=== PATIENT | male | born 1945 | race Caucasian/White ===

== ENCOUNTER 2022-03-02 09:43 | Emergency (ER) | payer MEDICARE, SELFPAY ==
[2022-03-02 10:05] VITALS: BP 157/94; PULSE 62; RESP 16; TEMP 36.2; O2SAT 96
--- NOTE | 2022-03-02 10:36 | ED.GENADULT ---
HPI - General Adult General Chief complaint: Unspecified Stated complaint: High BP 208/110 Time Seen by Provider: 03/02/22 09:58 Source: patient and RN notes reviewed Mode of arrival: ambulatory Limitations: no limitations History of Present Illness Onset (ago): hour(s) Radiation: non-radiation Severity: mild Quality: other (pain-free) Relieving factors: none Exacerbating factors: none Associated symptoms: denies other symptoms Related Data Home Medications Medication Instructions Recorded Confirmed Adults Multivitamin 1 tablet PO DAILY 09/27/19 03/02/22 allopurinol 300 mg PO DAILY 09/27/19 03/02/22 citalopram 40 mg PO DAILY 09/27/19 03/02/22 gabapentin 600 mg PO DAILY 09/27/19 03/02/22 losartan 100 mg PO DAILY 03/02/22 03/02/22 metoprolol tartrate 100 mg PO BID 03/02/22 03/02/22 omeprazole 20 mg PO DAILY 03/02/22 03/02/22 Allergies Allergy/AdvReac Type Severity Reaction Status Date / Time Sulfa (Sulfonamide Allergy Unknown Verified 03/02/22 10:28 Antibiotics) Review of Systems Review of Systems: All systems reviewed & are unremarkable except as noted in HPI and below PMFSH Past Medical History Medical History Depression Hypertension Kidney stone Surgical History Surgical History History of right ankle joint replacement Previous back surgery Family History Family History Mother Acute myocardial infarction Congestive heart failure Hypertension Social History Social History Years smoked: 20 Smoking status: Former smoker Tobacco type: cigarettes Smoking end date: 03/21/02 Alcohol intake: current Drinks per week: 6 Substance use: never Gender identity (if verbalized by the patient): Male Spiritual care concerns: No Agree to blood products: Yes Exam Const: General: cooperative, healthy appearing, comfortable and well groomed Nutritional Appearance: average body habitus Orientation/consciousness: patient oriented x3 Limitations: no limitations HENMT: Head: normal to inspection, normocephalic and atraumatic Ears: hearing grossly normal bilaterally, external ears normal, TM's normal bilaterally and EAC's normal General nose exam: Normal external nose present and Normal nares present Face and sinus: normal facial exam and sinuses nontender Mouth: Yes oropharynx normal and Yes moist mucous membranes Eyes: General: appearance normal, both eyes and all related structures Visual Johns: normal visual johns by confrontation Eyelids: eyelids normal Conjunctivae: conjunctivae normal Sclera: sclerae normal Cornea: corneas normal Pupils: Equal, round and reactive pupils present EOM: EOMs intact bilaterally Neck: Neck: normal visual inspection and full ROM Chest: Chest palpation & inspection: normal inspection of the chest and normal palpation of entire chest wall Resp: Effort & Inspection: normal respiratory effort and able to speak in complete sentences Auscultation: clear to auscultation bilaterally Cardio: Jugular venous distension: no JVD Rate: regular rate Rhythm: regular rhythm Heart sounds: S1 normal heart sound present and S2 normal heart sound present Peripheral pulses: Peripheral pulses 2+ throughout GI: Inspection: normal to inspection GI Palp: No abdominal tenderness Auscultation: normal bowel sounds Back/Spine/Pelvis: Back: no CVA tenderness Cervical Spine: cervical ROM normal Thoracic/Lumbar Spine: thoraco-lumbar ROM normal Skin: General skin exam: normal color and no rashes or lesions noted Wounds: no wounds Neuro: General: patient oriented x3, moves all extremities, no focal motor deficits and CN's II-XI intact bilaterally Cranial nerves: Yes CN's II-XII intact bilaterally, Yes Facial sensation intact/muscles of mastication int
[2022-03-02 10:40] VITALS: BP 158/90; PULSE 60; RESP 16; O2SAT 98
== END 2022-03-02 10:42 | disposition home or self-care (01) ==
PROVIDERS: Emergency Provider Emergency Medicine
DX: I10 Essential (primary) hypertension (principal); Z87.891 Personal history of nicotine dependence
CPT/HCPCS: 99281; 99283

== ENCOUNTER 2022-09-11 08:58 | Outpatient (RCR) | payer MEDICARE, SELFPAY ==
--- NOTE | 2022-09-11 10:06 | PTOPEVAL1 ---
Assessment and note entered by JT File, PT Evaluation Information Assessment Status Evaluation Diagnosis L knee OA Onset 02/28/22 Subjective Information patient reports he has been having increased pain in the L knee for months. he reports he has had xrays of the L knee that show OA. he reports he has been going to [place] for injections to the L knee for 3-4 years. he reports the last injection he also had 64ml of fluid taken off the L knee. he reports he has increased pain with walking up steps, pushing his hips into ER during yoga ( figure 4), bending the knee, and prolonged activities. Reported Pain Level Pain Score 3: Self Report Assessment PT Clinical Summary mr. mancuso presents to skilled PT services for evaluation and treatment of L knee OA. he presents this date with pain in the L knee, weakness in the bilateral hips, decreased L knee rom, crepitus in the L knee, abnormal gait/stair ambulation mechanics, and a moderate fall risk per the tinetti. he would do well to attend and participate in skilled PT services to decrease his pain, improve his balance, strength, gait mechanics, and functional activity performance to improve his quality of life. Plan of Care Interventions Electrical Stimulation,Gait Training,Manual Therapy,Neuro Re-education,Patient/Caregiver Educati,Therapeutic Activities,Therapeutic Exercise PT Services Indicated Yes Treatment Frequency and 2x weekly for 8 visits Duration These treatments will address the objective and functional deficits as defined above. The patient will be advanced safely and appropriately in order for the patient to progress towards his/her prior level of function. Additional exercises will be introduced and as well as a comprehensive home exercise program upon discharge, if needed, ?to ensure carryover of functional gains achieved in the clinic. This treatment plan has been reviewed and agreement upon by the patient.
--- NOTE | 2022-10-26 12:01 | PTOPPROG ---
Assessment and note entered by Karly Ocasio DPT Evaluation Information Assessment Status Progress Diagnosis L knee OA Onset 02/28/22 Subjective Information Pt reports some soreness in his L knee but reports no pain. Pt reports continued difficulty with walking up steps and feels this is due to a combination of his knee, balance, and his ankle. Pt reports he has a follow-up with his MD sometime in November. He has still been doing yoga 3x a week, going to the gym, and walking frequently. Assessment PT Clinical Summary Pt presents to PT with significant improvements in pain, range of motion, and strength since his initial evaluation. He is still limited in flexion ROM in part due to increased joint inflammation and is still limited in knee flexion and hip flexion/abduction strength. He has attended 8 sessions and reports improvements in quality of life since starting PT. He is likely to benefit from additional skilled PT now at 1x week to continue to facilitate symptom relief and further improve the aforementioned impairments. Plan of Care PT Services Indicated Yes Treatment Frequency and 1x week for 4 visits Duration These treatments will address the objective and functional deficits as defined above. The patient will be advanced safely and appropriately in order for the patient to progress towards his/her prior level of function. Additional exercises will be introduced and as well as a comprehensive home exercise program upon discharge, if needed, ?to ensure carryover of functional gains achieved in the clinic. This treatment plan has been reviewed and agreement upon by the patient.
--- NOTE | 2022-12-25 09:07 | PCPTNOTE ---
mr. mancuso has not been to therapy since 11/06/22. per that note, he had no pain, but had been fluctuating in pain in the L knee with increased activity from visits before. he will DC skilled PT services today with all progress towards goals taken from his most recent evaluation/note.
== END 2022-11-06 23:59 | disposition home or self-care (01) ==
LOC: CHSPT 08:58
PROVIDERS: Visit Provider Physical Medicine & Rehabilitation
DX: M17.12 Unilateral primary osteoarthritis, left knee (principal)
CPT/HCPCS: 97110; 97112; 97161; 97530

== ENCOUNTER 2023-01-14 13:39 | Outpatient (RCR) | payer MEDICARE, SELFPAY ==
--- NOTE | 2023-01-14 13:39 | PTOPEVAL1 ---
Assessment and note entered by Edgar Dwod Evaluation Information Assessment Status Evaluation Diagnosis low back pain Onset 10/16/22 Subjective Information Pt. reports that he developed right sided low back pain about 3 months ago. He reports that the pain does shoot down the right leg. He reports that pain is most notable with sitting and driving . He reports that he has no trouble with sleeping . He reports that he underwent a lumbar fusion in 2009 and has had no problems until the recent months. He reports that he underwent recent xrays which didnt reveal many signficant findings. 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 he states that he cannot drive any significant distance or read a book without increasing pain. He reports that his goal is to reduce his low back pain. Reported Pain Level Pain Score 6: Self Report Assessment PT Clinical Summary Pt. is a 77 year old who enters the clinic with low back pain with right l.e. radiculopathy. he presents with impaired flexiblity, impaired trunk mobility, impaired strength, pain and imparied postural awareness. Continued skilled PT is indicated in order to improve these areas to allow for improved comfort with IADL performance. Plan of Care Interventions Electrical Stimulation,Hot Pack/Cold Pack,Manual Therapy,Neuro Re-education,Patient/Caregiver Educati,Therapeutic Activities,Therapeutic Exercise PT Services Indicated Yes Treatment Frequency and 2x/week x 10 visits Duration These treatments will address the objective and functional deficits as defined above. The patient will be advanced safely and appropriately in order for the patient to progress towards his/her prior level of function. Additional exercises will be introduced and as well as a comprehensive home exercise program upon discharge, if needed, ?to ensure carryover of functional gains achieved in the clinic. This treatment plan has been reviewed and agreement upon by the patient.
--- NOTE | 2023-03-07 09:52 | PTOPDC ---
Assessment and note entered by JT File, PT Evaluation Information Assessment Status Re-evaluation Diagnosis low back pain Onset 10/16/22 Subjective Information patient reports he feels pretty good today. he reports he had an injection to the back earlier this week and he has no pain currently. he reports he is anxious about DC'ing prior to knowing how long the injection will last for him. Reported Pain Level Pain Score 0: Self Report Assessment PT Clinical Summary mr. mancuso presents to skilled PT services for his 10th skilled therapy visit. he has recently had an inection to the lower back and is feeling great. as of this date, he has met all goals for skilled PT, except for heel raises on the right. however, he had an ankle replacement of the R ankle and has not been able to perform heel raises since the surgery. despite meeting these goals, and seemign ready for DC, his chart will be on hold for a few weeks to allow for more time to assess for effect and tolerance of the injection. Plan of Care PT Services Indicated Yes
== END 2023-03-07 11:30 | disposition home or self-care (01) ==
LOC: CHSPT 13:39
DX: M48.061 Spinal stenosis, lumbar region without neurogenic claudication (principal)
CPT/HCPCS: 97014; 97110; 97161; 97530; G0283

== ENCOUNTER 2023-05-23 14:17 | Emergency (ER) | payer MEDICARE, SELFPAY ==
--- NOTE | ~2023-05-23 | US_ITS ---
EXAMINATION: US venous doppler [facility] DATE: 05/23/2023 15:20 INDICATION: Right lower limb swelling. TECHNIQUE: Grayscale ultrasound images without and with compression and Doppler ultrasound images of the left lower extremity veins were obtained. COMPARISON: None. FINDINGS: The visualized portions of left common femoral vein, profunda (deep) femoral vein, femoral vein, popl iteal vein, peroneal veins, posterior tibial veins, and greater saphenous vein outflow are patent. IMPRESSION: 1. No deep venous thrombosis. Reviewed, dictated and finalized at location L.
[2023-05-23 14:17] VITALS: BP 153/80; PULSE 66; RESP 18; TEMP 37.7; O2SAT 100
[2023-05-23 14:28] VITALS: TEMP 37.7
--- NOTE | 2023-05-23 14:32 | ED.LOWEXIN ---
HPI - Extremity Injury (Lower) General Chief Complaint: Extremity Injury, Lower Stated Complaint: left leg swelling/bruising Time Seen by Provider: 05/23/23 14:30 Source: patient Mode of arrival: ambulatory Limitations: no limitations History of Present Illness HPI Narrative: patient is a 78-year-old male with left lower extremity swelling and pain and redness since surgery a week ago. Patient had a total knee replacement on the left knee. Patient came to the emergency room with concerns of DVT. Patient already is on is Xarelto for AFib. MD complaint: other ( Total knee replacement on the left) Onset (ago): week(s) (1) Place: home Severity: mild Severity scale (1-10): 3 Relieving factors: nothing Exacerbating factors: nothing Context: other ( surgery to the left knee) Other symptoms: none Related Data Home Medications Medication Instructions Recorded Confirmed Adults Multivitamin 1 tablet PO DAILY 09/27/19 03/02/22 allopurinol 300 mg tablet 300 mg PO DAILY 09/27/19 03/02/22 citalopram 20 mg tablet 40 mg PO DAILY 09/27/19 03/02/22 gabapentin 300 mg capsule 600 mg PO DAILY 09/27/19 03/02/22 losartan 50 mg tablet 100 mg PO DAILY 03/02/22 03/02/22 metoprolol tartrate 25 mg tablet 100 mg PO BID 03/02/22 03/02/22 omeprazole 20 mg capsule,delayed 20 mg PO DAILY 03/02/22 03/02/22 release Allergies Allergy/AdvReac Type Severity Reaction Status Date / Time Sulfa (Sulfonamide Allergy Unknown Verified 05/23/23 14:27 Antibiotics) Review of Systems Review of Systems: All systems reviewed & are unremarkable except as noted in HPI and below Constitutional: Constitutional: Reports no additional constitutional complaints Eyes: Eyes: Reports no additional eye complaints ENT: Reports system reviewed and no additional complaints, except as documented Cardiovascular: Cardiovascular: Reports no additional cardiovascular complaints Respiratory: Respiratory: Reports no additional respiratory complaints Gastrointestinal: Gastrointestinal: Reports no additional gastrointestinal complaints Genitourinary: Genitourinary: Reports no additional male genitourinary complaints Musculoskeletal: Musculoskeletal: Reports no additional musculoskeletal complaints Integumentary/Breasts: Skin/Breast: Reports system reviewed and no additional complaints, except as docu Neurologic: Reports system reviewed and no additional complaints, except as documented Psychiatric: Psychiatric: Reports no additional psychiatric complaints Endocrine: Endocrine: Reports no additional endocrine complaints Hematologic/Lymphatic: Hematologic/Lymphatic: Reports no additional hematologic/lymphatic complaints Allergic/Immunologic: Allergic/Immunologic: Reports no additional allergic/immunologic complaints [facility] Past Medical History Medical History (Updated 05/23/23 @ 15:08 by Abelardo Boyd MD) Depression Hypertension Kidney stone Surgical History Surgical History History of right ankle joint replacement Previous back surgery Family History Family History Mother Acute myocardial infarction Congestive heart failure Hypertension Social History Social History Years smoked: 20 Smoking status: Former smoker Tobacco type: cigarettes Smoking end date: 03/21/02 Alcohol intake: current Drinks per week: 6 Substance use: never Gender identity (if verbalized by the patient): Male Spiritual care concerns: No Agree to blood products: Yes Exam Const: General: healthy appearing and no acute distress HENMT: Head: normal to inspection Eyes: Conjunctivae: conjunctivae normal Neck: Neck: normal visual inspection Chest: Chest palpation & inspection: normal inspection of the chest Resp: Effort & Inspection: normal respiratory effort Auscultation: chidi
[2023-05-23] MEDS: cefTRIAXone 1 GM, LIDOCAINE HCL 1% LOCAL INJ 2.1 ML IM (15:24)
[2023-05-23 15:39] VITALS: BP 136/62; PULSE 80; RESP 16; TEMP 37.2; O2SAT 99
== END 2023-05-23 15:44 | disposition home or self-care (01) ==
PROVIDERS: Emergency Provider Emergency Medicine
DX: L03.116 Cellulitis of left lower limb (principal); I10 Essential (primary) hypertension; Z87.891 Personal history of nicotine dependence; Z96.652 Presence of left artificial knee joint
CPT/HCPCS: 93971; 96372; 99284; J0696

== ENCOUNTER 2024-11-27 09:04 | Outpatient (CLI) | payer MEDICARE, SELFPAY ==
--- NOTE | 2024-11-27 09:19 | ECG_ITS ---
Test Date: 2024-11-27 09:38:02 Measurements Intervals [place] Rate: 64 P: 25 CA: 220 QRS: 13 QRSD: 94 T: 151 QT: 416 QTc: 429 Interpretive Statements SINUS RHYTHM WITH FIRST DEGREE AV BLOCK ST DEVIATION AND MODERATE T-WAVE ABNORMALITY, CONSIDER ANTEROLAT/HIGH LAT ISCHEMIA BASELINE ARTIFACT- I, II, III, AVR, AVL, AVF, V1, V3-V6 ABNORMAL ECG No previous ECG available for comparison Electronically Signed On 11-27-2024 09:43:00 [employer] by Monty Gaston D.O.
--- OUTSIDE RECORDS SUMMARY | 2024-11-27 09:32 | XMS_ITS | CONTINUITY OF CARE DOCUMENT ---
Author Name stone ritter Address Unknown Organization [facility] Address [address] [place] [address] Phone [phone] Care Team Providers Care Feed Inspection Supervisor Name Role Phone Reji RAMIREZ, Josafat Unavailable [phone] Josafat Mendoza MD Unavailable [phone] INSURANCE PROVIDERS Payer name Policy type / Coverage type [employer] [place] Administ[employer] ation plan [id number]
--- OUTSIDE RECORDS SUMMARY | 2024-11-27 09:32 | XMS_ITS | Encounter Summary ---
Author Name [facility] Address [address] [place] [address] Care Team Providers Care Button Buttonhole Marker Name Role Phone RAQUEL TUCKER Primary Care Provider Unavailabl e Insurance Providers: All historical and current Section Date Range: From patient's date of to the date document was created. This section includes the names of all active insurance providers for the patient. Insurance Provider Type of Coverage Plan Name Start of Policy Coverage End of Policy Coverage Group Number Member ID Insurance Provider's Telephone Number Policy Rodriguez's Name Patient's Relationship to Policy Rodriguez [place] SUPPLEMEN BISHOP MEDIC ARE SUPPL EMENT Nov 21, 2010 [id number] [phone] HARVINDER DOUGHERTY PATIENT MEDICARE (WNR) MEDICARE (M) PART A Nov 21, 2010 PART A [id number] Chandu ANGELES PATIENT MEDICARE (WNR) MEDICARE (M) PART B Nov 21, 2010 PART B [id number] Chandu ANGELES LLOYDRAMOS PATIENT MEDICARE (WNR) MEDICARE (M) PART B Nov 21, 2010 PART B [id number] Chandu ANGELES LLOYDRAMOS PATIENT MEDICARE (WNR) MEDICARE (M) PART A Nov 21, 2010 PART A [id number] Chandu ANGELES PATIENT Selected Encounter This section includes the information on record at NH for the Encounter. Date/Time Encounter Type Encounter Description Reason Provider Source Nov 23, 2024 10:00 AM OFFICE O/P EST MOD 30 MIN ONCOLOGY/TUMOR ICD-10-CM E85.89 Other amyloidosis ISAACBRENDAN Kai IHCayla Encounter Template Text not used by NH Assessments - Encounter Diagnoses This section includes the primary and secondary diagnoses documented for the Encounter. Date/Time Primary/Secondary Diagnosis Diagnosis Name Provider Source Nov 23, 2024 08:45 PM PRIMARY Other amyloidosis BRENDAN GRAY [facility] Nov 23, 2024 08:45 PM SECONDARY Monoclonal gammopathy BRENDAN GRAY [facility] Plan of Treatment: Future Appointments (+ 6 months) and Future Tests (+/- 45 days) The Plan of Treatment section includes future care activities for the patient from [facility] This section includes future appointments and future orders which are active, pending or scheduled. Future Appointments This section includes appointments that were scheduled to occur 6 months from the date of the Encounter, up to a maximum of 20 appointments. The data comes from all NH treatment facilities. Appointment Date/Time Appointment Type Appointme nt Facility Name Dec 29, 2024 09:30 AM AMBULATORY - MEDICINE [facility] Apr 22, 2025 03:00 PM AMBULATORY - NEUROLOGY [facility] Active, Pending, and Scheduled Orders This section includes a listing of several types of active, pending, and scheduled orders, including clinic medications orders, diagnostic test orders, procedure orders and consult orders; where the start date of the order is 45 days before the date of the Encounter or 45 days after the date of theEncounter. The data comes from all [facility] treatment [facility]. Test Date/Time Test Type Test Details Facility Name Oct 09, 2024 12:00 AM Laboratory - Chemistry Order FERRITIN GOLD/RED SST [facility] Nov 23, 2024 10:10 AM Laboratory - Chemistry Order PROTEIN ELECTROPHORESIS BLOOD BLOOD [facility] Lab Results: +/- 30 days of the encounter This section includes the Chemistry and Hematology Lab Results on record with NH for the patient. Radiology Reports and Pathology Reports are provided separately, in subsequent sections. Lab Results This section contains the Chemistry/Hematology Results that were resulted 30 days before or 30 daysafter the date of the Encounter. Date/Time Source Result Type Result - Unit Interpretation Reference Range Comment Nov 23, 2024 10:10 AM [facility] KAPPA/LAMBDA FREE LC PANEL (STL-PB) Specimen Type: SERUM No comment entered. Ordering Provider: PREETI GRAY Report Released Date/Time: Nov 26, 2023 09:22 AM Reporting Lab: [address] [address] Performing Lab: [address] [address] KAPPA FREE LC (STL) 26.0 mg/L H 2.4-20.7 LAMBDA FREE LC (STL) 23.3 mg/L 4.2-27.7 KAPPA/LAMBDA RATIO (STL) 1.12 0.22-1.74 Nov 23, 2024 10:10 AM [facility] COMPREHENSIVE METABOLIC PANEL Specimen Type: PLASMA Comment: No hemolysis noted. Ordering Provider: PREETI GRAY Report Released Date/Time: Nov 26, 2023 09:22 AM Reporting Lab: [address] [address] Performing Lab: [address] [address] CREATININE 1.01 mg/dL 0.7-1.3 UREA NITROGEN 18.0 mg/dL 9.0-25.0 GLUCOSE 84 mg/dL 72-99 SODIUM 141 meq/L 136-145 POTASSIUM 4.4 meq/L 3.5-5 CHLORIDE 106 meq/L 98-107 CARBON DIOXIDE 24 meq/L 22-31 CALCIUM 9.4 mg/dL 8.4-10.4 PROTEIN 7.1 g/dL 6-8.6 ALBUMIN 4.0 g/dL 3.4-5 TOTAL BILIRUBIN 0.7 mg/dL 0.2-1.2 ALKALINE PHOSPHATASE 77 U/L 40-150 AST/SGOT 24 U/L 5-34 ALT/SGPT 23 U/L 8-40 EGFR (CKD-EPI 2020) 76.6 >60 Nov 23, 2024 10:10 AM [facility] CBC Specimen Type: BLOOD No comment entered. Ordering Provider: PREETI GRAY Report Released Date/Time: Nov 26, 2023 09:22 AM Reporting Lab: [address] [address] Performing Lab: [place] [id number] [facility] [address] WBC 7.2 10*3/uL 3.6-11.2 RBC 4.16 10*6/uL 4.10-5.70 HGB 13.8 g/dL 13.1-16.8 HCT 40.3 38.2-48.4 MCV 96.9 fL 80.0-100.0 MCH 33.2 pg 27.0-34.0 MCHC 34.2 g/dL 33.0-36.0 PLT 247 10*3/uL 150-400 MPV 9.0 fL 7.5-11.2 RDW 14.2 11.8-15.1 LYMPHOCYTES, AUTO % 25 MONOCYTES, AUTO % 11 NEUTROPHILS, AUTO % 60 EOSINOPHILS, AUTO % 3 BASOPHILS, AUTO % 0 LYMPHOCYTES, ABSOLUTE 1.78 10*3/uL 0.77-4.50 MONOCYTES, ABSOLUTE 0.82 10*3/uL H 0.19-0.80 NEUTROPHILS, ABSOLUTE 4.36 10*3/uL 2.10-8.00 EOSINOPHILS, ABSOLUTE 0.20 10*3/uL 0.00-0.60 BASOPHILS, ABSOLUTE 0.03 10*3/uL 0.00-0.20 Vital Signs: All taken on the encounter date This section contains inpatient and outpatient Vital Signs collected on the date of the Encounter. Date/Time Temperature Pulse Blood Pressure Respiratory Rate SP02 Pain Height Weight Body Mass Index Source Nov 23, 2024 10:16 AM 97.5 69 129/73 18 98 239.8 35 [facility] Encounter Notes: All associated encounter notes This section contains the clinical notes associated to the Encounter. Date/Time Encounter Note(s) Provider Source Nov 23, 2024 11:52 AM HEMATOLOGY AND ONCOLOGY OUTPATIENT NOTE: LOCAL TITLE: HEMATOLOGY ONCOLOGY OUTPATIENT FOLLOW UP [facility] STANDARD TITLE: HEMATOLOGY AND ONCOLOGY OUTPATIENT NOTE DATE OF NOTE: NOV 23, 2024@11:52 ENTRY DATE: NOV 23, 2024@11:52:51 AUTHOR: ALANNA GOLDSMITH COSIGNER: BRENDAN GRAY URGENCY: STATUS: COMPLETED CC: MGUS HPI: Mr. 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 He was established with our service from [id number] for MGUS and neuropathy affecting his upper extremities. After being lost to follow up, his neuropaty symptoms continued to proegress with worsening tingling and numbness in the R foot in 2018 for which he had an ankle replacement in 2019. Since then he developed some gait imbalance, and noticed weakness and atrophy of the right leg/calf over that time period that has been progressing over time. Given progression of his symptoms he established care with neurology on 2022 after having a had a CT myelogram in January 2023 that showed postsurgical change without evidence of hardware failure or loosening, and EMG/NCS showing evidence of a right L5/S1 radiculopathy and sensory motor axonal polyneuropathy. During this time frame, he was undergoing evaluation for bilateral CTS. He underwent right carpal tunnel release, right Guyon's canal release, tenosynovial biopsy for question of amyloidosis with Dr. Austin on 09/04/23. Tenosynovial biopsy showed evidence of TTR amyloidosis. This evaluation was also at [facility]. He was seen on 06/2023 by alessandra at [facility] for MGUS, for IgA kappa monoclonal gammopathy and felt picture was most consistent with MGUS. Skeletal survey negative. His cardiac MRI on 11/2023 at [facility] was not consistent with TTR amyloid diagnosis. He was seen by Alcon and Alessandra at [facility] on Spring 2023, which have low concern for cardiac amyloidosis or progression of his MGUS that would need systemic therapy. He has been following with Neuro and Cards at the [facility], and was was started on vutisiran on Jun 2024. Interim Hx: He reports improvement of his peripheral neuropathy after starting vutisiran. He is following with [facility] [place] [facility], and is pending a cytoscopy in a few weeks to evalaute a bladder lesion seen previously. He is planning to [facility] after this [facility]. He is following with GI at [facility] for IBS and [place]'s Esophagus with repeat EGD on 2025. ROS otherwise negative. Past Medical/Surgical History: 1) Hypertension (SNOMED CT 01728294) 2) Osteoarthritis (SNOMED CT 300074869) 3) Hypercholesterolemia (SNOMED CT 78244260) 4) Liver function tests abnormal 5) Obesity 6) Disturbance in mood 7) Hearing Loss (SCT 58536586) 8) Benign Prostatic Hypertrophy Without Outflow Obstruction (SCT 266742702) 9) Kidney Stone (SCT 00430089) 10) Low Back Pain (SCT 682631214) 11) PTSD - Post-Traumatic Stress Disorder (SCT 45485511) 12) AF - Atrial fibrillation 13) Therapeutic drug effect 14) Anticoagulant effect 15) Mild neurocognitive disorder 16) Exposure to potentially hazardous substance 17) Amyloid polyneuropathy type I Active Outpatient Medications (including Supplies): Active Outpatient Medications Status 1) ALLOPURINOL 300MG TAB TAKE ONE TABLET BY MOUTH ONCE A DAY ACTIVE FOR GOUT. TAKE WITH PLENTY OF WATER. 2) CITALOPRAM HYDROBROMIDE 40MG TAB TAKE ONE TABLET BY MOUTH ACTIVE EVERY MORNING FOR DEPRESSION 3) GABAPENTIN 300MG CAP TAKE ONE CAPSULE BY MOUTH EVERY EVENING ACTIVE Indication: FOR NERVE PAIN 4) GABAPENTIN 600MG TAB TAKE ONE TABLET BY MOUTH AT BEDTIME FOR ACTIVE PAIN 5) LOSARTAN 50MG TAB TAKE ONE TABLET BY MOUTH TWICE A DAY ACTIVE Indication: FOR HIGH BLOOD PRESSURE 6) MULTIVITAMIN CAP/TAB TAKE 1 TABLET BY MOUTH ONCE A DAY ACTIVE Indication: FOR NUTRITION/DIETARY SUPPLEMENTATION 7) OMEPRAZOLE 20MG EC CAP TAKE ONE CAPSULE BY MOUTH AT BEDTIME ACTIVE TO LOWER STOMACH ACID. TAKE 30 MINUTES PRIOR TO FOOD. 8) RIVAROXABAN 20MG TAB TAKE ONE TABLET BY MOUTH ONCE A DAY TO ACTIVE THIN BLOOD. TAKE WITH FOOD. 9) VITAMIN A 37314 UNT CAP TAKE ONE CAPSULE BY MOUTH ONCE A DAY ACTIVE Indication: FOR VITAMIN A SUPPLEMENTATION Active Non-VA Medications Status 1) Non-VA CITALOPRAM HYDROBROMIDE 40MG TAB 20MG BY MOUTH EVERY ACTIVE MORNING 2) Non-VA GABAPENTIN 300MG CAP 600MG BY MOUTH THREE TIMES A DAY ACTIVE 11 Total Medications Allergies: SULFA DRUGS ROS: A complete 10 point ROS was performed as per interval history. All other systems were reviewed and negative other than those as mentioned. Vital Signs: Temperature: 97.5 F [36.4 C] (11/23/2024 10:16) Blood Pressure: 129/73 (11/23/2024 10:16) Pulse: 69 (11/23/2024 10:16) Respirations: 18 (11/23/2024 10:16) Weight: 239.8 lb [108.77 kg] (11/23/2024 10:16) BMI: 35.5 PHYSICAL EXAM: GENERAL APPEARANCE: No apparent distress HEENT: PEERL, EOMI, OP clear NECK: No JVD, no LAD CHEST: Clear to auscultation bilaterally CARDIOVASCULAR: NR/RR, no M/R/G ABDOMEN: Soft, NT, ND, Bowel sounds present EXTREMITIES AND MUSCULOSKELETAL: No edema or cyanosis NEURO: A&Ox3, moving all extremities SKIN/ULCERS: No lesions apparent Recent Labs: SODIUM 141 mEq/L 11/23/2024 10:10 POTASSIUM 4.4 mEq/L 11/23/2024 10:10 CHLORIDE 106 mEq/L 11/23/2024 10:10 UREA NITROGEN 18.0 mg/dL 11/23/2024 10:10 CREATININE 1.01 mg/dL 11/23/2024 10:10 CALCIUM 9.4 mg/dL 11/23/2024 10:10 PROTEIN 7.1 g/dL 11/23/2024 10:10 ALBUMIN 4.0 g/dL 11/23/2024 10:10 ALKALINE PHOSPHATASE 77 U/L 11/23/2024 10:10 ALT/SGPT 23 U/L 11/23/2024 10:10 AST/SGOT 24 U/L 11/23/2024 10:10 TOTAL BILIRUBIN 0.7 mg/dL 11/23/2024 10:10 CARBON DIOXIDE 24 mEq/L 11/23/2024 10:10 GLUCOSE 84 mg/dL 11/23/2024 10:10 EGFR (CKD-EPI 2020) 76.6 11/23/2024 10:10 ____ No PHOSPHOROUS data found WBC: 7.2 10*3/uL (11/23/24 10:10) NEUT#:0 HGB 13.8 g/dL 11/23/2024 10:10 HCT: 40.3 % (11/23/24 10:10) MCV: 96.9 fL (11/23/24 10:10) PLT 247 10*3/uL 11/23/2024 10:10 Assessment/Plan: Mr. Angeles is a 79M PMHx IgA MGUS, HTN, PTSD, MDD, LBP s/p L4 to S1 fusion 2009, BPH, Afib on Xarelto, NICK on CPAP, SCC skin s/p local resections, sensory motol axonal polyneuropathy, and ATTR related neuropathy noted on tensinovial Bx on Aug 2023 presented for MGUS follow up. #IgA MGUS - Initially established with use from 2017-. Lost to follow up, establish care with Heme at [facility] on 06/2023. Low suspicion for progression to MM given his stable laboratory findings, low paraprotein peak, estable counts and electrolytes. Negative skeletal survey. He was on 6 mo surveillance at [facility] and was transitioned to yearly visits after his appointment on 12/2023. - [facility], and will be following with us for MGUS. Plan: - Will follow pending MGUS labs. - ROV in 12 mo, earlier if concerning changes on labs or changes in clincal status. #Bilateral Carpal Tunnel #ATTR amyloidosis #Sensory Motor Axonal Polyneuropathy - Fount to have ATRR amyloidosis from right tenosynovium bx obtained while undergoing surgery for R wrist carpal tunnel on 09/04/23. No abnormal aminoacids detedted on Plow Mechanic. Cardiac MRI on 11/2023 not consistent with ATTR. PYP 05/04/24 equivocal. Started vutisiran on Jun 2024. - [facility] with [facility]. /rashawn/ Nick Goldsmith MD Hematology-Oncology Fellow Signed: 11/23/2024 12:13 /rashawn/ Brendan Gray MD, MPH Hematology/Oncology Cosigned: 11/23/2024 20:45 DOUGLAS GOLDSMITH [facility]
--- OUTSIDE RECORDS SUMMARY | 2024-11-27 09:32 | XMS_ITS | Encounter Summary ---
Author Organization [facility] Address [address] [place] [address] Care Team Providers Care Liquid Compounder Name Role Phone Conor Dodson MD Primary Care Provider [phone] Rodriguez Garcia MD Unavailable Encounter Details Date Type Department Care Team (Late st Contact Info) Description 07/01/2019 Lab Requisition [facility] DermPath Lab [address] [place] [address] Conor Rene MD [address] [place] [address] Social History Tobacco Use Types Packs/Day Years Used Date Smoking Tobacco: Former Cigarettes Alcohol Use Standard Drinks/Week Comments Yes 0.8 (1 standard drink = 0.6 oz p ure alcohol) Sex and Gender Information Value Date Recorded Sex Assigned at Female 01/23/2023 7:50 AM CDT Gender Identity Male 01/23/2023 7:53 AM CDT Sexual Orientation Straight 01/23/2023 7: 50 AM CDT documented as of this encounter Plan of Treatment Not on file documented as of this encounter Procedures Procedure Name Priority Date/Time Associated Diagnosis Comments DERMATOPATHOLOGY Routine 06/30/2019 12:0 0 AM CDT documented in this encounter Results * DERMATOPATHOLOGY (06/30/2019 12:00 AM CDT) Case Report Dermatopathology Report Case: [id number] Authorizing Provider: Conor Rene MD Collected: 06/30/2019 12:00 AM Ordering Location: [facility] Lab Received: 07/01/2019 01:20 PM Pathologist: Soni Jaramillo MD Specimen: Skin, right side flank 12:25 PM CDT DERMATOPATHOLOGY LABORATORY Final Diagnosis Specimen A. SKIN, right side flank: COMPOUND MELANOCYTIC NEVUS, IRRITATED (D22.5) 12:25 PM CDT DERMATOPATHOLOGY LABORATORY Clinical History R/O ISK, nevus. 12:25 PM CDT DERMATOPATHOLOGY LABORATORY Gross Description Specimen A: Received is one formalin filled container labeled with the patient's name and designated right side flank. The specimen consists of a shave biopsy measuring [id number]. Jar 0. 12:25 PM CDT DERMATOPATHOLOGY LABORATORY Microscopic Description Specimen A. SKIN, right side flank: There is melanin pigment in the stratum corneum. There are nests of melanocytes at the dermal-epidermal junction and within the dermis. 12:25 PM CDT DERMATOPATHOLOGY LABORATORY Disclaimer An external and internal positive and negative controls are appropriate for the histochemical, immunohistochemical and immunofluorescence stain(s) in this case (if any), except where stated explicitly. The performance characteristics of the stain(s) cited in this report were developed and its performance characteristic determined by the Dermatopathology Laboratory at [facility], directed by Dr. Jennifer Colunga. These tests need not be, and therefore are not, approved by the [place] Food and Drug Administration. The tests are used for clinical purposes. Billing Codes Specimen Charges Stain Charges 39293 1 12:25 PM CDT DERMATOPATHOLOGY LABORATORY Embedded Images 12:25 PM CDT DERMATOPATHOLOGY LABORATORY Pathology/Cytolog y TISSUE SPECIMEN FROM SKIN / Unknown 06/30/2019 07/01/2019 1:20 PM CDT Conor Rene MD LAB - PATHOLOGY/CYTO LOGY ORDERABLES DERMATOPATHOLOGY LABORATORY [facility] - Department of Dermatology [address] [place], [place] [address] [phone] documented in this encounter Visit Diagnoses Not on filedocumented in this encounter Care Teams Liquid Compounder Relationship Specialty Start Date End Date Conor Dodson MD [facility] [place] [address] PCP - General Internal Medicine 04/16/23 Rodriguez Garcia MD [facility] [facility] [address] [place], [place] [address] Cardiovascular Disease 04/16/23 documented as of this encounter
--- OUTSIDE RECORDS SUMMARY | 2024-11-27 09:32 | XMS_ITS | Encounter Summary ---
Author Organization [facility] Address [address] [place] [address] Care Team Providers Care Career Orientation Teacher Name Role Phone Conor Dodson MD Primary Care Provider [phone] Rodriguez Garcia MD Unavailable [phone] Encounter Details Date Type Department Care Team (Late st Contact Info) Description 09/21/2021 Lab Requisition [facility] DermPath Lab [address] [place] [address] Con[place] [address] Social History Tobacco Use Types Packs/Day Years Used Date Smoking Tobacco: Former Cigarettes Smokeless Tobacco: Never Alcohol Use Standard Drinks/Week Comments Yes 0.8 [...] Priority Date/Time Associated Diagnosis Comments DERMATOPATHOLOGY Routine 09/19/2021 12:0 0 AM DRY HOUSE TENDER documented in this encounter Results * DERMATOPATHOLOGY (09/19/2021 12:00 AM DRY HOUSE TENDER) Case Report Dermatopathology Report Case: [id number] Authorizing Provider: Conor Rene MD Collected: 09/19/2021 12:00 AM Ordering Location: [facility] DermPath Lab Received: 09/21/2021 08:33 AM Pathologist: Iveth Mathews MD Specimen: Skin, right dorsal wrist by styloid 2:08 PM [facility] DERMATOPATHOLOGY LABORATORY Final Diagnosis Specimen A. SKIN, right dorsal wrist by styloid: SQUAMOUS CELL CARCINOMA IN SITU, VERRUCOUS-HYPERTROP HIC TYPE (D04.61) 2:08 PM [facility] DERMATOPATHOLOGY LABORATORY Clinical History R/O SCC. 2:08 PM [facility] DERMATOPATHOLOGY LABORATORY Gross Description Specimen A: Received is one formalin filled container labeled with the patient's name and designated right dorsal wrist by styloid. The specimen consists of a shave biopsy measuring [id number] bisected. Jar 0. 2:08 PM [facility] DERMATOPATHOLOGY LABORATORY Microscopic Description Specimen A. SKIN, right dorsal wrist by styloid: The epidermis is acanthotic and shows full thickness disorderly maturation of keratinocytes, mitoses at different levels, and dyskeratotic cells. There is overlying parakeratosis and hyperkeratosis. 2:08 PM [facility] DERMATOPATHOLOGY LABORATORY Disclaimer An external and internal positive and negative controls are appropriate for the histochemical, immunohistochemical and immunofluorescence stain(s) in this case (if any), except where stated explicitly. The performance characteristics of the stain(s) cited in this report were developed and its performance characteristic determined by the Dermatopathology Laboratory at [facility], directed by Dr. Jennifer Colunga. These tests need not be, and therefore are not, approved by the [place] Food and Drug Administration. The tests are used for clinical purposes. Billing Codes Specimen Charges Stain Charges 36730 1 2:08 PM [facility] DERMATOPATHOLOGY LABORATORY Embedded Images 2:08 PM [facility] DERMATOPATHOLOGY LABORATORY Pathology/Cytolog y TISSUE SPECIMEN FROM SKIN / Unknown 09/19/2021 09/21/2021 8:33 AM DRY HOUSE TENDER Conor Rene MD LAB - PATHOLOGY/CYTO LOGY ORDERABLES DERMATOPATHOLOGY LABORATORY [facility] - Department of Dermatology [facility] Medicine [facility] [facility] 3rd Floor [place], [place] [id number] [place] [address] documented in this encounter Visit Diagnoses Not on filedocumented in this encounter Care Teams Career Orientation Teacher Relationship Specialty Start Date End Date Conor Dodson MD [address] [place] [address] [address] [address] PCP - General Internal Medicine 04/16/23 Rodriguez Garcia MD [facility] [address] Cardiovascular Disease 04/16/23 documented as of this encounter
--- OUTSIDE RECORDS SUMMARY | 2024-11-27 09:33 | XMS_ITS | Continuity of Care Document ---
Author Name [facility] Organization [facility] Care Team Providers Care Census Clerk Name Role Phone [facility] Unavailable Unavailable Problems Combined list of problems from Department of Defense and [facility] Affairs facilities. It does not include entries that were removed or entered in error. Problem Status Onset Date Problem Type Date of Resolution Comments Source AF - Atrial fibrillation Active Condition [facility] Amyloid polyneuropathy type I Active Condition [facility] Anticoagulant effect Active Condition [facility] Benign Prostatic Hypertrophy Without Outflow Obstruction (SCT 510060633) Active Condition [facility] Disturbance in mood Active Condition [facility] Exposure to potentially hazardous substance Active Condition [facility] Hearing Loss (SCT 48011126) Active Condition [facility] Hypercholesterolemia (SNOMED CT 39660759) Active Condition [facility] Hypertension (SNOMED CT 83084513) Active Condition [facility] Kidney Stone (SCT 15375652) Active Condition Mar 24, 2018 Entered By: PRANAY RAMIREZ AM Comment: s/p open nephrolithotomy [facility] Liver function tests abnormal Active Condition [facility] Low Back Pain (SCT 196054525) Active Condition Mar 24, 2018 Entered By: PRANAY RAMIREZ AM Comment: s/p L4-S1 fusion in 2009 [facility] 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 [facility] Mild neurocognitive disorder Active Condition [facility] Obesity Active Condition [facility] Osteoarthritis (SNOMED CT 924077839) Active Condition [facility] PTSD - Post-Traumatic Stress Disorder (SCT 60052152) Active Condition [facility] Therapeutic drug effect Active Condition [facility] Benign Localized Hyperplasia of Prostate without Urinary obstruction (ICD-9-CM 6 Inactive Condition 03/24/2018 [facility] Gout Inactive Condition 03/24/2018 [facility] Hearing Loss, Sensorineural, Unspecified Inactive Condition 03/24/2018 [facility] Nephrolithiasis Inactive Condition 03/24/2018 February 19, 2004 Entered By: KENNEDI VERAS Comment: Recurrent. s/p open nephrolithotomy; nonVA Urol. f/up [facility] Peripheral Nerve Disease (ICD-9-CM 355.9) Inactive Condition 03/24/2018 Dec 04, 2011 Entered By: DAVY IRBY Comment: L4-S1 spinal fusion 11/2009 [facility] PTSD Inactive Condition 03/24/2018 [facility] Sulfonamide Allergy (ICD-9-CM E931.0) Inactive Condition 11/20/2005 [facility] Diagnosis: ICD-10-CM E85.89 Other amyloidosis Active Diagnosis [facility] Diagnosis: ICD-10-CM H90.3 Sensorineural hearing loss, bilateral Active Diagnosis [facility] Diagnosis: ICD-10-CM G47.33 Obstructive sleep apnea (adult) (pediatric) Active Diagnosis [facility] Diagnosis: ICD-10-CM I10 Essential (primary) hypertension Active Diagnosis [facility] Diagnosis: ICD-10-CM J44.89 Other specified chronic obstructive pulmonary disease Active Diagnosis [facility] Diagnosis: ICD-10-CM 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 [facility] Diagnosis: ICD-10-CM I48.91 Unspecified atrial fibrillation Active Diagnosis [facility] Diagnosis: ICD-10-CM Z51.81 Encounter for therapeutic drug level monitoring Active Diagnosis [facility] Diagnosis: ICD-10-CM E85.9 Amyloidosis, unspecified Active Diagnosis [facility] Diagnosis: ICD-10-CM Z71.9 Counseling, unspecified Active Diagnosis [facility] Diagnosis: ICD-10-CM H61.23 Impacted cerumen, bilateral Active Diagnosis [facility] Diagnosis: ICD-10-CM Z77.29 Contact with and exposure to other hazardous substances Active Diagnosis [facility] Diagnosis: ICD-10-CM R41.9 Unsp symptoms and signs w cognitive functions and awareness Active Diagnosis [facility] Diagnosis: ICD-10-CM R41.841 Cognitive communication deficit Active Diagnosis [facility] Diagnosis: ICD-10-CM Z78.9 Other specified health status Active Diagnosis [facility] Diagnosis: ICD-10-CM G31.84 Mild cognitive impairment of uncertain or unknown etiology Active Diagnosis [facility] Medications Combined list of outpatient medications from Department of Defense and [facility] Affairs facilities.Medications provided include 1) outpatient medications from the last 15 months, and 2) patient-reported medications. Medication Details Route Status Patient Instructions Prescription Expires Prescription Number Last Dispense Date Ordering Provider Order Date Order Qty Source ALLOPURINOL 300MG TAB TAKE ONE TABLET BY MOUTH ONCE A DAY FOR GOUT. TAKE WITH PLENTY OF WATER. ORAL ACTIVE 05/21/2025 [id number] 4 JARRETT TUCKER D [address] [place] [address] ALLOPURINOL 300MG TAB TAKE ONE TABLET BY MOUTH ONCE A DAY FOR GOUT. TAKE WITH PLENTY OF WATER. ORAL DISCONT INUED 01/11/2025 [id number] 4 GARRETTIN HUSSEIN D [address] [place] [address] ALLOPURINOL 300MG TAB TAKE ONE TABLET BY MOUTH ONCE A DAY FOR GOUT. TAKE WITH PLENTY OF WATER. ORAL DISCONT INUED 12/21/2023 [id number] 3 GARRETTIN HUSSEIN D [address] [place] [address] CITALOPRAM HYDROBROMID E 40MG TAB TAKE ONE TABLET BY MOUTH EVERY MORNING FOR DEPRESSI ON ORAL ACTIVE 01/11/2025 [id number] 4 GARRETTIN GRID D 2023 90 [facility] CITALOPRAM HYDROBROMID E 40MG TAB TAKE ONE TABLET BY MOUTH EVERY MORNING FOR DEPRESSI ON ORAL DISCONT INUED 12/21/2023 [id number] 3 GARRETTIN GRID D 2022 90 [facility] CITALOPRAM HYDROBROMID E 40MG TAB TAKE ONE-HALF TABLET BY MOUTH EVERY MORNING ORAL ACTIVE MAHAMED DAVY A 2012 [facility] GABAPENTIN 300MG CAP TAKE ONE CAPSULE BY MOUTH EVERY EVENING FOR NERVE PAIN ORAL ACTIVE 10/24/2025 [id number] EMILIE BURNS 2024 90 [facility] N GABAPENTIN 300MG CAP TAKE 2 CAPSULES BY MOUTH THREE TIMES A DAY ORAL ACTIVE DAVY IRBY A 2014 [facility] GABAPENTIN 600MG TAB TAKE ONE TABLET BY MOUTH AT BEDTIME FOR PAIN ORAL ACTIVE 03/03/2025 [id number] 4 GARRTETIN GRID D 2023 90 [facility] GABAPENTIN 600MG TAB TAKE ONE TABLET BY MOUTH AT BEDTIME FOR PAIN ORAL DISCONT INUED 06/06/2024 [id number] 4 GARRETTIN GRID D 2022 90 [facility] LOSARTAN 50MG TAB TAKE ONE TABLET BY MOUTH TWICE A DAY FOR HIGH BLOOD PRESSURE ORAL ACTIVE 04/30/2025 [id number] 4 MARIXA STARK 2023 180 [facility] N [place] POTASSIUM 100MG TAB TAKE ONE TABLET BY MOUTH ONCE A DAY TO LOWER BLOOD PRESSURE ORAL DISCONT INUED (EDIT) 01/11/2025 [id number] 4 GARRETTIN GRID D 2023 90 [facility] [place] POTASSIUM 100MG TAB TAKE ONE TABLET BY MOUTH ONCE A DAY TO LOWER BLOOD PRESSURE ORAL DISCONT INUED 06/20/2024 [id number] 3 GARRETTIN GRID D 2022 90 [facility] METOPROLOL TARTRATE 100MG TAB TAKE ONE TABLET BY MOUTH TWICE A DAY FOR HIGH BLOOD PRESSURE TAKE WITH OR IMMEDIAT YOAV FOLLOWIN G FOOD. ORAL DISCONT INUED BY WILLIAM R 07/21/2024 [id number] 4 GARRETT,IN GRID D 2022 180 [facility] MULTIVITAMI NS CAP/TAB TAKE 1 TABLET BY MOUTH ONCE A DAY FOR NUTRITIO N/DIETAR Y SUPPLEME NTATION ORAL ACTIVE 07/02/2025 [id number] 4 MARIXA STARK 2023 100 [facility] N OMEPRAZOLE 20MG CAP,EC TAKE ONE CAPSULE BY MOUTH AT BEDTIME TO LOWER STOMACH ACID. TAKE 30 MINUTES PRIOR TO FOOD. ORAL ACTIVE 05/21/2025 [id number] 4 GARRETT,IN GRID D 2023 90 [facility] OMEPRAZOLE 20MG CAP,EC TAKE ONE CAPSULE BY MOUTH AT BEDTIME TO LOWER STOMACH ACID. TAKE 30 MINUTES PRIOR TO FOOD. ORAL DISCONT INUED 10/22/2024 [id number] 4 GARRETTIN GRID D 2023 90 [facility] RIVAROXABAN 20MG TAB TAKE ONE TABLET BY MOUTH ONCE A DAY TO THIN BLOOD. TAKE WITH FOOD. ORAL ACTIVE 04/14/2025 [id number] 4 MARIXA MATOS 2023 90 [facility] DIV[facility] N RIVAROXABAN 20MG TAB TAKE ONE TABLET BY MOUTH ONCE A DAY TO THIN BLOOD. TAKE WITH FOOD. ORAL DISCONT INUED 04/04/2024 [id number] 4 MARIXA MATOS 2022 90 [facility] DIV[facility]IO Dean VITAMIN A [id number] CAP TAKE ONE CAPSULE BY MOUTH ONCE A DAY FOR VITAMIN A SUPPLEME NTATION ORAL ACTIVE 10/01/2025 [id number] 4 MARIXA STARK 2023 90 [facility] N Allergies, Adverse Reactions, Alerts Combined list of allergies from Department of Defense and Veterans Affairs facilities. It does not include entries that were removed or entered in error. Substance Category Reaction Severity Reaction type Status Date Reported Comments Source SULFA DRUGS Propensity to adverse reactions to drug (finding) Eruption active 4 [facility] Immunizations Combined list of available immunizations from the Department of Defense and Veterans Affairs facilities. Immunization Series Date Given Administered By Site Reaction Lot Number CVX Code Drug Kier Boiler Status Comments Source INFLUENZA, HIGH-DOSE, TRIVALENT, PF 2023 CAROLYN SHIPLEY S LEFT DELTO ID [id number] A 135 complet ed [facility] INFLUENZA, UNSPECIFIED FORMULATION 2023 88 complet ed [facility] INFLUENZA, UNSPECIFIED FORMULATION 2021 88 complet ed [facility] DIV[facility] N INFLUENZA, HIGH-DOSE, QUADRIVALENT, PF 4 2021 197 complet [facility] DIVISIO N COVID-19 (MODERNA), MRNA, LNP-S, PF, 100 MCG OR 50 MCG DOSE 3 2021 207 complet ed MOD; [id number]; 2 [facility] INFLUENZA, UNSPECIFIED FORMULATION 2020 88 complet [facility] DIVISIO N COVID-19 (MODERNA), MRNA, LNP-S, PF, 100 MCG/0.5 ML DOSE 2 2020 207 complet ed MOD; [id number]; 1 [facility] COVID-19 (MODERNA), MRNA, LNP-S, PF, 100 MCG/0.5 ML DOSE 1 2020 207 complet ed MOD; [id number]; 1 [facility] INFLUENZA, UNSPECIFIED FORMULATION 2018 88 complet ed [facility] N ZOSTER RECOMBINANT 1 2018 187 complet ed [facility] INFLUENZA, UNSPECIFIED FORMULATION 2 2017 88 complet ed [facility] N INFLUENZA, UNSPECIFIED FORMULATION 2017 88 complet ed [facility] DIV[facility] N INFLUENZA, UNSPECIFIED FORMULATION 1 2016 88 complet ed [facility] DIV[facility] N INFLUENZA, INJECTABLE, QUADRIVALENT, PRESERVATIVE FREE 2016 150 complet ed [facility] N PNEUMOCOCCAL CONJUGATE PCV 13 2 2015 133 complet ed [facility] DIV[facility] N INFLUENZA, UNSPECIFIED FORMULATION 2014 88 complet ed DONE AT [facility] PMDs OFFICE [facility] PNEUMOCOCCAL CONJUGATE PCV 13 2014 133 complet ed [facility] TDAP 2014 115 complet ed Left Deltoid [facility] INFLUENZA, UNSPECIFIED FORMULATION 2013 88 complet ed [facility] DIV[facility] N INFLUENZA, UNSPECIFIED FORMULATION 2013 88 complet ed [facility] DIV[facility] N PNEUMOCOCCAL POLYSACCHARID E PPV23 1 2012 33 complet ed [facility] N PNEUMOCOCCAL, UNSPECIFIED FORMULATION 2012 109 complet ed [facility] INFLUENZA, HIGH-DOSE, TRIVALENT, PF 1 2012 135 complet ed [facility] DIV[facility] N INFLUENZA, UNSPECIFIED FORMULATION 2012 88 complet ed [facility] DIV[facility] N INFLUENZA, UNSPECIFIED FORMULATION 2010 88 complet ed [facility] DIV[facility] N INFLUENZA, UNSPECIFIED FORMULATION 2009 88 complet ed [facility] DIV[facility] N INFLUENZA, UNSPECIFIED FORMULATION 2008 88 complet ed [facility] DIV[facility] N INFLUENZA, UNSPECIFIED FORMULATION 2008 88 complet ed [facility] ZOSTER LIVE 2007 121 complet ed [facility] DIV[facility] N INFLUENZA, UNSPECIFIED FORMULATION 2006 88 complet ed [facility] DIV[facility] N INFLUENZA, UNSPECIFIED FORMULATION 2005 88 complet ed Per report from patient [facility] INFLUENZA, UNSPECIFIED FORMULATION 2004 88 complet ed [facility] DIV[facility] N INFLUENZA, UNSPECIFIED FORMULATION 2003 88 complet ed [facility] TD(ADULT) UNSPECIFIED FORMULATION 2003 139 complet ed [facility] Results Combined list of recent chemistry, hematology and other laboratory results from Department of Defense and Veterans Affairs, ranging from 15 months to all on record, depending upon the facility. Order Name Results Value Reference Range Date Interpretation Specimen Comments Source KAPPA/CARRANZA DA FREE LC PANEL (STL-PB) KAPPA LIGHT CHAINS [PRESENCE] IN SERUM BY ELECTROPHOR ESIS 26.0 mg/L 2.4 - 20.7 11/23 H Specimen Type: SERUM No comment entered. Ordering Provider: ELYSIA GRAY Report Released Date/Time: Nov 26, 2023 09:22 AM Reporting Lab: [address] [address] Performing Lab: [address] [phone] KAPPA/CARRANZA DA FREE LC PANEL (STL-PB) LAMBDA LIGHT CHAINS.FREE [MASS/VOLUM E] IN SERUM OR PLASMA 23.3 mg/L 4.2 - 27.7 11/23 Specimen Type: SERUM No comment entered. Ordering Provider: ELYSIA GRAY Report Released Date/Time: Nov 26, 2023 09:22 AM Reporting Lab: [address] [address] Performing Lab: [address] [phone] [place] [address] KAPPA/CARRANZA DA FREE LC PANEL (STL-PB) KAPPA/LAMBD A RATIO (STL) 1.12 0.22 - 1.74 11/23 Specimen Type: SERUM No comment entered. Ordering Provider: ELYSIA GRAY Report Released Date/Time: Nov 26, 2023 09:22 AM Reporting Lab: [address] [address] Performing Lab: [address] [address] [facility] COMPREHENS TIA METABOLIC PANEL CREATININE [MASS/VOLUM E] IN SERUM OR PLASMA 1.01 mg/dL 0.7 - 1.3 11/23 Specimen Type: PLASMA Comment: No hemolysis noted. Ordering Provider: ELYSIA GRAY Report Released Date/Time: Nov 26, 2023 09:22 AM Reporting Lab: [place] [address] [place] [phone] Performing Lab: [place] [address] [place] [phone] COMPREHENS TIA METABOLIC PANEL UREA NITROGEN [MASS/VOLUM E] IN SERUM OR PLASMA 18.0 mg/dL 9.0 - 25.0 11/23 Specimen Type: PLASMA Comment: No hemolysis noted. Ordering Provider: ELYSIA GRAY Report Released Date/Time: Nov 26, 2023 09:22 AM Reporting Lab: [place] [address] [place] [phone] Performing Lab: [place] [address] [facility] [phone] [place] [address] COMPREHENS TIA METABOLIC PANEL GLUCOSE [MASS/VOLUM E] IN SERUM OR PLASMA 84 mg/dL 72 - 99 11/23 Specimen Type: PLASMA Comment: No hemolysis noted. Ordering Provider: ELYSIA GRAY Report Released Date/Time: Nov 26, 2023 09:22 AM Reporting Lab: [place] [address] [facility] [address] Performing Lab: [place] [address] [facility] [phone] [place] [address] COMPREHENS TIA METABOLIC PANEL SODIUM [MOLES/VOLU ME] IN SERUM OR PLASMA 141 meq/L 136 - 145 11/23 Specimen Type: PLASMA Comment: No hemolysis noted. Ordering Provider: ELYSIA GRAY Report Released Date/Time: Nov 26, 2023 09:22 AM Reporting Lab: [place] [address] [facility] [phone] Performing Lab: [address] [place] [address] [facility] COMPREHENS TIA METABOLIC PANEL POTASSIUM [MOLES/VOLU ME] IN SERUM OR PLASMA 4.4 meq/L 3.5 - 5 11/23 Specimen Type: PLASMA Comment: No hemolysis noted. Ordering Provider: ELYSIA GRAY Report Released Date/Time: Nov 26, 2023 09:22 AM Reporting Lab: [place] [address] [address] [facility] [address] Performing Lab: [place] [address] [facility] [phone] [facility] COMPREHENS TIA METABOLIC PANEL CHLORIDE [MOLES/VOLU ME] IN SERUM OR PLASMA 106 meq/L 98 - 107 11/23 Specimen Type: PLASMA Comment: No hemolysis noted. Ordering Provider: ELYSIA GRAY Report Released Date/Time: Nov 26, 2023 09:22 AM Reporting Lab: [place] [address] [facility] [phone] Performing Lab: [place] [address] [address] [facility] [address] [facility] COMPREHENS TIA METABOLIC PANEL CARBON DIOXIDE, TOTAL [MOLES/VOLU ME] IN SERUM OR PLASMA 24 meq/L 22 - 31 11/23 Specimen Type: PLASMA Comment: No hemolysis noted. Ordering Provider: ELYSIA GRAY Report Released Date/Time: Nov 26, 2023 09:22 AM Reporting Lab: [place] [address] [address] [facility] [phone] Performing Lab: [place] [address] [facility] [address] [facility] COMPREHENS TIA METABOLIC PANEL CALCIUM [MASS/VOLUM E] IN SERUM OR PLASMA 9.4 mg/dL 8.4 - 10.4 11/23 Specimen Type: PLASMA Comment: No hemolysis noted. Ordering Provider: ELYSIA GRAY Report Released Date/Time: Nov 26, 2023 09:22 AM Reporting Lab: [place] [address] [address] [facility] [address] Performing Lab: [place] [address] [address] [facility] [address] [facility] COMPREHENS TIA METABOLIC PANEL PROTEIN [MASS/VOLUM E] IN SERUM OR PLASMA 7.1 g/dL 6 - 8.6 11/23 Specimen Type: PLASMA Comment: No hemolysis noted. Ordering Provider: ELYSIA GRAY Report Released Date/Time: Nov 26, 2023 09:22 AM Reporting Lab: [place] [address] [address] [facility] [address] Performing Lab: [place] [address] [facility] [phone] [facility] COMPREHENS TIA METABOLIC PANEL ALBUMIN [MASS/VOLUM E] IN SERUM OR PLASMA 4.0 g/dL 3.4 - 5 11/23 Specimen Type: PLASMA Comment: No hemolysis noted. Ordering Provider: ELYSIA GRAY Report Released Date/Time: Nov 26, 2023 09:22 AM Reporting Lab: [place] [address] [facility] [phone] Performing Lab: [place] [address] [address] [facility] [address] [facility] COMPREHENS TIA METABOLIC PANEL BILIRUBIN.T OTAL [MASS/VOLUM E] IN SERUM OR PLASMA 0.7 mg/dL 0.2 - 1.2 11/23 Specimen Type: PLASMA Comment: No hemolysis noted. Ordering Provider: ELYSIA GRAY Report Released Date/Time: Nov 26, 2023 09:22 AM Reporting Lab: [place] [address] [facility] [phone] Performing Lab: [place] [address] [facility] [address] [facility] COMPREHENS TIA METABOLIC PANEL ALKALINE PHOSPHATASE [ENZYMATIC ACTIVITY/VO LUME] IN SERUM OR PLASMA 77 U/L 40 - 150 11/23 Specimen Type: PLASMA Comment: No hemolysis noted. Ordering Provider: ELYSIA GRAY Report Released Date/Time: Nov 26, 2023 09:22 AM Reporting Lab: [facility] [address] [facility] [phone] Performing Lab: [facility] [address] [facility] [address] [facility] COMPREHENS TIA METABOLIC PANEL ASPARTATE AMINOTRANSF ERASE [ENZYMATIC ACTIVITY/VO LUME] IN SERUM OR PLASMA 24 U/L 5 - 34 11/23 Specimen Type: PLASMA Comment: No hemolysis noted. Ordering Provider: ELYSIA GRAY Report Released Date/Time: Nov 26, 2023 09:22 AM Reporting Lab: [facility] [address] [facility] [address] Performing Lab: [place] [address] [facility] [address] [facility] COMPREHENS TIA METABOLIC PANEL ALANINE AMINOTRANSF ERASE [ENZYMATIC ACTIVITY/VO LUME] IN SERUM OR PLASMA 23 U/L 8 - 40 11/23 Specimen Type: PLASMA Comment: No hemolysis noted. Ordering Provider: ELYSIA GRAY Report Released Date/Time: Nov 26, 2023 09:22 AM Reporting Lab: [facility] [address] [facility] [address] Performing Lab: [facility] [address] [facility] [address] [facility] COMPREHENS TIA METABOLIC PANEL GLOMERULAR FILTRATION RATE/1.73 SQ M.PREDICTED [VOLUME RATE/AREA] IN SERUM, PLASMA OR BLOOD BY CREATININE- BASED FORMULA (CKD-EPI 2020) 76.6 60 11/23 Specimen Type: PLASMA Comment: No hemolysis noted. Ordering Provider: ELYSIA GRAY Report Released Date/Time: Nov 26, 2023 09:22 AM Reporting Lab: [facility] [address] [facility] [address] Performing Lab: [facility] [address] [facility] [address] [facility] CBC LEUKOCYTES [#/VOLUME] IN BLOOD BY AUTOMATED COUNT 7.2 10*3/u L 3.6 - 11.2 11/23 Specimen Type: BLOOD No comment entered. Ordering Provider: ELYSIA GRAY Report Released Date/Time: Nov 26, 2023 09:22 AM Reporting Lab: [facility] [address] [facility] [address] Performing Lab: [facility] [address] [facility] [address] [facility] CBC ERYTHROCYTE S [#/VOLUME] IN BLOOD BY AUTOMATED COUNT 4.16 10*6/u L 4.10 - 5.70 11/23 Specimen Type: BLOOD No comment entered. Ordering Provider: ELYSIA GRAY Report Released Date/Time: Nov 26, 2023 09:22 AM Reporting Lab: [place] [address] [facility] [address] Performing Lab: [place] [address] [facility] [address] [facility] CBC HEMOGLOBIN [MASS/VOLUM E] IN BLOOD 13.8 g/dL 13.1 - 16.8 11/23 Specimen Type: BLOOD No comment entered. Ordering Provider: ELYSIA GRAY Report Released Date/Time: Nov 26, 2023 09:22 AM Reporting Lab: [place] [address] [facility] [address] Performing Lab: [place] [address] [facility] [address] [facility] CBC HEMATOCRIT [VOLUME FRACTION] OF BLOOD 40.3 38.2 - 48.4 11/23 Specimen Type: BLOOD No comment entered. Ordering Provider: ELYSIA GRAY Report Released Date/Time: Nov 26, 2023 09:22 AM Reporting Lab: [place] [address] [facility] [address] Performing Lab: [place] [address] [facility] [address] [facility] CBC MCV [ENTITIC VOLUME] BY AUTOMATED COUNT 96.9 fL 80.0 - 100.0 11/23 Specimen Type: BLOOD No comment entered. Ordering Provider: ELYSIA GRAY Report Released Date/Time: Nov 26, 2023 09:22 AM Reporting Lab: [address] [address] Performing Lab: [address] [address] [facility] CBC MCH [ENTITIC MASS] BY AUTOMATED COUNT 33.2 pg 27.0 - 34.0 11/23 Specimen Type: BLOOD No comment entered. Ordering Provider: ELYSIA GRAY Report Released Date/Time: Nov 26, 2023 09:22 AM Reporting Lab: [address] [address] Performing Lab: [address] [address] [facility] CBC MCHC [MASS/VOLUM E] BY AUTOMATED COUNT 34.2 g/dL 33.0 - 36.0 11/23 Specimen Type: BLOOD No comment entered. Ordering Provider: ELYSIA GRAY Report Released Date/Time: Nov 26, 2023 09:22 AM Reporting Lab: [address] [address] Performing Lab: [address] [address] [facility] CBC PLATELETS [#/VOLUME] IN BLOOD BY AUTOMATED COUNT 247 10*3/u L 150 - 400 11/23 Specimen Type: BLOOD No comment entered. Ordering Provider: ELYSIA GRAY Report Released Date/Time: Nov 26, 2023 09:22 AM Reporting Lab: [address] [id number] [address]forming Lab[address] [facility] [address] [facility] CBC PLATELET MEAN VOLUME [ENTITIC VOLUME] IN BLOOD BY AUTOMATED COUNT 9.0 fL 7.5 - 11.2 11/23 Specimen Type: BLOOD No comment entered. Ordering Provider: ELYSIA GRAY Report Released Date/Time: Nov 26, 2023 09:22 AM Reporting Lab: [facility] [address] [facility] [address] Performing Lab: [facility] [address] [facility] [address] [facility] CBC ERYTHROCYTE DISTRIBUTIO N WIDTH [RATIO] BY AUTOMATED COUNT 14.2 11.8 - 15.1 11/23 Specimen Type: BLOOD No comment entered. Ordering Provider: ELYSIA GRAY Report Released Date/Time: Nov 26, 2023 09:22 AM Reporting Lab: [facility] [address] [facility] [address] Performing Lab: [facility] [address] [facility] [address] [facility] CBC LYMPHOCYTES /100 LEUKOCYTES IN BLOOD BY AUTOMATED COUNT 25 11/23 Specimen Type: BLOOD No comment entered. Ordering Provider: ELYSIA GRAY Report Released Date/Time: Nov 26, 2023 09:22 AM Reporting Lab: [place] [address] [facility] [address] Performing Lab: [facility] [address] [facility] [address] [facility] CBC MONOCYTES/1 00 LEUKOCYTES IN BLOOD BY AUTOMATED COUNT 11 11/23 Specimen Type: BLOOD No comment entered. Ordering Provider: ELYSIA GRAY Report Released Date/Time: Nov 26, 2023 09:22 AM Reporting Lab: [facility] [address] [facility] [address] Performing Lab: [facility] [address] [facility] [address] [facility] CBC NEUTROPHILS /100 LEUKOCYTES IN BLOOD BY AUTOMATED COUNT 60 11/23 Specimen Type: BLOOD No comment entered. Ordering Provider: ELYSIA GRAY Report Released Date/Time: Nov 26, 2023 09:22 AM Reporting Lab: [facility] [address] [facility] [address] Performing Lab: [facility] [address] [place] [address] [facility] CBC EOSINOPHILS /100 LEUKOCYTES IN BLOOD BY AUTOMATED COUNT 3 11/23 Specimen Type: BLOOD No comment entered. Ordering Provider: ELYSIA GRAY Report Released Date/Time: Nov 26, 2023 09:22 AM Reporting Lab: [place] [phone] Performing Lab: [place] [id number] CBC BASOPHILS/1 00 LEUKOCYTES IN BLOOD BY AUTOMATED COUNT 0 11/23 Specimen Type: BLOOD No comment entered. Ordering Provider: ELYSIA GRAY Report Released Date/Time: Nov 26, 2023 09:22 AM Reporting Lab: [place] [phone] Performing Lab: [address] [phone] [place] [address] CBC LYMPHOCYTES [#/VOLUME] IN BLOOD BY AUTOMATED COUNT 1.78 10*3/u L 0.77 - 4.50 11/23 Specimen Type: BLOOD No comment entered. Ordering Provider: ELYSIA GRAY Report Released Date/Time: Nov 26, 2023 09:22 AM Reporting Lab: [address] [address] Performing Lab: [address] [address] [facility] CBC MONOCYTES [#/VOLUME] IN BLOOD BY AUTOMATED COUNT 0.82 10*3/u L 0.19 - 0.80 11/23 H Specimen Type: BLOOD No comment entered. Ordering Provider: ELYSIA GRAY Report Released Date/Time: Nov 26, 2023 09:22 AM Reporting Lab: [address] [address] Performing Lab: [address] [address] [facility] CBC NEUTROPHILS [#/VOLUME] IN BLOOD BY AUTOMATED COUNT 4.36 10*3/u L 2.10 - 8.00 11/23 Specimen Type: BLOOD No comment entered. Ordering Provider: ELYSIA GRAY Report Released Date/Time: Nov 26, 2023 09:22 AM Reporting Lab: [address] [address] Performing Lab: [address] [address] [facility] CBC EOSINOPHILS [#/VOLUME] IN BLOOD BY AUTOMATED COUNT 0.20 10*3/u L 0.00 - 0.60 11/23 Specimen Type: BLOOD No comment entered. Ordering Provider: ELYSIA GRAY Report Released Date/Time: Nov 26, 2023 09:22 AM Reporting Lab: [address] [address] Performing Lab: [address] [address] [facility] CBC BASOPHILS [#/VOLUME] IN BLOOD BY AUTOMATED COUNT 0.03 10*3/u L 0.00 - 0.20 11/23 Specimen Type: BLOOD No comment entered. Ordering Provider: ELYSIA GRAY Report Released Date/Time: Nov 26, 2023 09:22 AM Reporting Lab: [address] [address] Performing Lab: [address] [address] [facility] PROTEIN URINE PROTEIN [MASS/VOLUM E] IN URINE 13.4 mg/dL 05/22 Specimen Type: URINE No comment entered. Ordering Provider: SUSAN STARK Report Released Date/Time: Apr 29, 2024 09:21 AM Reporting Lab: [address] [address] Performing Lab: [address] [phone] B12 COBALAMIN (VITAMIN B12) [MASS/VOLUM E] IN SERUM OR PLASMA 447 pg/mL 213 - 816 05/22 Specimen Type: SERUM No comment entered. Ordering Provider: EMILIE BURNS Report Released Date/Time: May 22, 2024 02:24 PM Reporting Lab: [address] [address] Performing Lab: [address] [phone] [place] [address] BRAIN NATRIURETI C PEPTIDE NATRIURETIC PEPTIDE B [MASS/VOLUM E] IN SERUM OR PLASMA 123.4 pg/mL 0 - 100 05/22 H Specimen Type: PLASMA No comment entered. Ordering Provider: SUSAN STARK Report Released Date/Time: Apr 29, 2024 09:21 AM Reporting Lab: [address] [address] Performing Lab: [address] [phone] TROPONIN I TROPONIN I.CARDIAC [MASS/VOLUM E] IN SERUM OR PLASMA <0.010 ng/mL 0 - 0.033 05/22 Specimen Type: PLASMA Comment: No hemolysis noted. Ordering Provider: SUSAN STARK Report Released Date/Time: Apr 29, 2024 09:21 AM Reporting Lab: [address] [address] Performing Lab: [address] [place] [address] [facility] BASIC METABOLIC PANEL CREATININE [MASS/VOLUM E] IN SERUM OR PLASMA 0.99 mg/dL 0.7 - 1.3 05/22 Specimen Type: PLASMA Comment: No hemolysis noted. Ordering Provider: SUSAN STARK Report Released Date/Time: Apr 29, 2024 09:21 AM Reporting Lab: [address] [address] Performing Lab: [address] [address] [facility] BASIC METABOLIC PANEL UREA NITROGEN [MASS/VOLUM E] IN SERUM OR PLASMA 16.2 mg/dL 9.0 - 25.0 05/22 Specimen Type: PLASMA Comment: No hemolysis noted. Ordering Provider: SUSAN STARK Report Released Date/Time: Apr 29, 2024 09:21 AM Reporting Lab: [place] [address] [facility] [address] Performing Lab: [address] [address] [facility] BASIC METABOLIC PANEL GLUCOSE [MASS/VOLUM E] IN SERUM OR PLASMA 101 mg/dL 72 - 99 05/22 H Specimen Type: PLASMA Comment: No hemolysis noted. Ordering Provider: SUSAN STARK Report Released Date/Time: Apr 29, 2024 09:21 AM Reporting Lab: [address] [address] Performing Lab: [address] [address] [facility] BASIC METABOLIC PANEL SODIUM [MOLES/VOLU ME] IN SERUM OR PLASMA 140 meq/L 136 - 145 05/22 Specimen Type: PLASMA Comment: No hemolysis noted. Ordering Provider: SUSAN STARK Report Released Date/Time: Apr 29, 2024 09:21 AM Reporting Lab: [address] [address] Performing Lab: [facility] [address] [facility] [address] [facility] BASIC METABOLIC PANEL POTASSIUM [MOLES/VOLU ME] IN SERUM OR PLASMA 4.1 meq/L 3.5 - 5 05/22 Specimen Type: PLASMA Comment: No hemolysis noted. Ordering Provider: SUSAN STARK Report Released Date/Time: Apr 29, 2024 09:21 AM Reporting Lab: [facility] [address] [facility] [address] Performing Lab: [facility] [address] [facility] [address] [facility] BASIC METABOLIC PANEL CHLORIDE [MOLES/VOLU ME] IN SERUM OR PLASMA 106 meq/L 98 - 107 05/22 Specimen Type: PLASMA Comment: No hemolysis noted. Ordering Provider: SUSAN STARK Report Released Date/Time: Apr 29, 2024 09:21 AM Reporting Lab: [facility] [address] [facility] [address] Performing Lab: [facility] [address] [facility] [address] [facility] BASIC METABOLIC PANEL CARBON DIOXIDE, TOTAL [MOLES/VOLU ME] IN SERUM OR PLASMA 24 meq/L 22 - 31 05/22 Specimen Type: PLASMA Comment: No hemolysis noted. Ordering Provider: SUSAN STARK Report Released Date/Time: Apr 29, 2024 09:21 AM Reporting Lab: [facility] [address] [facility] [address] Performing Lab: [facility] [address] [facility] [address] [facility] BASIC METABOLIC PANEL CALCIUM [MASS/VOLUM E] IN SERUM OR PLASMA 9.6 mg/dL 8.4 - 10.4 05/22 Specimen Type: PLASMA Comment: No hemolysis noted. Ordering Provider: SUSAN STARK Report Released Date/Time: Apr 29, 2024 09:21 AM Reporting Lab: [address] [address] Performing Lab: [address] [address] [facility] BASIC METABOLIC PANEL GLOMERULAR FILTRATION RATE/1.73 SQ M.PREDICTED [VOLUME RATE/AREA] IN SERUM, PLASMA OR BLOOD BY CREATININE- BASED FORMULA (CKD-EPI 2020) 78.5 60 05/22 Specimen Type: PLASMA Comment: No hemolysis noted. Ordering Provider: SUSAN STARK Report Released Date/Time: Apr 29, 2024 09:21 AM Reporting Lab: [address] [address] Performing Lab: [address] [address] [facility] TROPONIN I TROPONIN I.CARDIAC [MASS/VOLUM E] IN SERUM OR PLASMA <0.010 ng/mL 0 - 0.033 02/04 Specimen Type: PLASMA Comment: No hemolysis noted. Ordering Provider: SUSAN STARK Report Released Date/Time: Feb 05, 2024 10:34 AM Reporting Lab: [address] [address] Performing Lab: [address] [address] [facility] BRAIN NATRIURETI C PEPTIDE NATRIURETIC PEPTIDE B [MASS/VOLUM E] IN SERUM OR PLASMA 537.1 pg/mL 0 - 100 02/04 H Specimen Type: PLASMA No comment entered. Ordering Provider: SUSAN STARK Report Released Date/Time: Feb 05, 2024 10:34 AM Reporting Lab: [address] [address] Performing Lab: [address] [address] [facility] Vital Signs Combined list of inpatient and outpatient Vital Signs from Department of Defense and Veterans Affairs, ranging from 12 months to all on record, depending upon the facility. Vital Sign Value Date Comments Source SYSTOLIC BLOOD PRESSURE 129 11/23/2024 10:16:24 [facility] DIASTOLIC BLOOD PRESSURE 73 11/23/2024 10:16:24 [facility] PULSE OXIMETRY 98 11/23/2024 10:16:24 [facility] WEIGHT 239.8 11/23/2024 10:16:24 [facility] BMI 35 kg/m2 11/23/2024 10:16:24 [facility] TEMPERATURE 97.5 11/23/2024 10:16:24 [facility] PULSE 69 11/23/2024 10:16:24 [facility] RESPIRATION 18 11/23/2024 10:16:24 [facility] SYSTOLIC BLOOD PRESSURE 150 09/30/2024 09:21:05 [facility] DIASTOLIC BLOOD PRESSURE 81 09/30/2024 09:21:05 [facility] PULSE OXIMETRY 98 09/30/2024 09:21:05 [facility] WEIGHT 241.1 09/30/2024 09:21:05 [facility] BMI 36 kg/m2 09/30/2024 09:21:05 [facility] PAIN 0 09/30/2024 09:21:05 [facility] TEMPERATURE 97.9 09/30/2024 09:21:05 [facility] PULSE 66 09/30/2024 09:21:05 [facility] RESPIRATION 18 09/30/2024 09:21:05 [facility] SYSTOLIC BLOOD PRESSURE 145 07/07/2024 14:54:56 [facility] DIASTOLIC BLOOD PRESSURE 74 07/07/2024 14:54:56 [facility] PULSE OXIMETRY 96 07/07/2024 14:54:56 [facility] WEIGHT 244.8 07/07/2024 14:54:56 [facility] BMI 36 kg/m2 07/07/2024 14:54:56 [facility] PAIN 0 07/07/2024 14:54:56 [facility] TEMPERATURE 97.8 07/07/2024 14:54:56 [facility] PULSE 68 07/07/2024 14:54:56 [facility] RESPIRATION 18 07/07/2024 14:54:56 [facility] SYSTOLIC BLOOD PRESSURE 152 07/02/2024 11:02:33 [facility] DIASTOLIC BLOOD PRESSURE 76 07/02/2024 11:02:33 [facility] PULSE OXIMETRY 97 07/02/2024 11:02:33 S Lina [facility] WEIGHT 242.8 07/02/2024 11:02:33 [facility] BMI 36 kg/m2 07/02/2024 11:02:33 [facility] PAIN 0 07/02/2024 11:02:33 [facility] TEMPERATURE 98.8 07/02/2024 11:02:33 [facility] PULSE 61 07/02/2024 11:02:33 [facility] RESPIRATION 18 07/02/2024 11:02:33 [facility] SYSTOLIC BLOOD PRESSURE 149 07/01/2024 09:00:43 [facility] DIASTOLIC BLOOD PRESSURE 78 07/01/2024 09:00:43 [facility] PULSE OXIMETRY 97 07/01/2024 09:00:[address] [facility] WEIGHT 245.2 07/01/2024 09:00:43 [facility] BMI 36 kg/m2 07/01/2024 09:00:43 [facility] PAIN 0 07/01/2024 09:00:43 [facility] TEMPERATURE 97.9 07/01/2024 09:00:43 [facility] PULSE 67 07/01/2024 09:00:43 [facility] RESPIRATION 18 07/01/2024 09:00:43 [facility] Encounters Combined list of: 1) Encounters from Department of [facility] Affairs facilities going backup to the last 18 months, not all VA inpatient encounters are included; 2) Encounters from the Department of [place] facilities going backup to 280 months. Location Location Details Encounter Type Encounter Number Reason For Visit Attending Provider ADM Date DC Date Status Disposition Source [facility] Outpatient Encounter [id number] DARRICK FAULKNER 05/30 [facility] Outpatient Encounter [id number] HODA ROMERO 06/17 [facility] PSYCL/NRPS YC TST PHY/[place] 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 y [facility]ERO [facility] En[facility] [id number] MITRA GARCIA 07/16 [facility] HC PRO PHONE CALL 5-10 MIN [id number] Diagnos is: ICD-10- CM Z78.9 Other specifi ed health status NEELAMHECTORDean Kulkarni 07/22 [facility] SELF-MGMT EDUC/TR[place] 2-4 [place] [id number] Diagnos is: ICD-10- CM R41.841 Cogniti ve communi cation deficit LORENA BAKER Y 08/01 [facility] IVNTJ GRP EA ADDL [id number] Diagnos is: ICD-10- CM R41.9 Unsp symptom s and signs w cogniti ve functio ns and awarene ss HODA ROMERO N 08/08 [facility] IVNTJ GRP EA ADDL [id number] Diagnos is: ICD-10- CM R41.9 Unsp symptom s and signs w cogniti ve functio ns and awarene ss HODA ROMERO N 08/22 [facility] IVNTJ GRP EA ADDL [id number] Diagnos is: ICD-10- CM R41.9 Unsp symptom s and signs w cogniti ve functio ns and awarene ss HODA ROMERO 08/29 [facility] Outpatient Encounter [id number] Pattie MURRAY 09/18 [facility] IVNTJ GRP EA ADDL [id number] Diagnos is: ICD-10- CM R41.9 Unsp symptom s and signs w cogniti ve functio ns and awarene ss HODA ROMERO N 09/19 [facility] IVNTJ GRP EA ADDL [id number] Diagnos is: ICD-10- CM R41.9 Unsp symptom s and signs w cogniti ve functio ns and awarene ss HODA ROMERO SETamera N 09/26 [facility] HEARING AID REPAIR/MOD IFYING [id number] Diagnos is: ICD-10- CM H90.3 Sensori neural hearing loss, bilater HAILEY Kaur 09/30 [facility] Outpatient Encounter [id number] [place] HEMANTH Hennessy 10/03 [facility] IVNT GRP EA ADDL [id number] Diagnos is: ICD-10- CM R41.9 Unsp symptom s and signs w cogniti ve functio ns and awarene ss HODA ROMERO SETamera N 10/03 [facility] Outpatient Encounter [id number] 10/04 [facility] Outpatient Encounter [id number] PRESTON RUCKER 10/08 [facility] Outpatient Encounter [id number] 10/10 [facility] Outpatient Encounter [id number] RENATA HORNE K 10/16 [facility] Outpatient Encounter [id number] 10/16 [facility] Outpatient Encounter [id number] 10/21 [facility] Outpatient Encounter [id number] RENATA HORNE K 10/29 [facility] OFF/OP CONSLTJ NEW/EST HI 55 [id number] Diagnos is: ICD-10- CM 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 ELYSIA GRAY W 11/25 [facility] QNHP OL DIG ASSMT&MGMT 5-10 [id number] Diagnos is: ICD-10- CM Z51.81 Encount er for therape utic drug level monitor TL Faulkner 11/26 [facility] Outpatient Encounter [id number] 12/05 [facility] Outpatient Encounter [id number] 12/10 [facility] Outpatient Encounter [id number] JESSICA MOSS 12/16 [facility] OFFICE O/P NEW MOD 45 MIN [id number] Diagnos is: ICD-10- CM I48.91 Unspeci fied atrial fibrill ation GARRETT,OLGA RID D 12/24 [facility] Outpatient Encounter [id number] 12/25 [facility] Outpatient Encounter [id number] 12/30 [facility] Outpatient Encounter [id number] OFELIA BRAY A 01/01 [facility] OFFICE O/P NEW HI 60 MIN [id number] [id number] Diagnos is: ICD-10- CM Z77.29 Contact with and exposur e to other hazardo us substan nava LEANDRO CRYSTAL 01/07 [facility] OFF/OP CNSLTJ NEW/EST LOW 30 [id number] Diagnos is: ICD-10- CM 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 01/26 [facility] Outpatient Encounter [id number] 01/30 [facility] OFF/OP CONSLTJ NEW/[place] HI 55 [id number] Diagnos is: ICD-10- CM I10 Essenti al (primar y) hyperte SUSAN Sutton D 02/04 [facility] Outpatient Encounter [id number] 02/04 [facility] MYOCRD STRAIN IMG SPCKL TRCK [id number]. [id number] 3 Diagnos is: ICD-10- CM E85.9 Amyloid osis, unspeci fied NAHUM PEREIRA SH 02/16 [facility] Outpatient Encounter [id number] 03/17 [facility] HC PRO PHONE CALL 5-10 MIN [id number]. 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 15 MIN [id number] [id number] Diagnos is: ICD-10- CM Z51.81 Encount er for therape utic drug level monitor TL Faulkner 04/13 [facility] Outpatient Encounter [id number] 04/17 [facility] Outpatient Encounter [id number] KAYLA DELA CRUZ 04/24 [facility] Outpatient Encounter [id number] JAGDEEP ROMANO L 04/27 [facility] OFFICE O/P EST MOD 30 MIN [id number] [id number] Diagnos is: ICD-10- CM I10 Essenti al (primar y) hyperte nsion SUSAN STARK 04/29 [facility] Outpatient Encounter [id number] 04/29 [facility] HC PRO PHONE CALL 5-10 MIN [id number] [id number] Diagnos is: ICD-10- CM I48.91 Unspeci fied atrial fibrill ADONIS Haley 04/30 [facility] PT ED WRITE/ORAL PTS W/ [place] [id number] [id number] 6 Diagnos is: ICD-10- CM I10 Essenti al (primar y) hyperte nsion DELFINO,JA LANI M 05/14 [facility] Outpatient Encounter [id number] GARRETTOLGA KEDAR D 05/20 [facility] OFF/OP CONSLTJ NEW/[place] HI 55 [id number] [id number] Diagnos is: ICD-10- CM E85.89 Other amyloid osis AL-DAHLAURA, EMILIE 05/22 [facility] Outpatient Encounter [id number] 05/25 [facility] HEARING AID CHECK ONE EAR [id number] [id number] Diagnos is: ICD-10- CM H90.3 Sensori neural hearing loss, bilater JAVIER Caldwell 06/04 [facility] Outpatient Encounter [id number] KADY TRINIDAD 06/24 [facility] OFFICE O/P EST HI 40 MIN [id number] [id number] Diagnos is: ICD-10- CM I10 Essenti al (primar y) hyperte brandynlia SUSAN STARK D 06/24 [facility] Outpatient Encounter [id number] 06/24 [facility] MUSCLE TEST NONPARASPI NAL [id number] [id number] 1 Diagnos is: ICD-10- CM E85.89 Other amyloid osis AL-DAHHAK, EMILIE 06/24 [facility] Outpatient Encounter [id number] 06/24 [facility] QNHP OL DIG ASSMT&MGMT 21+ [id number] [id number] 9 Diagnos is: ICD-10- CM 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 DIDI WILKINSON A 06/26 [facility] Outpatient Encounter [id number] [id number] FELIX SHIPLEY 06/29 [facility] OFF/OP EST MAY X REQ PHY/QHP 18446-8.65 [id number] 7 Diagnos is: ICD-10- CM E85.89 Other amyloid osis ADONIS SALEH 07/01 [facility] OFFICE O/P EST MOD 30 MIN 33819-7.65 [id number] 6 Diagnos is: ICD-10- CM E85.89 Other amyloid osis SUSAN STARK D 07/01 [facility] OFFICE O/P EST LOW 20 MIN 26652-0.65 [id number] Diagnos is: ICD-10- CM E85.89 Other amyloid osis OLGA TUCKER RID D 07/02 [facility] PROGRAM INTAKE ASSESSMENT 67450-4.65 [id number] 5 Diagnos is: ICD-10- CM J44.89 Other specifi ed chronic obstruc tive pulmona ry disease ANA EARLY 07/07 [facility] Outpatient Encounter [id number] [id number] 07/27 [facility] HC PRO PHONE CALL 5-10 MIN 85042-6.65 [id number] Diagnos is: ICD-10- CM I10 Essenti al (primar y) hyperte ADONIS Chirinos 08/10 [facility] Outpatient Encounter [id number] [id number] 09/21 [facility] OFFICE O/P EST HI 40 MIN 76875-8.65 [id number] Diagnos is: ICD-10- CM I10 Essenti al (primar y) hyperte SUSAN Sutton D 09/30 [facility] OFF/OP EST MAY X REQ PHY/QHP 25854-3.65 [id number] Diagnos is: ICD-10- CM E85.89 Other amyloid reinais ADONIS SALEH Yolis 09/30 [facility] OFF/OP CONSLTJ NEW/EST HI 55 12861-9.65 [id number] 1 Diagnos is: ICD-10- CM G47.33 Obstruc tive sleep apnea (adult) (pediat melvi) LARRY HURLEY B 10/06 [facility] OFFICE O/P EST HI 40 MIN 77470-3.65 [id number] 1 Diagnos is: ICD-10- CM E85.89 Other amyloid osis EMILIE BURNS 10/23 [facility] HEARING AID CHECK BINAURAL 57670-9.65 [id number] Diagnos is: ICD-10- CM 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 Social History Type Response Date Comment [facility] e Tobacco smoking status NHIS [place] FORMER USER 12/25/2023 [facility] History of tobacco use [place] 1 5 YRS OR MORE 12/25/2023 [facility] History of tobacco use [place] QUIT 5 TO < 15 YRS 10/31/2021 [facility] [facility] History of tobacco use VA-TOBACCO NEVER USED 07/05/2020 [facility] History of tobacco use VA-TOBACCO FORMER USER 01/07/2019 [facility] History of tobacco use QUIT TOBACCO >7 Y EARS AGO 03/13/2017 [facility] History of tobacco use QUIT TOBACCO >7 Y EARS AGO 03/21/2016 [facility] History of tobacco use QUIT TOBACCO >7 Y EARS AGO 03/08/2015 [facility] History of tobacco use QUIT TOBACCO >7 Y EARS AGO 12/25/2013 [facility] History of tobacco use QUIT TOBACCO >7 Y EARS AGO 11/19/2006 [facility] History of tobacco use CURRENT NON-TOBAC CO USER-HX OF USE 05/14/2006 [facility] History of tobacco use CURRENT NON-TOBAC CO USER-HX OF USE 11/20/2005 [facility] History of tobacco use CURRENT NON-TOBAC CO USER-HX OF USE 02/08/2004 [facility] Plan of Care List of future care activities from Department of [facility] facilities. Additional future care activities may be listed in the Assessment and Plan section. Date/Time Care Activity Care Activity Detail Facili ty 12/29/2024 AMBULATORY - MEDICINE AMBULATORY - MEDICI NE [facility] 04/22/2025 AMBULATORY - NEUROLOGY AMBULATORY - NEURO LOGY [facility] 11/23/2024 Laboratory - Furniture Associate ry Order PROTEIN ELECTROPHORESIS BLOOD BLOOD SERUM SP [facility]
--- OUTSIDE RECORDS SUMMARY | 2024-11-27 09:33 | XMS_ITS | Encounter Summary ---
Author Name [facility] [place] [facility] [place] Address [address] [place] [address] Care Team Providers Care Machine Cleaner Name Role Phone RAQUEL TUCKER Primary Care [...] MEDIC ARE SUPPL EMENT Nov 21, 2010 [id number] [phone] SHE EWINGHARVINDER Kulkarni PATIENT MEDICARE (WNR) MEDICARE (M) PART B Nov 21, 2010 PART B [id number] Chandu ANGELES EMILY PATIENT MEDICARE (WNR) MEDICARE (M) PART B Nov 21, 2010 PART B [id number] BRIDGETTEChandu EMILY PATIENT MEDICARE (WNR) MEDICARE (M) PART A Nov 21, 2010 PART A [id number] ANGELESChandu EMILY PATIENT MEDICARE (WNR) MEDICARE (M) PART A Nov 21, 2010 PART A [id number] ANGELES,Chandu DESAIRAMOS PATIENT Selected Encounter This section includes the information on record at [place] for the Encounter. Date/Time Encounter Type Encounter Description Reason Provider Source Feb 17, 2024 10:00 AM MYOCRD STRAIN IMG SPCKL TRCK CARDIAC ECHO ICD-10-CM E85.9 Amyloidosis, unspecified CHLOE PEREIRA KERACayla Encounter Template Text not used by [facility] Assessments - Encounter Diagnoses This section includes the primary and secondary diagnoses documented for the Encounter. Date/Time Primary/Secondary Diagnosis Diagnosis Name Provider Source Feb 17, 2024 11:55 AM PRIMARY Amyloidosis, unspecified ANDRE KERR [facility] Plan of Treatment: Future Appointments (+ 6 months) and Future Tests (+/- 45 days) The Plan of Treatment section includes future care activities for the patient from all [place] treatmentfacilities. This section includes future appointments and future orders which are active, pending or scheduled. Future Appointments This section includes appointments that were scheduled to occur 6 months from the date of the Encounter, up to a maximum of 20 appointments. The data comes from all [place] treatment facilities. Appointment Date/Time Appointment Type Appointme nt Facility Name Apr 02, 2024 08:30 AM AMBULATORY - SURGERY [facility] Apr 29, 2024 08:30 AM AMBULATORY - MEDICINE [facility] May 04, 2024 08:00 AM AMBULATORY - NONE [facility] May 04, 2024 10:30 AM AMBULATORY - NONE [facility] May 22, 2024 02:00 PM AMBULATORY - MEDICINE [facility] Jun 24, 2024 08:30 AM AMBULATORY - MEDICINE [facility] Jun 24, 2024 11:00 AM AMBULATORY - NEUROLOGY [facility] Jul 01, 2024 09:30 AM AMBULATORY - MEDICINE [facility] Jul 02, 2024 11:00 AM AMBULATORY - MEDICINE [facility] Jul 07, 2024 03:00 PM AMBULATORY - MEDICINE [facility] Lab Results: +/- 30 days of the encounter This section includes the Chemistry and Hematology Lab Results on record with [place] for the patient. Radiology Reports and Pathology Reports are provided separately, in subsequent sections. Lab Results This section contains the Chemistry/Hematology Results that were resulted 30 days before or 30 daysafter the date of the Encounter. Date/Time Source Result Type Result - Unit Interpretation Reference Range Comment Feb 05, 2024 11:13 AM [facility] TROPONIN I Specimen Type: PLASMA Comment: No hemolysis noted. Ordering Provider: JOEL STARK Report Released Date/Time: Feb 05, 2024 10:34 AM Reporting Lab: [facility] [address] [facility] [address] Performing Lab: [facility] [address] [facility] [address] TROPONIN I <0.010 ng/mL 0-0.033 Feb 05, 2024 11:13 AM [facility] BRAIN NATRIURETIC PEPTIDE Specimen Type: PLASMA No comment entered. Ordering Provider: JOEL STARK Report Released Date/Time: Feb 05, 2024 10:34 AM Reporting Lab: [facility] [address] [facility] [address] Performing Lab: [facility] [address] [facility] [address] BRAIN NATRIURETIC PEPTIDE 537.1 pg/mL H 0-100 Feb 05, 2024 11:13 AM [facility] COMPREHENSIVE METABOLIC PANEL Specimen Type: PLASMA Comment: No hemolysis noted. Ordering Provider: JOEL STARK Report Released Date/Time: Feb 05, 2024 10:34 AM Reporting Lab: [facility] [address] [facility] [address] Performing Lab: [facility] [address] [facility] [address] CREATININE 1.22 mg/dL 0.7-1.3 UREA NITROGEN 17.4 mg/dL 9.0-25.0 GLUCOSE 107 mg/dL H 72-99 SODIUM 140 meq/L 136-145 POTASSIUM 4.6 meq/L 3.5-5 CHLORIDE 106 meq/L 98-107 CARBON DIOXIDE 26 meq/L 22-31 CALCIUM 9.3 mg/dL 8.4-10.4 PROTEIN 7.2 g/dL 6-8.6 ALBUMIN 4.2 g/dL 3.4-5 TOTAL BILIRUBIN 1.6 mg/dL H 0.2-1.2 ALKALINE PHOSPHATASE 79 U/L 40-150 AST/SGOT 18 U/L 5-34 ALT/SGPT 18 U/L 8-40 EGFR (CKD-EPI 2020) 61.4 >60 Feb 05, 2024 11:13 AM [facility] CBC Specimen Type: BLOOD No comment entered. Ordering Provider: JOEL STARK Report Released Date/Time: Feb 05, 2024 10:34 AM Reporting Lab: [facility] [address] [address] Performing Lab: [facility] [address] [facility] [address] WBC 6.7 10*3/uL 3.6-11.2 RBC 4.60 10*6/uL 4.10-5.70 HGB 15.2 g/dL 13.1-16.8 HCT 45.7 38.2-48.4 MCV 99.3 fL 80.0-100.0 MCH 33.0 pg 27.0-34.0 MCHC 33.3 g/dL 33.0-36.0 PLT 202 10*3/uL 150-400 MPV 10.0 fL 7.5-11.2 RDW 13.7 11.8-15.1 LYMPHOCYTES, AUTO % 31 MONOCYTES, AUTO % 11 NEUTROPHILS, AUTO % 53 EOSINOPHILS, AUTO % 4 BASOPHILS, AUTO % 1 LYMPHOCYTES, ABSOLUTE 2.07 10*3/uL 0.77-4.50 MONOCYTES, ABSOLUTE 0.76 10*3/uL 0.19-0.80 NEUTROPHILS, ABSOLUTE 3.52 10*3/uL 2.10-8.00 EOSINOPHILS, ABSOLUTE 0.27 10*3/uL 0.00-0.60 BASOPHILS, ABSOLUTE 0.05 10*3/uL 0.00-0.20 Encounter Notes: All associated encounter notes This section contains the clinical notes associated to the Encounter. Date/Time Encounter Note(s) Provider Source Feb 17, 2024 03:40 PM CARDIOLOGY DIAGNOS TIC STUDY NOTE: LOCAL TITLE: CP ECHO TTE STL STANDARD TITLE: CARDIOLOGY DIAGNOSTIC STUDY NOTE DATE OF NOTE: FEB 17, 2024@15:40:02 ENTRY DATE: FEB 17, 2024@15:40:02 AUTHOR: CLINICAL,DEVICE PRO EXP COSIGNER: URGENCY: STATUS: COMPLETED DOCUMENT IN [facility]IST[facility] SEE FULL REPORT IN [facility] SIGNATURE NOT REQUIRED SEE SIGNATURE IN [facility]IST[facility]AGING (IMAGEVAULT TTE (P)) AUTO-INSTRUMENT DIAGNOSIS Procedure: TTE CP TTE ECHOCARDIOGRAM [facility] Release Status: Released Off-Line Verified Date Verified: Feb 17, 2024@15:39:12 Administrative Closure: 02/17/2024 by: CLINICAL,DEVICE PROXY SERVICE CLINICAL,DEVICE PROXY SERVICE [facility] Feb 17, 2024 11:01 AM CARDIOLOGY NURSING PREPROCEDURE NOTE: LOCAL TITLE: LICENSED ACUPUNCTURIST PROCEDURE STL STANDARD TITLE: CARDIOLOGY NURSING PREPROCEDURE NOTE DATE OF NOTE: FEB 17, 2024@11:01 ENTRY DATE: FEB 17, 2024@11:01:22 AUTHOR: ILENE SANTOS EXP COSIGNER: URGENCY: STATUS: COMPLETED PAL 22G Right AC inserted, patent, flushed PAL inserted for enhancement administration &/or bubbles. Was Dc'D at completion of echo. Total Attempts: 1 /es/ Ilene Santos,RN,BSN Registered Nurse Signed: 02/17/2024 11:01 ILENE SANTOS [facility]
--- OUTSIDE RECORDS SUMMARY | 2024-11-27 09:33 | XMS_ITS | Encounter Summary ---
Author Name [facility] [place] [facility] [place] Address [address] [place] [address] Care Team Providers Care Farmworkers Name Role Phone RAQUEL TUCKER Primary Care [...] Name Patient's Relationship to Policy Rodriguez BCBS [place] MEDICARE SUPPLEMEN BISHOP MEDIC ARE SUPPL EMENT Nov 21, 2010 [id number] [phone] SHE EWINGCaylaHARVINDER PATIENT MEDICARE (WNR) MEDICARE (M) PART A Nov 21, 2010 PART A [id number] Chandu ANGELES EMILY PATIENT MEDICARE (WNR) MEDICARE (M) PART B Nov 21, 2010 PART B [id number] [phone] Chandu ANGELES EMILY PATIENT MEDICARE (WNR) MEDICARE (M) PART A Nov 21, 2010 PART A [id number] Chandu ANGELES LLOYDRAMOS PATIENT MEDICARE (WNR) MEDICARE (M) PART B Nov 21, 2010 PART B [id number] ANGELESChanduRAMOS PATIENT Selected Encounter This section includes the information on record at [place] for the Encounter. Date/Time Encounter Type Encounter Description Reason Provider Source Jun 04, 2024 02:39 PM HEARING AID CHECK ONE EAR AUDIOLOGY ICD-10-CM H90.3 Sensorineural hearing loss, bilateral JAVIER LYONS IHCayla Encounter Template Text not used by [place] Assessments - Encounter Diagnoses This section includes the primary and secondary diagnoses documented for the Encounter. Date/Time Primary/Secondary Diagnosis Diagnosis Name Provider Source Jun 04, 2024 03:15 PM PRIMARY Sensorineural hearing loss, bilateral [facility] MINAYA [facility] Plan of Treatment: Future Appointments (+ 6 months) and Future Tests (+/- 45 days) The Plan of Treatment section includes future care activities for the patient from all [place] treatmentfacilities. This section includes future appointments and future orders which are active, pending or scheduled. Future Appointments This section includes appointments that were scheduled to occur 6 months from the date of the Encounter, up to a maximum of 20 appointments. The data comes from all [place] treatment facilities. Appointment Date/Time Appointment Type Appointme nt Facility Name Jun 24, 2024 08:30 AM AMBULATORY - MEDICINE [facility] Jun 24, 2024 11:00 AM AMBULATORY - NEUROLOGY [facility] Jul 01, 2024 09:30 AM AMBULATORY - MEDICINE [facility] Jul 02, 2024 11:00 AM AMBULATORY - MEDICINE [facility] Jul 07, 2024 03:00 PM AMBULATORY - MEDICINE [facility] Sep 30, 2024 09:30 AM AMBULATORY - MEDICINE [facility] Oct 06, 2024 12:00 PM AMBULATORY - MEDICINE [facility] Oct 23, 2024 01:00 PM AMBULATORY - MEDICINE [facility] Oct 27, 2024 01:00 PM AMBULATORY - SURGERY [facility] Nov 23, 2024 10:00 AM AMBULATORY - MEDICINE [facility] Lab Results: +/- 30 days of the encounter This section includes the Chemistry and Hematology Lab Results on record with [place] for the patient. Radiology Reports and Pathology Reports are provided separately, in subsequent sections. Lab Results This section contains the Chemistry/Hematology Results that were resulted 30 days before or 30 daysafter the date of the Encounter. Date/Time Source Result Type Result - Unit Interpretation Reference Range Comment May 22, 2024 02:43 PM [facility] PROTEIN URINE Specimen Type: URINE No comment entered. Ordering Provider: JOEL STARK Report Released Date/Time: Apr 29, 2024 09:21 AM Reporting Lab: [facility] [address] [address] Performing Lab: [facility] [address] [facility] [address] PROTEIN URINE 13.4 mg/dL May 22, 2024 02:39 PM [facility] B12 Specimen Type: SERUM No comment entered. Ordering Provider: VICTOR HUGO BURNS Report Released Date/Time: May 22, 2024 02:24 PM Reporting Lab: [facility] [address] [address] Performing Lab: [facility] [address] [address] B12 447 pg/mL 213-816 May 22, 2024 02:39 PM [facility] BRAIN NATRIURETIC PEPTIDE Specimen Type: PLASMA No comment entered. Ordering Provider: JOEL STARK Report Released Date/Time: Apr 29, 2024 09:21 AM Reporting Lab: [facility] [address] [address] Performing Lab: [facility] [address] [facility] [address] BRAIN NATRIURETIC PEPTIDE 123.4 pg/mL H 0-100 May 22, 2024 02:39 PM [facility] TROPONIN I Specimen Type: PLASMA Comment: No hemolysis noted. Ordering Provider: JOEL STARK Report Released Date/Time: Apr 29, 2024 09:21 AM Reporting Lab: [facility] [address] [address] Performing Lab: [facility] [address] [address] TROPONIN I <0.010 ng/mL 0-0.033 May 22, 2024 02:39 PM [facility] BASIC METABOLIC PANEL Specimen Type: PLASMA Comment: No hemolysis noted. Ordering Provider: JOEL STARK Report Released Date/Time: Apr 29, 2024 09:21 AM Reporting Lab: [place] [address] [facility] [address] Performing Lab: [address] [address] CREATININE 0.99 mg/dL 0.7-1.3 UREA NITROGEN 16.2 mg/dL 9.0-25.0 GLUCOSE 101 mg/dL H 72-99 SODIUM 140 meq/L 136-145 POTASSIUM 4.1 meq/L 3.5-5 CHLORIDE 106 meq/L 98-107 CARBON DIOXIDE 24 meq/L 22-31 CALCIUM 9.6 mg/dL 8.4-10.4 EGFR (CKD-EPI 2020) 78.5 >60 Encounter Notes: All associated encounter notes This section contains the clinical notes associated to the Encounter. Date/Time Encounter Note(s) Provider Source Jun 04, 2024 02:39 PM AUDIOLOGY ELECTRODE TURNER AND FINISHER NOTE: LOCAL TITLE: HEARING AIDS STL STANDARD TITLE: AUDIOLOGY ELECTRODE TURNER AND FINISHER NOTE DATE OF NOTE: JUN 04, 2024@14:39 ENTRY DATE: JUN 04, 2024@14:39:31 AUTHOR: JAVIER LYONS EXP COSIGNER: URGENCY: STATUS: COMPLETED SUBJECT: audio HEARING AIDS ST Has ADDENDA HEARING AID DROP OFF dropped off the following [place] issued aid(s): 09/05/20 SONOVA PHONAK AUDEO M90-312 HARSHAD R [id number]* (L&D 09/08/21) 09/05/20 SONOVA PHONAK AUDEO M90-312 HARSHAD L [id number] Also included in drop-off: unattached new right cShell with 3M lump receiver. (See JS addendum from 08/10/2021 for explanation) PHONE: [phone] REPORTED PROBLEM: Right aid's body and cShell crushed. REPAIR ACTIONS: General cleaning of left aid. Listening check of left aid OK. Replaced right cShell with new right cShell included in drop-off per JM. DATALOGGING: Not completed as right aid could not hold battery due to case damage. PLAN: [facility] notified of repair actions: [x] Right device sent in for repair; ETA approximately 2-3 weeks. Right hearing aid will return to clinic to verify settings restored and ensure e2e connectivity; left aid held in HB drawer. Call for p/u. Label made. Completed by Mc Minaya B.A., audiology file conversion operator campus recruiting internship. The information above has been reviewed by this provider. I am in agreement with the treatment plan as outlined. /rashawn/ Hailey Adam, [facility] Staff Medical Transcription Radiology, Surgery Service Signed: 06/05/2024 08:53 06/15/2024 ADDENDUM STATUS: COMPLETED Certified right GASPAR. Settings restored per invoice and listening check is good. Synched with left aid from bin and called pt. He states he will sisal picker the hearing aid tomorrow. Placed in [facility] bin. /rashawn/ Hailey Adam, CCC-A Staff Medical Transcription Radiology, Surgery Service Signed: 06/15/2024 15:11 06/16/2024 ADDENDUM STATUS: COMPLETED Patient came in to sisal picker hearing aids. /rashawn/ MARLEN MADRIGAL Signed: 06/16/2024 14:23 JAVIER LYONS [facility]
--- OUTSIDE RECORDS SUMMARY | 2024-11-27 09:33 | XMS_ITS | Encounter Summary ---
Author Name [facility] [place] Organization [facility] [place] Address [address] [place] [address] Care Team Providers Care School Crossing Guard Supervisor Name Role Phone CONCEPCION TUCKER Primary Care Provider Unavailabl e Insurance [...] MEDIC ARE SUPPL EMENT Nov 21, 2010 [id number] [phone] HARVINDER DOUGHERTY PATIENT MEDICARE (WNR) MEDICARE (M) PART B Nov 21, 2010 PART B [id number] [phone] Chandu ANGELES PATIENT MEDICARE (WNR) MEDICARE (M) PART A Nov 21, 2010 PART A [id number] [phone] Chandu ANGELES LLOYDRAMOS PATIENT MEDICARE (WNR) MEDICARE (M) PART A Nov 21, 2010 PART A [id number] [phone] Chandu ANGELES LLOYDRAMOS PATIENT MEDICARE (WNR) MEDICARE (M) PART B Nov 21, 2010 PART B [id number] ANGELESChandu EMILY PATIENT Selected Encounter This section includes the information on record at [place] for the Encounter. Date/Time Encounter Type Encounter Description Reason Provider Source Apr 29, 2024 08:30 AM OFFICE O/P EST MOD 30 MIN CARDIOLOGY ICD-10-CM I10 Essential (primary) hypertension BRAD STARK [facility] Encounter Template Text not used by DC Assessments - Encounter Diagnoses This section includes the primary and secondary diagnoses documented for the Encounter. Date/Time Primary/Secondary Diagnosis Diagnosis Name Provider Source Jun 16, 2024 01:58 PM PRIMARY Essential (primary) hypertension JOSELITO STARK [facility] Jun 16, 2024 01:58 PM SECONDARY Mild cognitive impairment of uncertain or unknown etiology JOSELITO STARK [facility] Jun 16, 2024 01:58 PM SECONDARY Other amyloidosis JOSELITO STARK [facility] Jun 16, 2024 01:58 PM SECONDARY Pure hypercholesterolem ia, unspecified JOSELITO STARK [facility] Jun 16, 2024 01:58 PM SECONDARY Unspecified atrial fibrillation JOSELITO STARK [facility] Plan of Treatment: Future Appointments (+ 6 months) and Future Tests (+/- 45 days) The Plan of Treatment section includes future care activities for the patient from all [place] treatmentfacilities. This section includes future appointments and future orders which are active, pending or scheduled. Future Appointments This section includes appointments that were scheduled to occur 6 months from the date of the Encounter, up to a maximum of 20 appointments. The data comes from all [place] treatment facilities. Appointment Date/Time Appointment Type Appointme nt Facility Name May 04, 2024 08:00 AM AMBULATORY - NONE [facility] May 04, 2024 10:30 AM AMBULATORY - NONE [facility] May 22, 2024 02:00 PM AMBULATORY - MEDICINE [facility] Jun 24, 2024 08:30 AM AMBULATORY - MEDICINE [facility] Jun 24, 2024 11:00 AM AMBULATORY - NEUROLOGY [facility] Jul 01, 2024 09:30 AM AMBULATORY - MEDICINE [facility] Jul 02, 2024 11:00 AM AMBULATORY - MEDICINE [facility] Jul 07, 2024 03:00 PM AMBULATORY - MEDICINE [facility] Sep 30, 2024 09:30 AM AMBULATORY - MEDICINE [facility] Oct 06, 2024 12:00 PM AMBULATORY - MEDICINE [facility] Oct 23, 2024 01:00 PM AMBULATORY - MEDICINE [facility] Oct 27, 2024 01:00 PM AMBULATORY - SURGERY [facility] Lab Results: +/- 30 days of the encounter This section includes the Chemistry and Hematology Lab Results on record with [facility] for the patient. Radiology Reports and Pathology Reports are provided separately, in subsequent sections. Lab Results This section contains the Chemistry/Hematology Results that were resulted 30 days before or 30 daysafter the date of the Encounter. Date/Time Source Result Type Result - Unit Interpretation Reference Range Comment May 22, 2024 02:43 PM [facility] PROTEIN URINE Specimen Type: URINE No comment entered. Ordering Provider: JOEL STARK Report Released Date/Time: Apr 29, 2024 09:21 AM Reporting Lab: [address] [address] Performing Lab: [address] [address] PROTEIN URINE 13.4 mg/dL May 22, 2024 02:39 PM [facility] B12 Specimen Type: SERUM No comment entered. Ordering Provider: VICTOR HUGO NAPOLES Report Released Date/Time: May 22, 2024 02:24 PM Reporting Lab: [address] [address] Performing Lab: [address] [address] B12 447 pg/mL 213-816 May 22, 2024 02:39 PM [facility] BRAIN NATRIURETIC PEPTIDE Specimen Type: PLASMA No comment entered. Ordering Provider: JOEL STARK Report Released Date/Time: Apr 29, 2024 09:21 AM Reporting Lab: [facility] [address] [facility] [address] Performing Lab: [address] [address] BRAIN NATRIURETIC PEPTIDE 123.4 pg/mL H 0-100 May 22, 2024 02:39 PM [facility] TROPONIN I Specimen Type: PLASMA Comment: No hemolysis noted. Ordering Provider: JOEL STARK Report Released Date/Time: Apr 29, 2024 09:21 AM Reporting Lab: [address] [address] Performing Lab: [address] [address] TROPONIN I <0.010 ng/mL 0-0.033 May 22, 2024 02:39 PM [facility] BASIC METABOLIC PANEL Specimen Type: PLASMA Comment: No hemolysis noted. Ordering Provider: JOEL STARK Report Released Date/Time: Apr 29, 2024 09:21 AM Reporting Lab: [address] [address] Performing Lab: [address] [address] CREATININE 0.99 mg/dL 0.7-1.3 UREA NITROGEN 16.2 mg/dL 9.0-25.0 GLUCOSE 101 mg/dL H 72-99 SODIUM 140 meq/L 136-145 POTASSIUM 4.1 meq/L 3.5-5 CHLORIDE 106 meq/L 98-107 CARBON DIOXIDE 24 meq/L 22-31 CALCIUM 9.6 mg/dL 8.4-10.4 EGFR (CKD-EPI 2020) 78.5 >60 Vital Signs: All taken on the encounter date This section contains inpatient and outpatient Vital Signs collected on the date of the Encounter. Date/Time Temperature Pulse Blood Pressure Respiratory Rate SP02 Pain Height Weight Body Mass Index Source Apr 29, 2024 08:18 AM 154/84 [facility] Apr 29, 2024 08:16 AM 97.9 49 153/87 18 95 0 249.8 37 [facility] Radiology Reports: +/- 30 days of the encounter Radiology Reports For cases when an order for radiology services may have been completed prior to the date of the Encounter, the report list includes the Radiology Reports that were completed up to 30 days before dateof the Encounter. For cases when an order for radiology services may have been completed after the date of the Encounter, the report list also includes the Radiology Reports that were completed up to30 days after date of the Encounter. The data comes from all [place] treatment facilities. 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 Echo suggestive. Want to delineate cardiac involvement vs pure peripheral neuropathic involvement. Report Status: Verified Date Reported: MAY 04, 2024 Date Verified: MAY 04, 2024 Cycle Liaison E-Sig:/ES/Seda Rae MD,PhD Report: PATIENT NAME: CALVIN ANGELES. CASE #: [id number], [id number], [id number]. EXAMINATION: Myocardial Pyrophosphate Scan with SPECT/CT. HISTORY: 79-year-old male patient with hypertension, AF on anticoagulation and positive amyloidosis by biopsy from tenosynovium of wrist joint on August 2023.. Study was ordered for the evaluation of the cardiac transthyretin amyloidosis (ATTR). TECHNIQUE: After IV administration of 21.4 mCi of Tc-99m-PYP, four planar images of the chest (anterior, left anterior oblique, left lateral left posterior oblique) and SPECT/CT of the chest were obtained at 2.5 hours post injection. COMPARISON: No similar prior available patient chart.. FINDINGS: The planar images and SPECT-CT images of the chest showed mild cardiac uptake. The uptake at the cardiac region relative to the contralateral area of the chest (H/CL) ratio 1.3.The planar images images of the chest showed mild cardiac uptake, semiquantitative grade of 1. The uptake at the cardiac region relative to the contralateral area of the chest (H/CL) ratio 1.3, Quantitative score is equivocal for cardiac amyloidosis. SPECT/CT images confirmed that there is uptake in the cardiac myocardium similar to the uptake. CT portion of the study showed unremarkable pulmonary results, with multilevel degenerative changes of the spine. Impression: 1.The current study is equivocal for ATTR amyloidosis, with Grade 1 TTR cardiac amyloidosis. And (H/CL) ratio of 1.3,. 2. According to ASNC guidelines, a negative or mildly positive PYP does not exclude AL amyloid. In addition, equivocal results could represent AL amyloid or early TTR amyloid. Diagnostic code: 1001. Dictated by Tila Miller MD (Nuclear Medicine resident). I, Seda Rae, have reviewed the images and report and concur with these findings. Primary Interpreting Staff: Seda Rae MD,PhD, Nuclear Medicine Physician (Cycle Liaison) Primary Interpreting Resident: TILA MILLER, Resident Physician /SEDA Smith [facility] Encounter Notes: All associated encounter notes This section contains the clinical notes associated to the Encounter. 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 Awaiting L 2. MGUS, IgA 3. HTN 4. MDD, PTSD 5. LBP s/p L4 - S1 fusion 6. Afib, currently on Xarelto 7. NICK on CPAP CARE TEAM: 1. Concepcion Tucker MD 2. = INTERVAL HISTORY: = We had the pleasure of seeing CALVIN ANGELES in the [facility] Advanced Heart Failure Program. 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 He underwent right carpal tunnel release, right Guyon's canal release, tenosynovial biopsy for question of amyloidosis with Dr. Austin on 09/04/23. Tenosynovial biopsy showed evidence of TTR amyloidosis. This evaluation was also at [facility]. 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 The results were not suggestive of cardiac involvement. He followed with [facility], Dr. Starks (last seen 12/02/23). [facility] We last saw him in January, at which point he noted some labile blood pressures, as well as SOB that had been getting progressively worse. He has a history of peripheral neuropathy and bilateral feet numbness / tingling. TODAY The patient is feeling well today. He continues to have labile blood pressures, with lightheadedness, dizziness when his BP is low. He notes a shauna of around 130s. It happens 1 - 2 times per day. Occasionally he has to lay down and rest. He has had no syncope, but has presyncopal episodes. He notes tunnel vision. It is not necesarily associated with medication administration (e.g. 2 hours after meds). Patient also notes he has a low HR. His metoprolol was recently changed from 100BID to 50BID. No chest pain, chest tightness, chest pressure. He notes SOB while ambulating quickly (e.g. running across the street today). He notes he has intermittent and alternating diarrhea constipation. No weight loss. No nausea, some early satiety. He notes continued peripheral neuropathy, which is slowly getting worse in his bilateral lower extremities. Of note, a 12 point REVIEW OF SYSTEMS was performed; all other review of systems negative, except as listed in the interval history. = CURRENT OUTPATIENT MEDICATIONS: = Active Outpatient Medications (including Supplies): Active Outpatient Medications Status 1) ALLOPURINOL 300MG TAB TAKE ONE TABLET BY MOUTH ONCE A ACTIVE DAY FOR GOUT. TAKE WITH PLENTY OF WATER. 2) CITALOPRAM HYDROBROMIDE 40MG TAB TAKE ONE TABLET BY ACTIVE MOUTH EVERY MORNING FOR DEPRESSION 3) GABAPENTIN 600MG TAB TAKE ONE TABLET BY MOUTH AT ACTIVE (S) BEDTIME FOR PAIN 4) LOSARTAN 100MG TAB TAKE ONE TABLET BY MOUTH ONCE A ACTIVE DAY TO LOWER BLOOD PRESSURE 5) METOPROLOL TARTRATE 100MG TAB TAKE ONE TABLET BY ACTIVE MOUTH TWICE A DAY FOR HIGH BLOOD PRESSURE TAKE WITH OR IMMEDIATELY FOLLOWING FOOD. 6) OMEPRAZOLE 20MG EC CAP TAKE ONE CAPSULE BY MOUTH AT ACTIVE BEDTIME TO LOWER STOMACH ACID. TAKE 30 MINUTES PRIOR TO FOOD. 7) RIVAROXABAN 20MG TAB TAKE ONE TABLET BY MOUTH ONCE A ACTIVE DAY TO THIN BLOOD. TAKE WITH FOOD. Active Non-VA Medications Status 1) Non-VA CITALOPRAM HYDROBROMIDE 40MG TAB 20MG BY MOUTH ACTIVE EVERY MORNING 2) Non-VA GABAPENTIN 300MG CAP 600MG BY MOUTH THREE ACTIVE TIMES A DAY 3) Non-VA MULTIVITAMIN CAP/TAB 1 TABLET BY MOUTH ONCE A ACTIVE DAY 10 Total Medications - All cardiac medications were reconciled during the visit. - Losartan 100 qDay - Metop Tartrate 100BID = PHYSICAL EXAM: = Temperature: 97.9 F [36.6 C] (04/29/2024 08:16) BP: 154/84 (04/29/2024 08:18) Pulse: 49 (04/29/2024 08:16) Resp: 18 (04/29/2024 08:16) Weight:249.8 lb [113.31 kg] (04/29/2024 08:16) BMI: 37.0 GENERAL: Older fit WM, Sclera anicteric, PERRLA, MMM NECK: Carotids were brisk without bruits. CHEST/LUNGS: Clear to auscultation bilaterally with no rales or wheezes. Good respiratory effort and excursion. HEART: S1 S2, RRRR, no JVP ABDOMEN: Soft, nontender, BS positive x 4 quadrants EXTREMITIES: No lower extremity edema. Pedal pulses intact bilaterally NEUROLOGICAL: Alert and oriented x 3. Normal motor strength. PSYCHIATRIC: Mood and affect appropriate = DIAGNOSTIC DATA: = ###. ECHOCARDIOGRAM: -The echocardiogram was personally reviewed, with findings of: 1. Normal left ventricular size. Left ventricular wall thickness is normal. 2. Global systolic function: Overall left ventricular systolic function is normal with an estimated ejection fraction of 60%. 3. Diastolic function: Mitral inflow pattern and tissue Doppler is consistent with moderate diastolic dysfunction (grade II) and elevated left atrial filling pressure. 4. Global longitudinal strain is abnormal at -12.4 %. 5. Normal right ventricular size and systolic function. 6. Left atrium is mildly dilated by volume. 7. The right atrium is mildly enlarged. 8. Mild mitral regurgitation. 9. Mild tricuspid regurgitation. 10. The estimated right ventricular/pulmonary artery systolic pressure is 33 mmHg. 11. The inferior vena cava is normal in size with normal inspiratory variation, which is consistent with estimated right atrial pressure of 3 mmHg. 12. Effusion: No pericardial effusion. ###. ECG: -The ECG was personally reviewed, with findings of: -Sinus bradycardia with inferolateral TWI. ### cMRI (12/2023 - [facility]) IMPRESSION: 1. No MR evidence of cardiac amyloid. No delayed gadolinium enhancement suggestive of an infiltrative cardiomyopathy or infarct. 2. Mild mitral regurgitation with preserved bilateral ventricular function. ###. ICD: - N/A ###. Current NYHA Class: II ###. AMYLOID ROS AMYLOID MANIFESTATIONS AND REVIEW OF SYSTEMS: #. CV: Afib, grade II diastolic dysfunction #. MSK: Carpal tunnel s/p release on R. Lumbar spine stenosis. #. Polyneuropathy: preesnt in bilateral lower extremities. #. Autonomic Dysfunction: Labile blood pressures, sensitive to BP meds #. Gastrointestinal: Alternating diarrhea / constipation #. Kidney: CKD AMYLOID IMAGING AND CARDIAC DIAGNOSTICS: #. ECG: Afib. No significant low volts, ALIA #. TTE: Some suggestion of apical sparing. Otherwise fairly unremarkable. #. 99Tc-PYP: Pending #. cMRI: NEG for cardiac involvement (12/2023) #. R wrist synovium biopsy (09/04/23) - WT ATTR based on [place] and Digital Performance Analyst from [facility] AMYLOID LABS: #. BNP: BRAIN NATRIURETIC PEPTIDE 537.1 H pg/mL 02/05/2024 11:13 #. Trop: Pending #. SPEP/UPEP/ FLC: NEG (ratio 1.23 on 12/27/23) Genetic Testing: N/A, Digital Performance Analyst confirms WT ATTR. ###. LABORATORIES: COMPREHENSIVE METABOLIC PANEL SODIUM 140 mEq/L 02/05/2024 11:13 POTASSIUM 4.6 mEq/L 02/05/2024 11:13 CHLORIDE 106 mEq/L 02/05/2024 11:13 UREA NITROGEN 17.4 mg/dL 02/05/2024 11:13 CREATININE 1.22 mg/dL 02/05/2024 11:13 CALCIUM 9.3 mg/dL 02/05/2024 11:13 PROTEIN 7.2 g/dL 02/05/2024 11:13 ALBUMIN 4.2 g/dL 02/05/2024 11:13 ALKALINE PHOSPHATASE 79 U/L 02/05/2024 11:13 ALT/SGPT 18 U/L 02/05/2024 11:13 AST/SGOT 18 U/L 02/05/2024 11:13 TOTAL BILIRUBIN 1.6 H mg/dL 02/05/2024 11:13 CARBON DIOXIDE 26 mEq/L 02/05/2024 11:13 GLUCOSE 107 H mg/dL 02/05/2024 11:13 EGFR (CKD-EPI 2020) 61.4 02/05/2024 11:13 COMPLETE BLOOD COUNT WBC 6.7 10*3/uL 02/05/2024 11:13 RBC 4.60 10*6/uL 02/05/2024 11:13 HGB 15.2 g/dL 02/05/2024 11:13 HCT 45.7 % 02/05/2024 11:13 MCV 99.3 fL 02/05/2024 11:13 MCH 33.0 pg 02/05/2024 11:13 MCHC 33.3 g/dL 02/05/2024 11:13 RDW 13.7 % 02/05/2024 11:13 PLT 202 10*3/uL 02/05/2024 11:13 HGA1C: HGA1C 6.1 H % 12/25/2023 13:57 LIPIDS TRIGLYCERIDE 118 mg/dL 12/25/2023 13:57 CHOLESTEROL 146 mg/dL 12/25/2023 13:57 HDL(New) 38 L mg/dL 12/25/2023 13:57 CALCULATED LDL 84 mg/dL 12/25/2023 13:57 CARDIAC BIOMARKERS BNP: BRAIN NATRIURETIC PEPTIDE 537.1 H pg/mL 02/05/2024 11:13 Trop: The OBJECT TROPONIN I EO was NOT found...Contact IRM. IRON STUDIES FERRITIN: No FERRITIN EO data found TSAT: The OBJECT TRANSFERRIN EO was NOT found...Contact IRM. = ASSESSMENT AND PLAN: = In summary, CALVIN ANGELES is a 78 MALE with a history of biopsy provent TTR amyloid in the tenosynovial space who presents for evaluation. Overall, the patient is endorsing NYHA class II symptoms and appears euvolemic on exam today. BARRIERS TO CARE AND CANDIDACY FOR ADVANCED THERAPIES: - Not currently indicated PLAN: #. TTR Amyloid - No cardiac involvement at present, based on cMRI from December 2023 - Echo with some suggestion of apical sparing, but not definitive. - Will obtain PYP for tertiary completeness (MRI, Echo, PYP) to confirm no cardiac involvement as of yet. - Given that his involvement is primarily autonomic dysfunction, and sensory neuropathy, will send to Dr. Napoles for evaluation and baseline testing. Will discuss with her role of aggie. - In addition, it is possible that his cardiac involvement is as of yet, subclinical, as carpal tunnel can preceed cardiac involvement. - Given the new top line results of the Helios-B trial, aggie would be a good choice. - Will also check repeat BNP, BMP, troponin, and urine protein to assess other multiorgan involvement. - Lastly, complains of mild cognitive impairment, which has been progressive. He is scheduled to see neurology at [facility]. #. Afib - Remains on Xarelto for A/C - Continue rate control #. HTN #. Labile BP / Autonomic dysfunction - DC metoprolol (HR 49 today) - Change to losartan 50 BID; he will obtain BP checks / HR's and I will have Sean call him in 2 weeks. #. Autonomic dysfunction - As above. #. DISPO - RTC in 6 weeks to confirm close follow-up. - Sean, can you call the patient in 2 weeks to assess his BP/ HR checks on new dosing strategy of losartan and DC of metoprolol? Thank you for allowing [facility] to [facility]. Please do not hesitate to call the HF team with any questions or concerns. /rashawn/ FARIDA STARK MD PHD STAFF PHYSICIAN AND CHIEF OF HEART FAILURE Signed: 04/29/2024 09:21 Receipt Acknowledged By: 04/29/2024 09:52 /rashawn/ Mary Napoles M.D Neurology Attending 04/29/2024 10:02 /rashawn/ SEAN SALEH,MSN,RN REGISTERED NURSE FARIDA STARK [facility]
--- OUTSIDE RECORDS SUMMARY | 2024-11-27 09:33 | XMS_ITS | Encounter Summary ---
Author Name [facility] [place] [facility] [place] Address [address] [place] [address] Care Team Providers Care Extractor Puller Name Role Phone RAQUEL TUCKER Primary Care [...] Name Patient's Relationship to Policy [place] MED[place] SUPPLEMEN BISHOP MEDIC ARE SUPPL EMENT Nov 21, 2010 [id number] [phone] HARVINDER DOUGHERTY PATIENT MEDICARE (WNR) MEDICARE (M) PART A Nov 21, 2010 PART A [id number] [phone] Chandu ANGELES PATIENT MEDICARE (WNR) MEDICARE (M) PART B Nov 21, 2010 PART B [id number] Chandu ANGELES EMILY PATIENT MEDICARE (WNR) MEDICARE (M) PART A Nov 21, 2010 PART A [id number] Chandu ANGELES LLOYDRAMOS PATIENT MEDICARE (WNR) MEDICARE (M) PART B Nov 21, 2010 PART B [id number] ANGELES,Chandu EMILY PATIENT Selected Encounter This section includes the information on record at [place] for the Encounter. Date/Time Encounter Type Encounter Description Reason Provider Source Oct 27, 2024 01:00 PM HEARING AID CHECK BINAURAL AUDIOLOGY ICD-10-CM H90.3 Sensorineural hearing loss, bilateral SANDOR LIN Cayla Encounter Template Text not used by [facility] Assessments - Encounter Diagnoses This section includes the primary and secondary diagnoses documented for the Encounter. Date/Time Primary/Secondary Diagnosis Diagnosis Name Provider Source Oct 27, 2024 01:25 PM PRIMARY Sensorineural hearing loss, bilateral [facility] Plan of Treatment: Future Appointments (+ 6 months) and Future Tests (+/- 45 days) The Plan of Treatment section includes future care activities for the patient from all [place] [facility] This section includes future appointments and future orders which are active, pending or scheduled. Future Appointments This section includes appointments that were scheduled to occur 6 months from the date of the Encounter, up to a maximum of 20 appointments. The data comes from all [facility]. Appointment Date/Time Appointment Type Appointme nt Facility Name Nov 23, 2024 10:00 AM AMBULATORY - MEDICINE [facility] Dec 29, 2024 09:30 AM AMBULATORY - MEDICINE [facility] Apr 22, 2025 03:00 PM AMBULATORY - NEUROLOGY [facility] Active, Pending, and Scheduled Orders This section includes a listing of several types of active, pending, and scheduled orders, including clinic medications orders, diagnostic test orders, procedure orders and consult orders; where the start date of the order is 45 days before the date of the Encounter or 45 days after the date of theEncounter. The data comes from all [facility]. Test Date/Time Test Type Test Details Facility Name Oct 07, 2024 12:00 AM Laboratory - Chemistry Order IRON/TIBC PROFILE GOLD/RED [facility] Oct 09, 2024 12:00 AM Laboratory - Chemistry Order FERRITIN GOLD/RED [facility] Nov 23, 2024 10:10 AM Laboratory - Chemistry Order PROTEIN ELECTROPHORESIS BLOOD BLOOD [facility] Lab Results: +/- 30 days of the encounter This section includes the Chemistry and Hematology Lab Results on record with [place] for the patient. Radiology Reports and Pathology Reports are provided separately, in subsequent sections. Lab Results This section contains the Chemistry/Hematology Results that were resulted 30 days before or 30 daysafter the date of the Encounter. Date/Time Source Result Type Result - Unit Interpretation Reference Range Comment Nov 23, 2024 10:10 AM [facility] KAPPA/LAMBDA FREE LC PANEL (STL-PB) Specimen Type: SERUM No comment entered. Ordering Provider: PREETI GRAY Report Released Date/Time: Nov 26, 2023 09:22 AM Reporting Lab: [address] [address] Performing Lab: [address] [address] KAPPA FREE LC (STL) 26.0 mg/L H 2.4-20.7 LAMBDA FREE LC (STL) 23.3 mg/L 4.2-27.7 KAPPA/LAMBDA RATIO (STL) 1.12 0.22-1.74 Nov 23, 2024 10:10 AM [facility] COMPREHENSIVE METABOLIC PANEL Specimen Type: PLASMA Comment: No hemolysis noted. Ordering Provider: PREETI GRAY Report Released Date/Time: Nov 26, 2023 09:22 AM Reporting Lab: [address] [address] Performing Lab: [address] [address] CREATININE 1.01 mg/dL 0.7-1.3 UREA NITROGEN 18.0 [...] 76.6 >60 Nov 23, 2024 10:10 AM [facility] CBC Specimen Type: BLOOD No comment entered. Ordering Provider: PREETI GRAY Report Released Date/Time: Nov 26, 2023 09:22 AM Reporting Lab: [facility] [address] [address] Performing Lab: [facility] [address] [phone] WBC 7.2 10*3/uL 3.6-11.2 RBC 4.16 10*6/uL [...] 10*3/uL 0.00-0.60 BASOPHILS, ABSOLUTE 0.03 10*3/uL 0.00-0.20 Encounter Notes: All associated encounter notes This section contains the clinical notes associated to the Encounter. Date/Time Encounter Note(s) Provider Source Oct 27, 2024 01:12 PM AUDIOLOGY CIRCUS TRAINER NOTE: LOCAL TITLE: HEARING AIDS ST STANDARD TITLE: AUDIOLOGY CIRCUS TRAINER NOTE DATE OF NOTE: OCT 27, 2024@13:12 ENTRY DATE: OCT 27, 2024@13:12:25 AUTHOR: MILES,SANDOR M EXP COSIGNER: URGENCY: STATUS: COMPLETED SUBJECT: audio HEARING AID CHECK: has: 09/05/20 RIVERA PHONCARLOS BOOGIEEO [id number] HARSHAD R [id number]* (L&D 09/08/21) 09/05/20 RIVERA PHONAK AUDEO M90-312 HARSHAD L [id number] Listening check was good. General cleaning performed. admitted they originally scheduled appointment for BT connection assistance, but they were able to figure it out independently. Provided [place] with BT Handout. reported they feel their aids fade in and out on occasion. Denied any exposure to moisture. Cleaned microphones well. Offered to send aids in now for weakness. declined, as they were going on a trip to [place] for a week. Should drop aids off after their trip, they must be sent into form setter for repair. Completed by Lisandra Gonzalez, doctoral audiology resident. The information above has been reviewed by this provider. I am in agreement with the treatment plan as outlined. /rashawn/ Hailey BORDEN Staff Nanoscience Technician, Surgery Service Signed: 10/27/2024 13:36 SANDOR LIN [facility]
--- OUTSIDE RECORDS SUMMARY | 2024-11-27 09:33 | XMS_ITS | Encounter Summary ---
Author Name [facility] [place] [facility] [place] Address [address] [place] [address] Care Team Providers Care Snow Removing Supervisor Name Role Phone RAQUEL TUCKER Primary Care [...] MEDIC ARE SUPPL EMENT Nov 21, 2010 [id number] [phone] HARVINDER DOUGHERTY PATIENT MEDICARE (WNR) MEDICARE (M) PART A Nov 21, 2010 PART A [id number] Chandu ANGELES PATIENT MEDICARE (WNR) MEDICARE (M) PART B Nov 21, 2010 PART B [id number] Chandu ANGELES EMILY PATIENT MEDICARE (WNR) MEDICARE (M) PART A Nov 21, 2010 PART A [id number] Chandu ANGELES LLOYDRAMOS PATIENT MEDICARE (WNR) MEDICARE (M) PART B Nov 21, 2010 PART B [id number] ANGELESChanduRAMOS PATIENT Selected Encounter This section includes the information on record at [place] for the Encounter. Date/Time Encounter Type Encounter Description Reason Provider Source May 22, 2024 02:00 PM OFF/OP CONSLTJ NEW/EST HI 55 NEUROLOGY ICD-10-CM E85.89 Other amyloidosis BETO BURNS IHCayla Encounter Template Text not used by [place] Assessments - Encounter Diagnoses This section includes the primary and secondary diagnoses documented for the Encounter. Date/Time Primary/Secondary Diagnosis Diagnosis Name Provider Source May 22, 2024 02:40 PM PRIMARY Other amyloidosis BETO BURNS [facility] Plan of Treatment: Future Appointments (+ 6 months) and Future Tests (+/- 45 days) The Plan of Treatment section includes future care activities for the patient from all [place] treatmentfacilities. This section includes future appointments and future orders which are active, pending or scheduled. Future Appointments This section includes appointments that were scheduled to occur 6 months from the date of the Encounter, up to a maximum of 20 appointments. The data comes from all [place] treatment facilities. Appointment Date/Time Appointment Type Appointme nt Facility Name Jun 24, 2024 08:30 AM AMBULATORY - MEDICINE [facility] Jun 24, 2024 11:00 AM AMBULATORY - NEUROLOGY [facility] Jul 01, 2024 09:30 AM AMBULATORY - MEDICINE [facility] Jul 02, 2024 11:00 AM AMBULATORY - MEDICINE [facility] Jul 07, 2024 03:00 PM AMBULATORY - MEDICINE [facility] Sep 30, 2024 09:30 AM AMBULATORY - MEDICINE [facility] Oct 06, 2024 12:00 PM AMBULATORY - MEDICINE [facility] Oct 23, 2024 01:00 PM AMBULATORY - MEDICINE [facility] Oct 27, 2024 01:00 PM AMBULATORY - SURGERY [facility] Lab Results: +/- 30 days of the encounter This section includes the Chemistry and Hematology Lab Results on record with [place] for the patient. Radiology Reports and Pathology Reports are provided separately, in subsequent sections. Lab Results This section contains the Chemistry/Hematology Results that were resulted 30 days before or 30 daysafter the date of the Encounter. Date/Time Source Result Type Result - Unit Interpretation Reference Range Comment May 22, 2024 02:[address] [facility] PROTEIN URINE Specimen Type: URINE No comment entered. Ordering Provider: JOEL STARK Report Released Date/Time: Apr 29, 2024 09:21 AM Reporting Lab: [facility] [address] [address] Performing Lab: [facility] [address] [facility] [facility] [address] PROTEIN URINE 13.4 mg/dL May 22, 2024 02:[address] [facility] B12 Specimen Type: SERUM No comment entered. Ordering Provider: VICTOR HUGO BURNS Report Released Date/Time: May 22, 2024 02:24 PM Reporting Lab: [facility] [address] [address] Performing Lab: [facility] [address] [address] B12 447 pg/mL 213-816 May 22, 2024 02:[address] [facility] BRAIN NATRIURETIC PEPTIDE Specimen Type: PLASMA No comment entered. Ordering Provider: JOEL STARK Report Released Date/Time: Apr 29, 2024 09:21 AM Reporting Lab: [facility] [address] [address] Performing Lab: [facility] [address] [facility] [address] BRAIN NATRIURETIC PEPTIDE 123.4 pg/mL H 0-100 May 22, 2024 02:[address] [facility] TROPONIN I Specimen Type: PLASMA Comment: No hemolysis noted. Ordering Provider: JOEL STARK Report Released Date/Time: Apr 29, 2024 09:21 AM Reporting Lab: [facility] [address] [address] Performing Lab: [facility] [address] [address] TROPONIN I <0.010 ng/mL 0-0.033 May 22, 2024 02:[address] [facility] BASIC METABOLIC PANEL Specimen Type: PLASMA Comment: No hemolysis noted. Ordering Provider: JOEL STARK Report Released Date/Time: Apr 29, 2024 09:21 AM Reporting Lab: [address] [address] Performing Lab: [facility] [address] [facility] [address] CREATININE 0.99 mg/dL 0.7-1.3 UREA NITROGEN 16.2 mg/dL 9.0-25.0 GLUCOSE 101 mg/dL H 72-99 SODIUM 140 meq/L 136-145 POTASSIUM 4.1 meq/L 3.5-5 CHLORIDE 106 meq/L 98-107 CARBON DIOXIDE 24 meq/L 22-31 CALCIUM 9.6 mg/dL 8.4-10.4 EGFR (CKD-EPI 2020) 78.5 >60 Radiology Reports: +/- 30 days of the [...] the Encounter. The data comes from all [place] treatment facilities. Date/Time Radiology Report Provider Source May 04, 2024 07:48 AM [place] MYOCARDIAL AMYL OID IMAGING-P: CALVIN ANGELES [id number] M Exm Date: MAY 04, 2024@07:48 Req Phys: FARIDA STARK Pat Loc: [facility] (Req'g Lo Img Loc: [facility] Service: [facility], [facility] [address] [place] [address] (Case 133 COMPLETE) NM SPECT/CT, SINGLE AREA, SINGLE (NM Detailed) CPT:03116 Reason for Study: Rule out cardiac amyloid (Case 134 COMPLETE) TECHNETIUM TC-99M PYROPHOSPHATE (NM Detailed) CPT:A9538 (Case 135 COMPLETE) NON-HEU TC-99M ADD-ON PER STUDY D(NM Detailed) CPT:Q9969 Clinical History: 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 Echo suggestive. Want to delineate cardiac involvement vs pure peripheral neuropathic involvement. Report Status: Verified Date Reported: MAY 04, 2024 Date Verified: MAY 04, 2024 Yoga Instructor E-Sig:/ES/Seda Rae MD,PhD Report: PATIENT NAME: CALVIN ANGELES. CASE #: [id number], [id number], [id number]. EXAMINATION: Myocardial Pyrophosphate Scan with SPECT/CT. HISTORY: [...] Staff: Seda Rae MD,PhD, Nuclear Medicine Physician (Yoga Instructor) Primary Interpreting Resident: TILA MILLER, Resident Physician /SEDA Smith [facility] Encounter Notes: All associated encounter notes This section contains the clinical notes associated to the Encounter. 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 Has significant peripheral neuropathy / autonomic dysfunction symptoms. Onset of symptoms: >10 years Pt reports tinglng and numbness in the feet The symptoms progressed to affect the ankles. Pt reports burning pain, stabbing in the feet. Pt reports cramps as Anthony horses, at night sometimes. Pt reports weakness in the legs. unsteadiness and trouble getting of a seated position. trouble using the stairs. he does not go reciprocally. unsteadiness and stubmling. no tripping and no falls. no walking aid he also reports tingling and numbness in the hands. no weakness. he had right CTS surgery and he is considered to have left CTS surgery. occasional dizziness with position. he does yoga twice a week. bladder changes including trouble emptying. no sweating changes. no dry mouth and no dry eyes: treatment used for this condition: neurontin 600 mg qhs for the past 10 years. side effects to the current treatment: drowsy. PAST MEDICAL HISTORY: 1) Hypertension (SNOMED CT 01017105) 2) Osteoarthritis (SNOMED CT 977280496) 3) Hypercholesterolemia (SNOMED CT 12995650) 4) Liver function tests abnormal 5) Obesity 6) Disturbance in mood 7) Hearing Loss (SCT 70318742) 8) Benign Prostatic Hypertrophy Without Outflow Obstruction (SCT 787825811) 9) Kidney Stone (SCT 60033643) 10) Low Back Pain [facility] 722268764) 11) PTSD - Post-Traumatic Stress Disorder ([facility] 85144984) 12) AF - Atrial fibrillation 13) Therapeutic drug effect 14) Anticoagulant effect 15) Mild neurocognitive disorder 16) Exposure to potentially hazardous substance PAST SURGICAL HISTORY: right ankle replacement, knee replacement, and right CTS , also spinal fusion- lower lumbar.otherwise negative. SOCIAL HISTORY: No tobacco for 20 years. no etoh and no drug use. FAMILY HISTORY: Reviewed and not contributory. ALLERGIES: SULFA DRUGS MEDICATIONS: Active Outpatient Medications (including Supplies): Active Outpatient Medications Status 1) ALLOPURINOL 300MG TAB TAKE ONE TABLET BY MOUTH ONCE A ACTIVE DAY FOR GOUT. TAKE WITH PLENTY OF WATER. 2) CITALOPRAM HYDROBROMIDE 40MG TAB TAKE ONE TABLET BY ACTIVE MOUTH EVERY MORNING FOR DEPRESSION 3) GABAPENTIN 600MG TAB TAKE ONE TABLET BY MOUTH AT ACTIVE BEDTIME FOR PAIN 4) LOSARTAN 50MG TAB TAKE ONE TABLET BY MOUTH TWICE A ACTIVE DAY FOR HIGH BLOOD PRESSURE 5) OMEPRAZOLE 20MG EC CAP TAKE ONE CAPSULE BY MOUTH AT ACTIVE BEDTIME TO LOWER STOMACH ACID. TAKE 30 MINUTES PRIOR TO FOOD. 6) RIVAROXABAN 20MG TAB TAKE ONE TABLET BY MOUTH ONCE A ACTIVE DAY TO THIN BLOOD. TAKE WITH FOOD. Pending Outpatient Medications Status 1) ALLOPURINOL 300MG TAB TAKE ONE TABLET BY MOUTH ONCE A PENDING DAY FOR GOUT. TAKE WITH PLENTY OF WATER. 2) OMEPRAZOLE 20MG EC CAP TAKE ONE CAPSULE BY MOUTH AT PENDING BEDTIME TO LOWER STOMACH ACID. TAKE 30 MINUTES PRIOR TO FOOD. Active Non-VA Medications Status 1) Non-VA CITALOPRAM HYDROBROMIDE 40MG TAB 20MG BY MOUTH ACTIVE EVERY MORNING 2) Non-VA GABAPENTIN 300MG CAP 600MG BY MOUTH THREE ACTIVE TIMES A DAY 3) Non-VA MULTIVITAMIN CAP/TAB 1 TABLET BY MOUTH ONCE A ACTIVE DAY 11 Total Medications REVIEW OF SYSTEMS: CONSTITUTIONAL: No fever. No chills. infrequent dizziness. EYES: No pain, erythema, or discharge. No blurring of vision. ENT: No sore throat, URI symptoms. No epistaxis. No tinnitus. positive for hearing loss CARDIOVASCULAR: No chest pain. No palpitations. No lower extremity edema. RESPIRATORY: No shortness of breath, cough, pain with respiration, pleuritic chest pain. No hemoptysis. No dyspnea. No paroxysmal nocturnal dyspnea. GASTROINTESTINAL: Normal appetite. No nausea, vomiting, diarrhea. No pain. No bloating. No melena. GENITOURINARY: No frequency, urgency, nocturia. No hematuria or dysuria. MUSCULOSKELETAL: No arthralgias or myalgias. INTEGUMENTARY: No swelling. No bruising. No contusions. No abrasions. No lymphangitis. NEUROLOGIC: Per HPI, otherwise unremarkable. PSYCHIATRIC: No confusion. ENDOCRINE: No fatigue. No history of thyroid, diabetes or adrenal problems. HEMATOLOGICAL: No bleeding. No petechiae. No bruising. Exam PHYSICAL EXAM: Temperature: 97.9 F [36.6 C] (04/29/2024 08:16) Blood Pressure: 154/84 (04/29/2024 08:18) Pulse: 49 (04/29/2024 08:16) Respirations: 18 (04/29/2024 08:16) Height: 69 in [175.3 cm] (01/08/2024 12:39) Weight: 249.8 lb [113.31 kg] (04/29/2024 08:16) Physical Exam General - Appears stated age, NAD, afebrile, noncachectic HEENT - NC/AT, PERRL, EOMI, clear conjunctivae, nares patent, throat without erythema or exudate, moist mucous membranes, normal dentition Neck - Supple, Musculoskeletal - Moves all four extremities Ext - No c/c/e Skin - No rashes, lesions, petichiae/ecchymoses, or jaundice Psych - Appropriate mood and affect Neurological exam: Cortical Functions: Mental status: Alert, awake, responsive, oriented to time and place and person, attentive Memory: Normal recent and remote memory Normal attention span and normal concentration Fund of knowledge: Nl overall awareness to current events and past history, vocabulary. Language: Fluent, coherent, good naming and good repetition, No dysarthria and no aphasia. VF: Intact to confrontation test Neglect: No visual neglect,, no tactile neglect. Cranial nerves: CN II: Pupils are normal 3mm BRTL, reactive to light. Normal visual acuity. CN III- through : EOM: full, normal visual johns, no VF cut No ptosis, no nystagmus CN V: Normal facial sensation to the 3 divisions bilaterally, and good masseter bilaterally. CN VII: No facial weakness or asymmetry bilaterally. Normal eyes closure and smile and normal eyebrows elevation bilaterally. CN VIII: Normal hearing voice bilaterally and to the finger rubs bilaterally. CN IX, X: Normal (symmetric) palate elevation and sensation. Normal shoulder shrugging bilaterally and head turning to the sides with resistance. CNXII: Normal tongue protrusion, No tongue weakness or fasciculations or atrophy. Motor: Abnormal movements: None. No Fasciculations, no TD and no tremors. Tone: Normal tone No spasticity or rigidity in the arms No spasticity or rigidity in the legs. Bulk: Normal muscle bulk, no atrophy or hypertrophy. No contractures. Muscle strength Neck Flexors 5 Neck extensors 5 Right Left UE: SA 5 5 EF 5 5 EE 5 5 WE 5 5 WF 5 5 APB 5 5 FDI 5 5 FF` 5 5 LE: HF 3- 3- KE 5 5 KF 5 5 ADF 5 5 AI 5 5 APF 5 5 AE 5 5 DTR or Muscle Stretch Reflexes: Right Left BI 2 2 Tri 2 2 BR 2 2 Hill No Pat 2 2 Ach 0 0 Sensory exam: Uexts: normal position, proprioception, and vibration distally bilaterally. Normal touch bilaterally. LExts: normal position, proprioception, and reduced vibration in the toes bilaterally. abnormal touch and pinprick bilaterally Cerebellar exam: Normal rapid alternative movements in the hands Normal rapid alternative movements in the legs Normal finger nose finger in the hands bilaterally, No tremors noted Gait: Normal stance and gait LAB RESULTS: Complete Blood Count WBC: 6.7 10*3/uL (02/05/24 11:13) RBC: 4.60 10*6/uL (02/05/24 11:13) HGB: HGB 15.2 g/dL 02/05/2024 11:13 HCT: 45.7 % (02/05/24 11:13) PLT: PLT 202 10*3/uL 02/05/2024 11:13 Comprehensive Metabolic Panel The OBJECT COMPREHENSIVE METABOLIC PANEL (STL-MA) is INACTIVE...Contact IRM. Lipid Panel The OBJECT LIPID PANEL (STL) was NOT found...Contact IRM. 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 he meets the criteria for Vutrisiran. His baseline neuropathy disability score is II and his neuropathy impairment score is 20 (weakness of hip flexors, absent anklereflexes ,and reduced vibration in the toes. Plan: obtain EDX as baseline for future monitoring of response. continue neurontin 600 mg qhs vutisiran ordered today to pharmacy consult. RTC in 3-4 months. Time spent with patient/proxy: I personally spent 60 minutes on today's date preparing to see the patient (e.g. reviewing chart, review of tests), obtaining and/or reviewing the separately obtained history, performing a medically necessary and appropriate examination and evaluation, counseling and educating the patient/family/caregiver, ordering medications, tests, or procedures, documenting in the patient record, and communicating results to the patient/family/caregiver. Emilie Burns M.D Neurology /es/ Emilie Burns M.D Neurology Attending Signed: 05/22/2024 14:40 EMILIE BURNS [facility]
--- OUTSIDE RECORDS SUMMARY | 2024-11-27 09:33 | XMS_ITS ---
Author Name [facility] [place] [facility] [place] [facility] [place] Address [address] [place] [address] Care Team Providers Care Adult Educator Name Role Phone RAQUEL TUCKER Primary Care [...] Name Patient's Relationship to Policy Rodriguez [place]BS [place] MEDICARE SUPPLEMEN BISHOP MEDIC ARE SUPPL EMENT Nov 21, 2010 [id number] [phone] SHE EWINGHARVINDER Kulkarni PATIENT MEDICARE (WNR) MEDICARE (M) PART A Nov 21, 2010 PART A [id number] Chandu ANGELES PATIENT MEDICARE (WNR) MEDICARE (M) PART B Nov 21, 2010 PART B [id number] Chandu ANGELES EMILY PATIENT MEDICARE (WNR) MEDICARE (M) PART B Nov 21, 2010 PART B [id number] [phone] Chandu ANGELES EMILY PATIENT MEDICARE (WNR) MEDICARE (M) PART A Nov 21, 2010 PART A [id number] Chandu ANGELES PATIENT Selected Encounter This section includes the information on record at [place] for the Encounter. Date/Time Encounter Type Encounter Description Reason Provider Source Dec 25, 2023 12:30 PM OFFICE O/P NEW MOD 45 MIN PRIMARY CARE/MEDICINE ICD-10-CM I48.91 Unspecified atrial fibrillation RAQUEL TUCKER [place] Encounter Template Text not used by [place] Assessments - Encounter Diagnoses This section includes the primary and secondary diagnoses documented for the Encounter. Date/Time Primary/Secondary Diagnosis Diagnosis Name Provider Source Dec 25, 2023 02:00 PM PRIMARY Unspecified atrial fibrillation RAQUEL TUCKER [facility] Dec 25, 2023 02:00 PM SECONDARY Amyloidosis, unspecified RAQUEL TUCKER [facility] Dec 25, 2023 02:00 PM SECONDARY Contact with and exposure to other hazardous substances JOEL WILLS [facility] Dec 25, 2023 02:00 PM SECONDARY Mild cognitive impairment of uncertain or unknown etiology RAQUEL TUCKER [facility] Dec 25, 2023 02:00 PM SECONDARY Other marginal perforations of tympanic membrane, left ear RAQUEL TUCKER [facility] Plan of Treatment: Future Appointments (+ 6 months) and Future Tests (+/- 45 days) The Plan of Treatment section includes future care activities for the patient from all [place] treatmentfacilities. This section includes future appointments and future orders which are active, pending or scheduled. Future Appointments This section includes appointments that were scheduled to occur 6 months from the date of the Encounter, up to a maximum of 20 appointments. The data comes from all [place] treatment facilities. Appointment Date/Time Appointment Type Appointme nt Facility Name Jan 08, 2024 12:30 PM AMBULATORY - MEDICINE [facility] Jan 13, 2024 10:30 AM AMBULATORY - SURGERY [facility] Feb 05, 2024 10:00 AM AMBULATORY - MEDICINE [facility] Feb 17, 2024 10:00 AM AMBULATORY - MEDICINE [facility] Apr 02, 2024 08:30 AM AMBULATORY - SURGERY [facility] Apr 29, 2024 08:30 AM AMBULATORY - MEDICINE [facility] May 04, 2024 08:00 AM AMBULATORY - NONE [facility] May 04, 2024 10:30 AM AMBULATORY - NONE [facility] May 22, 2024 02:00 PM AMBULATORY - MEDICINE [facility] Jun 24, 2024 08:30 AM AMBULATORY - MEDICINE [facility] Jun 24, 2024 11:00 AM AMBULATORY - NEUROLOGY [facility] Lab Results: +/- 30 days of the encounter This section includes the Chemistry and Hematology Lab Results on record with [place] for the patient. Radiology Reports and Pathology Reports are provided separately, in subsequent sections. Lab Results This section contains the Chemistry/Hematology Results that were resulted 30 days before or 30 daysafter the date of the Encounter. Date/Time Source Result Type Result - Unit Interpretation Reference Range Comment Dec 25, 2023 01:57 PM [facility] TSH (MA-PB-STL) Specimen Type: SERUM No comment entered. Ordering Provider: YEFRI TUCKER Report Released Date/Time: Dec 25, 2023 01:45 PM Reporting Lab: [facility] [address] [facility] [address] Performing Lab: [facility] [address] [facility] [address] TSH 1.640 u[IU]/mL 0.47-5 Dec 25, 2023 01:57 PM [facility] VITAMIN D, 25-HYDROXY Specimen Type: SERUM No comment entered. Ordering Provider: YEFRI TUCKER Report Released Date/Time: Dec 25, 2023 01:45 PM Reporting Lab: [facility] [address] [facility] [address] Performing Lab: [facility] [address] [facility] [address] VITAMIN D, 25-HYDROXY 43.0 ng/mL 30-96 Dec 25, 2023 01:57 PM [facility] FREE T4 Specimen Type: SERUM No comment entered. Ordering Provider: YEFRI TUCKER Report Released Date/Time: Dec 25, 2023 01:45 PM Reporting Lab: [facility] [address] [facility] [address] Performing Lab: [facility] [address] [place] [id number] FREE T4 0.88 ng/mL 0.7-1.48 Dec 25, 2023 01:57 PM [facility] LIPID PANEL (STL) Specimen Type: PLASMA Comment: No hemolysis noted. Ordering Provider: YEFRI TUCKER Report Released Date/Time: Dec 25, 2023 01:45 PM Reporting Lab: [address] [address] Performing Lab: [address] [address] CHOLESTEROL 146 mg/dL 0-200 TRIGLYCERIDE 118 mg/dL 0-150 CALCULATED LDL 84 mg/dL HDL(New) 38 mg/dL L >40 Dec 25, 2023 01:57 PM [facility] HGA1C Specimen Type: BLOOD No comment entered. Ordering Provider: YEFRI TUCKER Report Released Date/Time: Dec 25, 2023 01:45 PM Reporting Lab: [facility] [address] [place] [phone] Performing Lab: [address] [address] HGA1C 6.1 H 4.0-6.0 Dec 25, 2023 01:57 PM [facility] COMPREHENSIVE METABOLIC PANEL Specimen Type: PLASMA Comment: No hemolysis noted. Ordering Provider: YEFRI TUCKER Report Released Date/Time: Dec 25, 2023 01:45 PM Reporting Lab: [facility] [address] [place] [phone] Performing Lab: [address] [address] CREATININE 1.08 mg/dL 0.7-1.3 UREA NITROGEN 14.4 mg/dL 9.0-25.0 GLUCOSE 103 mg/dL H 72-99 SODIUM 138 meq/L 136-145 POTASSIUM 4.2 meq/L 3.5-5 CHLORIDE 104 meq/L 98-107 CARBON DIOXIDE 27 meq/L 22-31 CALCIUM 9.5 mg/dL 8.4-10.4 PROTEIN 7.1 g/dL 6-8.6 ALBUMIN 4.1 g/dL 3.4-5 TOTAL BILIRUBIN 2.0 mg/dL H 0.2-1.2 ALKALINE PHOSPHATASE 79 U/L 40-150 AST/SGOT 21 U/L 5-34 ALT/SGPT 22 U/L 8-40 EGFR (CKD-EPI 2020) 71.1 >60 Dec 25, 2023 01:57 PM [facility] CBC Specimen Type: BLOOD No comment entered. Ordering Provider: YEFRI TUCKER Report Released Date/Time: Dec 25, 2023 01:45 PM Reporting Lab: [facility] [address] [facility] [address] Performing Lab: [facility] [address] [facility] [address] WBC 6.7 10*3/uL 3.6-11.2 RBC 4.29 10*6/uL 4.10-5.70 HGB 13.9 g/dL 13.1-16.8 HCT 42.3 38.2-48.4 MCV 98.6 fL 80.0-100.0 MCH 32.4 pg 27.0-34.0 MCHC 32.9 g/dL L 33.0-36.0 PLT 160 10*3/uL 150-400 MPV 10.3 fL 7.5-11.2 RDW 14.6 11.8-15.1 LYMPHOCYTES, AUTO % 33 MONOCYTES, AUTO % 11 NEUTROPHILS, AUTO % 52 EOSINOPHILS, AUTO % 3 BASOPHILS, AUTO % 1 LYMPHOCYTES, ABSOLUTE 2.24 10*3/uL 0.77-4.50 MONOCYTES, ABSOLUTE 0.71 10*3/uL 0.19-0.80 NEUTROPHILS, ABSOLUTE 3.48 10*3/uL 2.10-8.00 EOSINOPHILS, ABSOLUTE 0.22 10*3/uL 0.00-0.60 BASOPHILS, ABSOLUTE 0.04 10*3/uL 0.00-0.20 Vital Signs: All taken on the encounter date This section contains inpatient and outpatient Vital Signs collected on the date of the Encounter. Date/Time Temperature Pulse Blood Pressure Respiratory Rate SP02 Pain Height Weight Body Mass Index Source Dec 25, 2023 12:32 PM 97.5 48 123/71 20 96 0 246 34 [facility] Social History: Smoking Status (Most current) and Tobacco Use (All prior to encounter date) This section includes the most current, and the historical, smoking and tobacco- related health factors from the [place] facility where the Encounter took place. Current Smoking Status This section includes the most current smoking, or tobacco-related health factor, from the [place] facility where the Encounter took place. Date/Time Current Smoking Status Comment Facil ity Dec 25, 2023 12:30 PM VA-TOBACCO QUIT 15 YRS OR MORE [facility] Tobacco Use History This section includes a history of the smoking, or tobacco-related health factors, that were collected on or before the date of the Encounter. The data comes from the [place] facility where the Encounter took place. Date/Time Smoking Status/Tobacco Use Comment F acility Dec 25, 2023 12:30 PM VA-TOBACCO QUIT 15 YRS OR MORE [facility] Oct 31, 2021 02:00 PM VA-TOBACCO FORMER USER [facility] Oct 31, 2021 02:00 PM VA-TOBACCO QUIT 5 TO < 15 YRS [facility] Radiology Reports: +/- 30 days of the [...] the Encounter. The data comes from all [place] treatment facilities. Date/Time Radiology Report Provider Source Dec 11, 2023 06:00 AM UNLISTED MAGNETIC RESONANCE PROCEDURE: CALVIN ANGELES [facility] [id number] -[id number] M Exm Date: DEC 11, 2023@06:00 Req Phys: FARIDA STARK Loc: [facility] (Req'g Lo Img Loc: OUTSIDE [facility] Service: Unknown (Case [id number] COMPLETE) UNLISTED MAGNETIC RESONANCE PROCE(MRI Detailed) CPT:68592 Reason for Study: OUTSIDE STUDY Clinical History: OUTSIDE STUDY Report Status: Verified Date Reported: JAN 03, 2024 Date Verified: JAN 03, 2024 Ben Day Artist E-Sig:/ES/Floyd IRVIN(R)(CT) Report: This study [facility] performed [facility] the [facility] in another facility and images were uploaded into [facility]. The report is at the outside facility. In order to upload images a case number was needed, therefore this is an administrative report. Impression: This study was performed outside the [facility] in another facility and images were uploaded into [facility]. The report is at the outside facility. In order to upload images a case number was needed, therefore this is an administrative report. Primary Interpreting Staff: ALEXSANDER OSHEA, RADIOLOGIST VERIFIED BY: Floyd MELARAR, PACS HAND ROUNDER /FLOYD MONTEJO [facility] Encounter Notes: All associated encounter notes This section contains the clinical notes associated to the Encounter. 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 Patient recently had an MRI of his heart and was told it did not have amyoloidosis . Patient was evaluatead by [place]c at the [place] and patient will continuity his management for IGA MGUS with [facility] . 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 He stated he had a terrible ear infection last month and it blew out both his eardrums . Noted blood from his left eardrum . Has decrease hearing is both ears but left is worse than right . Voice concern about memory loss . Was reevaluated by Neuropsychologist in May 2023 and was found to have memory loss appropriate with age vs Mild neurocognitive d/o. WHAT IS YOUR GOAL FOR TODAY? Patient states he SOURCE(S) OF HISTORY: Patient PAST MEDICAL HISTORY: 1) Hypertension (SNOMED CT 27625489) 2) Osteoarthritis (SNOMED CT 365760845) 3) Hypercholesterolemia (SNOMED CT 79358506) 4) Liver function tests abnormal 5) Obesity 6) Disturbance in mood 7) Hearing Loss (SCT 82262910) 8) Benign Prostatic Hypertrophy Without Outflow Obstruction (SCT 219539772) 9) Kidney Stone (SCT 44214896) 10) Low Back Pain (SCT 935617570) 11) PTSD - Post-Traumatic Stress Disorder (SCT 90040106) 12) AF - Atrial fibrillation 13) Therapeutic drug effect 14) Anticoagulant effect 15) Mild neurocognitive disorder ALLERGIES: SULFA DRUGS ALLERGY REVIEW: Allergy list reviewed and remains current. MEDICATION RECONCILIATION: I have reviewed the patient's medication list with the patient and/or his/her care-bridge opener. Handwritten corrections, additions and/or deletions were made to the list. Corrected Outpatient Medication List was provided to the patient/caregiver. Active Outpatient Medications (including Supplies): Active Outpatient Medications Status 1) GABAPENTIN 600MG TAB TAKE ONE TABLET BY MOUTH AT ACTIVE BEDTIME FOR PAIN 2) LOSARTAN 100MG TAB TAKE ONE TABLET BY MOUTH ONCE A ACTIVE DAY TO LOWER BLOOD PRESSURE 3) METOPROLOL TARTRATE 100MG TAB TAKE ONE TABLET BY ACTIVE MOUTH TWICE A DAY FOR HIGH BLOOD PRESSURE TAKE WITH OR IMMEDIATELY FOLLOWING FOOD. 4) OMEPRAZOLE 20MG EC CAP TAKE ONE CAPSULE BY MOUTH AT ACTIVE BEDTIME TO LOWER STOMACH ACID. TAKE 30 MINUTES PRIOR TO FOOD. 5) RIVAROXABAN 20MG TAB TAKE ONE TABLET BY MOUTH ONCE A ACTIVE DAY TO THIN BLOOD. TAKE WITH FOOD. Active Non-[facility] Medications Status 1) Non-VA CITALOPRAM HYDROBROMIDE 40MG TAB 20MG BY MOUTH ACTIVE EVERY MORNING 2) Non-VA GABAPENTIN 300MG CAP 600MG BY MOUTH THREE ACTIVE TIMES A DAY 3) Non-VA MULTIVITAMIN CAP/TAB 1 TABLET BY MOUTH ONCE A ACTIVE DAY 8 Total Medications eos- patient has hearing aid PHYSICAL EXAMINATION: Male General appearance: VITALS (most recent, as listed in the electronic record): B/P: 123/71 (12/25/2023 12:32) Pulse: 48 (12/25/2023 12:32) Temperature: 97.5 F [36.4 C] (12/25/2023 12:32) Weight: 246 lb [111.58 kg] (12/25/2023 12:32) Height: 71 in [180.3 cm] (10/31/2021 14:08) BMI: 34.4 Pain: 0 (12/25/2023 12:32) (0-10 scale) Ears, Nose, Mouth, Throat:Left tm perforation 1mm at the 4oclock position , right TM suckne Eye:eomi, perrla Cardiovascular:rrr Respiratory:cta ABD/GI:soft, tn Extremities:ambulate without assisance /MILLER FIRST: Hematology & Lymph: Endocrine: Psych:appropriate affect Neuro:non focal Skin: DATA REVIEW: HbA1C: No HEMOGLOBIN A1C EO data found ========= Lipid Panel: No LIPID PANEL EO data found ========= CMP: SODIUM 139 mEq/L 08/14/2022 17:32 POTASSIUM 5.1 H mEq/L 08/14/2022 17:32 CHLORIDE 105 mEq/L 08/14/2022 17:32 UREA NITROGEN 18 mg/dL 08/14/2022 17:32 CREATININE 1.06 mg/dL 04/02/2023 12:00 CALCIUM 9.5 mg/dL 08/14/2022 17:32 PROTEIN 6.7 g/dL 08/14/2022 17:32 ALBUMIN 3.9 g/dL 08/14/2022 17:32 ALKALINE PHOSPHATASE 79 U/L 08/14/2022 17:32 ALT/SGPT 23 U/L 04/02/2023 12:00 AST/SGOT 19 U/L 04/02/2023 12:00 TOTAL BILIRUBIN 0.8 mg/dL 08/14/2022 17:32 CARBON DIOXIDE 25 mEq/L 08/14/2022 17:32 GLUCOSE 116 H mg/dL 08/14/2022 17:32 EGFR (CKD-EPI 2020) 72.7 04/02/2023 12:00 ========= CBC: WBC 6.7 10*3/uL 08/14/2022 17:32 RBC 4.27 10*6/uL 08/14/2022 17:32 HGB 15.5 g/dL 04/02/2023 12:00 HCT 47.7 % 04/02/2023 12:00 MCV 103.0 H fL 08/14/2022 17:32 MCH 34.2 H pg 08/14/2022 17:32 MCHC 33.2 g/dL 08/14/2022 17:32 RDW 13.8 % 08/14/2022 17:32 PLT 229 10*3/uL 04/02/2023 12:00 MPV 9.9 fL 08/14/2022 17:32 NEUTROPHILS, AUTO % 49 % 08/14/2022 17:32 LYMPHOCYTES, AUTO % 35 % 08/14/2022 17:32 MONOCYTES, AUTO % 11 % 08/14/2022 17:32 EOSINOPHILS, AUTO % 4 % 08/14/2022 17:32 BASOPHILS, AUTO % 1 % 08/14/2022 17:32 NEUTROPHILS, ABSOLUTE 3.25 10*3/uL 08/14/2022 17:32 LYMPHOCYTES, ABSOLUTE 2.35 10*3/uL 08/14/2022 17:32 MONOCYTES, ABSOLUTE 0.71 10*3/uL 08/14/2022 17:32 EOSINOPHILS, ABSOLUTE 0.29 10*3/uL 08/14/2022 17:32 BASOPHILS, ABSOLUTE 0.09 10*3/uL 08/14/2022 17:32 ========= PSA: No PSA EO data found ========= TSH: No TSH (1YR) EO data found ========= INR: No INR EO data found ========= UA: No URINALYSIS EO data found ========= Dilantin: ____ ========= Digoxin: No data available for: DIGOXIN ========= Chest x-ray: No Impressions found ========= EKG: No data available for: EKG CONSULT STL EKG CONSULTS PB EKG RESULTS MA Result: Acceptable Follow-up Action: Data results reviewed with patient and/or caregiver. 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 NO ACUTE INTRACRANIAL HEMORRHAGE OR ACUTE INFARCT. MILD DIFFUSE CORTICAL ATROPHY. ASSESSMENT/PLAN: #IgA MGUS - Initially established with use from 2017-19. Lost to follow up, establish care with Heme at [facility] on 06/2023. Hem/onc has Low suspicion for progression to MM given his stable laboratory findings, low paraprotein peak, estable counts and electrolytes. Negative skeletal survey. He is currently on [address] [facility], with his next appointment on 12/2023. 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 No abnormal aminoacids detedted on Rn Office. - Neurology at [facility] - patient state he was told it was not genetic - Has cardiac MRI - will obtain records - patient states his MRI was negative for amloidosis - once records obtain will refer to cardiology - check cbc, cmp tsh t4 hand hba1c # left ear performation and earing loss - refer to ent # mild neurocognitive d/o - encourage patietn to do brain exercises # afib - on xeralto - stable RTC in Jun 2024 PREVENTION & SCREENING: ALCOHOL: Clinical Reminder not due now or within a month BLOOD PRESSURE: Clinical Reminder not due now or within a month HEMOGLOBIN A1C: Clinical Reminder not due now or within a month Toxic Exposure Screening Follow-Up: Exposure Concern(s): 12/25/2023 Agent [place] - Toxic Exposure Concern Follow-up Question(s): 12/25/2023 No Questions - Toxic Exposure Concern /caregiver has no health or medical concerns related to their concern of environmental exposure. The following connections were provided to the [place]/caregiver: Consult/Referral to Registry Program /rashawn/ RAQUEL TUCKER Signed: 12/25/2023 14:01 RAQUEL TUCKER [facility] Dec 25, 2023 12:40 PM NURSING NOTE: LOCAL TITLE: V15 PACT FACE TO FACE NOTE STL STANDARD TITLE: NURSING NOTE DATE OF NOTE: DEC 25, 2023@12:40 ENTRY DATE: DEC 25, 2023@12:40:20 AUTHOR: VALENTINA SHIPLEY EXP COSIGNER: URGENCY: STATUS: COMPLETED Provider Visit: Patient Identifiers : Full Name Date of Reason for visit: Established Follow-Up Mode of Arrival: Ambulatory Allergy Review: SULFA DRUGS Allergy list reviewed and remains current. Recent Vital Signs: Temperature: 97.5 F [36.4 C] (12/25/2023 12:32) Pulse: 48 (12/25/2023 12:32) Respiration: 20 (12/25/2023 12:32) B/P: 123/71 (12/25/2023 12:32) Pain: 0 (12/25/2023 12:32) Wt: 246 lb [111.58 kg] (12/25/2023 12:32) Ht: 71 in [180.3 cm] (10/31/2021 14:08) BMI: 34.4 POX: 96% (12/25/2023 12:32) Would you like to discuss any personal problem, family problem, alcohol use, drug use, or a mental or emotional illness? No My [facility] ([facility]), please select appointment type: Face to face: Yes-Do you have an upgraded (Premium) account which gives you the added benefit of Secure Messaging with your Primary Care Provider and refilling your prescriptions online? Contact provided Primary Care phone number and encouraged to call if any questions or concerns. Review that after hours nurse line [phone] and emergency room are available 13/05 for patient use. Contact verbalized good understanding. 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 [place]/caregiver believes the was exposed to the following while serving in the Armed Forces: Agent [place]: [place]/caregiver was made aware of educational resources that includes information on the Registry Program, presumptive conditions and how to file a claim. Printed information was offered and provided if desired. No questions at this time /caregiver was informed of local points of contact. Contact information for local resources: [facility] Registry Exam Program: [phone] Eligibility: [phone] [id number] Toxic Exposure Screening Follow-Up reminder is needed. Name of person notified: DR TUCKER COVID-19 Immunization: Refused Moderna Monovalent COVID-19 vaccine Immunization: COVID-19 (MODERNA), MRNA, LNP-S, PF, 50 MCG/0.5 ML (AGES 12+ YEARS) Refusal Reason: PATIENT DECISION Patient refuses all immunization(s) in the COVID-19 group Date Documented: 12/25/23 12:41 Adv Care Plan Nurse STL: Advance Directive being reviewed in the outpatient setting Do you have an existing Advance Directive? YES: Are you satisfied with your existing Advance Directive? Yes Alcohol Use Screen (AUDIT-C): Alcohol Screen: SCREEN FOR ALCOHOL (AUDIT-C) An alcohol screening test (AUDIT-C) was negative (score=3). 1. How often did you have a drink containing alcohol in the past year? Consider a drink to be a 12 ounce can or bottle of regular beer, 8 ounces of malt liquor, a 5 ounce glass of table wine, or a 1.5 ounce shot of liquor (like scotch, gin, or vodka). Two to four times a month 2. How many drinks containing alcohol did you have on a typical day when you were drinking in the past year? Three or four drinks 3. How often did you have six or more drinks on one occasion in the past year? Never Frail/Elderly Screen: ADL Screen - [place] Index of [place] in Activities of Daily Living Bathing: (3 Points) Receives no assistance (gets in and out of tub by self, if tub is usual means of bathing) Dressing: (3 Points) Gets clothes and gets completely dressed without assistance. Toileting: (3 Points) Goes to toilet room , cleans self, and arranges clothes without assistance (may use object for support such as cane, walker, or wheelchair, and may manage own night bedpan or commode, emptying same next morning) Transferring: (3 Points) Moves in and out of bed and in and out of chair without assistance (may be using object for support, such as cane or walker) Continence: (3 Points) Controls urination and bowel movement completely by self Feeding: (3 Points) Feeds self without assistance Total Score: 18 Points 18 = High (patient independent) 6 = Low (patient very dependent) IADL Screen - [place] Instrumental Activities of Daily Living Scale Ability to use telephone: (1 point) Operates Telephone on own initiative; looks up and dials numbers. Shopping: (1 point) Takes care of all shopping needs independently. Food preparation: (1 point) Plans, prepares, and serves adequate meals independently. Housekeeping: (1 point) Maintains house alone with occasional assistance (heavy work). Laundry: (1 point) Does personal laundry completely. Mode of transportation: (1 point) Travels independently on public transportation or drives own car. Responsibility for own medications: (1 point) Is responsible for taking medications in correct dosages at correct times. Ability to handle finances: (1 point) Manages financial matters independently (budgets, writes checks, pays rent and bills, goes to bank); collects and keeps track of income. Total score: 8 points 8 = High function, independent 0 = Low function, dependent Falls Screen: Two or more falls within the last 12 months. Incontinence Screen: No incontinence. Homelessness/Food Insecurity Screen: In the past 2 months, have you been living in stable housing that you own, rent, or stay in as part of a household? Yes - Living in stable housing. Are you worried or concerned that in the next 2 months you may NOT have stable housing that you own, rent, or stay in as part of a household? No - Not worried about housing near future The reports the following: Within the past 12 months, you worried whether your food would run out before you got money to buy more. Never true Within the past 12 months, the food you bought just didn't last and you didn't have money to get more. Never true Influenza Immunization: The patient has received the seasonal influenza vaccine for the current season at another location. Documented: INFLUENZA, UNSPECIFIED FORMULATION Historical Date Administered: Oct 2023 Exact date unknown Outside Location: [facility] Information Source: FROM PATIENT'S RECALL Learning Assessment: - * This patient's learning ABILITIES, BARRIERS to learning, CULTURAL and MOSQUE beliefs, and learning PREFERENCES were assessed. Following are findings of note: Patient reads well. LANGUAGE Patient reports that Irish is preferred language for healthcare. 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 Patient reports learning preference is attending one-to-one or group demonstrations. Patient reports learning preference is looking at pictures or viewing videos. Patient reports learning preference is listening to audiotapes. Pneumococcal PPSV23 (Pneumovax): The patient declines to receive the recommended dose of PPSV23 vaccine. Immunization: PNEUMOCOCCAL POLYSACCHARIDE PPV23 Refusal Reason: PATIENT DECISION Patient refuses all immunization(s) in the PneumoPPV group Date Documented: 12/25/23 12:44 Tobacco Use Screening: The patient is a former tobacco user. The patient quit fifteen or more years ago. /rashawn/ VALENTINA SHIPLEY LICENSED PRACTICAL NURSE Signed: 12/25/2023 12:45 VALENTINA SHIPLEY [facility]
--- OUTSIDE RECORDS SUMMARY | 2024-11-27 09:33 | XMS_ITS | Clinical Summary ---
Author Organization [facility] Address [facility] [place] [address] Care Team Providers Care Electro Mechanical Solar Technician Name Role Phone Conor Dodson MD Primary Care Provider [phone] Allergies Active Allergy Reactions Criticality Noted Date Comments Sulfa Antibiotics Rash Low 09/19/2019 Medications amlodipine 5 MG tablet Take 5 mg by mouth daily. 10/07/2018 Active aspirin 325 MG tablet Take 325 mg by mouth daily. 02/10/2019 Active CANNABIDIOL OR Take 1 Dose by mouth 2 (two) times daily. Active gabapentin 600 MG tablet Take 600 mg by mouth 2 (two) times a day. Active hydrochlorothia zide 25 MG tablet Take 25 mg by mouth daily. 03/20/2019 Active Multiple Vitamin (MULTIVITAMIN) capsule Take 1 capsule by mouth daily. Active naproxen 500 MG tablet Take 500 mg by mouth 2 (two) times a day. 09/14/2019 Active vitamin D3, cholecalciferol , 1000 UNIT Tab tablet Take 2 tablets by mouth daily. Active Family History Medical History Relation Comments Cancer Father Cancer Mother Relation Status Comments Father Mother Social History Tobacco Use Types Packs/Day Years Used Date Smoking Tobacco: Former Cigarettes Q uit: 09/19/1999 Smokeless Tobacco: Never Alcohol Use Standard Drinks/Week Comments Yes 0 (1 standard drink = 0.6 oz pur e alcohol) occasional Sex and Gender Information Value Date Recorded Sex Assigned at Not on file Legal Sex Male 7:19 PM CDT Gender Identity Not on file Sexual Orientation Not on file Last Filed Vital Signs Vital Sign Reading Time Taken Comments Blood Pressure 132/92 09/19/2019 8:45 AM SILVICULTURIST Pulse 84 09/19/2019 8:45 AM SILVICULTURIST Temperature 36.2 C (97.1 F) 09/19/2019 8:45 AM SILVICULTURIST Respiratory Rate 16 09/19/2019 8:45 AM SILVICULTURIST Oxygen Saturation 97% 09/19/2019 8:45 AM SILVICULTURIST Inhaled Oxygen Concentration - - Weight 98.4 kg (217 lb) 09/19/2019 8:45 AM SILVICULTURIST Height 180.3 cm (5' 11 ) 09/19/2019 8:45 AM SILVICULTURIST Body Mass Index 30.27 09/19/2019 8:45 AM SILVICULTURIST Plan of Treatment Health Maintenance Due Date Last Done Comments Hepatitis C 1963 Zoster Vaccines (2 of 3) 07/10/2007 05/15/2007 Annual Medicare Wellness Visit 02/29/2012 DTaP, Tdap and Td Vaccines (1 - Tdap) 07/22/2015 07/21/2015, 06/21/2011, 03/04/1998 RSV Immunization or 60+ Years (1 - 1-dose 75+ series) 2022 COVID-19 Vaccine ( season) 2024 Influenza Adult (#1) 2024 08/21/2017, 07/21/2016, 07/21/2015, Additional history exists Pneumococcal Vaccine: 65+ Years Completed 07/21/2016, 08/17/2013, 05/15/2007 Meningococcal B Vaccine Aged Out No l onger eligible based on patient's age to complete this topic Meningococcal Vaccine Aged Out No marcelo jose eligible based on patient's age to complete this topic RSV Immunizations Under 20 Months Aged Out No longer eligible based on patient's age to complete this topic Insurance MEDICARE [facility] Care Teams Electro Mechanical Solar Technician Relationship Specialty Start Date End Date Conor Dodson MD [address] [place] [address] DR K[address] [address] PCP - General INTERNAL MEDICINE 09/19/19
--- OUTSIDE RECORDS SUMMARY | 2024-11-27 09:34 | XMS_ITS ---
Author Name [facility] Address [address] [place] [address] Care Team Providers Care Coffee Supervisor Name Role Phone RAQUEL TUCKER Primary [...] Name Patient's Relationship to Policy Rodriguez BCBS [place] MED[place]ARE SUPPLEMEN BISHOP MEDIC ARE SUPPL EMENT Nov 21, 2010 [id number] [phone] SHE EWINGHARVINDER Kulkarni PATIENT MEDICARE (WNR) MEDICARE (M) PART A Nov 21, 2010 PART A [id number] Chandu ANGELES PATIENT MEDICARE (WNR) MEDICARE (M) PART B Nov 21, 2010 PART B [id number] Chandu ANGELES EMILY PATIENT MEDICARE (WNR) MEDICARE (M) PART B Nov 21, 2010 PART B [id number] Chandu ANGELES EMILY PATIENT MEDICARE (WNR) MEDICARE (M) PART A Nov 21, 2010 PART A [id number] BRIDGETTEChandu EMILY PATIENT Selected Encounter This section includes the information on record at DC for the Encounter. 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 Date/Time Primary/Secondary Diagnosis Diagnosis Name Provider Source Jul 15, 2024 06:19 AM PRIMARY Other amyloidosis GARRETTRAQUEL [facility] Jul 15, 2024 06:19 AM SECONDARY Encounter for immunization GARRETTRAQUEL Lina [facility] Jul 15, 2024 06:19 AM SECONDARY Essential (primary) hypertension GARRETTRAQUEL [facility] Jul 15, 2024 06:19 AM SECONDARY Unspecified atrial fibrillation GARRETTRAQUEL [facility] Plan of Treatment: Future [...] Date/Time Appointment Type Appointme nt Facility Name Jul 07, 2024 03:00 PM AMBULATORY - MEDICINE [facility] Sep 30, 2024 09:30 AM AMBULATORY - MEDICINE [facility] Oct 06, 2024 12:00 PM AMBULATORY - MEDICINE [facility] Oct 23, 2024 01:00 PM AMBULATORY - MEDICINE [facility] Oct 27, 2024 01:00 PM AMBULATORY - SURGERY [facility] Nov 23, 2024 10:00 AM AMBULATORY - MEDICINE [facility] Dec 29, 2024 09:30 AM AMBULATORY - MEDICINE [facility] Vital Signs: All taken on the encounter date This section contains inpatient and outpatient Vital Signs collected on the date of the Encounter. Date/Time Temperature Pulse Blood Pressure Respiratory Rate SP02 Pain Height Weight Body Mass Index Source Jul 02, 2024 11:12 AM 144/[address] [facility] Jul 02, 2024 11:02 AM 98.8 61 152/76 18 97 [address] [facility] Immunizations: All administered on the encounter date This section contains immunizations associated to the Encounter. Immunization Series Date Issued Reaction Comments INFLUENZA, HIGH-DOSE, TRIVALENT, PF Jul 02 Social History: Smoking Status (Most current) and Tobacco Use (All prior to encounter date) This section includes the most current, and the historical, smoking and tobacco- related health factors from the [place] facility where the Encounter took place. Current Smoking Status This section includes the most current smoking, or tobacco-related health factor, from the [place] facility where the Encounter took place. Date/Time Current Smoking Status Comment Facil ity Dec 25, 2023 12:30 PM VA-TOBACCO QUIT [address] [facility] Tobacco Use History This section includes a history of the smoking, or tobacco-related health factors, that were collected on or before the date of the Encounter. The data comes from the [place] facility where the Encounter took place. Date/Time Smoking Status/Tobacco Use Comment F acility Dec 25, 2023 12:30 PM VA-TOBACCO QUIT [address] [facility] Oct 31, 2021 02:00 PM VA-TOBACCO FORMER USER [facility] Oct 31, 2021 02:00 PM VA-TOBACCO QUIT 5 TO < [address] [facility] Encounter Notes: All associated encounter notes This section contains the clinical notes associated to the Encounter. Date/Time Encounter Note(s) Provider Source Sep 18, 2024 12:59 PM PHYSICIAN LETTERS: LOCAL TITLE: TEST RESULT GENERAL LETTER STL STANDARD TITLE: PHYSICIAN LETTERS DATE OF NOTE: SEP 18, 2024@12:59 ENTRY DATE: SEP 18, 2024@12:59:35 AUTHOR: RAQUEL TUCKER EXP COSIGNER: URGENCY: STATUS: COMPLETED [facility] [address] [place] [address] SEP 18, 2024 MALIK ANGELES [address] [place], [place] [address] Dear Malik Angeles, I would like to update you on your recent test results. OTHER TEST RESULTS\ Your pulmonary function test doen on Jul 07, 2024 were read as normal FUTURE APPOINTMENTS: 09/30/2024 09:30 [facility]-CARDIOLOGY [facility] 10/23/2024 13:00 [facility]-NEUROMUSCULAR 2 10/26/2024 14:15 [facility]-PACT LIBERTY RES 105 11/23/2024 10:00 [facility]-ONCOLOGY ISAAC FELLOW Sincerely, RAQUEL ANGELES,MALIK TUCKER,RAQUEL Horton 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 He would like to be considered for inspira device . . WHAT IS YOUR GOAL FOR TODAY? SOURCE(S) OF HISTORY: Patient PAST MEDICAL HISTORY: 1) Hypertension (SNOMED CT 12691072) 2) Osteoarthritis (SNOMED CT 759736271) 3) Hypercholesterolemia (SNOMED CT 37257007) 4) Liver function tests abnormal 5) Obesity 6) Disturbance in mood 7) Hearing Loss (SCT 22005958) 8) Benign Prostatic Hypertrophy Without Outflow Obstruction (SCT 997159879) 9) Kidney Stone (SCT 82046825) 10) Low Back Pain (SCT 554652327) 11) PTSD - Post-Traumatic Stress Disorder (SCT 45053375) 12) AF - Atrial fibrillation 13) Therapeutic drug effect 14) Anticoagulant effect 15) Mild neurocognitive disorder 16) Exposure to potentially hazardous substance 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 MEDICATION RECONCILIATION: I have reviewed the patient's medication list with the patient and/or his/her care-waiter/waitress cabin class. Handwritten corrections, additions and/or deletions were made [...] WITH FOOD. Pending Outpatient Medications Status 1) MULTIVITAMIN CAP/TAB TAKE 1 TABLET BY MOUTH ONCE A PENDING DAY Active Non-VA Medications Status 1) Non-VA CITALOPRAM HYDROBROMIDE 40MG TAB 20MG BY MOUTH ACTIVE EVERY MORNING 2) Non-VA GABAPENTIN 300MG CAP 600MG BY MOUTH THREE ACTIVE TIMES A DAY 9 Total Medications PHYSICAL EXAMINATION: Male General appearance: VITALS (most recent, as listed in the electronic record): B/P: 144/88 (07/02/2024 11:12) Pulse: 61 (07/02/2024 11:02) Temperature: 98.8 F [37.1 C] (07/02/2024 11:02) Weight: 242.8 lb [110.13 kg] (07/02/2024 11:02) Height: 69 in [175.3 cm] (01/08/2024 12:39) BMI: 35.9 Pain: 0 (07/02/2024 11:02) (0-10 scale) Ears, Nose, Mouth, Throat: Eye:eom, perrla Cardiovascular:rrr Respiratory:cta ABD/GI:soft, nt,nd Extremities:ambulates without assiatnce /[employer] MIN[employer]: Hematology & Lymph: Endocrine: Psych: Neuro: Skin: DATA REVIEW: HbA1C: HGA1C 6.1 H % 12/25/2023 13:57 ========= Lipid Panel: TRIGLYCERIDE 118 mg/dL 12/25/2023 13:57 CHOLESTEROL 146 mg/dL 12/25/2023 13:57 HDL(New) 38 L mg/dL 12/25/2023 13:57 CALCULATED LDL 84 mg/dL 12/25/2023 13:57 ========= CMP: SODIUM 140 mEq/L 05/22/2024 14:39 POTASSIUM 4.1 mEq/L 05/22/2024 14:39 CHLORIDE 106 mEq/L 05/22/2024 14:39 UREA NITROGEN 16.2 mg/dL 05/22/2024 14:39 CREATININE 0.99 mg/dL 05/22/2024 14:39 CALCIUM 9.6 mg/dL 05/22/2024 14:39 PROTEIN 7.2 g/dL 02/05/2024 11:13 ALBUMIN 4.2 g/dL 02/05/2024 11:13 ALKALINE PHOSPHATASE 79 U/L 02/05/2024 11:13 ALT/SGPT 18 U/L 02/05/2024 11:13 AST/SGOT 18 U/L 02/05/2024 11:13 TOTAL BILIRUBIN 1.6 H mg/dL 02/05/2024 11:13 CARBON DIOXIDE 24 mEq/L 05/22/2024 14:39 GLUCOSE 101 H mg/dL 05/22/2024 14:39 EGFR (CKD-EPI 2020) 78.5 05/22/2024 14:39 ========= CBC: WBC 6.7 10*3/uL 02/05/2024 11:13 RBC 4.60 10*6/uL 02/05/2024 11:13 HGB 15.2 g/dL 02/05/2024 11:13 HCT 45.7 % 02/05/2024 11:13 MCV 99.3 fL 02/05/2024 11:13 MCH 33.0 pg 02/05/2024 11:13 MCHC 33.3 g/dL 02/05/2024 11:13 RDW 13.7 % 02/05/2024 11:13 PLT 202 10*3/uL 02/05/2024 11:13 MPV 10.0 fL 02/05/2024 11:13 NEUTROPHILS, AUTO % 53 % 02/05/2024 11:13 LYMPHOCYTES, AUTO % 31 % 02/05/2024 11:13 MONOCYTES, AUTO % 11 % 02/05/2024 11:13 EOSINOPHILS, AUTO % 4 % 02/05/2024 11:13 BASOPHILS, AUTO % 1 % 02/05/2024 11:13 NEUTROPHILS, ABSOLUTE 3.52 10*3/uL 02/05/2024 11:13 LYMPHOCYTES, ABSOLUTE 2.07 10*3/uL 02/05/2024 11:13 MONOCYTES, ABSOLUTE 0.76 10*3/uL 02/05/2024 11:13 EOSINOPHILS, ABSOLUTE 0.27 10*3/uL 02/05/2024 11:13 BASOPHILS, ABSOLUTE 0.05 10*3/uL 02/05/2024 11:13 ========= PSA: No PSA EO data found ========= TSH: TSH 1.640 uIU/mL 12/25/2023 13:57 ========= INR: No INR EO data found ========= UA: No URINALYSIS EO data found ========= Dilantin: ____ ========= Digoxin: No data available for: DIGOXIN ========= Chest x-ray: No Impressions found ========= EK02/06/2024 22:55 Local Title: EKG CONSULT ST Standard Title: CARDIOLOGY DIAGNOSTIC STUDY CONSULT AUTHOR: CLINICAL,DEVICE PROXY SERVICE DOCUMENT IN [facility] SEE FULL REPORT IN [facility] SIGNATURE NOT REQUIRED SEE SIGNATURE IN [facility] ([place] EKG) AUTO-INSTRUMENT DIAGNOSIS Procedure: 85263 12 Lead ECG Release Status: Released Off-Line Verified Date Verified: Feb 06, 2024@22:54:58 87001.2 Ventricular Rate: 48 BPM 00711.3 Atrial Rate: 48 BPM 10010.4 P-R Interval: 190 ms 30027.5 QRS Duration: 92 ms 47005.6 Q-T Interval: 514 ms 42447 QTC Calculation(Bazett)459 ms 32897.12 Calculated P [place]: 46 degrees 03012.13 Calculated R [place]: 47 degrees 53606.14 Calculated T [place]: [address] & T wave abnormality, consider inferior ischemia ST & T wave abnormality, consider anterolateral ischemia Abnormal ECG No previous ECGs available Administrative Closure: 02/06/2024 by: CLINICAL,DEVICE PROXY SERVICE < THE ABOVE NOTE IS UNSIGNED > - DRAFT COPY * DRAFT COPY * DRAFT COPY * DRAFT COPY * DRAFT COPY * DRAFT COPY - Result: Acceptable Follow-up Action: Data results reviewed with patient and/or caregiver. ASSESSMENT/PLAN: 1#. TTR Amyloi- will refer to pulmology for inspire device keep appt with cardiology , nueromuscular 2 Afib - f/u with cardiology - stable 3 htn -stable RTC january 2025 PREVENTION & SCREENING: ALCOHOL: Clinical Reminder not due now or within a month BLOOD PRESSURE: Clinical Reminder not due now or within a month HEMOGLOBIN A1C: Clinical Reminder not due now or within a month /rashawn/ RAQUEL TUCKER Signed: 09/18/2024 12:[address] [facility] Jul 02, 2024 11:04 AM NURSING NOTE: LOCAL TITLE: V15 PACT FACE TO FACE NOTE ST STANDARD TITLE: NURSING NOTE DATE OF NOTE: JUL 02, 2024@11:04 ENTRY DATE: JUL 02, 2024@11:04:25 AUTHOR: VALENTINA SHIPLEY EXP COSIGNER: URGENCY: STATUS: COMPLETED Provider Visit: Patient Identifiers : Full Name Date of Reason for visit: Established Follow-Up Mode of Arrival: Ambulatory Allergy Review: SULFA DRUGS Allergy list reviewed and remains current. Recent Vital Signs: Temperature: 98.8 F [37.1 C] (07/02/2024 11:02) Pulse: 61 (07/02/2024 11:02) Respiration: 18 (07/02/2024 11:02) B/P: 152/76 (07/02/2024 11:02) Pain: 0 (07/02/2024 11:02) Wt: 242.8 lb [110.13 kg] (07/02/2024 11:02) Ht: 69 in [175.3 cm] (01/08/2024 12:39) BMI: 35.9 POX: 97% (07/02/2024 11:02) B/P RECHECK: 144/88 Would you like to discuss any personal problem, family problem, alcohol use, drug use, or a mental or emotional illness? No My [facility] ([facility]), please select appointment type: Face to face: Yes- Done Contact provided Primary Care phone number and encouraged to call if any questions or concerns. Review that after hours nurse line [phone] and emergency room are available 13/05 for patient use. Contact verbalized good understanding. COVID-19 Immunization: Refused Pfizer Monovalent COVID-19 vaccine Immunization: COVID-19 (PFIZER), MRNA, LNP-S, PF, ISIDORO-SUCROSE, 30 MCG/0.3 ML (AGES 12+ YEARS) Refusal Reason: PATIENT DECISION Patient refuses all immunization(s) in the COVID-19 group Date Documented: 07/02/24 11:15 Depression Screening: Perform PHQ-2 A PHQ-2 screen was performed. The score was 0 which is a negative screen for depression. Over the past two weeks, how often have you been bothered by the following problems? 1. Little interest or pleasure in doing things Not at all 2. Feeling down, depressed, or hopeless Not at all Influenza Immunization: Influenza, High-Dose, Trivalent, Preservative Free (Fluzone-Syringe) Administered: INFLUENZA, HIGH-DOSE, TRIVALENT, PF Date Administered: Jul 02, 2024 11:00 Bundle Tier And Labeler: [employer] PASTEUR Lot: [id number] Exp Date: Apr 19, 2025 ND: [id number] Admin Route/Site: INTRAMUSCULAR/LEFT DELTOID Dosage: 0.5mL Vaccine Information Statement(s): INFLUENZA(FLU) VACC(INACTIVATED OR RECOMBINANT)VIS May 26, 2021 ([place]) Order By: Policy Administered By: Valentina Shipley The Influenza Vaccine Information Statement (VIS) was reviewed with the patient/caregiver which lists the benefits and risks of the vaccine and the risks of not receiving the Influenza vaccine. The patient/caregiver denied any prior severe reaction to this vaccine or its components or a severe allergic reaction, such as anaphylaxis, to any vaccine or any injectable therapy. The patient/caregiver gave verbal consent to receive the vaccine. /rashawn/ VALENTINA SHIPLEY LICENSED PRACTICAL NURSE Signed: 07/02/2024 11:[address] [facility]
--- OUTSIDE RECORDS SUMMARY | 2024-11-27 09:34 | XMS_ITS | Clinical Summary ---
Author Organization [facility] Address [address] [place] [address] Care Team Providers Care Film Rental Clerk Name Role Phone Rodriguez Garcia MD Unavailable [phone] Conor Dodson MD Primary Care Provider [phone] Conor Dodson MD Unavailable [phone] Vern Valladares MD PhD Unavailable + Allergies Active Allergy Reactions Criticality Noted Date Comments Sulfa (Sulfonamide Antibiotics) Rash Medium Medications allopurinoL (ZYLOPRIM) 300 mg tablet TAKE 1 TABLET ONCE DAILY 90 tablet 3 05/18/20 20 Active Additional Information Patient taking differently: 300 mg oral Daily (early AM), Indications: Calcium Renal Calculi Prevention, Informant: Self, Reported on 09/15/2024 citalopram (CeleXA) 40 mg tablet Take 1 tablet (40 mg total) by mouth daily 1 tablet 07/18/20 22 Active Additional Information Patient taking differently:40 mg oralDaily before breakfast, Indications: Anxiety with Depression, Informant: Self, Reported on 09/15/2024 losartan (COZAAR) 100 mg tabletIndications: hypertension Take 1 tablet (100 mg total) by mouth director of early childhood before breakfast Active gabapentin (NEURONTIN) 300 mg capsule Take 2 capsules (600 mg total) by mouth daily 180 capsule 04/17/20 24 Active Additional Information Patient taking differently:600 mg oralNightly, Indications: Neuropathic Pain, Informant: Self, Reported on 09/15/2024 multivitamin tabletIndications: Vitamin Deficiency Prevention Take 1 tablet by mouth director of early childhood before breakfast Active vutrisiran (AMVUTTRA) 25 mg/0.5 mL injectionIndicatio ns:Amyloidosis Inject 0.5 mL (25 mg total) under the skin every 3 (three) months Last injection: around early June 2024 Active tamsulosin (FLOMAX) 0.4 mg extended release capsuleIndications :benign prostatic hyperplasia with lower urinary tract sx Take 1 capsule (0.4 mg total) by mouth nightly Active amLODIPine (NORVASC) 2.5 mg tabletIndications: hypertension Take 1 tablet (2.5 mg total) by mouth director of early childhood before breakfast Active finasteride (PROSCAR) 5 mg tabletIndications: benign prostatic hyperplasia with lower urinary tract sx Take 1 tablet (5 mg total) by mouth nightly Active acetaminophen (TYLENOL) 500 mg tablet Take 2 tablets (1,000 mg total) by mouth every 6 (six) hours 60 tablet 09/15/20 24 Active ibuprofen (ADVIL,MOTRIN) 600 mg tablet Take 1 tablet (600 mg total) by mouth every 6 (six) hours as needed for pain 60 tablet 09/15/20 24 Active ondansetron ODT (ZOFRAN-ODT) 4 mg disintegrating tablet Take 1 tablet (4 mg total) by mouth every 8 (eight) hours as needed for nausea or vomiting 20 tablet 09/15/20 24 Active oxyCODONE (ROXICODONE) 5 mg immediate release tabletIndications: Pain Take 1 tablet (5 mg total) by mouth every 4 (four) hours as needed for pain 5 tablet 09/15/20 24 Active Active Problems Problem Noted Date Diagnosed Date Left carpal tunnel syndrome 08/14/2024 Type I familial amyloid polyneuropathy Assessment & Plan (08/05/2024 6:44 PM CDT): Symptomatic carpal tunnel syndrome. Lower abdominal pain 06/18/2024 Assessment & Plan (06/18/2024 10:07 AM CDT): Patient has lower abdominal cramping and pain after bowel movements. This lasts few minutes which is likely muscular type of pain. Patient was reassured and advised about proper emptying techniques. I think fiber supplements will help. To complete evaluation CT abdomen pelvis with no contrast will be requested. Follow up in the office in 6 months. 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 Cardiac evaluation negative. Carpal tunnel syndrome of right wrist 07/22/2023 Irritable bowel syndrome with diarrhea and const ipation 02/18/2023 Assessment & Plan (06/18/2024 10:05 AM CDT): Patient has more often constipation symptoms with straining. He was trying to increase the fiber in his diet. I advised the patient to start taking fiber supplements every day with plenty of fluid intake. I do not think any medication will be a need at this point. Will re-evaluate 6 months. Patient was also advised about techniques of proper bowel movements and emptying with the using a toilet step. Assessment & Plan (01/23/2024 2:55 PM CDT): Symptoms variable between diarrhea but more often seems to be constipation at this time. We discussed the starting fiber supplements of fiber gummies. Avoid fiber powder. We discussed his diet with the plenty of fluid intake. Adding banana or other fruits with fiber is reasonable. I also discussed with the patient to decrease the alcohol intake. Assessment & Plan (02/18/2023 2:10 PM CDT): Hi fiber diet, poop sheet and return 4 weeks Primary osteoarthritis of left knee 01/31/2023 Obstructive sleep apnea (adult) (pediatric) 07/0 05/2022 Overview (12/11/2022): - DME: [facility] Assessment & Plan (08/05/2024 12:47 PM CDT): 1. Chronic, poorly controlled 2. Re compliance and therapy data and residual AHI is 4.3 with mostly central apneas 3. He is having leak most nights although not always significant 4. We will have him follow up with [facility] for mask fitting and or switching to a new mask to assist with comfort 5. Pap supply order placed Assessment & Plan (04/18/2023 8:54 PM CDT): Using CPAP nightly with benefit. Assessment & Plan (12/11/2022 4:31 PM FRIT BURNER): 1. Chronic, poorly controlled 2. Discussed different masks 3. Placed order for the AirFit F30 because the other masks did not fit his face Assessment & Plan (11/15/2022 5:40 PM FRIT BURNER): Using CPAP nightly with benefit. Assessment & Plan (07/31/2022 3:30 PM CDT): 1. Chronic, poorly controlled 2. This is in the setting of significant leak from his mask 3. He will switch to a nasal pillow mask and use duct tape to help prevent mouth breathing Assessment & Plan (04/27/2022 10:26 AM CDT): 1. Chronic, Poorly-controlled 2. Reviewed sleep study results 3. Discussed treatment options 4. Patient decided on CPAP therapy 5. Will place order Change in bowel habits 03/20/2022 Assessment & Plan (04/17/2022 2:18 PM CDT): Continue hi f8iber diet and return prn Assessment & Plan (03/20/2022 2:09 PM CDT): Hi fiber diet and return 4 weeks Medication side effects 07/26/2021 Kidney stone 07/24/2021 Labile hypertension 03/22/2021 Assessment & Plan (12/27/2023 1:29 PM FRIT BURNER): 1. Chronic, well controlled 2. Discussed how continued use of his CPAP can help control his blood pressure 3. He will continue losartan, amlodipine, and metoprolol Assessment & Plan (12/11/2022 4:31 PM FRIT BURNER): 1. Chronic, well controlled 2. Discussed how use of his CPAP machine will help his blood pressure 3. He will continue losartan, amlodipine, and metoprolol Assessment & Plan (11/15/2022 5:40 PM FRIT BURNER): Target BP less than 140/90. Continue current diet, amlodipine, metoprolol and losartan Assessment & Plan (07/31/2022 3:29 PM CDT): - Chronic, Blood pressure is well-controlled - Discussed how routine use of a CPAP machine can help control BP - Continue current medications Assessment & Plan (04/27/2022 10:26 AM CDT): - Chronic, Blood pressure is well-controleld - Discussed how routine use of a CPAP machine can help control BP - Continue current medications Assessment & Plan (01/02/2022 2:32 PM CDT): Target BP less than 130/80. Continue current diet medications. Lightheadedness 03/22/2021 [place]'s esophagus without dysplasia 01/23/2021 Assessment & Plan (06/18/2024 10:05 AM CDT): Last EGD in 2021 and biopsy showed the no intestinal metaplasia. Continue Prilosec daily for acid reflux disease. Will plan an upper endoscopy in 2025. Assessment & Plan (01/02/2022 2:31 PM CDT): Continue current omeprazole. Upcoming EGD planned. OA (osteoarthritis) 04/01/2020 Chronic anticoagulation 11/27/2019 MGUS (monoclonal gammopathy of unknown significa nce) 11/12/2019 Assessment & Plan (07/18/2022 12:19 PM CDT): Check SPEP. Paroxysmal atrial fibrillation (CMS/HCC) 020 Assessment & Plan (02/04/2024 4:48 PM CDT): Continue with metoprolol and anticoagulation with Xarelto. Assessment & Plan (04/18/2023 8:53 PM CDT): Continue chronic anticoagulation with Xarelto and metoprolol. Managed by Cardiology. Assessment & Plan (11/15/2022 5:40 PM FRIT BURNER): Continue current diet and metoprolol. On chronic anticoagulation with Xarelto. Assessment & Plan (07/18/2022 12:19 PM CDT): Continue current diet & medications. On anticoagulation with Xarelto. Managed by Cardiology. Assessment & Plan (01/02/2022 2:31 PM CDT): Continue current diet & medications. Managed by Cardiology. Primary osteoarthritis of right ankle 01/15/2019 Overview (01/15/2019): Added automatically from request for surgery [id number] Retained orthopedic hardware 01/15/2019 Overview (01/15/2019): Added automatically from request for surgery [id number] Arthritis of subtalar joint 09/10/2018 Overview (09/10/2018): Added automatically from request for surgery [id number] Cobalamin deficiency 12/20/2016 Overview (03/15/2017): Vitamin B12 deficiency Gout 12/20/2016 Overview (03/15/2017): Gout, unspecified Moderate episode of recurrent major depressive d isorder 05/28/2016 Overview (01/24/2017): Major depression, recurrent, chronic Assessment & Plan (02/04/2024 4:48 PM CDT): Continue citalopram. Assessment & Plan (04/18/2023 8:53 PM CDT): Mood stable on citalopram. Assessment & Plan (11/15/2022 5:40 PM FRIT BURNER): Continue with citalopram. Assessment & Plan (07/18/2022 12:19 PM CDT): Mood stable on citalopram. Assessment & Plan (01/02/2022 2:33 PM CDT): Mood stable on citalopram. Continue current medications. Asymmetrical sensorineural hearing loss 02/16/20 Presbycusis 02/15/2015 Noise effect on inner ear 02/15/2015 Mixed conductive and sensori neural hearing loss of both ears 01/25/2015 Subjective tinnitus 01/25/2015 Impotence of organic origin 11/08/2014 Overview (01/24/2017): Impotence of organic origin History of colonic polyps 05/04/2014 Overview (01/24/2017): PRSNL HST COLONIC POLYPS Assessment & Plan (11/15/2022 5:40 PM FRIT BURNER): Up-to-date on colonoscopy. Benign prostatic hyperplasia with urinary obstru ction 05/04/2014 Overview (01/24/2017): BPH W URINARY OBSTRUCTN Assessment & Plan (02/04/2024 4:48 PM CDT): Managing without medications. Assessment & Plan (07/18/2022 12:19 PM CDT): Managing without medications. Assessment & Plan (01/02/2022 2:32 PM CDT): Managing without medications. Essential hypertension 03/06/2014 Overview (01/23/2017): BENIGN HYPERTENSION Assessment & Plan (02/04/2024 4:49 PM CDT): Target BP less than 130/80. Continue current diet, losartan and metoprolol. Will stop amlodipine due to symptomatic relative hypotension. Assessment & Plan (04/18/2023 8:54 PM CDT): Target BP less than 130/80. Continue current diet, amlodipine, losartan and metoprolol. Osteoarthritis of ankle or foot 03/06/2014 Overview (01/24/2017): Osteoarthritis of ankle or foot, right History of renal calculi 03/06/2014 Overview (01/24/2017): History of nephrolithiasis Bruxism (teeth grinding) 03/06/2014 Overview (01/24/2017): Bruxism Spinal stenosis of lumbar region 05/19/2009 Assessment & Plan (07/18/2022 12:18 PM CDT): Activity as tolerated. Notalgia 05/19/2009 Degeneration of intervertebral disc of lumbar re gion 05/19/2009 Resolved Problems Problem Noted Date Diagnosed Date Resolved Date Wild-type transthyretin-rela norman (ATTR) amyloidosis ([facility]) 12/02/2023 12/02/2023 Amyloid A nephropathy 07/22/20232023 Acute otitis media 10/26/2019 0 Joint pain, knee 01/20/2018 06/20/2020 Adiposity 05/07/2014 06/26/2017 Overview (01/24/2017): Obesity Abnormal electrocardiography 03/06/2014 06/20/2020 Overview (01/23/2017): Abnormal ECG Depression 03/06/2014 06/26/2017 Overview (01/23/2017): DEPRESSIVE DISORDER NEC Benign neoplasm of brain 11/04/2013 Assessment & Plan (07/18/2022 12:21 PM CDT): CT angio and subsequent cerebral angiogram revealed a venous varix Assessment & Plan (01/02/2022 2:39 PM CDT): Incidental finding noted in 2013 however subsequent cerebral angiogram indicated the a venous varix Abnormal brain scan 09/11/2013 06/20/20 20 Encounters Date Type Department Care Team Description 11/10/2024 Telephone [facility] [address] [facility] [address] [place] [address] Maya Bolden 10/22/2024 10:30 AM FRIT BURNER Office Visit [facility] [address] [facility] [address] [place] [address] Laura Austin MD Bilateral carpal tunnel syndrome (Primary Dx); Guyon syndrome, left 09/21/2024 8:45 AM FRIT BURNER Office Visit [facility] [address] [facility] [address] [place] [address] Karly Ervin NP Bilateral carpal tunnel syndrome (Primary Dx) 09/15/2024 7:34 AM FRIT BURNER Anesthesia Event [facility] [address] [place] [id number] Charles Johnson MD Heuvelman, Katherine Marie, NP 09/15/2024 7:30 AM FRIT BURNER - 09/15/2024 10:10 AM FRIT BURNER Surgery [facility] [address] [place] [id number] Laura Austin MD RELEASE CARPAL TUNNEL 09/15/2024 5:14 AM FRIT BURNER - 09/15/2024 10:51 AM FRIT BURNER Hospital Encounter [facility] [address] [place] [id number] Laura Austin MD Left carpal tunnel syndrome (Primary Dx) Discharge Disposition: Discharge to home or self care 09/15/2024 Telephone [facility] [address] [facility] [address] [place] [address] Maya Bolden 09/14/2024 Telephone [facility] [address] [facility] [address] [place] [address] Teresita Santo CMA Surgery Reminder from Last 3 Months Immunizations Name Administration Dates Next Due Influenza, Quadrivalent, Hig h Dose, Preservative Free, Intrr 07/18/2022,09/10/2021,07/21/2020 Influenza, Quadrivalent, Spl it, Preservative Free, Intramuscular 08/01/2017 Influenza, Split 07/21/2010 Influenza, Trivalent, High D ose, Split, Preservative Free, Intramuscular 07/02/2024,07/21/2016,07/21/2015,10/30 Influenza, Trivalent, IM (MDV) 10/30/2012,2010,08/21/1999 Influenza, Trivalent, Preser vative Free, Intramuscular 08/21/2014,07/21/2013,07/20/2013 Influenza, Unspecified 10/21/2023,2022,07/30/2022,10/10,08/21/2019,08/21/2018,06/21/2018 ,08/21/2017,09/04/2015,08/04/2014,10/2013,10/21/2012,08/01/2011, 0,08/12/2009,11/16/2008,08/21/2007,10/2005,08/14/2005,08/08/2004 Moderna SARS-CoV-2 Monovalen t Vaccination (12+ YRS) 10/31/2021,07/21/2021,02/04/2021,01/16,12/19/2020 Pneumococcal Conjugate PCV 13 07/21/2016, 015 Pneumococcal Conjugate Pcv20 08/04/2024 Pneumococcal Polysaccharide PPV23 08/17/2013, Pneumococcal, Unspecified 01/02/2013 TD Preservative Free 07/21/2015 Td, Unspecified 02/08/2004 Td, adsorbed 06/21/2011,03/04/1998 Tdap 03/08/2015 ZOSTER LIVE 02/19/2008,05/15/2007 ZOSTER Recombinant 02/06/2019 Surgical History Surgery Date Site/Laterality Comments BACK SURGERY 10/21/2009 - 10/20/2010 L1 to S1 Fusion FL UPPER GI AIR CONTRAST W KUB 04/30/2018 Bilateral FLUORO GUIDED ASPIRATION OR INJECTION INTERMEDIATE JOINT RIGHT 05/19/2018 Right FLUORO GUIDED ASPIRATION OR INJECTION INTERMEDIATE JOINT RIGHT 05/19/2018 Right COLONOSCOPY 10/21/2020 - 10/20/2021 FLUORO GUIDED ASPIRATION ANKLE RIGHT 04/25/2020 Right FL FLUORO GUIDED LUMBAR PUNCTURE 03/05/2023 Right REPLACEMENT TOTAL KNEE 10/21/2022 - 10/20/2023 Left TOTAL ANKLE REPLACEMENT 09/24/2018 Right CARPAL TUNNEL RELEASE 09/04/2023 Right with guyons decompression, tenosynovial biopsy Medical History Medical History Date Comments Calculus of kidney 2005 Nephrolithias is Hypertension DDD (degenerative disc disease), lumbar Hypertension Kidney disease Sinus infection Joint pain, knee 01/20/2018 Acute otitis media 10/26/2019 Abnormal brain scan 09/11/2013 Abnormal electrocardiography 03/06/2014 Abn ormal ECG GERD (gastroesophageal reflux disease) Benign neoplasm of brain (HCC) 11/04/2013 Sleep apnea wears cpap Family History Medical History Relation Name Comments Other Brother 2 Alive and well; Heart failure Father Congestive hea rt failure; Cause of : Congestive heart failure Prostate cancer Father Cancer -pros rosa; Heart failure Mother Congestive hea rt failure; Cause of : Congestive heart failure Other Sister 2 Alive and well; Anesthesia problems Neg Hx Relation Name Status Comments Brother 1 Alive Brother 2 Father (Age 73) Mother (Age 72) Sister 1 Alive Sister 2 Social History Tobacco Use Types Packs/Day Years Used Date Smoking Tobacco: Former Cigarettes 0.3 33 1 969 - 2002 Smokeless Tobacco: Never Tobacco Cessation:Counseling Given: Not Answered Alcohol Use Standard Drinks/Week Comments Yes 0 (1 standard drink = 0.6 oz pur e alcohol) occasional AUDIT-C Answer Date Recorded Q1: How often do you have a drink containing alc ohol? 2-4 times a month 09/15/2024 Q2: How many drinks containi ng alcohol do you have on a typical day when you are drinking? 3 or 4 09/15/2024 Q3: How often do you have si x or more drinks on one occasion? Never 09/15/2024 PHQ-2 Answer Date Recorded PHQ-2 Total Score (If total score is 3 or more points, staff should administer the PHQ-9) 0 08/05/2024 Personal Safety Answer Date Recorded Have you ever been in or are you currently in a harmful physical or emotional relationship or is someone making you feel afraid or unsafe? Denies 09/15/2024 Sex and Gender Information Value Date Recorded Sex Assigned at Not on file Legal Sex Male 11:31 PM FRIT BURNER Gender Identity Male 08/09/2024 7:38 PM CDT Sexual Orientation Bisexual 08/09/2024 7: 38 PM CDT Occupation Industry Job Start Date Job End Date Retired Not on file Not on file Not on file Obstetrics History Last Filed Vital Signs Vital Sign Reading Time Taken Comments Blood Pressure 135/82 09/15/2024 10:19 AM FRIT BURNER Pulse 54 09/15/2024 10:20 AM FRIT BURNER Temperature 36 C (96.8 F) 09/15/2024 9:50 AM FRIT BURNER Respiratory Rate 17 09/15/2024 10:20 AM FRIT BURNER Oxygen Saturation 98% 09/15/2024 10:20 AM FRIT BURNER Inhaled Oxygen Concentration - - Weight 108.4 kg (239 lb) 09/15/2024 6:00 AM FRIT BURNER Height 180.3 cm (5' 11 ) 09/15/2024 6:00 AM FRIT BURNER Body Mass Index 33.33 09/15/2024 6:00 AM FRIT BURNER Plan of Treatment Health Maintenance Due Date Last Done Comments Hepatitis C Screening 1945 Hepatitis B Screening 1963 Zoster Vaccine (3 of 3) 04/03/2019 02/07/20, 02/19/2008, 05/15/2007 Covid-19 Vaccine (2023-2 5 season) 2024 10/31/2021, 07/21/2021, 02/04/2021, Additional history exists DTaP/Tdap/Td Vaccine (3 - Td or Tdap) 07/21/2025 07/21/2015, 03/08/2015, 06/21/2011, Additional history exists Well Visit 65+ 08/04/2025 08/04/2024, 07/21, 07/18/2022, Additional history exists Depression Screening 08/05/2025 08/05/2024, 08/04/2024, 08/05/2023, Additional history exists Fall Risk Assessment 09/15/2025 09/15/2024, 08/04/2024, 08/05/2023, Additional history exists Colon Cancer Screening-CT Colonography Discontinued 11/03/2020, 11/09/2015 Colon Cancer Screening-Colonoscopy Discontinued 11/03/2020, 11/09/2015 Colon Cancer Screening-DNA Stool Discontinued 11/03/19, 11/09/2015 Colon Cancer Screening-FIT Discontinued 11/03/2020, Colon Cancer Screening-FOBT Discontinued 11/03/2020, 0 11/09/2015 Colon Cancer Screening-Sigmoidoscopy Discontinued 11/03/2020, 11/09/2015 Colorectal Cancer Screening Discontinued Prostate Cancer Screening-PSA Discontinued , 07/03/2021, 06/20/2020 Abdominal Aortic Aneurysm (A AA) Screen Completed 06/23/2024 Influenza Vaccine Completed 07/02/2024, , 07/15/2023, Additional history exists Pneumococcal vaccine 65+ Completed 024, 07/21/2016, 03/08/2015, Additional history exists Medical Devices Implanted Type Area Cleaner Operator Device Identifier Shelf Expiration Date Model / Serial / Lot Augment Implanted:Qty: 1 on 09/24/2018 by Jorge Luis Santoyo MD at [facility] Right: Ankle [employer] [id number] 06/20/2019 / [id number] / [id number] [employer] [id number] Mini Ignite Power Mix Injectable Graft 4ml Synthetic Tissue - [id number] - [id number] Implanted:Qty: 1 on 09/24/2018 by Jorge Luis Santoyo MD at [facility] Right: Ankle [employer] 04/30/2023 [id number] / [id number] / [id number] Orthohelix [id number] Maxtorque 7mm 80mm Cannulated Blunt Foot Long Thread Screw Bone Latex Free - [id number] Implanted:Qty: 2 on 09/24/2018 at [facility] Orthohelix CSS-[id number] / / [employer] [id number] Infinity 9mm Knee 3+ Insert Tibial Poly - [id number] Implanted:Qty: 1 on 02/10/2019 by Jorge Luis Santoyo MD at [facility] Right: Ankle [employer] [id number] 07/27/2026 [id number] / / [id number] Musculoskeletal Transplant [id number] 4-30mm Allograft Frozen [id number] Wedge Graft Bone - [id number] - [id number] Implanted:Qty: 1 on 02/10/2019 by Jorge Luis Santoyo MD at [facility] Right: Ankle [employer] 04/16/2023 [id number] / [id number] / [employer] [id number] Steinmann 5/64in 9in Trocar Point One End Pin Fixation Stainless - [id number] Implanted:Qty: 1 on 02/10/2019 by Jorge Luis Santoyo MD at [facility] Right: Ankle [employer] [id number] / / [employer] [id number] Ankle 1 Large 10mm Stem Talar - [id number] Implanted:Qty: 1 on 02/10/2019 by Jorge Luis Santoyo MD at [facility] Right: Ankle [employer] [id number] 07/28/2026 [id number] / / [id number] [employer] [id number] Inbone Sulcus Ankle 3 Dome Component Talar - [id number] Implanted:Qty: 1 on 02/10/2019 by Jorge Luis Santoyo MD at [facility] Right: Ankle [employer] [id number] 09/21/2026 [id number] / / [id number] [employer] [id number] Infinity 4 Long Tray Tibial - [id number] Implanted:Qty: 1 on 02/10/2019 by Jorge Luis Santoyo MD at [facility] Right: Ankle [employer] [id number] 08/05/2026 [id number] / / [id number] Explanted Type Area Cleaner Operator Device Identifier Shelf Expiration Date Model / Serial / Lot Orthohelix [id number] Maxtorque 7mm 75mm Cannulated Blunt Foot Long Thread Screw Bone Latex Free - [id number] Explanted:Qty: 1 on 09/24/2018 at [facility] Orthohelix CSS-011-70 -[id number] / / [id number] Wires Explanted:Qty: 3 on 09/24/2018 by Jorge Luis Santoyo MD at [facility] Other [employer] [id number] K-Wire 1.4mm 228mm Wire Fixation - [id number] Explanted:Qty: 2 on 02/10/2019 at [facility] Right: Ankle [employer] [id number] / / Procedures Procedure Name Priority Date/Time Associated Diagnosis Comments IN AN PROCEDURE PLACEHOLDER Routine 09/15/2024 8:09 AM FRIT BURNER RELEASE GUYONS CANAL 09/15/2024 7:35 AM FRIT BURNER Left carpal tunnel syndrome Case Notes 08/17 - Case msg requesting a fellow prior to scheduling. NB Special Needs SCHEDULE A FIRST CASE, MOVE ALREADY SCHEDULE CASES AFTER YOU SCHEDULE THIS ONE RELEASE CARPAL TUNNEL 09/15/2024 7:35 AM FRIT BURNER Left carpal tunnel syndrome Case Notes 08/17 - Case msg requesting a fellow prior to scheduling. NB Special Needs SCHEDULE A FIRST CASE, MOVE ALREADY SCHEDULE CASES AFTER YOU SCHEDULE THIS ONE CT ABDOMEN PELVIS WO CONTRAST Schedule Routine, Read Routine (OP Routine) 06/23/2024 7:46 AM CDT Lower abdominal pain PSA SCREEN Routine 07/18/2022 11:24 AM CDT Screening PSA (prostate specific antigen) COLONOSCOPY Routine 11/03/2020 from Last 3 Months or Most Recently Relevant to Health Maintenance Results * IN AN PROCEDURE PLACEHOLDER (09/15/2024 8:09 AM FRIT BURNER) Narrative Charles Johnson MD - 09/15/2024 8:09 AM FRIT BURNER Charles Johnson MD 09/15/2024 8:11 AM [facility] Block Anesthesia End time: 09/15/2024 7:45 AM Reason for block: primary anesthetic Staff: Supervising provider: Charles Johnson MD Placed by: Resident: Horace Alcala MD Procedure prep: Preprocedure checklist: patient identified, patient appropriate for plan, surgical consent, risks and benefits discussed, monitors and equipment checked and timeout performed Prep solution: alcohol Sarah block: Site: left upper extremity IV gauge: 22g Procedure details: tourniquet - double cuff, esmarch applied to extremity, tourniquet inflation verified, local anesthetic injected, patient tolerated procedure well and injection IV removed Tourniquet inflation pressure: 200 mmHg Assessment: Events: patient tolerated procedure well without complications us Charles Johnson MD ANESTHESIA ORDERABLES Final Resu lt * CT Abd/Pelvis w/o contrast (06/23/2024 7:46 AM CDT) Anatomical Region Laterality Modality Body N/A Computed Tomogra phy 06/24/2024 7:16 AM CDT Narrative 06/24/2024 7:21 AM CDT EXAM DESCRIPTION: CT ABDOMEN PELVIS WO CONTRAST REASON FOR STUDY: LLQ abdominal pain, diverticulitis suspected Lower abdomen pain, worse after eating. Pt reports bowel movements sometimes very loose and sometimes very hard ongoing for the last year. No prior surgeries. TECHNIQUE: CT scan of the abdomen and pelvis performed without intravenous and without oral contrast using helical scanning technique. Reconstructed coronal and sagittal MPR images reviewed. All images stored on PACS. Automated exposure control was used as a dose optimization technique for this examination. COMPARISON: Limited images through the sacroiliac joints 03/05/2023. FINDINGS: The sensitivity for detection of visceral lesions is diminished without the use of intravenous contrast. LOWER CHEST: Lung bases clear. No pleural effusion. Calcified granuloma left lower lobe. Heart size is normal. LIVER: Liver size and contour normal. No focal lesion. GALLBLADDER: No gallstones or overt inflammatory change. BILE DUCTS: No biliary ductal dilation. SPLEEN: Spleen size normal. No focal lesion. PANCREAS: No pancreatic mass or inflammatory change. ADRENALS: Normal KIDNEYS/URINARY TRACT: No right renal calculus. No left renal calculus. No ureteral calculus. No hydronephrosis or hydroureter. GI: No evidence of bowel obstruction. Mild sigmoid colon diverticulosis. The terminal ileum and appendix are normal. The stomach and duodenal normal. No pneumatosis. PERITONEUM: No ascites or free air. No mesenteric mass or lymphadenopathy. RETROPERITONEUM: No retroperitoneal mass or lymphadenopathy. REPRODUCTIVE: Mild enlargement of the prostate. VASCULATURE: Abdominal aorta is nonaneurysmal. MUSCULOSKELETAL: Bone windows demonstrate transpedicular screws and rods L2-S1. There is diminished osseous density. Evidence of fusion. There is a sclerotic lesion in the left iliac bone similar to the prior CT. OTHER: No other abnormality. IMPRESSION: No evidence of an acute abnormality of the abdomen and pelvis. Mild sigmoid colon diverticulosis with no evidence of diverticulitis. Mild enlargement of the prostate. L2-S1 fusion hardware. THIS IS AN ELECTRONICALLY VERIFIED FINAL REPORT 06/24/2024 7:21 AM - Electronically signed by Julio Vigil M.D. CH: SANDHYA Report ID: [id number] Reading Location: [id number] Procedure Note Julio Vigil Jr., MD - 06/24/2024 EXAM DESCRIPTION: CT ABDOMEN PELVIS WO CONTRAST REASON FOR STUDY: LLQ abdominal pain, diverticulitis suspected Lower abdomen pain, worse after eating. Pt reports bowel movementssometimes very loose and sometimes very hard ongoing for the last year. No prior surgeries. TECHNIQUE: CT scan of the abdomen and pelvis performed without intravenousand without oral contrast using helical scanning technique. Reconstructed coronal and sagittal MPR images reviewed. All images stored on PACS.Automated exposure control was used as a dose optimization technique for this examination. COMPARISON: Limited images through the sacroiliac joints 03/05/2023. FINDINGS: The sensitivity for detection of visceral lesions is diminished withoutthe use of intravenous contrast. LOWER CHEST: Lung bases clear. No pleural effusion. Calcifiedgranuloma left lower lobe. Heart size is normal. LIVER: Liver size and contour normal. No focal lesion. GALLBLADDER: No gallstones or overt inflammatory change. BILE DUCTS: No biliary ductal dilation. SPLEEN: Spleen size normal. No focal lesion. PANCREAS: No pancreatic mass or inflammatory change. ADRENALS: Normal KIDNEYS/URINARY TRACT: No right renal calculus. No left renal calculus.No ureteral calculus. No hydronephrosis or hydroureter. GI: No evidence of bowel obstruction. Mild sigmoid colondiverticulosis. The terminal ileum and appendix are normal. The stomach and duodenalnormal. No pneumatosis. PERITONEUM: No ascites or free air. No mesenteric mass orlymphadenopathy. RETROPERITONEUM: No retroperitoneal mass or lymphadenopathy. REPRODUCTIVE: Mild enlargement of the prostate. VASCULATURE: Abdominal aorta is nonaneurysmal. MUSCULOSKELETAL: Bone windows demonstrate transpedicular screws and rods L2-S1. There is diminished osseous density. Evidence of fusion. Thereis a sclerotic lesion in the left iliac bone similar to the prior CT. OTHER: No other abnormality. IMPRESSION: No evidence of an acute abnormality of the abdomen and pelvis. Mild sigmoid colon diverticulosis with no evidence of diverticulitis. Mild enlargement of the prostate. L2-S1 fusion hardware. THIS IS AN ELECTRONICALLY VERIFIED FINAL REPORT 06/24/2024 7:21 AM - Electronically signed by Julio Vigil M.D. CH: Report ID: [id number] Reading Location: [place] [id number] Darshan Alonso MD IMG CT PROCEDURES Final Re sult * PSA screen (07/18/2022 11:24 AM CDT) PSA-Total 1.21 <=6.20 ng/mL [facility] Comment: Interpretive Data AGE SEX REFERENCE INTERVAL 0 minutes-150 years Female None 0 minutes-49 years Male None 50-59 years Male 0-3.90 60-69 years Male 0-5.40 70-79 years Male 0-6.20 80-150 years Male 0-6.20 The Sohail PSA Total assay procedure was used. Results from different manufacturers or methods may not be comparable. Serial testing should be performed using the same method. Current interpretive data last revised 22. Blood 07/18/2022 11:2 4 AM CDT 07/18/2022 1:20 PM CDT us Conor Dodson MD LAB BLOOD ORDERABLES Final Re sult [facility] Department [place] [address] * Colonoscopy (11/03/2020) Anatomical Region Laterality Modality Other us Historical Provider ENDOSCOPY PROCEDURES Amber l Result from Last 3 Months or Most Recently Relevant to Health Maintenance Insurance [facility] MEDICARE SOLUTIONS Member Subscriber Plan / Payer (Ef fective 2023-Present) Name:Malik Street Relation to Subscriber:Self Name:Malik Street Payer ID:[id number] (NAIC) Type:[facility] MEDICARE Address: [place] [id number] [place] [phone] MEDICARE SOLUTIONS [facility] MEDICARE SOLUTIONS Advance Directives For more information, please contact: [phone] * Full Code (Latest Code Status on File) Date Activated Date Inactivated Comments 01/15/2022 7:38 AM 01/15/2022 1:48 PM * Full Code Date Activated Date Inactivated Comments 01/15/2022 7:37 AM 01/15/2022 7:38 AM * Full Code Date Activated Date Inactivated Comments 02/10/2019 1:04 PM 02/11/2019 11:25 PM * Full Code Date Activated Date Inactivated Comments 09/24/2018 8:49 PM 09/25/2018 3:31 PM Care Teams Film Rental Clerk Relationship Specialty Start Date End Date Conor Dodson MD [facility] [address] Kulkarni [address] [address] PCP - General Internal Medicine 12/27/23 Rodriguez Garcia MD Consulting Physician Cardiology 07/18/23 Conor Dodson MD [facility] DR Cayla JOHNSTON [address] [place] [id number] Consulting Physician Internal Medicine 07/13/24 Vern Valladares MD PhD [address] [place] [address] Consulting Physician Cardiology 08/12/24
--- OUTSIDE RECORDS SUMMARY | 2024-11-27 09:34 | XMS_ITS ---
Author Name [facility] [place] [facility] [place] Address [address] [place] [address] Care Team Providers Care Civil Engineer'S Aide Name Role Phone RAQUEL TUCKER Primary Care [...] MEDIC ARE SUPPL EMENT Nov 21, 2010 [id number] [phone] HARVINDER DOUGHERTY PATIENT MEDICARE (WNR) MEDICARE (M) PART A Nov 21, 2010 PART A [id number] Chandu ANGELES PATIENT MEDICARE (WNR) MEDICARE (M) PART B Nov 21, 2010 PART B [id number] Chandu ANGELES EMILY PATIENT MEDICARE (WNR) MEDICARE (M) PART A Nov 21, 2010 PART A [id number] [phone] Chandu ANGELES LLOYDRAMOS PATIENT MEDICARE (WNR) MEDICARE (M) PART B Nov 21, 2010 PART B [id number] Chandu ANGELES PATIENT Selected Encounter This section includes the information on record at [place] for the Encounter. Date/Time Encounter Type Encounter Description Reason Provider Source Feb 05, 2024 10:00 AM OFF/OP CONSLTJ NEW/EST HI 55 CARDIOLOGY ICD-10-CM I10 Essential (primary) hypertension BRAD STARK IHE Encounter Template Text not used by [place] Assessments - Encounter Diagnoses This section includes the primary and secondary diagnoses documented for the Encounter. 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 This section includes future appointments and future orders which are active, pending or scheduled. Future Appointments This section includes appointments that were scheduled to occur 6 months from the date of the Encounter, up to a maximum of 20 appointments. The data comes from all [place] treatment facilities. Appointment Date/Time Appointment Type Appointme nt Facility Name Feb 17, 2024 10:00 AM AMBULATORY - MEDICINE [facility] Apr 02, 2024 08:30 AM AMBULATORY - SURGERY [facility] Apr 29, 2024 08:30 AM AMBULATORY - MEDICINE [facility] May 04, 2024 08:00 AM AMBULATORY - NONE [facility] May 04, 2024 10:30 AM AMBULATORY - NONE [facility] May 22, 2024 02:00 PM AMBULATORY - MEDICINE [facility] Jun 24, 2024 08:30 AM AMBULATORY - MEDICINE [facility] Jun 24, 2024 11:00 AM AMBULATORY - NEUROLOGY [facility] Jul 01, 2024 09:30 AM AMBULATORY - MEDICINE [facility] Jul 02, 2024 11:00 AM AMBULATORY - MEDICINE [facility] Jul 07, 2024 03:00 PM AMBULATORY - MEDICINE [facility] Lab Results: +/- 30 days of the encounter This section includes the Chemistry and Hematology Lab Results on record with [place] for the patient. Radiology Reports and Pathology Reports are provided separately, in subsequent sections. Lab Results This section contains the Chemistry/Hematology Results that were resulted 30 days before or 30 daysafter the date of the Encounter. Date/Time Source Result Type Result - Unit Interpretation Reference Range Comment Feb 05, 2024 11:13 AM [facility] TROPONIN I Specimen Type: PLASMA Comment: No hemolysis noted. Ordering Provider: JOEL STARK Report Released Date/Time: Feb 05, 2024 10:34 AM Reporting Lab: [facility] [address] [facility] [address] Performing Lab: [facility] [address] [place] [id number] TROPONIN I <0.010 ng/mL 0-0.033 Feb 05, 2024 11:13 AM [facility] BRAIN NATRIURETIC PEPTIDE Specimen Type: PLASMA No comment entered. Ordering Provider: JOEL STARK Report Released Date/Time: Feb 05, 2024 10:34 AM Reporting Lab: [facility] [address] [facility] [address] Performing Lab: [facility] [address] [facility] [address] BRAIN NATRIURETIC PEPTIDE 537.1 pg/mL H 0-100 Feb 05, 2024 11:13 AM [facility] COMPREHENSIVE METABOLIC PANEL Specimen Type: PLASMA Comment: No hemolysis noted. Ordering Provider: JOEL STARK Report Released Date/Time: Feb 05, 2024 10:34 AM Reporting Lab: [facility] [address] [facility] [address] Performing Lab: [address] [address] CREATININE 1.22 mg/dL 0.7-1.3 UREA NITROGEN 17.4 [...] 61.4 >60 Feb 05, 2024 11:13 AM [facility] CBC Specimen Type: BLOOD No comment entered. Ordering Provider: JOEL STARK Report Released Date/Time: Feb 05, 2024 10:34 AM Reporting Lab: [address] [address] Performing Lab: [address] [address] WBC 6.7 10*3/uL 3.6-11.2 RBC 4.60 10*6/uL [...] 10*3/uL 0.00-0.60 BASOPHILS, ABSOLUTE 0.05 10*3/uL 0.00-0.20 Vital Signs: All taken on the encounter date This section contains inpatient and outpatient Vital Signs collected on the date of the Encounter. Date/Time Temperature Pulse Blood Pressure Respiratory Rate SP02 Pain Height Weight Body Mass Index Source Feb 05, 2024 09:58 AM 157/82 [facility] Feb 05, 2024 09:54 AM 98 52 150/87 18 95 0 243 36 [facility] N Encounter Notes: All associated encounter notes This section contains the clinical notes associated to the Encounter. 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 MGUS, IgA 3. HTN 4. MDD, PTSD 5. LBP s/p L4 - S1 fusion 6. Afib, currently on Xarelto 7. NICK on CPAP CARE TEAM: 1. 2. HISTORY: We had the pleasure of seeing CALVIN ANGELES in the [facility] Advanced Heart Failure Program. As you know, CALVIN ANGELES is a 78 year old WHITE MALE with PMH notable [...] TTR amyloidosis. This evaluation was also at [facility]. 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 The results were not suggestive of cardiac involvement. He followed with [facility], Dr. Starks (last seen 12/02/23). [facility] TODAY He notes labile blood pressures. He notes when his BP is below 120s systolic, he starts to feel washed out. He notes no chest pain, chest tightness. He notes shortness of breath when he walks about a few hundred feet. This is getting progressively worse for him. No syncope, presyncope. No palpitations. No orthopnea, PND, or LE edema. No hospitalizations for HF. From an autonomic dysfunction standpoint, he still has L peripheral neuropathy, with bilateral feet numbness / tingling and burning. He gets occasional diarrhea, and is following with [facility] for this. No early satiety. He notes a rapid memory loss, short and mcc, but this is being worked up by his primary care doctor. Of note, a 12 point REVIEW OF SYSTEMS was performed; all other review of systems negative, except as listed in the interval history. PAST MEDICAL HISTORY: 1) Hypertension (SNOMED CT 15349310) 2) Osteoarthritis (SNOMED CT 806235038) 3) Hypercholesterolemia (SNOMED CT 48493128) 4) Liver function tests abnormal 5) Obesity 6) Disturbance in mood 7) Hearing Loss (SCT 82446009) 8) Benign Prostatic Hypertrophy Without Outflow Obstruction (SCT 077384183) 9) Kidney Stone (SCT 37470611) 10) Low Back Pain (SCT 530252777) 11) PTSD - Post-Traumatic Stress Disorder (SCT 68345633) 12) AF - Atrial fibrillation 13) Therapeutic drug effect 14) Anticoagulant effect 15) Mild neurocognitive disorder 16) Exposure to potentially hazardous substance SOCIAL HISTORY: - 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 FAMILY HISTORY: - Mother of [place] ALLERGIES: SULFA DRUGS CURRENT MEDICATIONS: Active Outpatient Medications (including Supplies): Active Outpatient Medications Status 1) ALLOPURINOL 300MG TAB TAKE ONE TABLET BY MOUTH ONCE A ACTIVE DAY FOR GOUT. TAKE WITH PLENTY OF WATER. 2) CITALOPRAM HYDROBROMIDE 40MG TAB TAKE ONE TABLET BY ACTIVE MOUTH EVERY MORNING FOR DEPRESSION 3) GABAPENTIN 600MG TAB TAKE ONE TABLET BY MOUTH AT ACTIVE BEDTIME FOR PAIN 4) LOSARTAN 100MG TAB [...] reconciled during the visit. - Losartan 100 * - Metop 100 BID * - Xarelto 20 * No medications found. PHYSICAL EXAM: Temperature: 98 F [36.7 C] (02/05/2024 09:54) BP: 157/82 (02/05/2024 09:58) Pulse: 52 (02/05/2024 09:54) Resp: 18 (02/05/2024 09:54) Weight:243 lb [110.22 kg] (02/05/2024 09:54) BMI: 36.0 GENERAL: Sclera anicteric, PERRLA, MMM NECK: Carotids were brisk without bruits. CHEST/LUNGS: Clear to auscultation bilaterally with no rales or wheezes. Good respiratory effort and excursion. HEART: S1 S2 No pathologic murmur ABDOMEN: Soft, nontender, BS positive x 4 quadrants EXTREMITIES: No lower extremity edema. Pedal pulses intact bilaterally NEUROLOGICAL: Alert and oriented x 3. Normal motor strength. PSYCHIATRIC: Mood and affect appropriate DIAGNOSTIC DATA: ###. ECHOCARDIOGRAM: -The echocardiogram was personally reviewed, with findings of: -Pending ###. ECG: -The ECG was personally reviewed, with findings of: -Pending ### cMRI (12/2023 - [facility]) IMPRESSION: 1. No MR evidence of cardiac amyloid. No delayed gadolinium enhancement suggestive of an infiltrative cardiomyopathy or infarct. 2. Mild mitral regurgitation with preserved bilateral ventricular function. ###. CARDIAC CATH: ###. ICD: - N/A ###. Current NYHA Class: ###. LABORATORIES: COMPREHENSIVE METABOLIC PANEL SODIUM 138 mEq/L 12/25/2023 13:57 POTASSIUM 4.2 mEq/L 12/25/2023 13:57 CHLORIDE 104 mEq/L 12/25/2023 13:57 UREA NITROGEN 14.4 mg/dL 12/25/2023 13:57 CREATININE 1.08 mg/dL 12/25/2023 13:57 CALCIUM 9.5 mg/dL 12/25/2023 13:57 PROTEIN 7.1 g/dL 12/25/2023 13:57 ALBUMIN 4.1 g/dL 12/25/2023 13:57 ALKALINE PHOSPHATASE 79 U/L 12/25/2023 13:57 ALT/SGPT 22 U/L 12/25/2023 13:57 AST/SGOT 21 U/L 12/25/2023 13:57 TOTAL BILIRUBIN 2.0 H mg/dL 12/25/2023 13:57 CARBON DIOXIDE 27 mEq/L 12/25/2023 13:57 GLUCOSE 103 H mg/dL 12/25/2023 13:57 EGFR (CKD-EPI 2020) 71.1 12/25/2023 13:57 COMPLETE BLOOD COUNT WBC 6.7 10*3/uL 12/25/2023 13:57 RBC 4.29 10*6/uL 12/25/2023 13:57 HGB 13.9 g/dL 12/25/2023 13:57 HCT 42.3 % 12/25/2023 13:57 MCV 98.6 fL 12/25/2023 13:57 MCH 32.4 pg 12/25/2023 13:57 MCHC 32.9 L g/dL 12/25/2023 13:57 RDW 14.6 % 12/25/2023 13:57 PLT 160 10*3/uL 12/25/2023 13:57 HGA1C: HGA1C 6.1 H % 12/25/2023 13:57 LIPIDS TRIGLYCERIDE 118 mg/dL 12/25/2023 13:57 CHOLESTEROL 146 mg/dL 12/25/2023 13:57 HDL(New) 38 L mg/dL 12/25/2023 13:57 CALCULATED LDL 84 mg/dL 12/25/2023 13:57 CARDIAC BIOMARKERS BNP: No BRAIN NATRIURETIC PEPTIDE data found ASSESSMENT AND PLAN: In summary, CALVIN ANGELES is a 78 [...] based on cMRI from December 2023 - Follow up [facility] records to assess genetic component (?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 Afib - Remains on Xarelto for A/C - Continue rate control #. Autonomic dysfunction - CTM #. DISPO - RTC in 3 months Thank you for allowing us to participate in this [facility]. Please do not hesitate to call the HF team with any questions or concerns. /es/ FARIDA STARK MD PHD STAFF PHYSICIAN AND CHIEF OF HEART FAILURE Signed: 02/06/2024 14:15 FARIDA STARK [facility]
--- OUTSIDE RECORDS SUMMARY | 2024-11-27 09:34 | XMS_ITS | Encounter Summary ---
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 Cardiology 3 [ ] Dentistry 3 [ ] Dermatology 3 [ ] ENT 3 [ ] Endocrinology 3 [ ] Gastroenterology 3 [ ] Hematology/Oncology 3 [ ] Infectious Disease 1 [ ] Neurology 1 [ ] Nephrology 1 [ ] Occupational medicine 1 [ ] Orthopedic 3 [ ] Pulmonary 1 [ ] Reproductive Health 1 [ ] Rheumatology 1 [ ] Urology 3 [ ] Other 0 [ X ] No consults were ordered as part of today's registry exam [ X ] Hepatitis C negative [ ] Hepatitis C positive [ ] Hepatitis C Not done Biopsy: Yes Type: skin The [place] voiced understanding of instructions and agrees to follow up with his regular medical care provider for routine care and follow up on labs/test results. (An 'X' indicates the presence of the condition, unchecked indicates the absence of the condition.) /rashawn/ KADY CRYSTAL MSN JD EDWARDS ANP-BC Nurse Practitioner Primary Care Signed: 01/08/2024 13:48 Receipt Acknowledged By: 01/09/2024 08:08 /rashawn/ SALLIE GANT ADVANCED MEDICAL SUPPORT ASST 01/13/2024 08:05 /rashawn/ CATHY ROMERO ADVANCED COLLAR TURNER OPERATOR KADY CRYSTAL [facility]
--- OUTSIDE RECORDS SUMMARY | 2024-11-27 09:34 | XMS_ITS | Encounter Summary ---
Author Name [facility] [facility] [place] [facility] [place] Address [address] [place] [address] Care Team Providers Care Mold Bunch Trimmer Name Role Phone RAQUEL TUCKER Primary Care [...] MEDIC ARE SUPPL EMENT Nov 21, 2010 [id number] [phone] HARVINDER DOUGHERTY PATIENT MEDICARE (WNR) MEDICARE (M) PART A Nov 21, 2010 PART A [id number] Chandu ANGELES PATIENT MEDICARE (WNR) MEDICARE (M) PART B Nov 21, 2010 PART B [id number] Chandu ANGELES EMILY PATIENT MEDICARE (WNR) MEDICARE (M) PART A Nov 21, 2010 PART A [id number] [phone] Chandu ANGELES EMILY PATIENT MEDICARE (WNR) MEDICARE (M) PART B Nov 21, 2010 PART B [id number] Chandu ANGELES PATIENT Selected Encounter This section includes the information on record at [place] for the Encounter. 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 Date/Time Primary/Secondary Diagnosis Diagnosis Name Provider Source Jun 26, 2024 12:15 PM PRIMARY Wild-type transthyretin-rel ated (ATTR) amyloidosis JANNET CABRALES [facility] Plan of Treatment: Future Appointments (+ 6 months) and Future Tests (+/- 45 days) The Plan of Treatment section includes future care activities for the patient from all [place] treatmentfacilities. This section includes future appointments and future orders which are active, pending or scheduled. Future Appointments This section includes appointments that were scheduled to occur 6 months from the date of the Encounter, up to a maximum of 20 appointments. The data comes from all [place] treatment facilities. Appointment Date/Time Appointment Type Appointme nt Facility Name Jul 01, 2024 09:30 AM AMBULATORY - MEDICINE [facility] Jul 02, 2024 11:00 AM AMBULATORY - MEDICINE [facility] Jul 07, 2024 03:00 PM AMBULATORY - MEDICINE [facility] Sep 30, 2024 09:30 AM AMBULATORY - MEDICINE [facility] Oct 06, 2024 12:00 PM AMBULATORY - MEDICINE [facility] Oct 23, 2024 01:00 PM AMBULATORY - MEDICINE [facility] Oct 27, 2024 01:00 PM AMBULATORY - SURGERY [facility] Nov 23, 2024 10:00 AM AMBULATORY - MEDICINE [facility] Encounter Notes: All associated encounter notes This section contains the clinical notes associated to the Encounter. Date/Time Encounter Note(s) Provider Source Jun 26, 2024 10:55 AM PHARMACY CONSULT: LOCAL TITLE: PHARMACY PRIOR APPROVAL CONSULT [facility] STANDARD TITLE: PHARMACY CONSULT DATE OF NOTE: JUN 26, 2024@10:55 ENTRY DATE: JUN 26, 2024@10:56:04 AUTHOR: ARNAV CABRALES COSIGNER: URGENCY: STATUS: COMPLETED The medical record has been reviewed with regard to this prior authorization drug request. 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 Overall, symptoms have been ongoing for the past decade. 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 Heme/Onc providers at [facility] have documented in their note dated 01/01/24 that the patient has MGUS with no concern for multiple myeloma or AL amyloidoisis. Unclear if this confusion is a result of improper documentation vs a change in terminology since the time of service connection. Regardless, with a confirmed diagnosis of ATTR amyloidosis, pt would still be thought to benefit. --Pt has managed peripheral neuropathic pain with numerous agents in the past including various NSAIDs and antidepressants with the most recent being gabapentin that the patient states is too difficult to tolerate with associated drowsiness that has forced him to reduce the dose despite worsening symptoms. --Pt evaluated by Neurolgy in May, who notes, His baseline neuropathy disability score is II and his neuropathy impairment score is 20 (weakness of hip flexors, absent ankle reflexes, and reduced vibration in the toes. --Discussed at length with providers. His NIS score suggests a greater impact to his QoL than suggested by his NDS. Providers feel he is not a candidate for tafamadis therapy given a lack of cardiac involvement (the only FDA indication for tafamadis). Additionally, an indirect comparison on the efficacy of vutrisiran and tafamadis for ATTR amyloidosis with polyneuropathy showed vutrisiran has greater efficacy on multiple measures of polyneuropathy and health related QOL compared to tafamadis. https://pubmed.ncbi.nlm.ni h.gov/03783938/ --By this author's best estimation, pt would still meet inclusion criteria based on a polyneuropathy disability score of 1-111b, though this is not documented by Neurology. --His worsening neuropathy puts him at increased risk for falls which only further increases with the drowsiness caused by his current pain regimen. Being on anticoagulation, falls have a greater potential to be a sentinel event. --Pt meets all inclusion criteria, and exceptions to exclusion criteria discussed above, namely his NIS score and lack of tafamadis trial. --Medication is approved. Pt must demonstrate quantifiable improvement/stabilization in either NIS and/or NHS score for continuation at that point. Given this condition is progressive, stabilization or minimal worsening of scores may be reasonable. --As discussed with providers: Supplementation at the recommended daily allowance (PEGA DEVELOPER) of vitamin A is advised for patients taking vutrisiran (typical adult PEGA DEVELOPER 900 mcg). No additional supplementation beyond the PEGA DEVELOPER is recommended. Depending on patients diet, may consider addition of multivitamin. Patients should be referred to eye clinic if they develop ocular symptoms suggestive of vitamin A deficiency (e.g., night blindness). Discussion with patient/caregiver/family member regarding realistic treatment expectations and discontinuation should be documented. A/P: The request is approved - No formulary-preferred alternative TIME REVIEWING CHART:15. (minutes) /rashawn/ Arnav Cabrales, Pharm.D., BCPS Clinical Preflight Mechanic Signed: 06/26/2024 12:16 Receipt Acknowledged By: 06/27/2024 13:31 /rashawn/ FARIDA STARK MD PHD STAFF PHYSICIAN AND CHIEF OF HEART FAILURE ARNAV CABRALES [facility]
--- OUTSIDE RECORDS SUMMARY | 2024-11-27 09:34 | XMS_ITS | Encounter Summary ---
Author Name [facility] [place] [facility] [place] [facility] [place] Address [address] [place] [address] Care Team Providers Care Manufacturing Engineering Manager Name Role Phone RAQUEL TUCKER Primary Care [...] Name Patient's Relationship to Policy [place] SUPPLEMEN BISHOP MEDIC ARE SUPPL EMENT Nov 21, 2010 [id number] [phone] SHE EWINGHARVINDER Kulkarni PATIENT MEDICARE (WNR) MEDICARE (M) PART A Nov 21, 2010 PART A [id number] 60A Chandu ANGELES LLOYDRAMOS PATIENT MEDICARE (WNR) MEDICARE (M) PART B Nov 21, 2010 PART B [id number] 60A Chandu ANGELES EMILY PATIENT MEDICARE (WNR) MEDICARE (M) PART A Nov 21, 2010 PART A [id number] Chandu ANGELES EMILY PATIENT MEDICARE (WNR) MEDICARE (M) PART B Nov 21, 2010 PART B [id number] ANGELES,Chandu DESAIRAMOS PATIENT Selected Encounter This section includes the information on record at [place] for the Encounter. Date/Time Encounter Type Encounter Description Reason Provider Source Apr 02, 2024 08:30 AM HEARING AID SUP/ACCESS/DEV AUDIOLOGY ICD-10-CM H90.3 Sensorineural hearing loss, bilateral SANDOR LIN IHCayla Encounter Template Text not used by [facility] Assessments - Encounter Diagnoses This section includes the primary and secondary diagnoses documented for the Encounter. Date/Time Primary/Secondary Diagnosis Diagnosis Name Provider Source Apr 02, 2024 09:29 AM PRIMARY Sensorineural hearing loss, bilateral SANDOR LIN [facility] Plan of Treatment: Future Appointments (+ 6 months) and Future Tests (+/- 45 days) The Plan of Treatment section includes future care activities for the patient from all [place] treatmentfacilities. This section includes future appointments and future orders which are active, pending or scheduled. Future Appointments This section includes appointments that were scheduled to occur 6 months from the date of the Encounter, up to a maximum of 20 appointments. The data comes from all [place] treatment facilities. Appointment Date/Time Appointment Type Appointme nt Facility Name Apr 29, 2024 08:30 AM AMBULATORY - MEDICINE [facility] May 04, 2024 08:00 AM AMBULATORY - NONE [facility] May 04, 2024 10:30 AM AMBULATORY - NONE [facility] May 22, 2024 02:00 PM AMBULATORY - MEDICINE [facility] Jun 24, 2024 08:30 AM AMBULATORY - MEDICINE [facility] Jun 24, 2024 11:00 AM AMBULATORY - NEUROLOGY [facility] Jul 01, 2024 09:30 AM AMBULATORY - MEDICINE [facility] Jul 02, 2024 11:00 AM AMBULATORY - MEDICINE [facility] Jul 07, 2024 03:00 PM AMBULATORY - MEDICINE [facility] Sep 30, 2024 09:30 AM AMBULATORY - MEDICINE [facility] Encounter Notes: All associated encounter notes This section contains the clinical notes associated to the Encounter. Date/Time Encounter Note(s) Provider Source Apr 02, 2024 07:06 AM AUDIOLOGY E & M NO TE: LOCAL TITLE: AUDIO EVALS [facility] STANDARD TITLE: AUDIOLOGY E & M NOTE DATE OF NOTE: APR 02, 2024@07:06 ENTRY DATE: APR 02, 2024@07:07:02 AUTHOR: SANDOR LIN EXP COSIGNER: URGENCY: STATUS: COMPLETED SUBJECT: audio Purpose of appt: audio [X] patient initiated visit [] provider initiated visit CASE HISTORY: Otoscopic evaluation normal AU. TM's visible AU. Pt's main complaint is bilateral hearing loss. Reported constant, bilateral tinnitus described as ringing with onset in [place] per pt. He has acclimated to the tinnitus and it does not affect his daily activities. Pt denied otalgia, aural fullness, vertigo, otosurgery or recent ear infections. Last eval 07-21-2020. He reported a sinus infection 6 wks ago which affected his hearing. His PCP prescribes medication for resolution. RESULTS: Right Ear- Audiometry (air and/or bone conduction): Normal 250-500 Hz sloping to profound SNHL at 4-8000 Hz. Masking dilemma for bone at 4000 Hz. SRT: 30 dB WRS: 72% (last eval 72%) Tympanogram: type C with signif neg pressure of -144 with reduced mobility (handheld probe) Reflexes: could not seal Left Ear- Audiometry (air and/or bone conduction): Normal/mild 250-1000 Hz sloping to severe/profound SNHL at 1254-0220 Hz. Masking dilemma for bone at 3000 Hz. SRT: 40 dB WRS: 60% (last eval 48%) Tympanogram: type (handheld probe) Reflexes: could not seal Asymm worse to left ear at 500-1500 & 3000 Hz. Does not meet 2 or more criteria for ABR protocol. No signif changes in thresholds or WRS since 2019 audiogram. Pt continues to be a candidate for hearing aids. HAC to follow. HEARING AID CHECK: Pt has right L&D 09/08/21 SONOVA PHONAK AUDEO [id number] HARSHAD* left 09/05/20 09/05/20 SONOVA PHONAK AUDEO [id number] HARSHAD Listening check was good. Wax filters replaced. Isac ports cleaned. Listening check still good. Right c-shell is missing wax retainer. Offered to send for repair, but pt declined. Datalogging indicated that since 04-12-23 , right buk=5759 hrs of use and left wja=4018 hrs of use for daily average of 6-7 hrs. Adjusted aids to today's audiogram. Feedback test completed and no feedback present. Pt confirmed good sound quality and comfort. Placed order for size 312 martínez and cerustop filters to be mailed to pt address. Verified address: [address] [place] [address] RECOMMENDATIONS: 1. Continue with current amplification until Aug 2025 at which time, pt could call to sched audio/possible HAE. 2. If pt desires to send right aid for wax retainer replacement, he will drop off to clinic. /rashawn/ Hailey BORDEN Staff Scrap Dealer, Surgery Service Signed: 04/02/2024 09:30 SANDOR LIN [facility]
--- OUTSIDE RECORDS SUMMARY | 2024-11-27 09:34 | XMS_ITS | Encounter Summary ---
Author Name [facility] [place] [facility] [place] Address [address] [place] [address] Care Team Providers Care Throw Out Clerk Name Role Phone CONCEPCION TUCKER Primary Care [...] MEDIC ARE SUPPL EMENT Nov 21, 2010 [id number] [phone] HARVINDER DOUGHERTY PATIENT MEDICARE (WNR) MEDICARE (M) PART A Nov 21, 2010 PART A [id number] [phone] Chandu ANGELES PATIENT MEDICARE (WNR) MEDICARE (M) PART B Nov 21, 2010 PART B [id number] Chandu ANGELES LLOYDRAMOS PATIENT MEDICARE (WNR) MEDICARE (M) PART A Nov 21, 2010 PART A [id number] Chandu ANGELES LLOYDRAMOS PATIENT MEDICARE (WNR) MEDICARE (M) PART B Nov 21, 2010 PART B [id number] BRIDGETTEChandu EMILY PATIENT Selected Encounter This section includes the information on record at [place] for the Encounter. Date/Time Encounter Type Encounter Description Reason Provider Source Sep 30, 2024 09:30 AM OFFICE O/P EST HI 40 MIN CARDIOLOGY ICD-10-CM I10 Essential (primary) hypertension BRAD STARK IHE Encounter Template Text not used by [place] Assessments - Encounter Diagnoses This section includes the primary and secondary diagnoses documented for the Encounter. Date/Time Primary/Secondary Diagnosis Diagnosis Name Provider Source Sep 30, 2024 08:25 PM PRIMARY Essential (primary) hypertension JOSELITO STARK [facility] Sep 30, 2024 08:25 PM SECONDARY Other amyloidosis JOSELITO STARK [facility] Sep 30, 2024 08:25 PM SECONDARY Unspecified osteoarthritis, unspecified site JOSELITO STARK [facility] Plan of Treatment: Future Appointments (+ 6 months) and Future Tests (+/- 45 days) The Plan of Treatment section includes future care activities for the [facility] [place] [facility] This section includes future appointments and future orders which are active, pending or scheduled. Future Appointments This section includes appointments that were scheduled to occur 6 months from the date of the Encounter, up to a maximum of 20 appointments. The data comes from all [place] treatment facilities. Appointment Date/Time Appointment Type Appointme nt Facility Name Oct 06, 2024 12:00 PM AMBULATORY - MEDICINE [facility] Oct 23, 2024 01:00 PM AMBULATORY - MEDICINE [facility] Oct 27, 2024 01:00 PM AMBULATORY - SURGERY [facility] Nov 23, 2024 10:00 AM AMBULATORY - MEDICINE [facility] Dec 29, 2024 09:30 AM AMBULATORY - MEDICINE [facility] Active, Pending, and Scheduled Orders This section includes a listing of several types of active, pending, and scheduled orders, including clinic medications orders, diagnostic test orders, procedure orders and consult orders; where the start date of the order is 45 days before the date of the Encounter or 45 days after the date of theEncounter. The data comes from all [place] treatment facilities. Test Date/Time Test Type Test Details Facility Name Oct 07, 2024 12:00 AM Laboratory - Chemi stry Order IRON/TIBC PROFILE GOLD/RED SST SERUM SP [facility] Oct 09, 2024 12:00 AM Laboratory - Chemi stry Order FERRITIN GOLD/RED SST SERUM SP [facility] Vital Signs: All taken on the encounter date This section contains inpatient and outpatient Vital Signs collected on the date of the Encounter. Date/Time Temperature Pulse Blood Pressure Respiratory Rate SP02 Pain Height Weight Body Mass Index Source Sep 30, 2024 09:24 AM 134/78 [facility] Sep 30, 2024 09:21 AM 97.9 66 150/81 18 98 0 241.1 36 [facility] Encounter Notes: All associated encounter notes This section contains the clinical notes associated to the Encounter. Date/Time Encounter Note(s) Provider Source Sep 30, 2024 09:22 AM CARDIOLOGY NOTE: LOCAL TITLE: CARDIOLOGY HEART FAILURE NOTE [facility] STANDARD TITLE: CARDIOLOGY NOTE DATE OF NOTE: SEP 30, 2024@09:22 ENTRY DATE: SEP 30, 2024@09:22:37 AUTHOR: FARIDA STARKIGNER: URGENCY: STATUS: COMPLETED [facility] ADVANCED HEART FAILURE SERVICE: FOLLOW-UP VISIT NOTE PRINCIPAL AND SECONDARY DIAGNOSES: 1. ATTR amyloid - Low back pain / spinal stenosis - Bilateral carpal tunnel with tenosynovial bx showing amyloid, Aug 2023 - S/P R tunnel release. L done in September. - Minimal cardiac involvement, although TTE with some apical sparing, as well as PYP with H/CL 1.3 2. MGUS, IgA 3. HTN 4. MDD, PTSD 5. LBP s/p L4 - S1 fusion 6. Afib, currently on Xarelto 7. NICK on CPAP CARE TEAM: 1. Concepcion Tucker MD 2. INTERVAL HISTORY: We had the pleasure of seeing ANGELESCALVIN Kulkarni in the [facility] Advanced Heart Failure Program. As you know, [...] TTR amyloidosis. This evaluation was also at [facility]. 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 The results were not suggestive of cardiac involvement. He followed with [facility], Dr. Starks (last seen 12/02/23). TODAY He returns for a vutisiran injection appointment. No side effects, and tolerating it well. He notes some very minor improvement in his L foot. Staying fairly active, no CP, chest tightness. No palpitations. Doesn't recognize if he's in Afib. Of note, a 12 point REVIEW OF SYSTEMS was performed; all other review of systems negative, except as listed in the interval history. CURRENT OUTPATIENT MEDICATIONS: Active Outpatient Medications (including Supplies): Active [...] ACTIVE DAY FOR HIGH BLOOD PRESSURE 5) MULTIVITAMIN CAP/TAB TAKE 1 TABLET BY MOUTH ONCE A ACTIVE DAY FOR NUTRITION/DIETARY SUPPLEMENTATION 6) OMEPRAZOLE 20MG EC CAP TAKE ONE [...] ACTIVE TIMES A DAY 9 Total Medications - All cardiac medications were reconciled during the visit. - Losartan 50 BID - MVI - Xarelto 20 PHYSICAL EXAM: Temperature: 97.9 F [36.6 C] (09/30/2024 09:21) BP: 134/78 (09/30/2024 09:24) Pulse: 66 (09/30/2024 09:21) Resp: 18 (09/30/2024 09:21) Weight:241.1 lb [109.36 kg] (09/30/2024 09:21) BMI: 35.7 GENERAL: Sclera anicteric, PERRLA, MMM NECK: Carotids [...] with inferolateral TWI. ### cMRI (12/2023 - [facility]) IMPRESSION: 1. No MR evidence of [...] apical sparing. Otherwise fairly unremarkable. #. 99Tc-PYP: (04/29/24) Negative / Grade I / H/CL 1.3 #. cMRI: NEG for cardiac involvement (12/2023) #. R wrist synovium biopsy (09/04/23) - WT ATTR based on [place] Red and Leather Heel Breaster from [facility] AMYLOID LABS: #. BNP: BRAIN NATRIURETIC PEPTIDE 537.1 H pg/mL 02/05/2024 11:13 #. Trop: Pending #. SPEP/UPEP/ FLC: NEG (ratio 1.23 on 12/27/23) Genetic Testing: N/A, Leather Heel Breaster confirms WT ATTR. ###. PYP (04/29/24) Impression: 1.The current study is equivocal for ATTR amyloidosis, with Grade 1 TTR cardiac amyloidosis. And (H/CL) ratio of 1.3,. 2. According to ASNC guidelines, a negative or mildly positive PYP does not exclude AL amyloid. In addition, equivocal results could represent AL amyloid or early TTR amyloid. ###. LABORATORIES: COMPREHENSIVE METABOLIC PANEL SODIUM 140 mEq/L 05/22/2024 14:39 POTASSIUM 4.1 [...] 14:39 EGFR (CKD-EPI 2020) 78.5 05/22/2024 14:39 COMPLETE BLOOD COUNT WBC 6.7 10*3/uL 02/05/2024 [...] 13:57 CARDIAC BIOMARKERS BNP: BRAIN NATRIURETIC PEPTIDE 123.4 H pg/mL 05/22/2024 14:39 Trop: The OBJECT TROPONIN I EO was NOT found...Contact IRM. IRON STUDIES FERRITIN: No FERRITIN EO data found TSAT: The OBJECT TRANSFERRIN EO was NOT found...Contact IRM. ASSESSMENT AND PLAN: In summary, CALVIN ANGELES is a 78 MALE with a history of biopsy provent TTR amyloid in the tenosynovial space who presents for follow-up. Overall, the patient is endorsing NYHA class I symptoms and appears euvolemic on exam today. BARRIERS TO CARE AND CANDIDACY FOR ADVANCED THERAPIES: - Not currently indicated PLAN: #. TTR Amyloid - Mild cardiac involvement at present, based on PYP - cMRI negative - Echo with some suggestion of apical sparing, but not definitive. - PYP equiviocal, BNP, BMP unrevealing. - Referred to neurology for peripheral symptoms and was consulted for vutisiran. - Vutisiran TODAY (treatment June 2024 - present) - Remains on vitamin A supplementation #. Peripheral neuropathy - Remains on vutisiran with vitamin A supplementation - Followed by Dr. Napoles #. Afib - Appears in NSR today. - Remains on Xarelto for A/C - Continue rate control #. HTN #. Labile BP / Autonomic dysfunction - OFF metoprolol, ON losartan 50 BID - Remains normotensive, BP's well controlled #. Autonomic dysfunction - As above. #. DISPO - RTC 3 months with NK. Thank you for allowing us to participate in this [facility]. Please do not hesitate to call the HF team with any questions or concerns. /es/ FARIDA STARK MD PHD STAFF PHYSICIAN AND CHIEF OF HEART FAILURE Signed: 09/30/2024 20:24 FARIDA STARK [facility]
--- OUTSIDE RECORDS SUMMARY | 2024-11-27 09:34 | XMS_ITS | Encounter Summary ---
Author Name [facility] [place] [facility] [place] [facility] [place] Address [address] [place] [address] Care Team Providers Care Jackhammer Splitter Operator Name Role Phone RAQUEL TUCKER Primary Care [...] MEDIC ARE SUPPL EMENT Nov 21, 2010 [id number] [phone] HARVINDER DOUGHERTY PATIENT MEDICARE (WNR) MEDICARE (M) PART A Nov 21, 2010 PART A [id number] Chandu ANGELES PATIENT MEDICARE (WNR) MEDICARE (M) PART B Nov 21, 2010 PART B [id number] 60A Chandu ANGELES LLOYDRAMOS PATIENT MEDICARE (WNR) MEDICARE (M) PART A Nov 21, 2010 PART A [id number] [phone] Chandu ANGELES LLOYDRAMOS PATIENT MEDICARE (WNR) MEDICARE (M) PART B Nov 21, 2010 PART B [id number] ANGELES,Chandu DESAIRAMOS PATIENT Selected Encounter This section includes the information on record at [place] for the Encounter. Date/Time Encounter Type Encounter Description Reason Provider Source Jan 13, 2024 10:30 AM OFF/OP CNSLTJ NEW/EST LOW 30 OTOLARYNGOLOGY/EN T ICD-10-CM H61.23 Impacted cerumen, bilateral DAYANA,PIO Delvalle IHCayla Encounter Template Text not used by [place] Assessments - Encounter Diagnoses This section includes the primary and secondary diagnoses documented for the Encounter. Date/Time Primary/Secondary Diagnosis Diagnosis Name Provider Source Jan 13, 2024 12:43 PM PRIMARY Impacted cerumen, bilateral PIO ANNE [facility] Plan of Treatment: Future Appointments (+ 6 months) and Future Tests (+/- 45 days) The Plan of Treatment section includes future care activities for the patient from all [place] treatmentfacilities. This section includes future appointments and future orders which are active, pending or scheduled. Future Appointments This section includes appointments that were scheduled to occur 6 months from the date of the Encounter, up to a maximum of 20 appointments. The data comes from all [place] treatment facilities. Appointment Date/Time Appointment Type Appointme nt Facility Name Feb 05, 2024 10:00 AM AMBULATORY - MEDICINE [facility] Feb 17, 2024 10:00 AM AMBULATORY - MEDICINE [facility] Apr 02, 2024 08:30 AM AMBULATORY - SURGERY . [facility] Apr 29, 2024 08:30 AM AMBULATORY - MEDICINE [facility] May 04, 2024 08:00 AM AMBULATORY - NONE [facility] May 04, 2024 10:30 AM AMBULATORY - NONE [facility] May 22, 2024 02:00 PM AMBULATORY - MEDICINE [facility] Jun 24, 2024 08:30 AM AMBULATORY - MEDICINE [facility] Jun 24, 2024 11:00 AM AMBULATORY - NEUROLOGY [facility] Jul 01, 2024 09:30 AM AMBULATORY - MEDICINE [facility] Jul 02, 2024 11:00 AM AMBULATORY - MEDICINE [facility] Jul 07, 2024 03:00 PM AMBULATORY - MEDICINE [facility] Lab Results: +/- 30 days of the encounter This section includes the Chemistry and Hematology Lab Results on record with [place] for the patient. Radiology Reports and Pathology [...] Feb 05, 2024 10:34 AM Reporting Lab: [address] [address] Performing Lab: [address] [address] TROPONIN I <0.010 ng/mL 0-0.033 Feb 05, 2024 11:13 AM [facility] BRAIN NATRIURETIC PEPTIDE Specimen Type: PLASMA No comment entered. Ordering Provider: JOEL STARK Report Released Date/Time: Feb 05, 2024 10:34 AM Reporting Lab: [facility] [address] [facility] [address] Performing Lab: [address] [address] BRAIN NATRIURETIC PEPTIDE 537.1 pg/mL H 0-100 Feb 05, 2024 11:13 AM [facility] COMPREHENSIVE METABOLIC PANEL Specimen Type: PLASMA Comment: No hemolysis noted. Ordering Provider: JOEL STARK Report Released Date/Time: Feb 05, 2024 10:34 AM Reporting Lab: [address] [address] Performing Lab: [address] [address] CREATININE 1.22 mg/dL 0.7-1.3 UREA NITROGEN 17.4 [...] Feb 05, 2024 10:34 AM Reporting Lab: [address] [address] Performing Lab: [place] [id number] [facility] [address] WBC 6.7 10*3/uL 3.6-11.2 RBC 4.60 10*6/uL [...] 10*3/uL 0.00-0.20 Dec 25, 2023 01:57 PM [facility] TSH (MA-PB-STL) Specimen Type: SERUM No comment entered. Ordering Provider: YEFRI TUCKER Report Released Date/Time: Dec 25, 2023 01:45 PM Reporting Lab: [facility] [address] [facility] [address] Performing Lab: [facility] [address] [facility] [address] TSH 1.640 u[IU]/mL 0.47-5 Dec 25, 2023 01:57 PM [facility] FREE T4 Specimen Type: SERUM No comment entered. Ordering Provider: YEFRI TUCKER Report Released Date/Time: Dec 25, 2023 01:45 PM Reporting Lab: [facility] [address] [facility] [address] Performing Lab: [facility] [address] [place] [phone] FREE T4 0.88 ng/mL 0.7-1.48 Dec 25, 2023 01:57 PM [facility] VITAMIN D, 25-HYDROXY Specimen Type: SERUM No comment entered. Ordering Provider: YEFRI TUCKER Report Released Date/Time: Dec 25, 2023 01:45 PM Reporting Lab: [facility] [address] [facility] [address] Performing Lab: [facility] [address] [facility] [address] VITAMIN D, 25-HYDROXY 43.0 ng/mL 30-96 Dec 25, 2023 01:57 PM [facility] LIPID PANEL (STL) Specimen Type: PLASMA Comment: No hemolysis noted. Ordering Provider: YEFRI TUCKER Report Released Date/Time: Dec 25, 2023 01:45 PM Reporting Lab: [facility] [address] [facility] [address] Performing Lab: [facility] [address] [facility] [address] CHOLESTEROL 146 mg/dL 0-200 TRIGLYCERIDE 118 mg/dL 0-150 CALCULATED LDL 84 mg/dL HDL(New) 38 mg/dL L >40 Dec 25, 2023 01:57 PM [facility] HGA1C Specimen Type: BLOOD No comment entered. Ordering Provider: YEFRI TUCKER Report Released Date/Time: Dec 25, 2023 01:45 PM Reporting Lab: [facility] [address] [place] [phone] Performing Lab: [facility] [address] [place] [phone] HGA1C 6.1 H 4.0-6.0 Dec 25, 2023 01:57 PM [facility] COMPREHENSIVE METABOLIC PANEL Specimen Type: PLASMA Comment: No hemolysis noted. Ordering Provider: YEFRI TUCKER Report Released Date/Time: Dec 25, 2023 01:45 PM Reporting Lab: [facility] [address] [place] [phone] Performing Lab: [facility] [address] [place] [phone] CREATININE 1.08 mg/dL 0.7-1.3 UREA NITROGEN 14.4 [...] 71.1 >60 Dec 25, 2023 01:57 PM [facility] CBC Specimen Type: BLOOD No comment entered. Ordering Provider: YEFRI TUCKER Report Released Date/Time: Dec 25, 2023 01:45 PM Reporting Lab: [facility] [address] [place] [phone] Performing Lab: [facility] [address] [facility] [address] WBC 6.7 10*3/uL 3.6-11.2 RBC 4.29 10*6/uL [...] 10*3/uL 0.00-0.60 BASOPHILS, ABSOLUTE 0.04 10*3/uL 0.00-0.20 Encounter Notes: All associated encounter notes This section contains the clinical notes associated to the Encounter. Date/Time Encounter Note(s) Provider Source Jan 13, 2024 12:27 PM OTOLARYNGOLOGY CON ELEUTERIOT: LOCAL TITLE: OTOLARYNGOLOGY CONSULT [facility] STANDARD TITLE: OTOLARYNGOLOGY CONSULT DATE OF NOTE: JAN 13, 2024@12:27 ENTRY DATE: JAN 13, 2024@12:27:23 AUTHOR: PIO ANNE COSIGNER: URGENCY: STATUS: COMPLETED EAR consult Pt reports he had a URI/ sinus infection 3 mo ago and during that time his left ear bled for 3 days . no preceding pain or pressure, no pop. Says just blood off an on for a few days then stopped. Now he feels like he has decreased hearing to that ear. Maybe also to right ear as well. No further bleeding, no drainage or pain or fullness. No h/o ear surgery. PAST MEDICAL HISTORY: 1) Hypertension (SNOMED CT 14094927) 2) Osteoarthritis (SNOMED CT 176852811) 3) Hypercholesterolemia (SNOMED CT 06001859) 4) Liver function tests abnormal 5) Obesity 6) Disturbance in mood 7) Hearing Loss ([facility] 14703604) 8) Benign Prostatic Hypertrophy Without Outflow Obstruction (SCT 841484334) 9) Kidney Stone ([facility] 41550227) 10) Low Back Pain ([facility] 282474484) 11) PTSD - Post-Traumatic Stress Disorder ([facility] 15304800) 12) AF - Atrial fibrillation 13) Therapeutic drug effect 14) Anticoagulant effect 15) Mild neurocognitive disorder ALLERGIES: SULFA DRUGS Medications 1) GABAPENTIN 600MG TAB TAKE ONE TABLET [...] DAY TO THIN BLOOD. TAKE WITH FOOD. 1) Non-VA CITALOPRAM HYDROBROMIDE 40MG TAB 20MG BY MOUTH ACTIVE EVERY MORNING 2) Non-VA GABAPENTIN 300MG CAP 600MG BY MOUTH THREE ACTIVE TIMES A DAY 3) Non-VA MULTIVITAMIN CAP/TAB 1 TABLET BY MOUTH ONCE A ACTIVE DAY PE- NAD OTOMIC- LEFT ear deep in EAC and coating TM is a hard packed in layer of cerumen and ?dried blood coating TM, removed with curette and suction. TM intact and ME aerated Right ear scant wax suctioned TM intact A/P left ear bleeding during an URI with self resolution of bleeding but persistent decreased hearing. Had wax and dried blood packed onto and coating TM, removed. Pt thinks hearing improved after removal. no ENT f/u, but do recommend he schedule an updated audiogram given it's been a few years since his last one /rashawn/ PIO ANNE Physician Stock Fitter, ENT Signed: 01/13/2024 12:43 PIO ANNE [facility]
--- OUTSIDE RECORDS SUMMARY | 2024-11-27 09:34 | XMS_ITS | Referral Summary ---
Author Organization [facility] Address [address] [place] [address] Care Team Providers Care Open Hearth Door Liner Name Role Phone Rodriguez Garcia MD Unavailable Conor Dodson MD Primary Care Provider [phone] Conor Dodson MD Unavailable [phone] Vern Valladares MD PhD Unavailable + Encounters Date Type Department Care Team Description 11/10/2024 Telephone [facility] [address] [facility] Medicine 6th [place] [address] Maya Bolden 10/22/2024 10:30 AM RECEPTION CLERK Office Visit [facility] [address] [facility] Advanced Medicine 6th [place] [address] Laura Austin MD Bilateral carpal tunnel syndrome (Primary Dx); Guyon syndrome, left 09/21/2024 8:45 AM RECEPTION CLERK Office Visit [facility] [address] [facility] Advanced Medicine 6th [place] [id number] Karly Ervin NP Bilateral carpal tunnel syndrome (Primary Dx) 09/15/2024 Telephone [facility] [address] [facility] 6th [place] [address] Maya Bolden 09/15/2024 7:30 AM RECEPTION CLERK - 09/15/2024 10:10 AM RECEPTION CLERK Surgery [facility] ([facility]) [address] [place] [address] Laura Austin MD RELEASE CARPAL TUNNEL 09/15/2024 7:34 AM RECEPTION CLERK Anesthesia Event [facility] ([facility]) [address] [place] [address] Charles Johnson MD Heuvelman, Katherine Marie, NP 09/15/2024 5:14 AM RECEPTION CLERK - 09/15/2024 10:51 AM RECEPTION CLERK Hospital Encounter [facility] ([facility]) [address] [place] [address] Laura Austin MD Left carpal tunnel syndrome (Primary Dx) Discharge Disposition: Discharge to home or self care 09/14/2024 Telephone [facility] [address] [place] [address] Advanced Medicine 6th [place] [address] [place] [address] Teresita Santo CMA Surgery Reminder from Last 3 Months Allergies Active Allergy Reactions Criticality Noted Date [...] 1 tablet (100 mg total) by mouth service planner before breakfast Active gabapentin (NEURONTIN) 300 mg capsule Take 2 capsules (600 mg total) by mouth daily 180 capsule 04/17/20 24 Active Additional Information Patient taking differently:600 mg oralNightly, Indications: Neuropathic Pain, Informant: Self, Reported on 09/15/2024 multivitamin tabletIndications: Vitamin Deficiency Prevention Take 1 tablet by mouth service planner before breakfast Active vutrisiran (AMVUTTRA) 25 mg/0.5 [...] 1 tablet (2.5 mg total) by mouth service planner before breakfast Active finasteride (PROSCAR) 5 mg [...] (pediatric) 07/0 05/2022 Overview (12/11/2022): - DME: [facility] Assessment & Plan (08/05/2024 12:47 PM CDT): 1. Chronic, poorly controlled 2. Re compliance and therapy data and residual AHI is 4.3 with mostly central apneas 3. He is having leak most nights although not always significant 4. We will have him follow up with [facility] for mask fitting and or switching to a new mask to assist with comfort 5. Pap supply order placed Assessment & Plan (04/18/2023 8:54 PM CDT): Using CPAP nightly with benefit. Assessment & Plan (12/11/2022 4:31 PM RECEPTION CLERK): 1. Chronic, poorly controlled 2. Discussed different masks 3. Placed order for the AirFit F30 because the other masks did not fit his face Assessment & Plan (11/15/2022 5:40 PM RECEPTION CLERK): Using CPAP nightly with benefit. Assessment & [...] 03/22/2021 Assessment & Plan (12/27/2023 1:29 PM RECEPTION CLERK): 1. Chronic, well controlled 2. Discussed how continued use of his CPAP can help control his blood pressure 3. He will continue losartan, amlodipine, and metoprolol Assessment & Plan (12/11/2022 4:31 PM RECEPTION CLERK): 1. Chronic, well controlled 2. Discussed how use of his CPAP machine will help his blood pressure 3. He will continue losartan, amlodipine, and metoprolol Assessment & Plan (11/15/2022 5:40 PM RECEPTION CLERK): Target BP less than 140/90. Continue current [...] Cardiology. Assessment & Plan (11/15/2022 5:40 PM RECEPTION CLERK): Continue current diet and metoprolol. On chronic anticoagulation with Xarelto. Assessment & Plan (07/18/2022 12:19 PM CDT): Continue current diet & medications. On anticoagulation with Xarelto. Managed by Cardiology. Assessment & Plan (01/02/2022 2:31 PM CDT): Continue current diet & medications. Managed by Cardiology. Primary osteoarthritis of right ankle 01/15/2019 Overview (01/15/2019): Added automatically from request for surgery [id number] Retained orthopedic hardware 01/15/2019 Overview (01/15/2019): Added automatically from request for surgery [id number] Arthritis of subtalar joint 09/10/2018 Overview (09/10/2018): Added automatically from request for surgery [id number] Cobalamin deficiency 12/20/2016 Overview (03/15/2017): Vitamin B12 deficiency Gout 12/20/2016 Overview (03/15/2017): Gout, unspecified Moderate episode of recurrent major depressive d isorder 05/28/2016 Overview (01/24/2017): Major depression, recurrent, chronic Assessment & Plan (02/04/2024 4:48 PM CDT): Continue citalopram. Assessment & Plan (04/18/2023 8:53 PM CDT): Mood stable on citalopram. Assessment & Plan (11/15/2022 5:40 PM RECEPTION CLERK): Continue with citalopram. Assessment & Plan (07/18/2022 [...] POLYPS Assessment & Plan (11/15/2022 5:40 PM RECEPTION CLERK): Up-to-date on colonoscopy. 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 Acute [...] varix Abnormal brain scan 09/11/2013 06/20/20 20 Immunizations Name Administration Dates Next Due Influenza, [...] 03/08/2015 ZOSTER LIVE 02/19/2008,05/15/2007 ZOSTER Recombinant 02/06/2019 Social History Tobacco Use Types Packs/Day Years [...] on file Legal Sex Male 11:31 PM RECEPTION CLERK Gender Identity Male 08/09/2024 7:38 PM CDT Sexual Orientation Bisexual 08/09/2024 7: 38 PM CDT Occupation Industry Job Start Date Job End Date Retired Not on file Not on file Not on file Last Filed Vital Signs Vital Sign Reading Time Taken Comments Blood Pressure 135/82 09/15/2024 10:19 AM RECEPTION CLERK Pulse 54 09/15/2024 10:20 AM RECEPTION CLERK Temperature 36 C (96.8 F) 09/15/2024 9:50 AM RECEPTION CLERK Respiratory Rate 17 09/15/2024 10:20 AM RECEPTION CLERK Oxygen Saturation 98% 09/15/2024 10:20 AM RECEPTION CLERK Inhaled Oxygen Concentration - - Weight 108.4 kg (239 lb) 09/15/2024 6:00 AM RECEPTION CLERK Height 180.3 cm (5' 11 ) 09/15/2024 6:00 AM RECEPTION CLERK Body Mass Index 33.33 09/15/2024 6:00 AM RECEPTION CLERK Plan of Treatment Not on file Medical Devices Implanted Type Area Carbon Brusher Assembler Device Identifier Shelf Expiration Date Model / Serial / Lot Augment Implanted:Qty: 1 on 09/24/2018 by Jorge Luis Santoyo MD at [facility] Right: Ankle Yext [id number] 06/20/2019 / [id number] / [id number] Yext [id number]-0400 Mini Ignite Power Mix Injectable Graft 4ml Synthetic Tissue - [id number] - [id number] Implanted:Qty: 1 on 09/24/2018 by Jorge Luis Santoyo MD at [facility] Right: Ankle Anipipo Inc 04/30/2023 [id number] / [id number] / [id number] Orthohelix [id number] Maxtorque 7mm 80mm Cannulated Blunt Foot Long Thread Screw Bone Latex Free - [id number] Implanted:Qty: 2 on 09/24/2018 at [facility] Orthohelix CSS-011-70- [id number] / / [employer] [id number] Infinity 9mm Knee 3+ Insert Tibial Poly - [id number] Implanted:Qty: 1 on 02/10/2019 by Jorge Luis Santoyo MD at [facility] Right: Ankle An[employer] Inc [id number] 07/27/2026 [id number] / / [id number] Musculoskeletal Transplant [id number] 4-30mm Allograft Frozen Est47-22ar Wedge Graft Bone - [id number] - [id number] Implanted:Qty: 1 on 02/10/2019 by Jorge Luis Santoyo MD at [facility] Advanced [facility] Right: Ankle Musculoskeletal Transplant 04/16/2023 [id number] / [id number] / [employer] [id number] [facility] 5/64in 9in Trocar Point One End Pin Fixation Stainless - [id number] Implanted:Qty: 1 on 02/10/2019 by Jorge Luis Santoyo MD at [facility] Right: Ankle [employer] [id number] / / [employer] [id number] Ankle 1 Large 10mm Stem Talar - [id number] Implanted:Qty: 1 on 02/10/2019 by Jorge Luis Santoyo MD at [facility] Right: Ankle Volusion [employer] Inc [id number] 07/28/[id number] / / [id number] Siddiqi [employer] [id number] Inbone Sulcus Ankle 3 Dome Component Talar - [id number] Implanted:Qty: 1 on 02/10/2019 by Jorge Luis Santoyo MD at [facility] Right: Ankle [employer] [id number] 09/21/2026 [id number] / / [id number] [employer] [id number] Infinity 4 Long Tray Tibial - [id number] Implanted:Qty: 1 on 02/10/2019 by Jorge Luis Santoyo MD at [facility] Right: Ankle [employer] [id number] 08/05/2026 [id number] / / [id number] Explanted Type Area Carbon Brusher Assembler Device Identifier Shelf Expiration Date Model / Serial / Lot Orthohelix [id number] Maxtorque 7mm 75mm Cannulated Blunt Foot Long Thread Screw Bone Latex Free - [id number] Explanted:Qty: 1 on 09/24/2018 at [facility] Orthohelix CSS-011-70 -075L / / [id number] Wires Explanted:Qty: 3 on 09/24/2018 by Jorge Luis Santoyo MD at [facility] Other [employer] Inc [id number] K-Wire 1.4mm 228mm Wire Fixation - [id number] Explanted:Qty: 2 on 02/10/2019 at [facility] Right: Ankle [employer] [id number] / / Procedures Procedure Name Priority Date/Time Associated Diagnosis Comments HI AN PROCEDURE PLACEHOLDER Routine 09/15/2024 8:09 AM RECEPTION CLERK RELEASE GUYONS CANAL 09/15/2024 7:35 AM RECEPTION CLERK Left carpal tunnel syndrome Case Notes 08/17 - Case msg requesting a fellow prior to scheduling. NB Special Needs SCHEDULE A FIRST CASE, MOVE ALREADY SCHEDULE CASES AFTER YOU SCHEDULE THIS ONE RELEASE CARPAL TUNNEL 09/15/2024 7:35 AM RECEPTION CLERK Left carpal tunnel syndrome Case Notes 08/17 [...] Recently Relevant to Health Maintenance Results * HI AN PROCEDURE PLACEHOLDER (09/15/2024 8:09 AM RECEPTION CLERK) Narrative Charles Johnson MD - 09/15/2024 8:09 AM RECEPTION CLERK Charles Johnson MD 09/15/2024 8:11 AM Sarah Block Anesthesia End time: 09/15/2024 7:45 AM Reason for block: primary anesthetic Staff: Supervising provider: Cahrles Johnson MD Placed by: Resident: Horace Alcala MD Procedure prep: Preprocedure checklist: patient identified, patient appropriate for plan, surgical consent, risks and benefits discussed, monitors and equipment checked and timeout performed Prep solution: alcohol Corcoran block: Site: left upper extremity IV gauge: 22g Procedure details: tourniquet - double cuff, esmarch applied to extremity, tourniquet inflation verified, local anesthetic injected, patient tolerated procedure well and injection IV removed Tourniquet inflation pressure: 200 mmHg Assessment: Events: patient tolerated procedure well without complications Charles Johnson MD ANESTHESIA ORDERABLES Final Resu [...] Julio Vigil M.D. CH: SANDHYA Report ID: [id number] Reading Location: [id number] Procedure Note Julio Vigil Jr., MD - [...] Julio Vigil M.D. CH: SANDHYA Report ID: [id number] Reading Location: [place] [address] us Darshan Alonso MD IM CT PROCEDURES Final Re sult * PSA screen (07/18/2022 11:24 AM CDT) PSA-Total 1.21 <=6.20 ng/mL [facility] Comment: Interpretive Data AGE SEX REFERENCE [...] 4 AM CDT 07/18/2022 1:20 PM CDT Conor Dodson MD LAB BLOOD ORDERABLES Final Re sult [facility] Department [place] [address] * Colonoscopy (11/03/2020) Anatomical Region Laterality Modality Other Historical Provider ENDOSCOPY PROCEDURES Amber l Result from Last 3 Months or Most Recently Relevant to Health Maintenance Insurance [facility] MEDICARE SOLUTIONS MEDICARE SOLUTIONS [facility] MEDICARE SOLUTIONS Advance Directives For more information, please contact: [phone] * Full Code (Latest Code Status on File) Date Activated Date Inactivated Comments 01/15/2022 7:38 AM 01/15/2022 1:48 PM * Full Code Date Activated Date Inactivated Comments 01/15/2022 7:37 AM 01/15/2022 7:38 AM * Full Code Date Activated Date Inactivated Comments 02/10/2019 1:04 PM 02/11/2019 11:25 PM * Full Code Date Activated Date Inactivated Comments 09/24/2018 8:49 PM 09/25/2018 3:31 PM Care Teams Open Hearth Door Liner Relationship Specialty Start Date End Date Conor Dodson MD [facility] [address] [place] [address] PCP - General Internal Medicine 12/27/23 Rodriguez Garcia MD Consulting Physician Cardiology 07/18/23 Conor Dodson MD [address] [place], [place] [address]SHEA [address] [place] [address] Consulting Physician Internal Medicine 07/13/24 Vern Valladares MD PhD [address] [facility] [address] [facility] [place] [address] Consulting Physician Cardiology 08/12/24
--- OUTSIDE RECORDS SUMMARY | 2024-11-27 09:34 | XMS_ITS | Encounter Summary ---
Author Name [facility] Organization [facility] Address [address] [place] [address] Care Team Providers Care Mva Operator Name Role Phone RAQUEL TUCKER Primary [...] MEDIC ARE SUPPL EMENT Nov 21, 2010 [id number] [phone] HARVINDER DOUGHERTY PATIENT MEDICARE (WNR) MEDICARE (M) PART B Nov 21, 2010 PART B [id number] [phone] Chandu ANGELES PATIENT MEDICARE (WNR) MEDICARE (M) PART A Nov 21, 2010 PART A [id number] Chandu ANGELES LLOYDRAMOS PATIENT MEDICARE (WNR) MEDICARE (M) PART A Nov 21, 2010 PART A [id number] Chandu ANGELES LLOYDRAMOS PATIENT MEDICARE (WNR) MEDICARE (M) PART B Nov 21, 2010 PART B [id number] Chandu ANGELES PATIENT Selected Encounter This section includes the information on record at DC for the Encounter. Date/Time Encounter Type Encounter Description Reason Provider Source Oct 23, 2024 01:00 PM OFFICE O/P EST HI 40 MIN NEUROLOGY ICD-10-CM E85.89 Other amyloidosis BETO BURNS IHCayla Encounter Template Text not used by DC Assessments - Encounter Diagnoses This section includes the primary and secondary diagnoses documented for the Encounter. Date/Time Primary/Secondary Diagnosis Diagnosis Name Provider Source Oct 23, 2024 01:25 PM PRIMARY Other amyloidosis BETO BURNS [facility] Plan of Treatment: Future Appointments [...] 20 appointments. The data comes from all [facility]. Appointment Date/Time Appointment Type Appointme nt Facility Name Oct 27, 2024 01:00 PM AMBULATORY - SURGERY [facility] Nov 23, 2024 10:00 AM AMBULATORY - MEDICINE [facility] Dec 29, 2024 09:30 AM AMBULATORY - MEDICINE [facility] Apr 22, 2025 03:00 PM AMBULATORY - NEUROLOGY [facility] Active, Pending, and Scheduled Orders This section includes a listing of several types of active, pending, and scheduled orders, including clinic medications orders, diagnostic test orders, procedure orders and consult orders; where the start date of the order is 45 days before the date of the Encounter or 45 days after the date of theEncounter. The data comes from all [facility]. Test Date/Time Test Type Test Details Facility Name Oct 07, 2024 12:00 AM Laboratory - Chemistry Order IRON/TIBC PROFILE GOLD/RED SST SERUM SP [facility] Oct 09, 2024 12:00 AM Laboratory - Chemistry Order FERRITIN GOLD/RED SST SERUM [facility] Nov 23, 2024 10:10 AM Laboratory - Chemistry Order PROTEIN ELECTROPHORESIS BLOOD BLOOD SERUM SP [facility] Encounter Notes: All associated encounter notes This section contains the clinical notes associated to the Encounter. 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 Onset of symptoms: >10 years Since last visit, patient had EDX showed absent sensory responses in the legs and severely decreased motor amplitudes with chornic reinnervation on the NEE. he was started on vutisiran and he got 2 shots and he reports his left foot is less tingly and his right foot is still getting the electric shocks there. Pt reports no change to the burning pain, stabbing in the feet. Pt reports no changes to the cramps as Anthony horses, at night sometimes. he is on neurontin 600 mg qhs and he reports no side effects and he is asking to increase the dose. he was previously on higher dose over the years and he does not recall why the dose was reduced. Pt reports no change to the weakness in the legs. unsteadiness and trouble getting of a seated position. trouble using the stairs. he does not go reciprocally. unsteadiness and stubmling is unchanged. no tripping and no falls. no walking aid he reports less tingling and numbness in the hands sincelast visit. he had CTS surgery on the left hand 2 days before . he reports tingling is less in both hands. no weakness. he had right CTS surgery a year ago. occasional dizziness with position. he does yoga twice a week. bladder changes including trouble emptying. no sweating changes. no dry mouth and no dry eyes: PAST MEDICAL HISTORY: 1) Hypertension (SNOMED CT 38858445) 2) Osteoarthritis (SNOMED CT 540416156) 3) Hypercholesterolemia (SNOMED CT 21916903) 4) Liver function tests abnormal 5) Obesity 6) Disturbance in mood 7) Hearing Loss (SCT 43823137) 8) Benign Prostatic Hypertrophy Without Outflow Obstruction (SCT 455865636) 9) Kidney Stone (SCT 37240714) 10) Low Back Pain (SCT 186521155) 11) PTSD - Post-Traumatic Stress Disorder (SCT 39419444) 12) AF - Atrial fibrillation 13) Therapeutic drug effect 14) Anticoagulant effect 15) Mild neurocognitive disorder 16) Exposure to potentially hazardous substance PAST SURGICAL HISTORY: right ankle replacement, knee replacement, and right CTS , also spinal fusion- lower lumbar. recent left CTS surgery as above, otherwise negative. SOCIAL HISTORY: No tobacco for 20 [...] Weight: 249.8 lb [113.31 kg] (04/29/2024 08:16) Neurological exam: last visit, deferred this visit as it is too soon to see changes. Cortical Functions: Mental status: Alert, awake, responsive, [...] related neuropathy, sensory affecting large and small fibers, severe per recent EDX as above. His baseline neuropathy disability score is II and his neuropathy impairment score is 20 (weakness of hip flexors, absent anklereflexes ,and reduced vibration in the toes. he started vutisiran recently and he got 2 injections so far. reports of improved paresthesia in rivas left foot and both hands. Plan: continue vutisiran continue neurontin 600 mg qhs. add extra 300 mg in the evening for optimal control of pain and cramps. RTC in 6 months. Time spent with patient/proxy: I personally spent 40 minutes on today's date preparing to see the patient (e.g. reviewing chart, review of tests), obtaining and/or reviewing the separately obtained history, performing a medically necessary and appropriate evaluation, counseling and educating the patient/family/caregiver, ordering medications, tests, or procedures, documenting in the patient record, and communicating results to the patient/family/caregiver. Emilie Burns M.D Neurology /es/ Emilie Burns M.D Neurology Attending Signed: 10/23/2024 13:25 EMILIE BURNS [facility]
--- OUTSIDE RECORDS SUMMARY | 2024-11-27 09:34 | XMS_ITS | Encounter Summary ---
Author Organization [facility] Address [address] [facility] [address] [place] [address] Care Team Providers Care Supervisor Brine Name Role Phone Conor Dodson MD Primary Care Provider [phone] Conor Dodson MD Primary Care Provider [phone] Conor Dodson MD Primary Care Provider [phone] Rodriguez Garcia MD Unavailable [phone] Concepcion Michaud MD Primary Care Provider [phone] Conor Dodson MD Primary Care Provider [phone] Conor Dodson MD Unavailable [phone] Vern Valladares MD PhD Unavailable + Encounter Details Date Type Department Care Team (Late st Contact Info) Description 11/09/2015 Orders Only [facility] Health Information Management [address] [place] [address] Scanning, Provider Social History Tobacco Use Types Packs/Day Years Used Date Smoking Tobacco: Never Assessed Sex and Gender Information Value Date Recorded Sex Assigned at Not on file Legal Sex Male 11:31 PM UTILIZATION REVIEW RN Gender Identity Male 08/09/2024 7:38 PM CDT Sexual Orientation Bisexual 08/09/2024 7: 38 PM CDT documented as of this encounter Plan of Treatment Not on file documented as of this encounter Procedures Procedure Name Priority Date/Time Associated Diagnosis Comments GI - RESULT 11/09/2015 documented in this encounter Results * GI - RESULT (11/09/2015) Anatomical Region Laterality Modality Other us Provider Scanning Final Result documented in this encounter Visit Diagnoses Not on filedocumented in this encounter Additional Health Concerns Infection Onset Date Last Indicated Resolved Time COVID: Suspected 08/04/2024 08/04/2024 08/04/2024 2:33 PM CDT documented as of this encounter Care Teams Supervisor Brine Relationship Specialty Start Date End Date Conor Dodson MD [facility] [address] [place] [address] PCP - General 01/18/17 12/25/23 Conor Dodson MD [address] [place], [place] [address]JOE [address] [place] [address] PCP - General 05/28/16 01/17/17 Conor Dodson MD [address] [place], [place] [address]E [address] [place] [address] PCP - General 06/12/10 05/27/16 Concepcion Michaud MD [address] [place] [address] PCP - General Family Medicine 12/26/23 12/26/23 Conor Dodson MD [facility] [address] [place] [address] PCP - General Internal Medicine 12/27/23 [facility] [address] [place] [address] Consulting Physician Cardiology 07/18/23 Conor Dodson MD [facility] [address] [place] [address] Consulting Physician Internal Medicine 07/13/24 Vern Valladares MD PhD [address] [facility] [address] [place] [address] Consulting Physician Cardiology 08/12/24 documented as of this encounter
--- OUTSIDE RECORDS SUMMARY | 2024-11-27 09:35 | XMS_ITS | Referral Summary ---
Author Organization [facility] Address [address] [place] [address] Care Team Providers Care Hydro Plant Technician Name Role Phone Conor Dodson MD Primary Care Provider [phone] Rodriguez Garcia MD Unavailable [phone] Source Comments [facility],non-owned Affiliates and Associated Physician Practices is amultiple site organization consisting of ambulatory clinics and hospital sitesin [place], [place], [place] and [place]. This disclosure is being madepursuant to the Care Everywhere program and may not contain all information available regarding this patient. Last updated 18.[facility] Allergies Active Allergy Reactions Criticality Noted Date Comments Sulfa Drugs Rash,Itching Medium 07/28/2010 Medications * Be aware that medications may not be up to date on this document. Alwaysverify current medications with the patient. Medication Sig Dispensed Refills Start Date End Date Status allopurinol (ZYLOPRIM) 300 MG tablet Take 1 (one) tablet by mouth once daily Active gabapentin (NEURONTIN) 600 MG tablet Take 1 (one) tablet by mouth at bedtime Active amLODIPine (NORVASC) 5 MG tablet Take 0.5 (one-half) tablet by mouth once daily Active citalopram (CELEXA) 20 MG tablet Take 2 (two) tablets by mouth once daily Active metoprolol tartrate (LOPRESSOR) 25 MG tablet Take 1 (one) tablet by mouth 2 times daily Active multivitamins (One A Day) capsule Take 1 (one) capsule by mouth once daily Active omeprazole (PriLOSEC) 40 MG capsule Take 1 (one) capsule by mouth once daily Active losartan (Cozaar) 100 MG tablet Take 1 (one) tablet by mouth once daily Active Nutritional Supplements (LIPOTROPIC COMPLEX PO) Take 1 drop by mouth once daily Active oxyCODONE, immediate release, (Roxicodone) 5 MG tabletIndications:Pos toperative pain Take 1 (one) tablet to 2 (two) tablets by mouth every 6 hours as needed for Pain 56 tablet 05/17/2023 Active Active Problems Problem Noted Date Diagnosed Date Irritable bowel syndrome with diarrhea 3 06/06/2023 Overview (06/06/2023): Last Assessment & Plan: Hi fiber diet, poop sheet and return 4 weeks Primary osteoarthritis of left knee 01/31/2023 Obstructive sleep apnea (adult) (pediatric) 05/202206/06/2023 Overview (06/06/2023): - DME: [facility] Last Assessment & Plan: Using CPAP nightly with benefit. Paroxysmal atrial fibrillation 11/12/2019 0 06/06/2023 Overview (06/06/2023): Last Assessment & Plan: Continue chronic anticoagulation with Xarelto and metoprolol. Managed by Cardiology. Social History Tobacco Use Types Packs/Day Years Used Date Smoking Tobacco: Former Cigarettes Smokeless Tobacco: Never Alcohol Use Standard Drinks/Week Comments Not Currently 0 (1 standard drink = 0.6 oz pure alcohol) ON WEEKENDS 3-4 DRINKS BEER OR BOURBON AUDIT-C Answer Date Recorded Q1: How often do you have a drink containing alc ohol? Monthly or less 05/16/2023 Q2: How many drinks containi ng alcohol do you have on a typical day when you are drinking? 1 or 2 05/16/2023 Q3: How often do you have si x or more drinks on one occasion? Never 05/16/2023 Overall Financial Resource Strain (CARDIA) Answe r Date Recorded How hard is it for you to pa y for the very basics like food, housing, medical care, and heating? Not hard at all 05/17/2023 [facility] [place] of Occupat ional Health - Occupational Stress Questionnaire Answer Date Recorded Do you feel stress - tense, restless, nervous, or anxious, or unable to sleep at night because your mind is troubled all the time - these days? Not at all 05/17/2023 Hunger Vital Sign Answer Date Recorded Within the past 12 months, y ou worried that your food would run out before you got the money to buy more. Never true 05/17/20 23 Within the past 12 months, t he food you bought just didn't last and you didn't have money to get more. Never true 05/17/2023 PRAPARE - Transportation Answer Date Re corded In the past 12 months, has l ack of transportation kept you from medical appointments or from getting medications? No 04/21 In the past 12 months, has l ack of transportation kept you from meetings, work, or from getting things needed for daily living? No 05/17/2023 Housing Stability Vital Sign Answer Cheko e Recorded In the last 12 months, was t here a time when you were not able to pay the mortgage or rent on time? No 05/17/2023 In the last 12 months, how many places have you lived? 1 05/17/2023 In the last 12 months, was t here a time when you did not have a steady place to sleep or slept in a chcf (including now)? No 05/17/2023 Sex and Gender Information Value Date Recorded Sex Assigned at Female 01/23/2023 7:50 AM CDT Gender Identity Male 01/23/2023 7:53 AM CDT Sexual Orientation Straight 01/23/2023 7: 50 AM CDT Last Filed Vital Signs Vital Sign Reading Time Taken Comments Blood Pressure 110/74 05/17/2023 7:58 AM CDT Pulse 57 05/17/2023 7:58 AM CDT Temperature 36.4 C (97.5 F) 05/17/2023 7:58 AM CDT Respiratory Rate 16 05/16/2023 4:00 PM CDT Oxygen Saturation 95% 05/17/2023 7:58 AM CDT Inhaled Oxygen Concentration - - Weight 107.4 kg (236 lb 12.8 oz) 05/16/2023 8:18 AM CDT Height 180.3 cm (5' 11 ) 05/16/2023 8:18 AM CDT Body Mass Index 33.03 05/16/2023 8:18 AM CDT Functional Status Functional Status Response Date of Assess ment Is person deaf or have serious hearing difficult y? No 05/17/2023 Is person blind or have serious difficulty seein g? No 05/17/2023 Does person have serious dif ficulty walking/climbing stairs? Yes 05/17/2023 Does person have difficulty dressing/bathing? Ye s 05/17/2023 Does person have difficulty doing errands alone? Yes 05/17/2023 Cognitive Status Response Date of Assessm ent Does person have difficulty concentrating/remembering/making decisions? No 05/17/2023 Plan of Treatment Not on file Medical Devices Implanted Type Area Equal Opportunity Specialist Device Identifier Shelf Expiration Date Model / Serial / Lot Cmnt Bone Refobacin Strl Lf Disp Implanted:Qty: 1 on 05/16/2023 by Derick Elaine MD at [facility] Left: Knee [employer] 06/20/2025 [id number] / / [id number] Cmnt Bone Plc R 40gm Grn Implanted:Qty: 1 on 05/16/2023 by Derick Elaine MD at [facility] Left: Knee [employer] 09/19/2025 [id number] / / [id number] Cmpnt Ptlr Std 31mm 3 Pg Kn Ser A Implanted:Qty: 1 on 05/16/2023 by Derick Elaine MD at [facility] Left: Knee [employer] 10/24/2027 [id number] / / [id number] Tray Tib 79mm Kn Cocr I Beam Implanted:Qty: 1 on 05/16/2023 by Derick Elaine MD at [facility] Left: Knee [employer] 2033 [id number] / / [id number] Cmpnt Fem Kn Lt Cr Cmnt Prm Vngrd Intlk Implanted:Qty: 1 on 05/16/2023 by Derick Elaine MD at [facility] Left: Knee [employer] 06/08/2029 [id number] / / [id number] Brng 76nii74yv Vngrd Arcm Kn Ant Stab Implanted:Qty: 1 on 05/16/2023 by Derick Elaine MD at [facility] Left: Knee [employer] 04/04/2028 [id number] / / [id number] [place] Sut Cscr2 Fwr 5.5mm Ti 3 16.3mm 2 Implanted:Qty: 1 on 05/16/2023 by Derick Elaine MD at [facility] Left: Knee [employer] 09/19/2025 [id number] / / [id number] Advance Directives * Full Code (Latest Code Status on File) Date Activated Date Inactivated Comments 05/16/2023 1:05 PM 05/17/2023 3:00 PM Care Teams Hydro Plant Technician Relationship Specialty Start Date End Date Conor Dodson MD [facility] [facility] [address] Cayla JOHNSTON [address] [place] [address] PCP - General Internal Medicine 04/16/23 Rodriguez Garcia MD [address] [place] [address] Cardiovascular Disease 04/16/23
--- OUTSIDE RECORDS SUMMARY | 2024-11-27 09:35 | XMS_ITS | Encounter Summary ---
Author Name [facility] [facility] [place] [facility] [place] Address [address] [place] [address] Care Team Providers Care Apparel Pattern Maker Name Role Phone CONCEPCION TUCKER Primary Care [...] MEDIC ARE SUPPL EMENT Nov 21, 2010 [id number] [phone] HARVINDER DOUGHERTY PATIENT MEDICARE (WNR) MEDICARE (M) PART A Nov 21, 2010 PART A [id number] Chandu ANGELES PATIENT MEDICARE (WNR) MEDICARE (M) PART B Nov 21, 2010 PART B [id number] Chandu ANGELES LLOYDRAMOS PATIENT MEDICARE (WNR) MEDICARE (M) PART B Nov 21, 2010 PART B [id number] Chandu ANGELES LLOYDRAMOS PATIENT MEDICARE (WNR) MEDICARE (M) PART A Nov 21, 2010 PART A [id number] ANGELES,Chandu DESAIRAMOS PATIENT Selected Encounter This section includes the information on record at [place] for the Encounter. Date/Time Encounter Type Encounter Description Reason Provider Source Jul 01, 2024 09:30 AM OFFICE O/P EST MOD 30 MIN CARDIOLOGY ICD-10-CM E85.89 Other amyloidosis JOSELITO STARK IHE Encounter Template Text not used by [place] Assessments - Encounter Diagnoses This section includes the primary and secondary diagnoses documented for the Encounter. Date/Time Primary/Secondary Diagnosis Diagnosis Name Provider Source Jul 01, 2024 09:29 AM PRIMARY Other amyloidosis JOSELITO STARK [facility] Plan of Treatment: Future Appointments (+ 6 months) and Future Tests (+/- 45 days) The Plan of Treatment section includes future care activities for the patient from all [place] treatmentfacilities. This section includes future appointments and future orders which are active, pending or scheduled. Future Appointments This section includes appointments that were scheduled to occur 6 months from the date of the Encounter, up to a maximum of 20 appointments. The data comes from all [place] treatment facilities. Appointment Date/Time Appointment Type Appointme nt Facility Name Jul 02, 2024 11:00 AM AMBULATORY - MEDICINE [facility] Jul 07, 2024 03:00 PM AMBULATORY - MEDICINE [facility] Sep 30, 2024 09:30 AM AMBULATORY - MEDICINE [facility] Oct 06, 2024 12:00 PM AMBULATORY - MEDICINE [facility] Oct 23, 2024 01:00 PM AMBULATORY - MEDICINE [facility] Oct 27, 2024 01:00 PM AMBULATORY - SURGERY [facility] Nov 23, 2024 10:00 AM AMBULATORY - MEDICINE [facility] Dec 29, 2024 09:30 AM AMBULATORY - MEDICINE [facility] Vital Signs: All taken on the encounter date This section contains inpatient and outpatient Vital Signs collected on the date of the Encounter. Date/Time Temperature Pulse Blood Pressure Respiratory Rate SP02 Pain Height Weight Body Mass Index Source Jul 01, 2024 09:00 AM 129/84 [facility] Jul 01, 2024 09:00 AM 97.9 67 149/78 18 97 0 245.2 36 [facility] Encounter Notes: All associated encounter notes This section contains the clinical notes associated to the Encounter. Date/Time Encounter Note(s) Provider Source Jul 01, 2024 06:36 AM CARDIOLOGY NOTE: LOCAL TITLE: CARDIOLOGY HEART FAILURE NOTE [facility] STANDARD TITLE: CARDIOLOGY NOTE DATE OF NOTE: JUL 01, 2024@06:36 ENTRY DATE: JUL 01, 2024@06:36:20 AUTHOR: FARIDA STARK COSIGNER: URGENCY: STATUS: COMPLETED [facility] ADVANCED HEART FAILURE SERVICE: FOLLOW-UP VISIT NOTE [...] pleasure of seeing CALVIN ANGELES in the [facility] Advanced Heart Failure Program. As you [...] TTR amyloidosis. This evaluation was also at [facility]. 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 The results were not suggestive of cardiac involvement. He followed with [facility], Dr. Starks (last seen 12/02/23). He was seen last week, at which point he was feeling fairly well. He returns today for initiation of Vutisiran. TODAY He is s/p vutisiran injection and tolerated it well. No significant complains. Full note from last week. Of note, a 12 point REVIEW OF [...] TABLET BY MOUTH ONCE A ACTIVE DAY 9 Total Medications - All cardiac medications were reconciled during the visit. PHYSICAL EXAM: Temperature: 97.9 F [36.6 C] (07/01/2024 09:00) BP: 129/84 (07/01/2024 09:00) Pulse: 67 (07/01/2024 09:00) Resp: 18 (07/01/2024 09:00) Weight:245.2 lb [111.22 kg] (07/01/2024 09:00) BMI: 36.3 GENERAL: Sclera anicteric, PERRLA, MMM NECK: Carotids [...] PSYCHIATRIC: Mood and affect appropriate DIAGNOSTIC DATA: - Reviewed in note from last week. ###. LABORATORIES: COMPREHENSIVE METABOLIC PANEL SODIUM 140 [...] 02/05/2024 11:13 PLT 202 10*3/uL 02/05/2024 11:13 COAGULATION STUDIES No INR EO data found No PTT EO data found HGA1C: HGA1C 6.1 H % 12/25/2023 13:57 [...] apical sparing, but not definitive. - PYP negative, BNP, BMP unrevealing. - Referred to neurology for peripheral symptoms and was consulted for vutisiran. - VUTISIRAN injection TODAY in clinic. - Start multivitamin for vitamin A supplementation at [facility] #. Rest of problems noted and reviewed from last week. #. DISPO - RTC 3 months with LAWN SERVICE SUPERVISOR visit, and VUTISIRAN injection. - Next appointment 09/30/24 Thank you for allowing us to participate in this [facility]. Please do not hesitate to call the HF team with any questions or concerns. /rashawn/ FARIDA STARK MD PHD STAFF PHYSICIAN AND CHIEF OF HEART FAILURE Signed: 07/01/2024 09:29 Receipt Acknowledged By: 07/01/2024 12:47 /rashawn/ Mary Menchaca M.D Neurology Attending 07/01/2024 10:17 /rashawn/ ARMIDA SALEH,MSN,RN REGISTERED NURSE 07/01/2024 14:22 /rashawn/ Arnav Cabrales, Pharm.D., BCPS Clinical Supervisor [employer] FARIDA STARK [facility]
--- OUTSIDE RECORDS SUMMARY | 2024-11-27 09:35 | XMS_ITS | Encounter Summary ---
Author Organization [facility] Healthcare Address [address] [place] [address] Care Team Providers Care Inside Sales Consultant Name Role Phone Conor Dodson MD Primary Care Provider [phone] Rodriguez Garcia MD Unavailable [phone] Concepcion Michaud MD Primary Care Provider [phone] Conor Dodson MD Primary Care Provider [phone] Conor Dodson MD Unavailable [phone] Vern Valladares MD PhD Unavailable + Encounter Details Date Type Department Care Team (Late st Contact Info) Description 04/21/2020 Telephone [facility] [address] [place] [address] Shannan Dos Santos, RT Social History Tobacco Use Types Packs/Day Years Used Date Smoking Tobacco: Former Cigarettes 0.3 33 1 969 - 2002 Smokeless Tobacco: Never Comments:Smoking History Pac ks/day: 0.5 Packs Alcohol Use Standard Drinks/Week Comments Yes 0 (1 standard drink = 0.6 oz pur e alcohol) occasional PHQ-2 Answer Date Recorded PHQ-2 Score 0 06/15/2019 Sex and Gender Information Value Date Recorded Sex Assigned at Not on file Legal Sex 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 Gender Identity Male 08/09/2024 7:38 PM CDT Sexual Orientation Bisexual 08/09/2024 7: 38 PM CDT documented as of this encounter Plan of Treatment Not on file documented as of this encounter Visit Diagnoses Not on filedocumented in this encounter Additional Health Concerns Infection Onset Date Last Indicated Resolved Time COVID: Suspected 08/04/2024 08/04/2024 08/04/2024 2:33 PM CDT documented as of this encounter Care Teams Inside Sales Consultant Relationship Specialty Start Date End Date Conor Dodson MD [address] [place], [place] [address]SHEA JOHNSTON [address] [place] [address] PCP - General 01/18/17 12/25/23 Concepcion Michaud MD [address] [place] [address] PCP - General Family Medicine 12/26/23 12/26/23 Conor Dodson MD [address] [place], [place] [address]SHEA JOHNSTON [address] [place] [address] PCP - General Internal Medicine 12/27/23 Rodriguez Garcia MD [address] [place] [address] NIKKI JOHNSTON [address] [place] [address] Consulting Physician Cardiology 07/18/23 Conor Dodson MD [address] [place], [place] [address]SHEA JOHNSTON [address] [place] [address] Consulting Physician Internal Medicine 07/13/24 Vern Valladares MD PhD [address] [place] [address] Consulting Physician Cardiology 08/12/24 documented as of this encounter
--- OUTSIDE RECORDS SUMMARY | 2024-11-27 09:35 | XMS_ITS | Encounter Summary ---
Author Organization [facility] Address [address] [place] [address] Care Team Providers Care Risk Consulting Treasury Director Name Role Phone Conor Dodson MD Primary Care Provider [phone] Rodriguez Garcia MD Unavailable [phone] Encounter Details Date Type Department Care Team (Late st Contact Info) Description 09/17/[address] [facility] - DermPath Lab [address] [place] [id number] Mari Brambila, PA [address] [place] [address] Neoplasm of uncertain behavior of skin Social History Tobacco Use Types Packs/Day Years [...] and heating? Not hard at all 05/17/2023 [facility] [place] of Occupat ional Health - Occupational Stress [...] place to sleep or slept in a fpc (including now)? No 05/17/2023 Sex and Gender Information Value Date Recorded Sex Assigned at Female 01/23/2023 7:50 AM CDT Gender Identity Male 01/23/2023 7:53 AM CDT Sexual Orientation Straight 01/23/2023 7: 50 AM CDT documented as of this encounter Functional Status Functional Status Response Date of [...] person have difficulty concentrating/remembering/making decisions? No 05/17/2023 documented as of this encounter Plan of Treatment Not on file documented as of this encounter Procedures Procedure Name Priority Date/Time Associated Diagnosis Comments DERMATOPATHOLOGY Routine 09/17/2023 12:0 0 AM MONITORING MANAGER Neoplasm of uncertain behavior of skin documented in this encounter Results * DERMATOPATHOLOGY (09/17/2023 12:00 AM MONITORING MANAGER) Case Report Dermatopathology Report Case: [id number] Authorizing Provider: Mari Brambila PA Collected: 09/17/2023 12:00 AM Ordering Location: [facility] DermPath Lab Received: 09/18/2023 01:53 PM Pathologist: Alexandra Mathews MD Specimen: Skin, left dorsal wrist 1:16 PM [facility] DERMAT[facility]ATHOLOGY [facility]ORATORY Final Diagnosis Specimen A. 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 The specimen consists of a shave biopsy measuring 9x7x2 mm. Jar 0. 1:16 PM [facility] DERMATOPATHOLOGY [facility]ORATORY Microscopic Description Specimen A. SKIN, left dorsal wrist: Arising in the epidermis and extending into the dermis there are irregularly and angulated shaped aggregates of keratinocytes showing evidence of premature cornification. An infiltrative growth pattern is observed. 1:16 PM [facility] DERMATOPATHOLOGY [facility]ORATORY Disclaimer An external and internal [...] purposes. Billing Codes Specimen Charges Stain Charges [id number] 1 3 1:16 PM MONITORING MANAGER DERMATOPATHOLOGY LABORATORY Embedded Images 3 1:16 PM MONITORING MANAGER DERMATOPATHOLOGY LABORATORY Pathology/Cytolog y TISSUE SPECIMEN FROM SKIN / Unknown 09/17/2023 09/18/2023 1:53 PM MONITORING MANAGER Mari CRU[facility] LAB - PATHOLOGY/CYT OLOGY ORDERABLES DERMATOPATHOLOGY LABORATORY [facility] - Department of Dermatology [address] [phone] documented in this encounter Visit Diagnoses Diagnosis Neoplasm of uncertain behavior of skin documented in this encounter Care Teams Risk Consulting Treasury Director Relationship Specialty Start Date End Date Conor Dodson MD [address] [place] [address] DR [address] [address] PCP - General Internal Medicine 04/16/23 Rodriguez Garcia MD [facility] [facility] [address] [place] [address] Cardiovascular Disease 04/16/23 documented as of this encounter
--- OUTSIDE RECORDS SUMMARY | 2024-11-27 09:35 | XMS_ITS ---
Author Name [facility] [place] [facility] [place] [facility] [place] [facility] [place] Address [address] [place] [address] Care Team Providers Care Media Coordinator Name Role Phone CONCEPCION TUCKER Primary Care [...] MEDIC ARE SUPPL EMENT Nov 21, 2010 [id number] [phone] HARVINDER DOUGHERTY PATIENT MEDICARE (WNR) MEDICARE (M) PART A Nov 21, 2010 PART A [id number] Chandu ANGELES PATIENT MEDICARE (WNR) MEDICARE (M) PART B Nov 21, 2010 PART B [id number] Chandu ANGELES LLOYDRAMOS PATIENT MEDICARE (WNR) MEDICARE (M) PART B Nov 21, 2010 PART B [id number] [phone] Chandu ANGELES LLOYDRAMOS PATIENT MEDICARE (WNR) MEDICARE (M) PART A Nov 21, 2010 PART A [id number] ANGELESChanduRAMOS PATIENT Selected Encounter This section includes the information on record at [place] for the Encounter. Date/Time Encounter Type Encounter Description Reason Provider Source Jun 24, 2024 08:30 AM OFFICE O/P EST HI 40 MIN CARDIOLOGY ICD-10-CM I10 Essential (primary) hypertension BRAD STARK [facility] Encounter Template Text not used by [place] Assessments - Encounter Diagnoses This section includes the primary and secondary diagnoses documented for the Encounter. 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 This section includes future appointments and future orders which are active, pending or scheduled. Future Appointments This section includes appointments that were scheduled to occur 6 months from the date of the Encounter, up to a maximum of 20 appointments. The data comes from all [place] treatment facilities. Appointment Date/Time Appointment Type Appointme nt Facility Name Jul 01, 2024 09:30 AM AMBULATORY - MEDICINE [facility] Jul 02, 2024 11:00 AM AMBULATORY - MEDICINE [facility] Jul 07, 2024 03:00 PM AMBULATORY - MEDICINE [facility] Sep 30, 2024 09:30 AM AMBULATORY - MEDICINE [facility] Oct 06, 2024 12:00 PM AMBULATORY - MEDICINE [facility] Oct 23, 2024 01:00 PM AMBULATORY - MEDICINE [facility] Oct 27, 2024 01:00 PM AMBULATORY - SURGERY [facility] Nov 23, 2024 10:00 AM AMBULATORY - MEDICINE [facility] Vital Signs: All taken on the encounter date This section contains inpatient and outpatient Vital Signs collected on the date of the Encounter. Date/Time Temperature Pulse Blood Pressure Respiratory Rate SP02 Pain Height Weight Body Mass Index Source Jun 24, 2024 08:24 AM 152/92 [facility] Jun 24, 2024 08:23 AM 97.5 60 155/80 16 95 0 245.7 36 [facility] N Encounter Notes: All associated encounter notes This section contains the clinical notes associated to the Encounter. Date/Time Encounter Note(s) Provider Source Jun 24, 2024 08:50 AM CARDIOLOGY NOTE: LOCAL TITLE: CARDIOLOGY HEART FAILURE NOTE [facility] STANDARD TITLE: CARDIOLOGY NOTE DATE OF NOTE: JUN 24, 2024@08:50 ENTRY DATE: JUN 24, 2024@08:50:33 AUTHOR: FARIDA STARK COSIGNER: URGENCY: STATUS: COMPLETED [facility] ADVANCED HEART FAILURE SERVICE: FOLLOW-UP VISIT [...] pleasure of seeing CALVIN ANGELES in the [facility] Advanced Heart Failure Program. As you [...] TTR amyloidosis. This evaluation was also at [facility]. 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 The results were not suggestive of cardiac involvement. He followed with [facility], Dr. Starks (last seen 12/02/23). We last saw him in April, at which point he was having labile BP's with dizziness, and some episodes of presyncope. At that visit, we DC'ed his metoprolol, and increased his losartan to 50BID. His BP's have been better controlled, and his HR's have improved somewhat. TODAY. He feels well today. He does a fair amount of yoga, as well as some walking (~1 mile 3 days per week). No chest pain, chest tightnes, SOB, orthopnea, PND, or LE edema. BP logs reveal BP's in the 120s - 140s systolic over 60 - 70's. HR's in the 60s. No dizziness, LH, presyncope, syncope. Weight has decreased about 10 lbs. In the interm he saw Dr. Avila and was approved for cashcloud. He has EMG studies today. He also recently saw a urologist, who started him on tamulson, finasteride for LUTS. He has had no hospitalizations or ER visits since the last office visit. Of note, a 12 point REVIEW OF [...] during the visit. - Losartan 50 BID * - Xarelto 20 qHS * PHYSICAL EXAM: Temperature: 97.5 F [36.4 C] (06/24/2024 08:23) BP: 152/92 (06/24/2024 08:24) Pulse: 60 (06/24/2024 08:23) Resp: 16 (06/24/2024 08:23) Weight:245.7 lb [111.45 kg] (06/24/2024 08:23) BMI: 36.4 GENERAL: Mildly overweight, WM, well developed. Sclera anicteric, PERRLA, MMM NECK: Carotids were [...] with inferolateral TWI. ### cMRI (12/2023 - [facility]) IMPRESSION: 1. No MR evidence of [...] WT ATTR based on [place] and Atm Manager from [facility] AMYLOID LABS: #. BNP: BRAIN NATRIURETIC PEPTIDE 537.1 H pg/mL 02/05/2024 11:13 #. Trop: Pending #. 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 ###. PYP (04/29/24) Impression: [...] for peripheral symptoms and was consulted for aggie. - Plan on starting July 01. #. Afib - Appears in NSR today. - Remains on Xarelto for A/C - Continue rate control #. HTN #. Labile BP / Autonomic dysfunction - OFF metoprolol, ON losartan 50 BID - Remains normotensive, BP's well controlled #. Autonomic dysfunction - As above. #. DISPO - RTC 3 months. - Plan on injection on July 01. Thank you for allowing us to participate in this [facility] por[facility]. Please do not hesitate to call the HF team with any questions or concerns. /es/ FARIDA STARK MD PHD STAFF PHYSICIAN AND CHIEF OF HEART FAILURE Signed: 06/24/2024 09:10 FARIDA STARK [facility]
--- OUTSIDE RECORDS SUMMARY | 2024-11-27 09:35 | XMS_ITS | Clinical Summary ---
Author Organization [facility] Address [address] [place] [address] Care Team Providers Care Flower Planter Name Role Phone Conor Dodson MD Primary Care Provider [phone] Rodriguez Garcia MD Unavailable [phone] Source Comments [facility],non-owned Affiliates and Associated Physician Practices is amultiple site organization consisting of ambulatory clinics and hospital sitesin [place], [place], [place] and [place]. This disclosure is being madepursuant to the Care Everywhere program and may not contain all information available regarding this patient. Last updated 18.[facility] [employer] Allergies Active Allergy Reactions Criticality Noted Date [...] with Xarelto and metoprolol. Managed by Cardiology. Family History Medical History Relation Name Comments Cancer Father CAD (Coronary Artery Disease) Mother Relation Name Status Comments Father Mother Social History Tobacco [...] and heating? Not hard at all 05/17/2023 [facility] [place] of Occupat ional Health - Occupational Stress [...] place to sleep or slept in a long term (including now)? No 05/17/2023 Sex and Gender [...] Mass Index 33.03 05/16/2023 8:18 AM CDT Plan of Treatment Health Maintenance Due Date Last Done Comments BONE DENSITY TESTING 1945 HEPATITIS C SCREENING 02/23/1965 DTAP/TDAP/TD VACCINES (1 - Tdap) 1966 PNEUMOCOCCAL VACCINE 50+ (1 of 1 - PCV) 1997 ZOSTER VACCINE (1 of 2) 1997 Respiratory Syncytial Virus (RSV) Vaccine Pt: or over 60 yrs (1 - 1-dose 75+ series) 2022 COVID-19 VACCINE ( - season) 2024 10/31/2021, 07/21/2021, 02/04/2021, Additional history exists INFLUENZA VACCINE (#1) 2024 , 10/10/2021, 08/21/2019, Additional history exists DEPRESSION SCREENING 10/21/2024 MEDICARE AWV CALENDAR YEAR 2024 HEPATITIS B VACCINE Aged Out No longe r eligible based on patient's age to complete this topic HIB VACCINE Aged Out No longer eligi ble based on patient's age to complete this topic HPV VACCINE Aged Out No longer eligi ble based on patient's age to complete this topic MENINGOCOCCAL (Group B) VACCINE Aged Out No longer eligible based on patient's age to complete this topic MENINGOCOCCAL VACCINE Aged Out No marcelo jose eligible based on patient's age to complete this topic Medical Devices Implanted Type Area Inorganic Chemist Device Identifier Shelf Expiration Date Model / Serial / Lot Cmnt Bone Refobacin Strl Lf Disp Implanted:Qty: 1 on 05/16/2023 by Derick Elaine MD at [facility] Left: Knee [employer] 06/20/2025 [id number] / / [id number] Cmnt Bone Plc R 40gm Grn Implanted:Qty: 1 on 05/16/2023 by Derick Elaine MD at [facility] Left: Knee [employer] 09/19/2025 [id number] / / [id number] Cmpnt Ptlr Std 31mm 3 Pg Kn Ser A Implanted:Qty: 1 on 05/16/2023 by Derick Elaine MD at [facility] Left: Knee [employer] 10/24/2027 [id number] / / [id number] Tray Tib 79mm Kn Cocr I Beam Implanted:Qty: 1 on 05/16/2023 by Derick Elaine MD at [facility] Left: Knee [employer] 2033 [id number] / / [id number] Cmpnt Fem Kn Lt Cr Cmnt Prm Vngrd Intlk Implanted:Qty: 1 on 05/16/2023 by Derick Elaine MD at [facility] Left: Knee [employer] 06/08/2029 [id number] / / [id number] Brng [id number] Vngrd Arcm Kn Ant Stab Implanted:Qty: 1 on 05/16/2023 by Derick Elaine MD at [facility] Left: Knee [employer] 04/04/2028 [id number] / / [id number] Weaver Sut Cscr2 Fwr 5.5mm Ti 3 16.3mm 2 Implanted:Qty: 1 on 05/16/2023 by Derick Elaine MD at [facility] Left: Knee [employer] 09/19/2025 [id number] / / [id number] Advance Directives * Full Code (Latest Code Status on File) Date Activated Date Inactivated Comments 05/16/2023 1:05 PM 05/17/2023 3:00 PM Care Teams Flower Planter Relationship Specialty Start Date End Date Conor Dodson MD [address] [place] [address] DR Cayla JOHNSTON [address] [place] [address] PCP - General Internal Medicine 04/16/23 Rodriguez Garcia MD [address] [place] [address] [place] [address] Cardiovascular Disease 04/16/23
--- OUTSIDE RECORDS SUMMARY | 2024-11-27 09:35 | XMS_ITS | Encounter Summary ---
Author Organization [facility] Address [address] [place] [address] Care Team Providers Care Charter Bus Driver Name Role Phone Conor Dodson MD Primary Care Provider [phone] Rodriguez Garcia MD Unavailable [phone] Concepcion Michaud MD Primary Care Provider [phone] Conor Dodson MD Primary Care Provider [phone] Conor Dodson MD Unavailable [phone] Vern Valladares MD PhD Unavailable + Encounter Details Date Type Department Care Team (Late st Contact Info) Description 04/06/2020 Telephone [facility] [address] [place] [address] Cassidy De Souza RT Social History Tobacco Use Types Packs/Day [...] on file 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 [address] [place] [address] PCP - General 01/18/17 12/25/23 Concepcion Michaud MD [address] [place] [address] PCP - General Family Medicine 12/26/23 12/26/23 Conor Dodson MD [address] [place] [address] NIKKI JOHNSTON [address] [place] [address] PCP - General Internal Medicine 12/27/23 Rodriguez Garcia MD [address] [place] [address] [address]I [address] [place] [address] Consulting Physician Cardiology 07/18/23 Conor Dodson MD [address] [place], [place] [address]SHEA JOHNSTON [address] [place] [address] Consulting Physician Internal Medicine 07/13/24 Vern Valladares MD PhD [address] [facility] [address] [place] [address] Consulting Physician Cardiology 08/12/24 documented as of this encounter
--- OUTSIDE RECORDS SUMMARY | 2024-11-27 09:35 | XMS_ITS | Encounter Summary ---
Author Organization [facility] Address [address] [facility] [place] [address] Care Team Providers Care Hardness Inspector Name Role Phone Conor Dodson MD Primary Care Provider [phone] Rodriguez Garcia MD Unavailable [phone] Encounter Details Date Type Department Care Team (Late st Contact Info) Description 07/02/2024 Lab Requisition [facility] - DermPath Lab [address] [facility] [place] [id number] Kelly Franco MD [address] [place] [address] [place] [address] Neoplasm of uncertain behavior of [...] and heating? Not hard at all 05/17/2023 [facility] [place] of Occupat ional Health - Occupational Stress [...] place to sleep or slept in a longterm (including now)? No 05/17/2023 Sex and Gender [...] Priority Date/Time Associated Diagnosis Comments DERMATOPATHOLOGY Routine 07/02/2024 12:0 0 AM CDT Neoplasm of uncertain behavior of skin documented in this encounter Results * DERMATOPATHOLOGY (07/02/2024 12:00 AM CDT) Case Report Dermatopathology Report Case: [id number] Authorizing Provider: Kelly Franco MD Collected: 07/02/2024 12:00 AM Ordering Location: [facility] - Received: 07/03/2024 04:51 PM DermPath Lab Pathologist: Iveth Mathews MD Specimen: Skin, right distal forearm 11:56 AM CDT DERMATOPATHOLOGY LABORATORY Final Diagnosis Specimen A. 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 The specimen consists of a shave biopsy measuring 6x6x2 mm. Jar 0. 11:56 AM CDT DERMATOPATHOLOGY LABORATORY Microscopic Description Specimen A. SKIN, right distal forearm: The epidermis shows parakeratosis, full thickness disorderly maturation of keratinocytes, mitoses at different levels, and dyskeratotic cells. 11:56 AM CDT DERMATOPATHOLOGY LABORATORY Disclaimer An external and internal positive and negative controls are appropriate for the histochemical, immunohistochemical and immunofluorescence stain(s) in this case (if any), except where stated explicitly. The performance characteristics of the stain(s) cited in this report were developed and its performance characteristic determined by the Dermatopathology Laboratory at [facility], directed by Dr. Jennifer Colunga. These tests need not be, and therefore are not, approved by the [place] Food and Drug Administration. The tests are used for clinical purposes. Billing Codes Specimen Charges Stain Charges 03331 1 4 11:56 AM CDT DERMATOPATHOLOGY LABORATORY Embedded Images 4 11:56 AM CDT DERMATOPATHOLOGY LABORATORY Pathology/Cytolog y TISSUE SPECIMEN FROM SKIN / Unknown 07/02/2024 07/03/2024 4:51 PM CDT Kelly Franco MD LAB - PATHOLOGY/CYTO LOGY ORDERABLES DERMATOPATHOLOGY LABORATORY [facility] - Department of Dermatology [facility] [address] [place] [address], [address] [phone] documented in this encounter Visit Diagnoses Diagnosis Neoplasm of uncertain behavior of skin documented in this encounter Care Teams Hardness Inspector Relationship Specialty Start Date End Date Conor Dodson MD [address] [place] [address] DR Cayla JOHNSTON [address] [place] [address] PCP - General Internal Medicine 04/16/23 Rordiguez Garcia MD [facility] [address] [place] [address] Cardiovascular Disease 04/16/23 documented as of this encounter
--- OUTSIDE RECORDS SUMMARY | 2024-11-27 09:35 | XMS_ITS | Patient Health Summary ---
Author Organization [facility] Address [address] [place] [address] Care Team Providers Care Manager Oncology Name Role Phone Conor Wilson MD Primary Care Provider [phone] Rodriguez Garcia MD Unavailable Note from [facility],non-owned Affiliates and Associated Physician Practices is amultiple site organization consisting of ambulatory clinics and hospital sitesin [place], [place], [place] and [place]. This disclosure is being madepursuant to the Care Everywhere program and may not contain all information available regarding this patient. Last updated 18.[facility] Allergies * Sulfa Drugs(Rash,Itching) -Medium Criticality Medications * Be aware that medications may not be up to date on this document. Alwaysverify current medications with the patient. * allopurinol (ZYLOPRIM) 300 MG tablet Take 1 (one) tablet by mouth once daily * gabapentin (NEURONTIN) 600 MG tablet Take 1 (one) tablet by mouth at bedtime * amLODIPine (NORVASC) 5 MG tablet Take 0.5 (one-half) tablet by mouth once daily * citalopram (CELEXA) 20 MG tablet Take 2 (two) tablets by mouth once daily * metoprolol tartrate (LOPRESSOR) 25 MG tablet Take 1 (one) tablet by mouth 2 times daily * multivitamins (One A Day) capsule Take 1 (one) capsule by mouth once daily * omeprazole (PriLOSEC) 40 MG capsule Take 1 (one) capsule by mouth once daily * losartan (Cozaar) 100 MG tablet Take 1 (one) tablet by mouth once daily * Nutritional Supplements (LIPOTROPIC COMPLEX PO) Take 1 drop by mouth once daily * oxyCODONE, immediate release, (Roxicodone) 5 MG tablet(Started 05/17/2023) Take 1 (one) tablet to 2 (two) tablets by mouth every 6 hours as needed for Pain Active Problems Problem Noted Date Diagnosed Date Irritable bowel syndrome with diarrhea 3 06/06/2023 Primary osteoarthritis of left knee 01/31/2023 Obstructive sleep apnea (adult) (pediatric) 05/202206/06/2023 Paroxysmal atrial fibrillation 11/12/2019 0 06/06/2023 Social History Tobacco Use Types Packs/Day Years [...] and heating? Not hard at all 05/17/2023 [facility] [place] [facility] - Occupational Stress [...] place to sleep or slept in a group home (including now)? No 05/17/2023 Sex and Gender [...] Mass Index 33.03 05/16/2023 8:18 AM CDT Medical Devices Implanted Type Area Financial Accountant Device Identifier Shelf Expiration Date Model / Serial / Lot Cmnt Bone Refobacin Strl Lf Disp Implanted:Qty: 1 on 05/16/2023 by Derick Elaine MD at [facility] Left: Knee [employer] 06/20/2025 [id number] / / [id number] Cmnt Bone Plc R 40gm Grn Implanted:Qty: 1 on 05/16/2023 by Derick Elaine MD at [facility] Left: Knee [employer] 09/19/2025 [id number] / / [id number] Cmpnt Ptlr Std 31mm 3 Pg Kn Ser A Implanted:Qty: 1 on 05/16/2023 by Derick Elaine MD at [facility] Left: Knee [employer] 10/24/2027 [id number] / / [id number] Tray Tib 79mm Kn Cocr I Beam Implanted:Qty: 1 on 05/16/2023 by Derick Elaine MD at [facility] Left: Knee [employer] 2033 [id number] / / [id number] Cmpnt Fem Kn Lt Cr Cmnt Prm Vngrd Intlk Implanted:Qty: 1 on 05/16/2023 by Derick Elaine MD at [facility] Left: Knee [employer] 06/08/2029 [id number] / / [id number] Brng [id number] Vngrd Arcm Kn Ant Stab Implanted:Qty: 1 on 05/16/2023 by Derick Elaine MD at [facility] Left: Knee [employer] 04/04/2028 [id number] / / [id number] [place] Sut Cscr2 Fwr 5.5mm Ti 3 16.3mm 2 Implanted:Qty: 1 on 05/16/2023 by Derick Elaine MD at [facility] Left: Knee [employer] 09/19/2025 [id number] / / [id number] Procedures * DERMATOPATHOLOGY(Performed 07/02/2024) Performed for Neoplasm of uncertain behavior of skin * DERMATOPATHOLOGY(Performed 02/14/2024) Performed for Squamous cell carcinoma of skin of left upper limb, including shoulder * DERMATOPATHOLOGY(Performed 12/03/2023) Performed for Neoplasm of uncertain behavior of skin * DERMATOPATHOLOGY(Performed 09/17/2023) Performed for Neoplasm of uncertain behavior of skin * XR KNEE LEFT 3VW(Performed 06/27/2023) Performed for Aftercare following left knee joint replacement surgery * NEURAXIAL BLOCK(Performed 05/16/2023) * NC TOTAL KNEE REPLACEMENT(Performed 05/16/2023) * EKG 12-LEAD(Performed 04/16/2023) Performed for Preoperative examination * CBC W AUTO DIFFERENTIAL(Performed 04/16/2023) Performed for Preoperative examination * COMPREHENSIVE METABOLIC PANEL(Performed 04/16/2023) Performed for Preoperative examination * XR KNEE LEFT 3VW(Performed 01/29/2023) Performed for Left knee pain, unspecified chronicity * DERMATOPATHOLOGY(Performed 09/19/2021) * ENDOSCOPY, COLON, SCREENING(Performed 11/03/2020) * HELICOBACTER PYLORI UREASE (STL)(Performed 11/03/2020) Performed for Diagnosis unknown * PATHOLOGY TISSUE EXAM (STL)(Performed 11/03/2020) Performed for Diagnosis unknown * COLONOSCOPY SCREEN(Performed 11/03/2020) * NC ED EGD FLEX TRANSORAL DX(Performed 11/03/2020) * EGD(Performed 11/03/2020) * DERMATOPATHOLOGY(Performed 06/30/2019) * PET BRAIN METABOLIC EVAL(Performed 10/10/2017) Performed for Research study patient * DERMATOPATHOLOGY(Performed 05/30/2017) * DERMATOPATHOLOGY(Performed 03/05/2017) * DERMATOPATHOLOGY(Performed 05/17/2016) * DERMATOPATHOLOGY(Performed 03/04/2015) * PATHOLOGY/CYTOLOGY REPORT ORDER(Performed 07/31/2010) Results * DERMATOPATHOLOGY (07/02/2024 12:00 AM CDT) Only the most recent of10 resultswithin the time period is included. Case Report Dermatopathology Report Case: [id number] Authorizing Provider: Kelly Franco MD Collected: 07/02/2024 12:00 AM Ordering Location: [facility] - Received: 07/03/2024 04:51 PM DermPath Lab Pathologist: Iveth Mathews MD Specimen: Skin, right distal forearm 4 11:56 AM CDT DERMATOPATHOLOGY LABORATORY Final Diagnosis Specimen A. 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 The specimen consists of a shave biopsy measuring 6x6x2 mm. Jar 0. 11:56 [facility] LABORATORY Microscopic Description Specimen A. SKIN, right distal forearm: The epidermis shows parakeratosis, full thickness disorderly maturation of keratinocytes, mitoses at different levels, and dyskeratotic cells. 11:56 AM [facility] DERMATOPATHOLOGY LABORATORY Disclaimer An external and internal positive and negative controls are appropriate for the histochemical, immunohistochemical and immunofluorescence stain(s) in this case (if any), except where stated explicitly. The performance characteristics of the stain(s) cited in this report were developed and its performance characteristic determined by the Dermatopathology Laboratory at [facility], directed by Dr. Jennifer Colunga. These tests need not be, and therefore are not, approved by the [place] Food and Drug Administration. The tests are used for clinical purposes. Billing Codes Specimen Charges Stain Charges 65639 1 11:56 AM T DERMATOPATHOLOGY LABORATORY Embedded Images 11:56 AM T DERMATOPATHOLOGY LABORATORY Pathology/Cytolog y TISSUE SPECIMEN FROM SKIN / Unknown 07/02/2024 07/03/2024 4:51 PM CDT Kelly Franco MD LAB - PATHOLOGY/CYTO LOGY ORDERABLES DERMATOPATHOLOGY LABORATORY [facility] Department of Dermatology [address], [address] [phone] * XR KNEE LEFT 3VW (06/27/2023 4:08 PM CDT) Only the most recent of2 resultswithin the time period is included. Anatomical Region Laterality Modality Lower Extremity Computed Radiogr aphy Narrative 06/27/2023 4:08 PM CDT Nely Swenson, RT(R) 07/04/2023 5:36 PM See progress notes for results Derick Elaine MD DIAGNOSTIC IMAGING O RDERABLES * Neuraxial Block (05/16/2023 10:48 AM CDT) Narrative Benja Sutton APRN-CRNA - 05/16/2023 10:48 AM CDT Benja Sutton APRN-CRNA 05/16/2023 10:50 AM Neuraxial Block Note Pre-Procedure: Procedure Name: Neuraxial Block Patient Location: OR Indications: surgical anesthesia Pre-Anesthetic Checklist: Patient identified, IV Checked, Risks and benefits discussed, Surgical consent verified, Monitors and equipment, Site examined, Pre-op evaluation done, Time-out performed, Informed consent obtained, Questions answered/anesthesia questions answered and Allergies reviewed Anticoagulation/ Anti-thrombosis status confirmed? Yes Supplemental O2: face mask Monitors: continuous pluse ox and End tidal CO2 Patient Condition: sedated, meaningful contact maintained throughout procedure Patient Sedated? Yes Sedation Type: moderate Procedure: Block Type: Spinal Prep: Betadine Sterile Field: mask, cap/hat, sterile established and sterile gloves Approach: left paramedian Skin was localized? Yes Spinal Block: Needle Type: spinal needle Needle Gauge: 22 Needle Length: 127 mm Placement Site: L3-4 Number of Attempts: Other - please comment (6) CSF: free flow, aspiration before injection, aspiration during injection, aspiration after injection Local anesthetics used? Yes Degree of difficulty: marked Procedure Tolerance: tolerated well performed while the patient was sedated no immediate complications Sensory Level: lower level Motor Blockade: Yes Position post procedure: supine Vital Signs: Vital signs monitored and stable throughout. See anesthesia record for details. Start Time: 05/16/2023 10:19 AM End Time: 05/16/2023 10:34 AM Total Time: 15 Staff: Anesthesia Provider: Tyrell Mcnamara MD - performed the procedure Provider #1: Benja Sutton APRN-CRNA - performed the procedure Tyrell Mcnamara MD GENERAL ANESTHESIA O RDERABLES * EKG 12-LEAD (04/16/2023 8:56 AM CDT) Ventricular Rate 49 BPM [facility] Atrial Rate 49 BPM [facility] P-R Interval 178 ms [facility] QRS Duration ms 86 ms [facility] Q-T Interval ms 504 ms [facility] QTC Calculation (Bezet) 455 ms [facility] Calculated P Wiley -3 degrees [facility] Calculated R Wiley 7 degrees [facility] Calculated T Wiley -155 degrees [facility] Interpretation EKG Sinus bradycardia ST & T wave abnormality, consider inferior ischemia ST & T wave abnormality, consider anterolateral ischemia Abnormal ECG No previous ECGs available Confirmed by GENA COLEMAN MD ([id number]) on 04/16/2023 11:00:45 AM [facility] 04/16/2023 8:56 AM CDT 04/16/2023 11:00 AM CDT Laura Henry DO ECG ORDERABLES [facility] * (ABNORMAL) CBC W AUTO DIFFERENTIAL (04/16/2023 8:33 AM CDT) WBC 6.2 4.4 - 10.7 x10E9/L 04/16/2023 8:54 AM CDT [facility] WBC Corrected 04/16/2023 8:54 AM CDT [facility] RBC 4.31 3.80 - 5.40 x10E12/L 04/16/2023 8:54 AM CDT [facility] Hemoglobin 14.4 12.0 - 17.6 gm/dL 04/16/2023 8:54 AM CDT [facility] Hematocrit 42.6 35.2 - 51.7 % 04/16/2023 8:54 AM CDT [facility] MCV 98.8(H) 80.7 - 98.3 fl 04/16/2023 8:54 AM CDT [facility] MCH 33.4 26.7 - 34.0 pg 04/16/2023 8:54 AM CDT [facility] MCHC 33.8 30.8 - 35.9 gm/dL 04/16/2023 8:54 AM CDT [facility] Platelet Count 202 153 - 416 x10E9/L 04/16/2023 8:54 AM CDT [facility] RDW-CV 13.8 12.1 - 14.9 % 04/16/2023 8:54 AM CDT [facility] MPV 9.3(L) 9.4 - 12.9 fl 04/16/2023 8:54 AM CDT [facility] Neutrophils % 53.5 44.0 - 73.0 % 04/16/2023 8:54 AM CDT [facility] Lymphocytes % 32.0 20.0 - 43.0 % 04/16/2023 8:54 AM CDT [facility] Monocytes % 10.6 5.0 - 13.0 % 04/16/2023 8:54 AM CDT [facility] Eosinophils % 3.1 0.0 - 6.0 % 04/16/2023 8:54 AM CDT [facility] Basophils % 0.6 0.0 - 2.0 % 04/16/2023 8:54 AM CDT [facility] Immature Granulocytes 0.2 0 - 1 % 04/16/2023 8:54 AM CDT [facility] Neutrophil Absolute 3.30 2.01 - 7.14 x10E9/L 04/16/2023 8:54 AM CDT [facility] Lymphocytes Absolute 1.97 1.07 - 3.94 x10E9/L 04/16/2023 8:54 AM CDT [facility] Monocytes Absolute 0.65 0.26 - 1.07 x10E9/L 04/16/2023 8:54 AM CDT [facility] Eosinophils Absolute 0.19 0 - 0.47 x10E9/L 04/16/2023 8:54 AM CDT [facility] Basophils Absolute 0.04 0 - 0.08 x10E9/L 04/16/2023 8:54 AM CDT [facility] Immature Granulocytes Absolute 0.01 0.00 - 0.06 x10E9/L 04/16/2023 8:54 AM CDT [facility] nRBC Auto 0 /100 WBC 04/16/2023 8:54 AM CDT [facility] Blood BLOOD SPECIMEN / Unknown Venipuncture / Unknown 04/16/2023 8:33 AM CDT 04/16/2023 8:43 AM CDT Jess Haynes MECHANIC'S ASSISTANT-I&C TECH LAB - HEMATO LOGY ORDERABLES [facility] [address] [place] [address] * (ABNORMAL) COMPREHENSIVE METABOLIC PANEL (04/16/2023 8:33 AM CDT) [facility] Glucose 125(H) 70 - 105 mg/dL 04/16/2023 9:04 AM T [facility] Sodium 140 136 - 145 mmol/L 04/16/2023 9:04 AM [facility] Potassium 3.9 3.5 - 5.1 mmol/L 04/16/2023 9:04 AM [facility] Chloride 108(H) 98 - 107 mmol/L 04/16/2023 9:04 AM [facility] CO2 24 23 - 31 mmol/L 04/16/2023 9:04 AM [facility] Calcium 8.9 8.4 - 10.4 mg/dL 04/16/2023 9:04 AM [facility] Anion Gap 8 8 - 18 mmol/L 04/16/2023 9:04 AM T [facility] BUN 12 8.4 - 25.7 mg/dL 04/16/2023 9:04 AM [facility] Creatinine 0.94 0.72 - 1.25 mg/dL 04/16/2023 9:04 AM [facility] Alkaline Phosphatase 67 40 - 150 U/L 04/16/2023 9:04 AM T [facility] ALT 21 0 - 61 U/L 04/16/2023 9:04 AM [facility] AST 22 5 - 34 U/L 04/16/2023 9:04 AM [facility] Protein Total 6.7 6.4 - 8.3 gm/dL 04/16/2023 9:04 AM [facility] Albumin 4.1 3.2 - 4.6 gm/dL 04/16/2023 9:04 AM [facility] Bilirubin Total 1.4(H) 0.2 - 1.2 mg/dL 04/16/2023 9:04 AM [facility] eGFR by CKD-EPI 84(L) >=90 mL/min/1.7 3 m2 04/16/2023 9:04 AM [facility] Blood BLOOD SPECIMEN / Unknown Venipuncture / Unknown 04/16/2023 8:33 AM CDT 04/16/2023 8:43 AM T Jess Haynes MECHANIC'S ASSISTANT-I&C TECH LAB - CHEMIS TRY ORDERABLES [facility] [address] [facility] [place] [address] * ENDOSCOPY, COLON, SCREENING (11/03/2020 9:37 AM LOCK PLATER) Report Endoscopy POC _ Patient Name: Malik Street Procedure Date: 11/03/2020 9:37 AM Date of : 1945 Admit Type: Outpatient Age: 75 Gender: Male Attending MD: Ray Brooks DO _ Procedure: Colonoscopy Indications: High risk colon cancer surveillance: Personal history of non-advanced adenoma, Last colonoscopy: 2015, Incidental diarrhea noted Providers: Ray Brooks DO (Doctor) Referring MD: CONOR WILSON MD (Referring MD) Medicines: See the Anesthesia note for documentation of the administered medications Complications: No immediate complications. _ Procedure: Pre-Anesthesia Assessment: - Prior to the procedure, a History and Physical was performed, and patient medications and allergies were reviewed. The patient's tolerance of previous anesthesia was also reviewed. The risks and benefits of the procedure and the sedation options and risks were discussed with the patient. All questions were answered, and informed consent was obtained. Prior Anticoagulants: The patient last took Xarelto (rivaroxaban) 1 day prior to the procedure. ASA Grade Assessment: III - A patient with severe systemic disease. After reviewing the risks and benefits, the patient was deemed in satisfactory condition to undergo the procedure. After I obtained informed consent, the scope was passed under direct vision. Throughout the procedure, the patient's blood pressure, pulse, and oxygen saturations were monitored continuously. The Colonoscope was introduced through the anus and advanced to the cecum, identified by appendiceal orifice and ileocecal valve. The colonoscopy was performed without difficulty. The patient tolerated the procedure well. The quality of the bowel preparation was good. The ileocecal valve and the rectum were photographed. Findings: The perianal and digital rectal examinations were normal. Multiple small-mouthed diverticula were found in the sigmoid colon and descending colon. A patchy area of mildly erythematous mucosa was found in the descending colon and in the ascending colon. Biopsies for histology were taken with a cold forceps from the ascending colon and descending colon for evaluation of microscopic colitis. Non-bleeding internal hemorrhoids were found during retroflexion. The hemorrhoids were small. _ Impression: - Diverticulosis in the sigmoid colon and in the descending colon. - Erythematous mucosa in the descending colon and in the ascending colon. Biopsied. - Non-bleeding internal hemorrhoids. Recommendation: - Patient has a contact number available for emergencies. The signs and symptoms of potential delayed complications were discussed with the patient. Return to normal activities tomorrow. Written discharge instructions were provided to the patient. - Resume previous diet. - Continue present medications. - Resume Xarelto (rivaroxaban) at prior dose in 5 days. - Await pathology results. - Telephone my office for pathology results in 1 week. - Return to primary care physician as previously scheduled. - The findings and recommendations were discussed with the patient. - Repeat colonoscopy is not recommended for surveillance. Procedure Code(s): --- Professional --- 11015, Colonoscopy, flexible; with biopsy, single or multiple --- Technical --- 33072, Colonoscopy, flexible; with biopsy, single or multiple Diagnosis Code(s): --- Professional --- Z86.010, Personal history of colonic polyps K64.8, Other hemorrhoids K63.89, Other specified diseases of intestine K57.30, Diverticulosis of large intestine without perforation or abscess without bleeding --- Technical --- Z86.010, Personal history of colonic polyps K64.8, Other hemorrhoids K63.89, Other specified diseases of intestine K57.30, Diverticulosis of large intestine without perforation or abscess without bleeding CPT copyright 2017 [employer]. All rights reserved. The codes documented in this report are preliminary and upon cyanide pot tender review may be revised to meet current compliance requirements. ___ Ray Brooks DO 11/03/2020 10:19:23 AM This report has been signed electronically. Number of Addenda: 0 Note Initiated On: 11/03/2020 9:37 AM [facility] 11/03/2020 9:37 AM LOCK PLATER Ray Brooks DO GI PROCEDURE ORDER [facility] [place] [place] [address] * HELICOBACTER PYLORI UREASE (STL) (11/03/2020 9:23 AM LOCK PLATER) Helicobacter pylori Urease Initial Negative Negative 11/04/2020 5:30 PM LOCK PLATER [facility] Helicobacter pylori Urease Final Negative Negative 11/04/2020 5:30 PM LOCK PLATER [facility] Comment:This is an appended report. These results have been appended to a previously preliminary verified report. Microbiology GASTRIC ANTRAL BIOPSY SPECIMEN / Unknown 11/03/2020 9:23 AM LOCK PLATER 11/03/2020 11:46 AM LOCK PLATER Ray Brooks DO LAB - MICROBIOLOGY ORDERABLES [facility] [address] [place] [address] * PATHOLOGY TISSUE EXAM (STL) (11/03/2020 9:23 AM LOCK PLATER) Case Report Surgical Pathology Report Case: [id number] Authorizing Provider: Ray Brooks DO Collected: 11/03/2020 09:23 AM Ordering Location: [facility] Received: 11/03/2020 10:44 AM Pathologist: Medardo Lu MD Specimens: A) - Gastric Biopsy B) - Duodenal Biopsy C) - Esophageal Biopsy, lower esophageal biopsies D) - Colon Ascending Biopsy E) - Colon Descending Biopsy 11/07/2020 8:38 AM LOCK PLATER [facility] Final Diagnosis A. Stomach, endoscopic biopsies; -- Slight chronic gastritis, nonspecific -- No intestinal metaplasia or dysplasia seen -- No Helicobacter pylori organisms detected by IHC B. Duodenum, endoscopic biopsy: -- No pathologic diagnosis C. Esophagus, endoscopic biopsies: -- Specialized and inflamed squamocolumnar mucosa consistent with [place]'s -- Negative for dysplasia D. Ascending colon biopsies: -- No pathologic diagnosis E. Descending colon biopsies: -- No pathologic diagnosis AB/ns 11/07/2020 8:38 AM LOCK PLATER [facility] Gross Description The specimens are received in five formalin-filled containers labeled with the patient s name, Malik Street Part A is additionally labeled, gastric biopsy, and consists of three green tissue fragments (0.2 cm to 0.6 cm in greatest dimension). Entirely submitted in cassette A1. Part B is additionally labeled, duodenal biopsy, and consists of five green tissue fragments (0.1 cm to 0.7 cm in greatest dimension). Entirely submitted in cassette B1. Part C is additionally labeled, lower esophageal biopsy, and consists of three green tissue fragments (0.3 cm to 0.6 cm in greatest dimension). Entirely submitted in cassette C1. Part D is additionally labeled, ascending colon, and consists of four green tissue fragments (0.2 cm to 0.6 cm in greatest dimension). Entirely submitted in cassette D1. Part E is additionally labeled, descending colon, and consists of five green tissue fragments (0.1 cm to 0.7 cm in greatest dimension). Entirely submitted in cassette E1. AMA/na 11/07/2020 8:38 AM [facility] Microscopic Description The gastric biopsy shows strips of gastric body and antral mucosa. There is slight chronic, nonspecific inflammation. There is no intestinal metaplasia or dysplasia. An H pylori immunostain is negative for microorganisms. The duodenal biopsy consists of fragments of small bowel mucosa with normal-appearing tall villi. No significant inflammation is seen. The esophageal biopsy consists of fragments of squamous mucosa which appear unremarkable, but then there is also a fragment of moderately inflamed and extensively intestinalized squamocolumnar mucosa. Intraepithelial eosinophils are not seen. There are some eosinophils in the lamina propria, however. There is no dysplasia. The ascending colon biopsies show fairly normal-appearing mucosa. The subepithelial collagen is not thickened. The descending colon biopsies likewise appear normal. AB/ns 11/07/2020 8:38 AM [facility] Disclaimer All histochemical and/or immunohistochemical results are interpreted with controls that demonstrate appropriate staining reactions before reporting results. Note on use of immunocytochemistry reagents: This test was developed and its performance characteristic determined by [facility], Department of Laboratory Medicine. It has not been cleared or approved by the U.S. Food and Drug Administration (FDA). The FDA has determined that such clearance or approval is not necessary. The test is used for clinical purpose. It should not be regarded as investigational or for research. This laboratory is certified to perform high complexity testing. The performance characteristics of the IHC/DERIC assays have been validated on formalin-fixed paraffin embedded tissues only. The assays have not been validated on decalcified tissues. Results should be interpreted with caution. 11/07/2020 8:38 AM [facility] Embedded Images 11/07/2020 8:38 AM [facility]OCK [facility]ATER [facility] Pathology/Cytology GASTRIC BIOPSY SPECIMEN / Unknown 11/03/2020 9:23 AM LOCK PLATER 11/03/2020 10:44 AM LOCK PLATER Miscellaneous samples (specimen) DUODENAL BIOPSY SPECIMEN / Unknown 11/03/2020 9:25 AM LOCK PLATER 11/03/2020 10:44 AM LOCK PLATER Miscellaneous samples (specimen) ESOPHAGEAL BIOPSY SPECIMEN / Unknown 11/03/2020 9:31 AM LOCK PLATER 11/03/2020 10:44 AM LOCK PLATER Miscellaneous samples (specimen) COLONIC BIOPSY SPECIMEN / Unknown 11/03/2020 9:53 AM LOCK PLATER 11/03/2020 10:44 AM LOCK PLATER Miscellaneous samples (specimen) COLONIC BIOPSY SPECIMEN / Unknown 11/03/2020 9:53 AM LOCK PLATER 11/03/2020 10:44 AM LOCK PLATER Ray Brooks DO LAB - PATHOLOGY/CY TOLOGY ORDERABLES [facility] [address] [place] [address] * EGD (11/03/2020 8:11 AM LOCK PLATER) Report Endoscopy POC __ _ Patient Name: Malik Street Procedure Date: 11/03/2020 8:11 AM Date of : 1945 Admit Type: Outpatient Age: 75 Gender: Male Attending MD: Ray Brooks DO __ _ Procedure: Upper GI endoscopy Indications: Epigastric abdominal pain, Dyspepsia Providers: Ray Brooks DO (Doctor) Referring MD: Conor Wilson MD (Referring MD) Medicines: See the Anesthesia note for documentation of the administered medications Complications: No immediate complications. __ _ Procedure: Pre-Anesthesia Assessment: - Prior to the procedure, a History and Physical was performed, and patient medications and allergies were reviewed. The patient's tolerance of previous anesthesia was also reviewed. The risks and benefits of the procedure and the sedation options and risks were discussed with the patient. All questions were answered, and informed consent was obtained. Prior Anticoagulants: The patient last took Xarelto (rivaroxaban) 1 day prior to the procedure. ASA Grade Assessment: III - A patient with severe systemic disease. After reviewing the risks and benefits, the patient was deemed in satisfactory condition to undergo the procedure. After obtaining informed consent, the endoscope was passed under direct vision. Throughout the procedure, the patient's blood pressure, pulse, and oxygen saturations were monitored continuously. The Endoscope was introduced through the mouth, and advanced to the second part of duodenum. The upper GI endoscopy was accomplished without difficulty. The patient tolerated the procedure well. Findings: The larynx was normal. The Z-line was found 43 cm from the incisors. Biopsies were taken with a cold forceps for histology. LA Grade B (one or more mucosal breaks greater than 5 mm, not extending between the tops of two mucosal folds) esophagitis with no bleeding was found at the gastroesophageal junction. Diffuse mildly erythematous mucosa without bleeding was found in the gastric body and in the gastric antrum. Biopsies were taken with a cold forceps for Helicobacter pylori testing. Biopsies were taken with a cold forceps for histology. No gross lesions were noted in the entire examined duodenum. Biopsies for histology were taken with a cold forceps for evaluation of celiac disease. Biopsies were taken with a cold forceps for histology. __ _ Impression: - Normal larynx. - Z-line, 43 cm from the incisors. Biopsied. - LA Grade B reflux and erosive esophagitis. - Erythematous mucosa in the gastric body and antrum. Biopsied. - No gross lesions in the entire examined duodenum. Biopsied. Recommendation: - Patient has a contact number available for emergencies. The signs and symptoms of potential delayed complications were discussed with the patient. Return to normal activities tomorrow. Written discharge instructions were provided to the patient. - Resume previous diet. - Continue present medications. - Resume Xarelto (rivaroxaban) at prior dose in 5 days. - Await pathology results. - No repeat upper endoscopy. - Return to primary care physician as previously scheduled. - Recommend acid suppression medication. - The findings and recommendations were discussed with the patient. Procedure Code(s): --- Professional --- 42942, Esophagogastroduode noscopy, flexible, transoral; with biopsy, single or multiple --- Technical --- 07577, Esophagogastroduode noscopy, flexible, transoral; with biopsy, single or multiple Diagnosis Code(s): --- Professional --- K21.0, Gastro-esophageal reflux disease with esophagitis K20.8, Other esophagitis K31.89, Other diseases of stomach and duodenum R10.13, Epigastric pain --- Technical --- K21.0, Gastro-esophageal reflux disease with esophagitis K20.8, Other esophagitis K31.89, Other diseases of stomach and duodenum R10.13, Epigastric pain CPT copyright 2017 [employer]. All rights reserved. The codes documented in this report are preliminary and upon cyanide pot tender review may be revised to meet current compliance requirements. __ Ray Brooks DO 11/03/2020 10:06:52 AM This report has been signed electronically. Number of Addenda: 0 Note Initiated On: 11/03/2020 8:11 AM [facility] ENDOSCOPY 11/03/2020 8:11 AM LOCK PLATER Ray Brooks DO GI PROCEDURE ORDER [facility] [place] [address] * NM PET BRAIN METABOLIC EVAL IMAGING (10/10/2017 3:25 PM LOCK PLATER) Narrative [facility] RADIOLOG[facility] - 10/23/2017 8:57 AM LOCK PLATER No Dictation. Malik Jones DO CALL ORDERABLES [facility] * PATHOLOGY/CYTOLOGY REPORT ORDER (07/31/2010 1:58 PM CDT) Narrative Procedure Note Document, Scanned - 07/31/2010 12:34 PM CDT Scanned Document LAB - PATHOLOGY/CYTO LOGY ORDERABLES Care Teams Manager Oncology Relationship Specialty Start Date End Date Conor Wilson MD [facility] [address] Kulkarni [address] [address] PCP - General Internal Medicine 04/16/23 Rodriguez Garcia MD [address] [facility] [address] [place] [place] [address] Cardiovascular Disease 04/16/23
--- OUTSIDE RECORDS SUMMARY | 2024-11-27 09:35 | XMS_ITS | Encounter Summary ---
Author Organization [facility] Address [address] [place] [address] Care Team Providers Care Division Operations Manager Name Role Phone Conor Dodson MD Primary Care Provider [phone] Rodriguez Garcia MD Unavailable [phone] Encounter Details Date Type Department Care Team (Late st Contact Info) Description 12/03/2023 Lab Requisition [facility] - DermPath Lab [address] [facility], [place] [id number] Sean Beltran MD [facility] DERMATOLOGY [address] [place] [phone] Neoplasm of uncertain behavior of skin [...] and heating? Not hard at all 05/17/2023 [facility] [place] of Occupat ional Health - Occupational Stress [...] Priority Date/Time Associated Diagnosis Comments DERMATOPATHOLOGY Routine 12/03/2023 12:0 0 AM PYROTECHNIC MIXER Neoplasm of uncertain behavior of skin documented in this encounter Results * DERMATOPATHOLOGY (12/03/2023 12:00 AM PYROTECHNIC MIXER) Case Report Dermatopathology Report Case: [id number] Authorizing Provider: Sean Beltran MD Collected: 12/03/2023 12:00 AM Ordering Location: [facility] DermPath Lab Received: 12/05/2023 06:51 AM Pathologist: Alexandra Mathews MD Specimen: Skin, left dorsal forearm 3:13 PM [facility] Final Diagnosis Specimen A. SKIN, left dorsal forearm: SQUAMOUS CELL CARCINOMA, WELL DIFFERENTIATED (C44.629) 3:13 PM [facility] D[facility]ORY Clinical History Neoplasm of Uncertain Behavior vs. Squamous Cell Carcinoma 4 3:13 PM [facility] Gross Description Specimen A: Received is one formalin filled container labeled with the patient's name and designated left dorsal forearm. The specimen consists of a shave biopsy measuring 9x8x3 mm. Jar 0. 3:13 PM [facility] D[facility]ORY Microscopic Description Specimen A. SKIN, left dorsal forearm: Arising in the epidermis and extending into the dermis there are irregularly shaped aggregates of keratinocytes showing evidence of premature cornification. 3:13 PM [facility] DER[facility] LABORATORY Disclaimer An external and internal positive and negative controls are appropriate for the histochemical, immunohistochemical and immunofluorescence stain(s) in this case (if any), except where stated explicitly. The performance characteristics of the stain(s) cited in this report were developed and its performance characteristic determined by the Dermatopathology Laboratory at [facility], directed by Dr. Jennifer Colunga. These tests need not be, and therefore are not, approved by the [place] Food and Drug Administration. The tests are used for clinical purposes. Billing Codes Specimen Charges Stain Charges 43769 1 4 3:13 PM PYROTECHNIC MIXER DERMATOPATHOLOGY LABORATORY Embedded Images 4 3:13 PM PYROTECHNIC MIXER DERMATOPATHOLOGY LABORATORY Pathology/Cytolog y TISSUE SPECIMEN FROM SKIN / Unknown 12/03/2023 12/05/2023 6:51 AM PYROTECHNIC MIXER Sean Beltran MD LAB - PATHOLOGY/CYTO LOGY ORDERABLES DERMATOPATHOLOGY LABORATORY [facility] - Department of Dermatology [facility] [address] [place] [address], [address] [phone] documented in this encounter Visit Diagnoses Diagnosis Neoplasm of uncertain behavior of skin documented in this encounter Care Teams Division Operations Manager Relationship Specialty Start Date End Date Conor Dodson MD [address] [place] [address] DR Cayla JOHNSTON [address] [place] [address] PCP - General Internal Medicine 04/16/23 Rodriguez Garcia MD [address] [place] [address] [place] [address] Cardiovascular Disease 04/16/23 documented as of this encounter
--- OUTSIDE RECORDS SUMMARY | 2024-11-27 09:35 | XMS_ITS | Encounter Summary ---
Author Organization [facility] Address [address] [place] [address] Care Team Providers Care Hvac Operations Technician Name Role Phone Conor Dodson MD Primary Care Provider [phone] Rodriguez Garcia MD Unavailable Encounter Details Date Type Department Care Team (Late st Contact Info) Description 02/14/2024 Lab Requisition [facility] - DermPath Lab [address] [facility] [place] [phone] Kelly Franco MD [address] [place] [address] [place] [address] Squamous cell carcinoma of skin of left upper limb, including shoulder Social History Tobacco Use Types Packs/Day Years [...] and heating? Not hard at all 05/17/2023 [facility] [place] of Occupat ional Health - Occupational Stress [...] place to sleep or slept in a residential (including now)? No 05/17/2023 Sex and Gender [...] Priority Date/Time Associated Diagnosis Comments DERMATOPATHOLOGY Routine 02/14/2024 3:33 AM CDT Squamous cell carcinoma of skin of left upper limb, including shoulder documented in this encounter Results * DERMATOPATHOLOGY (02/14/2024 3:33 AM CDT) Case Report Dermatopathology Report Case: [id number] Authorizing Provider: Kelly Franco MD Collected: 02/14/2024 03:33 AM Ordering Location: [facility] - Received: 02/18/2024 06:14 AM DermPath Lab Pathologist: Michelle Robison MD Specimen: Skin, left distal dorsal forearm 2:44 PM CDT DERMATOPATHOLOGY LABORATORY Final Diagnosis Specimen A. SKIN, left distal dorsal forearm: DERMAL SCAR RESIDUAL SQUAMOUS CELL CARCINOMA NOT IDENTIFIED (L90.5) INCIDENTAL SEBORRHEIC KERATOSIS (L82.1) PRESENT AT MARGIN 2:44 PM CDT DERMATOPATHOLOGY LABORATORY Clinical History Squamous Cell Carcinoma. Check margins, prior biopsy. 2:44 PM CDT DERMATOPATHOLOGY LABORATORY Gross Description Specimen A: Received is one formalin filled container labeled with the patient's name and designated left distal dorsal forearm. The specimen consists of a non-oriented ellipse of skin measuring 73i05d1 mm. The epidermal surface is unremarkable. The margin is inked green. The 12 o'clock and 6 o'clock tips are submitted in cassette 1. The remainder of the ellipse is serially sectioned and submitted in cassette 2-3. Jar 0. 2:44 PM CDT DERMATOPATHOLOGY LABORATORY Microscopic Description Specimen A. SKIN, left distal dorsal forearm: There are fibroblasts and collagen bundles oriented parallel to the skin surface. There are elongated blood vessels, some of which are oriented perpendicular to the skin surface. No residual squamous cell carcinoma is identified. There is an incidental acanthotic lesion composed of relatively uniform keratinocytes. There is hyperkeratosis and pseudo horn cysts formation. The seborrheic keratosis is present at the margin of the specimen. 4 2:44 PM CDT DERMATOPATHOLOGY LABORATORY Disclaimer An external and internal positive and negative controls are appropriate for the histochemical, immunohistochemical and immunofluorescence stain(s) in this case (if any), except where stated explicitly. The performance characteristics of the stain(s) cited in this report were developed and its performance characteristic determined by the Dermatopathology Laboratory at [facility], directed by Dr. Jennifer Colunga. These tests need not be, and therefore are not, approved by the [place] Food and Drug Administration. The tests are used for clinical purposes. Billing Codes Specimen Charges Stain Charges 55677 1 4 2:44 PM CDT DERMATOPATHOLOGY LABORATORY Embedded Images 4 2:44 PM CDT DERMATOPATHOLOGY LABORATORY Pathology/Cytolo gy TISSUE SPECIMEN FROM SKIN / Unknown 02/14/2024 3:33 AM CDT 02/18/2024 6:14 AM CDT Kelly Franco MD LAB - PATHOLOGY/CYTO LOGY ORDERABLES DERMATOPATHOLOGY LABORATORY [facility] - Department of Dermatology [address], [address] [phone] documented in this encounter Visit Diagnoses Diagnosis Squamous cell carcinoma of skin of left upper limb, including shoulder Squamous cell carcinoma of skin of upper limb, including shoulder documented in this encounter Care Teams Hvac Operations Technician Relationship Specialty Start Date End Date Conor Dodson MD [address] [place] [address] DR [address] [address] PCP - General Internal Medicine 04/16/23 Rodriguez Garcia MD [address] [place] [address] Cardiovascular Disease 04/16/23 documented as of this encounter
[2024-11-27 10:44] LABS: Hematocrit 41.5 % (42.0-52.0); Hemoglobin 13.8 g/dL (14.0-18.0); Mean Corpuscular HGB Conc 33.3 g/dl (32-36); Mean Corpuscular Hemoglobin 33.2 pg (26-34); Mean Corpuscular Volume 99.8 fl (80-100); Mean Platelet Volume 9.5 fl (7.4-10.4); Platelet Count Result 237 k/mm3 (150-375); Red Blood Count 4.16 M/mm3 (4.6-6.20); Red Cell Distribution Width 13.9 % (11.5-14.5); White Blood Count 5.9 K/mm3 (4.5-10.0)
[2024-11-27 10:50] LABS: Anion Gap 12 mmol/L (4-12); Blood Urea Nitrogen 13 mg/dL (9-20); Calcium 9.6 mg/dL (8.4-10.2); Carbon Dioxide 26 mmol/L (22-30); Chloride 101 mmol/L (98-107); Estimated Glomerular Filt Rate > 60; Glucose 90 mg/dL (65-110); Potassium 4.4 mmol/L (3.4-5.0); Sodium 139 mmol/L (137-145)
[2024-11-27 11:04] LABS: INR 1.4; Prothrombin Time 17.5 Seconds (11.1-14.7)
[2024-11-27 11:05] LABS: Partial Thromboplastin Time 34.4 Seconds (22.3-36.8)
[2024-11-27 11:54] LABS: Platelet Estimate Adequate (Adequate)
[2024-11-27 11:55] LABS: Schistocytes None Seen
== END 2024-11-27 09:05 | disposition home or self-care (01) ==
LOC: ANHSURGERY 09:09
PROVIDERS: Visit Provider Urology
DX: Z01.818 Encounter for other preprocedural examination (principal); R94.31 Abnormal electrocardiogram [ECG] [EKG]; I44.0 Atrioventricular block, first degree; I10 Essential (primary) hypertension; N40.0 Benign prostatic hyperplasia without lower urinary tract symptoms; N32.9 Bladder disorder, unspecified
CPT/HCPCS: 36415; 80048; 85025; 85610; 85730; 87086; 93005

== ENCOUNTER 2024-12-01 00:54 | Day surgery (SDC) | payer MEDICARE, SELFPAY ==
[2024-11-18 12:36] VITALS: BMI 31.9
--- NOTE | 2024-11-18 12:53 | PC.NURSE ---
Report to the Outpatient Waiting Room, entrance under the green pavilion located off [facility], at time ___0600am____ on date _12/01/24 . Planned Procedure Time: _0730am .? Time changes happen often and if your time is changed the preop area will call you the afternoon before. - You and your visitor will be asked to self-screen and do not enter if you have any COVID symptoms. Please call surgeon if you need to reschedule. - A mask is optional within the hospital at this time. Patients may have clear liquids (water, carbonated beverages, clear teas, apple juice) until 3 hours prior to surgery with a maximum of 20 ounces. - No food from midnight until time of surgery and no smoking. This includes no chewing gum, candy or mints.(0430am) Take only the following medications with a SIP of water on the morning of surgery: __Citalopram DO NOT STOP ANY OF YOUR OTHER PRESCRIPTION MEDICATIONS PRIOR TO SURGERY EXCEPT THE FOLLOWING Medications to discontinue per physician ____HOLD Xarelto per Dr Mcdaniels office, pt to call today to get information on this. Hold all vitamins and supplements for 3 days per anesthesiologist. Date to take last dose___11/27/24 Please no make-up, nail telugu, hairspray, perfume, deodorant, or body powder the day of surgery.? No jewelry (including any body piercings) or valuables the day of surgery, leave them at home.? Please take a shower or bath the night before, or the morning of, surgery with an antibacterial soap.? Wear comfortable, loose fitting clothing.? Children are encouraged to wear pajamas. - Jewelry must be removed prior to entering the operating room.? Rings and piercings that are not removed may be cut off. - The hospital will not accept responsibility for valuables.? - Please leave all valuables, including medications, at home the day of surgery. If you are going home after surgery, a licensed taxi driver supervisor must drive you home.? - NO public transportation without another adult if you receive anesthesia. - We recommend that an adult stay with you for 24 hours following discharge. - We also recommend that you do not drive, make important decision, drink alcoholic beverages, or take any drugs that were not prescribed by your health care provider for at least 24 hours after your discharge time. Follow any additional instructions given to you from your surgeon. Telephone instructions given to ___patient and asked if any additional questions and then verbalized understanding. Patient advised to call surgeon office or pre surgery nurse liaison [phone] if any additional questions.
[2024-12-01] VITALS (15 sets, daily range): BP systolic 116–166; BP diastolic 62–98; PULSE 61–68; RESP 11–20; TEMP 35.6–36.7; O2SAT 93–100
--- OUTSIDE RECORDS SUMMARY | 2024-12-01 00:56 | XMS_ITS | Encounter Summary ---
Author Organization [facility] Address [address] [place] [place] [address] Care Team Providers Care Shuttle Spotter Name Role Phone Conor Dodson MD Primary Care Provider Rodriguez Garcia MD Unavailable [phone] Encounter Details Date Type Department Care Team (Late st Contact Info) Description 07/01/2019 Lab Requisition [facility] DermPath Lab [address] [facility], [place] [address] Conor Rene MD [address] [place] [address] Social History Tobacco Use Types [...] AM CDT) Case Report Dermatopathology Report Case: [id number] Authorizing Provider: Conor Rene MD Collected: 06/30/2019 12:00 AM Ordering Location: [facility] DermPath Lab Received: 07/01/2019 01:20 PM Pathologist: [...] specimen consists of a shave biopsy measuring 51f6f8xf. Jar 0. 12:25 PM CDT DERMATOPATHOLOGY LABORATORY [...] characteristic determined by the Dermatopathology Laboratory at [facility], directed by Dr. Jennifer Colunga. These tests need not be, and therefore are not, approved by the [place] Food and Drug Administration. The tests are used for clinical purposes. Billing Codes Specimen Charges Stain Charges 05008 1 12:25 PM CDT DERMATOPATHOLOGY LABORATORY Embedded Images 12:25 PM CDT DERMATOPATHOLOGY LABORATORY Pathology/Cytolog y TISSUE SPECIMEN FROM SKIN / Unknown 06/30/2019 07/01/2019 1:20 PM CDT Conor Rene MD LAB - PATHOLOGY/CYTO LOGY ORDERABLES DERMATOPATHOLOGY LABORATORY [facility] - Department of Dermatology [address] [facility], 5th Floor Lab [address] [place], [place] [address] [phone] documented in this encounter Visit Diagnoses Not on filedocumented in this encounter Care Teams Shuttle Spotter Relationship Specialty Start Date End Date Conor Dodson MD [facility]0 [facility] [address] Cayla JOHNSTON [address] [place] [address] PCP - General Internal Medicine 04/16/23 Rodriguez Garcia MD [facility] [address] [place], [place] [id number] Cardiovascular Disease 04/16/23 documented as of this encounter
--- OUTSIDE RECORDS SUMMARY | 2024-12-01 00:56 | XMS_ITS | CONTINUITY OF CARE DOCUMENT ---
Author Name stone ritter Address Unknown Organization [facility] Address [address] [facility] [address] [place] [address] [place] [address] Phone [phone] Care Team Providers Care Clarifier Operator Name Role Phone Reji RAMIREZ, Josafat Unavailable [phone] Josafat Mendoza MD Unavailable [phone] INSURANCE PROVIDERS Payer name Policy type / Coverage type [place] red green party ID [employer] P[employer]'s Administr ation plan [id number]
--- OUTSIDE RECORDS SUMMARY | 2024-12-01 00:56 | XMS_ITS | Encounter Summary ---
Author Organization [facility] Address [address] [facility] [place] [address] Care Team Providers Care Paraprofessional Aide Teacher Name Role Phone Conor Dodson MD Primary Care Provider [phone] Rodriguez Garcia MD Unavailable [phone] Encounter Details Date Type Department Care Team (Late st Contact Info) Description 09/21/2021 Lab Requisition [facility] DermPath Lab [address] [facility] [place] [address] Con[place] [address] Social History Tobacco Use Types [...] Comments DERMATOPATHOLOGY Routine 09/19/2021 12:0 0 AM SUPERVISOR GRINDING documented in this encounter Results * DERMATOPATHOLOGY (09/19/2021 12:00 AM SUPERVISOR GRINDING) Case Report Dermatopathology Report Case: [id number] Authorizing Provider: Conor Rene MD Collected: 09/19/2021 12:00 AM Ordering Location: [facility] DermPath Lab Received: 09/21/2021 08:33 AM Pathologist: Iveth Mathews MD Specimen: Skin, right dorsal wrist by styloid 2:08 PM [facility] DERMATOPATHOLOGY LABORATORY Final Diagnosis Specimen A. SKIN, right dorsal wrist by styloid: SQUAMOUS CELL CARCINOMA IN SITU, VERRUCOUS-HYPERTROP HIC TYPE (D04.61) 2:08 PM [facility] DERMATOPATHOLOGY LABORATORY Clinical History R/O SCC. 2:08 PM [facility] DERMATOPATHOLOGY LABORATORY Gross Description Specimen A: Received is one formalin filled container labeled with the patient's name and designated right dorsal wrist by styloid. The specimen consists of a shave biopsy measuring 28u90i0jn bisected. Jar 0. 2:08 PM [facility] DERMATOPATHOLOGY LABORATORY Microscopic Description Specimen A. SKIN, right dorsal wrist by styloid: The epidermis is acanthotic and shows full thickness disorderly maturation of keratinocytes, mitoses at different levels, and dyskeratotic cells. There is overlying parakeratosis and hyperkeratosis. 2:08 PM [facility] DERMATOPATHOLOGY LABORATORY Disclaimer An external and internal positive and negative controls are appropriate for the histochemical, immunohistochemical and immunofluorescence stain(s) in this case (if any), except where stated explicitly. The performance characteristics of the stain(s) cited in this report were developed and its performance characteristic determined by the Dermatopathology Laboratory at [facility], directed by Dr. Jennifer Colunga. These tests need not be, and therefore are not, approved by the [place] Food and Drug Administration. The tests are used for clinical purposes. Billing Codes Specimen Charges Stain Charges 76059 1 2:08 PM [facility] DERMATOPATHOLOGY LABORATORY Embedded Images 2:08 PM [facility] DERMATOPATHOLOGY LABORATORY Pathology/Cytolog y TISSUE SPECIMEN FROM SKIN / Unknown 09/19/2021 09/21/2021 8:33 AM SUPERVISOR GRINDING Conor Rene MD LAB - PATHOLOGY/CYTO LOGY ORDERABLES DERMATOPATHOLOGY LABORATORY [facility] - Department of Dermatology [facility] Medicine [facility]5 [facility], 3rd Floor [place], [place] [address] [place] [address] documented in this encounter Visit Diagnoses Not on filedocumented in this encounter Care Teams Paraprofessional Aide Teacher Relationship Specialty Start Date End Date Conor Dodson MD [address] [place] [address] [address] [address] PCP - General Internal Medicine 04/16/23 Rodriguez Garcia MD [facility] [address] Cardiovascular Disease 04/16/23 documented as of this encounter
--- OUTSIDE RECORDS SUMMARY | 2024-12-01 00:56 | XMS_ITS | Clinical Summary ---
Author Organization [facility] Address [facility] [place] [address] Care Team Providers Care Firestopper Installer Name Role Phone Conor Dodson MD Primary Care Provider [phone] Allergies Active Allergy Reactions Criticality Noted Date [...] Comments Blood Pressure 132/92 09/19/2019 8:45 AM ELECTRONICS DETAIL DRAFTSPERSON Pulse 84 09/19/2019 8:45 AM ELECTRONICS DETAIL DRAFTSPERSON Temperature 36.2 C (97.1 F) 09/19/2019 8:45 AM ELECTRONICS DETAIL DRAFTSPERSON Respiratory Rate 16 09/19/2019 8:45 AM ELECTRONICS DETAIL DRAFTSPERSON Oxygen Saturation 97% 09/19/2019 8:45 AM ELECTRONICS DETAIL DRAFTSPERSON Inhaled Oxygen Concentration - - Weight 98.4 kg (217 lb) 09/19/2019 8:45 AM ELECTRONICS DETAIL DRAFTSPERSON Height 180.3 cm (5' 11 ) 09/19/2019 8:45 AM ELECTRONICS DETAIL DRAFTSPERSON Body Mass Index 30.27 09/19/2019 8:45 AM ELECTRONICS DETAIL DRAFTSPERSON Plan of Treatment Health Maintenance Due Date [...] age to complete this topic Insurance MEDICARE [facility] Care Teams Firestopper Installer Relationship Specialty Start Date End Date Conor Dodson MD [address] [place] [address] DR [address] [address] PCP - General INTERNAL MEDICINE 09/19/19
--- OUTSIDE RECORDS SUMMARY | 2024-12-01 00:57 | XMS_ITS | Clinical Summary ---
Author Organization [facility] Address [address] [place] [address] Care Team Providers Care Cosmetic Chemist Name Role Phone Rodriguez Garcia MD Unavailable [phone] Conor Dodson MD Primary Care Provider [phone] Conor Dodson MD Unavailable [phone] Vern Valladares MD PhD Unavailable + [...] 1 tablet (100 mg total) by mouth documentation manager before breakfast Active gabapentin (NEURONTIN) 300 mg capsule Take 2 capsules (600 mg total) by mouth daily 180 capsule 04/17/20 24 Active Additional Information Patient taking differently:600 mg oralNightly, Indications: Neuropathic Pain, Informant: Self, Reported on 09/15/2024 multivitamin tabletIndications: Vitamin Deficiency Prevention Take 1 tablet by mouth documentation manager before breakfast Active vutrisiran (AMVUTTRA) 25 mg/0.5 [...] 1 tablet (2.5 mg total) by mouth documentation manager before breakfast Active finasteride (PROSCAR) 5 mg [...] (pediatric) 07/0 05/2022 Overview (12/11/2022): - DME: [facility] Assessment & Plan (08/05/2024 12:47 PM CDT): 1. Chronic, poorly controlled 2. Re compliance and therapy data and residual AHI is 4.3 with mostly central apneas 3. He is having leak most nights although not always significant 4. We will have him follow up with [facility] for mask fitting and or switching to a new mask to assist with comfort 5. Pap supply order placed Assessment & Plan (04/18/2023 8:54 PM CDT): Using CPAP nightly with benefit. Assessment & Plan (12/11/2022 4:31 PM GAS BRAZER): 1. Chronic, poorly controlled 2. Discussed different masks 3. Placed order for the AirFit F30 because the other masks did not fit his face Assessment & Plan (11/15/2022 5:40 PM GAS BRAZER): Using CPAP nightly with benefit. Assessment & [...] 03/22/2021 Assessment & Plan (12/27/2023 1:29 PM GAS BRAZER): 1. Chronic, well controlled 2. Discussed how continued use of his CPAP can help control his blood pressure 3. He will continue losartan, amlodipine, and metoprolol Assessment & Plan (12/11/2022 4:31 PM GAS BRAZER): 1. Chronic, well controlled 2. Discussed how use of his CPAP machine will help his blood pressure 3. He will continue losartan, amlodipine, and metoprolol Assessment & Plan (11/15/2022 5:40 PM GAS BRAZER): Target BP less than 140/90. Continue current [...] Cardiology. Assessment & Plan (11/15/2022 5:40 PM GAS BRAZER): Continue current diet and metoprolol. On chronic anticoagulation with Xarelto. Assessment & Plan (07/18/2022 12:19 PM CDT): Continue current diet & medications. On anticoagulation with Xarelto. Managed by Cardiology. Assessment & Plan (01/02/2022 2:31 PM CDT): Continue current diet & medications. Managed by Cardiology. Primary osteoarthritis of right ankle 01/15/2019 Overview (01/15/2019): Added automatically from request for surgery [id number] Retained orthopedic hardware 01/15/2019 Overview (01/15/2019): Added automatically from request for surgery [id number] Arthritis of subtalar joint 09/10/2018 Overview (09/10/2018): Added automatically from request for surgery [id number] Cobalamin deficiency 12/20/2016 Overview (03/15/2017): Vitamin B12 deficiency Gout 12/20/2016 Overview (03/15/2017): Gout, unspecified Moderate episode of recurrent major depressive d isorder 05/28/2016 Overview (01/24/2017): Major depression, recurrent, chronic Assessment & Plan (02/04/2024 4:48 PM CDT): Continue citalopram. Assessment & Plan (04/18/2023 8:53 PM CDT): Mood stable on citalopram. Assessment & Plan (11/15/2022 5:40 PM GAS BRAZER): Continue with citalopram. Assessment & Plan (07/18/2022 [...] POLYPS Assessment & Plan (11/15/2022 5:40 PM GAS BRAZER): Up-to-date on colonoscopy. 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 ([place], [place] Advanced Medicine 6th [place] [address] Maya Bolden 10/22/2024 10:30 AM GAS BRAZER Office Visit [facility] [address] [facility] [place] Advanced Medicine 6th [place] [address] Laura Austin MD Bilateral carpal tunnel syndrome (Primary Dx); Guyon syndrome, left 09/21/2024 8:45 AM GAS BRAZER Office Visit [facility] [address] [facility] ([place] [place] Advanced Medicine 6th [place] [address] Karly Ervin NP Bilateral carpal tunnel syndrome (Primary Dx) 09/15/2024 7:34 AM GAS BRAZER Anesthesia Event [facility] Operating [facility] [address] [place] [address] Charles Johnson MD Heuvelman, Katherine Marie, NP 09/15/2024 7:30 AM GAS BRAZER - 09/15/2024 10:10 AM GAS BRAZER Surgery [facility] Operating [facility] [address] [place] [address] Laura Austin MD RELEASE CARPAL TUNNEL 09/15/2024 5:14 AM GAS BRAZER - 09/15/2024 10:51 AM GAS BRAZER Hospital Encounter [facility] Operating [facility] [address] [place] [address] Laura Austin MD Left carpal tunnel syndrome (Primary Dx) Discharge Disposition: Discharge to home or self care 09/15/2024 Telephone [facility] [address] [facility] [place] Advanced Medicine 6th [place] [address] Maya Bolden 09/14/2024 Telephone [facility] [address] [facility] [place] Advanced Medicine 6th [place] [address] Teresita Santo CMA Surgery Reminder from Last [...] on file Legal Sex Male 11:31 PM GAS BRAZER Gender Identity Male 08/09/2024 7:38 PM CDT Sexual Orientation Bisexual 08/09/2024 7: 38 PM CDT Occupation Industry Job Start Date Job End Date Retired Not on file Not on file Not on file Obstetrics History Last Filed Vital Signs Vital Sign Reading Time Taken Comments Blood Pressure 135/82 09/15/2024 10:19 AM GAS BRAZER Pulse 54 09/15/2024 10:20 AM GAS BRAZER Temperature 36 C (96.8 F) 09/15/2024 9:50 AM GAS BRAZER Respiratory Rate 17 09/15/2024 10:20 AM GAS BRAZER Oxygen Saturation 98% 09/15/2024 10:20 AM GAS BRAZER Inhaled Oxygen Concentration - - Weight 108.4 kg (239 lb) 09/15/2024 6:00 AM GAS BRAZER Height 180.3 cm (5' 11 ) 09/15/2024 6:00 AM GAS BRAZER Body Mass Index 33.33 09/15/2024 6:00 AM GAS BRAZER Plan of Treatment Health Maintenance Due Date [...] history exists Medical Devices Implanted Type Area Fountain Operator Device Identifier Shelf Expiration Date Model / Serial / Lot Augment Implanted:Qty: 1 on 09/24/2018 by Jorge Luis Santoyo MD at [facility] Right: Ankle Dental Fix [employer] Inc [id number] 06/20/2019 / [id number] / [id number] Dental Fix [employer] Inc [id number] Mini Ignite Power Mix Injectable Graft 4ml Synthetic Tissue - [id number] - [id number] Implanted:Qty: 1 on 09/24/2018 by Jorge Luis Santoyo MD at [facility] Right: Ankle Dental Fix [employer] Inc 04/30/2023 [id number] / [id number] / [id number] Orthohelix [id number] Maxtorque 7mm 80mm Cannulated Blunt Foot Long Thread Screw Bone Latex Free - [id number] Implanted:Qty: 2 on 09/24/2018 at [facility] Orthohelix CSS-011-70- 080L / / Siddiqi [employer] Inc [id number] Infinity 9mm Knee 3+ Insert Tibial Poly - [id number] Implanted:Qty: 1 on 02/10/2019 by Jorge Luis Santoyo MD at [facility] Right: Ankle S[employer] [id number] 07/27/2026 [id number] / / [id number] Musculoskeletal Transplant [id number] [id number] 4-30mm Allograft Frozen Lwp99-19ln Wedge Graft Bone - [id number] - [id number] Implanted:Qty: 1 on 02/10/2019 by Jorge Luis Santoyo MD at [facility] Right: Ankle Musculoskeletal Transplant 04/16/2023 [id number] / [id number] / [employer] [id number] Steinmann 5/64in 9in Trocar Point One End Pin Fixation Stainless - [id number] Implanted:Qty: 1 on 02/10/2019 by Jorge Luis Santoyo MD at [facility] Right: Ankle [employer] [id number] / / Siddiqi [employer] Inc [id number] Ankle 1 Large 10mm Stem Talar - [id number] Implanted:Qty: 1 on 02/10/2019 by Jorge Luis Santoyo MD at [facility] Right: Ankle S[employer] Inc [id number] 07/28/2026 [id number] / / [id number] Siddiq[employer] Inc [id number] Inbone Sulcus Ankle 3 Dome Component Talar - [id number] Implanted:Qty: 1 on 02/10/2019 by Jorge Luis Santoyo MD at [facility] Right: Ankle S[employer] Inc [id number] 09/21/2026 [id number] / / [id number] Sidd[employer] Inc [id number] Infinity 4 Long Tray Tibial - [id number] Implanted:Qty: 1 on 02/10/2019 by Jorge Luis Santoyo MD at [facility] Right: Ankle [employer] [id number] 08/05/2026 [id number] / / [id number] Explanted Type Area Fountain Operator Device Identifier Shelf Expiration Date Model / Serial / Lot Orthohelix [id number] Maxtorque 7mm 75mm Cannulated Blunt Foot Long Thread Screw Bone Latex Free - [id number] Explanted:Qty: 1 on 09/24/2018 at [facility] Orthohelix CSS-011-70 -075L / / [id number] Wires Explanted:Qty: 3 on 09/24/2018 by Jorge Luis Santoyo MD at [facility] Other [employer] Bi[employer]ologies [id number] K-Wire 1.4mm 228mm Wire Fixation - [id number] Explanted:Qty: 2 on 02/10/2019 at [facility] Right: Ankle [employer] [id number] / / Procedures Procedure Name Priority Date/Time Associated Diagnosis Comments NM AN PROCEDURE PLACEHOLDER Routine 09/15/2024 8:09 AM GAS BRAZER RELEASE GUYONS CANAL 09/15/2024 7:35 AM GAS BRAZER Left carpal tunnel syndrome Case Notes 08/17 - Case msg requesting a fellow prior to scheduling. NB Special Needs SCHEDULE A FIRST CASE, MOVE ALREADY SCHEDULE CASES AFTER YOU SCHEDULE THIS ONE RELEASE CARPAL TUNNEL 09/15/2024 7:35 AM GAS BRAZER Left carpal tunnel syndrome Case Notes 08/17 [...] Recently Relevant to Health Maintenance Results * NM AN PROCEDURE PLACEHOLDER (09/15/2024 8:09 AM GAS BRAZER) Narrative Charles Johnson MD - 09/15/2024 8:09 AM GAS BRAZER Charles Johnson MD 09/15/2024 8:11 AM Norphlet Block Anesthesia End time: 09/15/2024 7:45 AM [...] Julio Vigil M.D. CH: SANDHYA Report ID: [id number] Reading Location: [id number] Procedure Note Julio Vigil Jr., MD - [...] by Julio Vigil M.D. CH: Report ID: [id number] Reading Location: [place] [address] Darshan Alonso MD IMG CT PROCEDURES Final Re sult * PSA screen (07/18/2022 11:24 AM CDT) PSA-Total 1.21 <=6.20 ng/mL [facility] Comment: Interpretive Data AGE SEX REFERENCE INTERVAL [...] MD LAB BLOOD ORDERABLES Final Re sult [facility] Department [place] [address] * Colonoscopy (11/03/2020) Anatomical Region Laterality Modality Other us Historical Provider ENDOSCOPY PROCEDURES Amber l Result from Last 3 Months or Most Recently Relevant to Health Maintenance Insurance [facility] Address: [place] [address] MEDICARE SOLUTIONS Member Subscriber Plan / Payer (Ef fective 2023-Present) Name:Malik Street Relation to Subscriber:Self Name:Malik Street Payer ID:[id number] (NAIC) Type:[facility] MEDIC[facility] Address: [place] [id number] [place] [id number] MEDICARE SOLUTIONS [facility] MEDICARE SOLUTIONS Advance Directives For more information, please contact: [phone] * Full Code (Latest Code Status on File) Date Activated Date Inactivated Comments 01/15/2022 7:38 AM 01/15/2022 1:48 PM * Full Code Date Activated Date Inactivated Comments 01/15/2022 7:37 AM 01/15/2022 7:38 AM * Full Code Date Activated Date Inactivated Comments 02/10/2019 1:04 PM 02/11/2019 11:25 PM * Full Code Date Activated Date Inactivated Comments 09/24/2018 8:49 PM 09/25/2018 3:31 PM Care Teams Cosmetic Chemist Relationship Specialty Start Date End Date Conor Dodson MD [facility] [address] Kulk[place]i [address] [address] PCP - General Internal Medicine 12/27/23 Rodriguez Garcia MD Consulting Physician Cardiology 07/18/23 Conor Dodson MD [facility] [address] Cayla JOHNSTON [address] [place] [address] Consulting Physician Internal Medicine 07/13/24 Vern Valladares MD PhD [address] [place] [place] [address] Consulting Physician Cardiology 08/12/24
--- OUTSIDE RECORDS SUMMARY | 2024-12-01 00:57 | XMS_ITS | Referral Summary ---
Author Organization [facility] Address [address] [place] [address] Care Team Providers Care Oil Field Laborer Name Role Phone Conor Dodson MD Primary Care Provider [phone] Rodriguez Garcia MD Unavailable [phone] Source Comments [facility],non-owned Affiliates and Associated Physician Practices is amultiple site organization consisting of ambulatory clinics and hospital sitesin [place], [place], [place]. This disclosure is being madepursuant to the Care Everywhere program and may not contain all information available regarding this patient. Last updated 18.[facility] Allergies Active Allergy Reactions Criticality Noted Date [...] and heating? Not hard at all 05/17/2023 [facility] [place] of Occupat ional Health - Occupational Stress [...] place to sleep or slept in a penitentiary (including now)? No 05/17/2023 Sex and Gender [...] on file Medical Devices Implanted Type Area Airport Utility Worker Device Identifier Shelf Expiration Date Model / Serial / Lot Cmnt Bone Refobacin Strl Lf Disp Implanted:Qty: 1 on 05/16/2023 by Derick Elaine MD at [facility] Left: Knee [employer] 06/20/2025 [id number] / / [id number] Cmnt Bone Plc R 40gm Grn Implanted:Qty: 1 on 05/16/2023 by Derick Elaine MD at [facility] Left: Knee [employer] 09/19/2025 [id number] / / [id number] Cmpnt Ptlr Std 31mm 3 Pg Kn Ser A Implanted:Qty: 1 on 05/16/2023 by Derick Elaine MD at [facility] Left: Knee [employer] 10/24/2027 [id number] / / [id number] Tray Tib 79mm Kn Cocr I Beam Implanted:Qty: 1 on 05/16/2023 by Derick Elaine MD at [facility] Left: Knee [employer] 2033 [id number] / / [id number] Cmpnt Fem Kn Lt Cr Cmnt Prm Vngrd Intlk Implanted:Qty: 1 on 05/16/2023 by Derick Elaine MD at [facility] Left: Knee [employer] 06/08/2029 [id number] / / [id number] Brng [id number] Vngrd Arcm Kn Ant Stab Implanted:Qty: 1 on 05/16/2023 by Derick Elaine MD at [facility] Left: Knee [employer] 04/04/2028 [id number] / / [id number] Niobrara Sut Cscr2 Fwr 5.5mm Ti 3 16.3mm 2 Implanted:Qty: 1 on 05/16/2023 by Derick Elaine MD at [facility] Left: Knee Ar[employer]rex Inc 09/19/2025 [id number] / / [id number] Advance Directives * Full Code (Latest Code Status on File) Date Activated Date Inactivated Comments 05/16/2023 1:05 PM 05/17/2023 3:00 PM Care Teams Oil Field Laborer Relationship Specialty Start Date End Date Conor Dodson MD [facility] [address] Cayla JOHNSTON [address] [place] [address] PCP - General Internal Medicine 04/16/23 Rodriguez Garcia MD [address] [place] [address] Cardiovascular Disease 04/16/23
--- OUTSIDE RECORDS SUMMARY | 2024-12-01 00:57 | XMS_ITS | Encounter Summary ---
Author Organization [facility] Address [address] [place] [address] Care Team Providers Care Bathhouse Keeper Name Role Phone Conor Dodson MD Primary Care Provider [phone] Rodriguez Garcia MD Unavailable [phone] Concepcion Michaud MD Primary Care Provider [phone] Conor Dodson MD Primary Care Provider [phone] Conor Dodson MD Unavailable [phone] Vern Valladares MD PhD Unavailable + Encounter Details Date Type Department Care Team (Late st Contact Info) Description 04/06/2020 Telephone [facility] Imaging [address] [place] [address] Cassidy De Souza RT Social History Tobacco [...] on file Legal Sex Male 11:31 PM CHANNEL PROCESS SUPERVISOR Gender Identity Male 08/09/2024 7:38 PM CDT [...] documented as of this encounter Care Teams Bathhouse Keeper Relationship Specialty Start Date End Date Conor Dodson MD [facility] [address] [place] [address] PCP - General 01/18/17 12/25/23 Concepcion Michaud MD [address] [place] [address] PCP - General Family Medicine 12/26/23 12/26/23 Conor Dodson MD [address] [place] [address] NI[address]I JOHNSTON [address] [place] [address] PCP - General Internal Medicine 12/27/23 Rodriguez Garcia MD [address] [place] [address] NIKKI [address]STON [address] [place] [address] Consulting Physician Cardiology 07/18/23 Conor Dodson MD [address] [place], [place] [address]SHEA JOHNSTON [address] [place] [address] Consulting Physician Internal Medicine 07/13/24 Vern Valladares MD PhD [address] [facility] [address] [place] [address] Consulting Physician Cardiology 08/12/24 documented as of this encounter
--- OUTSIDE RECORDS SUMMARY | 2024-12-01 00:57 | XMS_ITS | Encounter Summary ---
Author Organization [facility] Address [address] [place] [address] Care Team Providers Care Digital Analytics Manager Name Role Phone Conor Dodson MD Primary Care Provider [phone] Rodriguez Garcia MD Unavailable [phone] Encounter Details Date Type Department Care Team (Late st Contact Info) Description 12/03/2023 Lab Requisition [facility] - DermPath Lab [address] [facility], [place] [address] Sean Beltran MD [facility] DERMATOLOGY [address] [place] [address] Neoplasm of uncertain behavior of skin [...] and heating? Not hard at all 05/17/2023 [employer] [employer] [place] of Occupat ional Health - Occupational Stress [...] place to sleep or slept in a correction (including now)? No 05/17/2023 Sex and Gender [...] Comments DERMATOPATHOLOGY Routine 12/03/2023 12:0 0 AM INJECTION MOLDER Neoplasm of uncertain behavior of skin documented in this encounter Results * DERMATOPATHOLOGY (12/03/2023 12:00 AM INJECTION MOLDER) Case Report Dermatopathology Report Case: [id number] Authorizing Provider: Sean Beltran MD Collected: 12/03/2023 12:00 AM Ordering Location: [facility] DermPath Lab Received: 12/05/2023 06:51 AM Pathologist: Alexandra Mathews MD Specimen: Skin, left dorsal forearm 3:13 PM [facility] DERMATOPATHOLOGY LABORATORY Final Diagnosis Specimen A. 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 Squamous Cell Carcinoma 4 3:13 PM [facility] DERMATOPATHOLOGY [facility]ORATORY Gross Description Specimen A: Received is one formalin filled container labeled with the patient's name and designated left dorsal forearm. The specimen consists of a shave biopsy measuring 9x8x3 mm. Jar 0. 3:13 PM [facility] DERMATOPATHOLOGY LABORATORY Microscopic Description Specimen A. SKIN, left dorsal forearm: Arising in the epidermis and extending into the dermis there are irregularly shaped aggregates of keratinocytes showing evidence of premature cornification. 3:13 PM [facility] DERMATOPATHOLOGY LABORATORY Disclaimer An external and internal positive and negative controls are appropriate for the histochemical, immunohistochemical and immunofluorescence stain(s) in this case (if any), except where stated explicitly. The performance characteristics of the stain(s) cited in this report were developed and its performance characteristic determined by the Dermatopathology Laboratory at [facility], directed by Dr. Jennifer Colunga. These tests need not be, and therefore are not, approved by the [place] Food and Drug Administration. The tests are used for clinical purposes. Billing Codes Specimen Charges Stain Charges 37574 1 4 3:13 PM [facility] DERMATOPATHOLOGY LABORATORY Embedded Images 4 3:13 PM [facility] DERMATOPATHOLOGY LABORATORY Pathology/Cytolog y TISSUE SPECIMEN FROM SKIN / Unknown 12/03/2023 12/05/2023 6:51 AM INJECTION MOLDER Sean Beltran MD LAB - PATHOLOGY/CYTO LOGY ORDERABLES DERMATOPATHOLOGY LABORATORY [facility] - Department of Dermatology [facility] Special[facility] [address] [place] [address], [address] [phone] documented in this encounter Visit Diagnoses Diagnosis Neoplasm of uncertain behavior of skin documented in this encounter Care Teams Digital Analytics Manager Relationship Specialty Start Date End Date Conor Dodson MD [address] [place] [address] DR Cayla JOHNSTON [address] [place] [address] PCP - General Internal Medicine 04/16/23 Rodriguez Garcia MD [address] [place] [address] [place] [address] Cardiovascular Disease 04/16/23 documented as of this encounter
--- OUTSIDE RECORDS SUMMARY | 2024-12-01 00:57 | XMS_ITS | Clinical Summary ---
Author Organization [facility] Address [address] [place] [address] Care Team Providers Care Maternal Fetal Physician Name Role Phone Conor Dodson MD Primary Care Provider [phone] Rodriguez Garcia MD Unavailable [phone] Source Comments [facility],non-owned Affiliates and Associated Physician Practices is amultiple site organization consisting of ambulatory clinics and hospital sitesin [place], [place], [place] and [place]. This disclosure is being madepursuant to the Care Everywhere program and may not contain all information available regarding this patient. Last updated 18.[facility] [employer] Allergies Active Allergy Reactions Criticality Noted Date [...] and heating? Not hard at all 05/17/2023 [facility] [place] of Occupat ional Health - Occupational Stress [...] place to sleep or slept in a fci (including now)? No 05/17/2023 Sex and Gender [...] this topic Medical Devices Implanted Type Area Dyeing Machine Feeder Device Identifier Shelf Expiration Date Model / Serial / Lot Cmnt Bone Refobacin Strl Lf Disp Implanted:Qty: 1 on 05/16/2023 by Derick Elaine MD at [facility] Left: Knee Matt [employer] 06/20/2025 [id number] / / [id number] Cmnt Bone Plc R 40gm Grn Implanted:Qty: 1 on 05/16/2023 by Derick Elaine MD at [facility] Left: Knee [employer] 09/19/2025 [id number] / / [id number] Cmpnt Ptlr Std 31mm 3 Pg Kn Ser A Implanted:Qty: 1 on 05/16/2023 by Derick Elaine MD at [facility] Left: Knee [employer] 10/24/2027 [id number] / / [id number] Tray Tib 79mm Kn Cocr I Beam Implanted:Qty: 1 on 05/16/2023 by Derick Elaine MD at [facility] Left: Knee [employer] [id number] / / [id number] Cmpnt Fem Kn Lt Cr Cmnt Prm Vngrd Intlk Implanted:Qty: 1 on 05/16/2023 by Derick Elaine MD at [facility] Left: Knee [employer] 06/08/2029 [id number] / / [id number] Brng [id number] Vngrd Arcm Kn Ant Stab Implanted:Qty: 1 on 05/16/2023 by Derick Elaine MD at [facility] Left: Knee [employer] 04/04/2028 [id number] / / [id number] Kossuth Sut Cscr2 Fwr 5.5mm Ti 3 16.3mm 2 Implanted:Qty: 1 on 05/16/2023 by Derick Elaine MD at [facility] Left: Knee [employer] Inc 09/19/2025 [id number] / / [id number] Advance Directives * Full Code (Latest Code Status on File) Date Activated Date Inactivated Comments 05/16/2023 1:05 PM 05/17/2023 3:00 PM Care Teams Maternal Fetal Physician Relationship Specialty Start Date End Date Conor Dodson MD [address] [place] [address] DR Cayla JOHNSTON [address] [place] [address] PCP - General Internal Medicine 04/16/23 Rodriguez Garcia MD [address] [place] [address] [place] [address] Cardiovascular Disease 04/16/23
--- OUTSIDE RECORDS SUMMARY | 2024-12-01 00:57 | XMS_ITS | Encounter Summary ---
Author Organization [facility] Address [address] [place] [address] Care Team Providers Care Laundry Route Driver Name Role Phone Conor Dodson MD Primary Care Provider [phone] Rodriguez Garcia MD Unavailable [phone] Encounter Details Date Type Department Care Team (Late st Contact Info) Description 07/02/2024 Lab Requisition [facility] - DermPath Lab [address] [place] [id number] Kelly Franco MD [address] [place] [address] [place] [address] Neoplasm of uncertain behavior of [...] and heating? Not hard at all 05/17/2023 [facility] [place] of Occupat ional Health - Occupational Stress [...] AM CDT) Case Report Dermatopathology Report Case: [id number] Authorizing Provider: Kelly Franco MD Collected: 07/02/2024 12:00 AM Ordering Location: [facility] - Received: 07/03/2024 04:51 [...] purposes. Billing Codes Specimen Charges Stain Charges [id number] 1 4 11:56 AM CDT DERMATOPATHOLOGY LABORATORY Embedded Images 4 11:56 AM CDT DERMATOPATHOLOGY LABORATORY Pathology/Cytolog y TISSUE SPECIMEN FROM SKIN / Unknown 07/02/2024 07/03/2024 4:51 PM CDT Kelly Franco MD LAB - PATHOLOGY/CYTO LOGY ORDERABLES DERMATOPATHOLOGY LABORATORY [facility] - Department of Dermatology [facility] [address] [place] [address], [address] [phone] documented in this encounter Visit Diagnoses Diagnosis Neoplasm of uncertain behavior of skin documented in this encounter Care Teams Laundry Route Driver Relationship Specialty Start Date End Date Conor Dodson MD [address] [place] [address] DR Cayla JOHNSTON [address] [place] [address] PCP - General Internal Medicine 04/16/23 Rodriguez Garcia MD [facility] [facility] [address] [place] [address] Cardiovascular Disease 04/16/23 documented as of this encounter
--- OUTSIDE RECORDS SUMMARY | 2024-12-01 00:57 | XMS_ITS | Encounter Summary ---
Author Organization [facility] Medical Group Address [address] [place] [address] Care Team Providers Care Mobile Home Set Up Person Name Role Phone Conor Dodson MD Primary Care Provider [phone] Conor Dodson MD Primary Care Provider [phone] Conor Dodson MD Primary Care Provider [phone] Rodriguez Garcia MD Unavailable [phone] Concepcion Michaud MD Primary Care Provider [phone] Conor Dodson MD Primary Care Provider [phone] Conor Dodson MD Unavailable [phone] Vern Valladares MD PhD Unavailable + Encounter Details Date Type Department Care Team (Late st Contact Info) Description 11/09/2015 Orders Only [facility] Health Information Management [address] [place] [address] Scanning, Provider Social History Tobacco Use Types Packs/Day Years Used Date Smoking Tobacco: Never Assessed Sex and Gender Information Value Date Recorded Sex Assigned at Not on file 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[employer] Gender Identity Male 08/09/2024 7:38 PM CDT [...] documented as of this encounter Care Teams Mobile Home Set Up Person Relationship Specialty Start Date End Date Conor Dodson MD [facility] [address]SY [address] [place] [address] PCP - General 01/18/17 12/25/23 Conor Dodson MD [address] [place], [place] [address]JOE JOHNSTON [address] [place] [address] PCP - General 05/28/16 01/17/17 Conor Dodson MD [address] [place], [place] [address]JOE JOHNSTON [address] [place] [address] PCP - General 06/12/10 05/27/16 Concepcion Michaud MD [address] [place] [address] PCP - General Family Medicine 12/26/23 12/26/23 Conor Dodson MD [facility] KRISSY [address]ST[address] [place] [address] PCP - General Internal Medicine 12/27/23 [facility] [address] [place] [address] Consulting Physician Cardiology 07/18/23 Conor Dodson MD [facility] KRISSY [address] [place] [address] Consulting Physician Internal Medicine 07/13/24 Vern Valladares MD PhD [address] [facility] [address] [place] [address] Consulting Physician Cardiology 08/12/24 documented as of this encounter
--- OUTSIDE RECORDS SUMMARY | 2024-12-01 00:57 | XMS_ITS | Referral Summary ---
Author Organization [facility] Address [address] [place] [address] Care Team Providers Care Fashion Intern Name Role Phone Rodriguez Garcia MD Unavailable Conor Dodson MD Primary Care Provider Conor Dodson MD Unavailable [phone] Vern Valladares MD PhD Unavailable + Encounters Date Type Department Care Team Description 11/10/2024 Telephone [facility] Surgery [address] [facility] 6th [place] [address] Maya Bolden 10/22/2024 10:30 AM [facility] TANNER Office Visit [facility] Surgery [address] [facility] [facility] 6th [place] [address] Laura Austin MD Bilateral carpal tunnel syndrome (Primary Dx); Guyon syndrome, left 09/21/2024 8:45 AM SUMAC TANNER Office Visit [facility] Surgery [address] [facility] Advanced [facility] 6th [place] [phone] Karly Ervin NP Bilateral carpal tunnel syndrome (Primary Dx) 09/15/2024 Telephone [facility] Surgery [address] [facility] 6th [place] [address] Maya Bolden 09/15/2024 7:30 AM SUMAC TANNER - 09/15/2024 10:10 AM [facility] TANNER Surgery [facility] [address] [place] [address] Laura Austin MD RELEASE CARPAL TUNNEL 09/15/2024 7:34 AM SUMAC TANNER Anesthesia Event [facility] ([facility]) [address] [place] [address] Charles Johnson MD Heuvelman, Katherine Marie, NP 09/15/2024 5:14 AM SUMAC TANNER - 09/15/2024 10:51 AM [facility]AC TANNER Hospital Encounter [facility] ([facility]) [address] [place] [address] Laura Austin MD Left carpal tunnel syndrome (Primary Dx) Discharge Disposition: Discharge to home or self care 09/14/2024 Telephone [facility] Surgery [address] [place] [address] Advanced Medicine 6th [place] [address] [place] [address] Teresita Santo CMA Surgery Reminder from Last [...] 1 tablet (100 mg total) by mouth pharmacognosist before breakfast Active gabapentin (NEURONTIN) 300 mg capsule Take 2 capsules (600 mg total) by mouth daily 180 capsule 04/17/20 24 Active Additional Information Patient taking differently:600 mg oralNightly, Indications: Neuropathic Pain, Informant: Self, Reported on 09/15/2024 multivitamin tabletIndications: Vitamin Deficiency Prevention Take 1 tablet by mouth pharmacognosist before breakfast Active vutrisiran (AMVUTTRA) 25 mg/0.5 [...] 1 tablet (2.5 mg total) by mouth pharmacognosist before breakfast Active finasteride (PROSCAR) 5 mg [...] (pediatric) 07/0 05/2022 Overview (12/11/2022): - DME: [facility] Assessment & Plan (08/05/2024 12:47 PM CDT): 1. Chronic, poorly controlled 2. Re compliance and therapy data and residual AHI is 4.3 with mostly central apneas 3. He is having leak most nights although not always significant 4. We will have him follow up with [facility] for mask fitting and or switching to a new mask to assist with comfort 5. Pap supply order placed Assessment & Plan (04/18/2023 8:54 PM CDT): Using CPAP nightly with benefit. Assessment & Plan (12/11/2022 4:31 PM SUMAC TANNER): 1. Chronic, poorly controlled 2. Discussed different masks 3. Placed order for the AirFit F30 because the other masks did not fit his face Assessment & Plan (11/15/2022 5:40 PM SUMAC TANNER): Using CPAP nightly with benefit. Assessment & [...] 03/22/2021 Assessment & Plan (12/27/2023 1:29 PM SUMAC TANNER): 1. Chronic, well controlled 2. Discussed how continued use of his CPAP can help control his blood pressure 3. He will continue losartan, amlodipine, and metoprolol Assessment & Plan (12/11/2022 4:31 PM SUMAC TANNER): 1. Chronic, well controlled 2. Discussed how use of his CPAP machine will help his blood pressure 3. He will continue losartan, amlodipine, and metoprolol Assessment & Plan (11/15/2022 5:40 PM SUMAC TANNER): Target BP less than 140/90. Continue current [...] Cardiology. Assessment & Plan (11/15/2022 5:40 PM SUMAC TANNER): Continue current diet and metoprolol. On chronic anticoagulation with Xarelto. Assessment & Plan (07/18/2022 12:19 PM CDT): Continue current diet & medications. On anticoagulation with Xarelto. Managed by Cardiology. Assessment & Plan (01/02/2022 2:31 PM CDT): Continue current diet & medications. Managed by Cardiology. Primary osteoarthritis of right ankle 01/15/2019 Overview (01/15/2019): Added automatically from request for surgery [id number] Retained orthopedic hardware 01/15/2019 Overview (01/15/2019): Added automatically from request for surgery [id number] Arthritis of subtalar joint 09/10/2018 Overview (09/10/2018): Added automatically from request for surgery [id number] Cobalamin deficiency 12/20/2016 Overview (03/15/2017): Vitamin B12 deficiency Gout 12/20/2016 Overview (03/15/2017): Gout, unspecified Moderate episode of recurrent major depressive d isorder 05/28/2016 Overview (01/24/2017): Major depression, recurrent, chronic Assessment & Plan (02/04/2024 4:48 PM CDT): Continue citalopram. Assessment & Plan (04/18/2023 8:53 PM CDT): Mood stable on citalopram. Assessment & Plan (11/15/2022 5:40 PM SUMAC TANNER): Continue with citalopram. Assessment & Plan (07/18/2022 [...] POLYPS Assessment & Plan (11/15/2022 5:40 PM SUMAC TANNER): Up-to-date on colonoscopy. 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 07/22/20232023 Acute [...] on file Legal Sex Male 11:31 PM SUMAC TANNER Gender Identity Male 08/09/2024 7:38 PM CDT Sexual Orientation Bisexual 08/09/2024 7: 38 PM CDT Occupation Industry Job Start Date Job End Date Retired Not on file Not on file Not on file Last Filed Vital Signs Vital Sign Reading Time Taken Comments Blood Pressure 135/82 09/15/2024 10:19 AM SUMAC TANNER Pulse 54 09/15/2024 10:20 AM SUMAC TANNER Temperature 36 C (96.8 F) 09/15/2024 9:50 AM SUMAC TANNER Respiratory Rate 17 09/15/2024 10:20 AM SUMAC TANNER Oxygen Saturation 98% 09/15/2024 10:20 AM SUMAC TANNER Inhaled Oxygen Concentration - - Weight 108.4 kg (239 lb) 09/15/2024 6:00 AM SUMAC TANNER Height 180.3 cm (5' 11 ) 09/15/2024 6:00 AM SUMAC TANNER Body Mass Index 33.33 09/15/2024 6:00 AM SUMAC TANNER Plan of Treatment Not on file Medical Devices Implanted Type Area Cooling Room Attendant Device Identifier Shelf Expiration Date Model / Serial / Lot Augment Implanted:Qty: 1 on 09/24/2018 by Jorge Luis Santoyo MD at [facility] Right: Ankle [employer] [id number] 06/20/2019 / [id number] / [id number] [employer] 876p-0400 Mini Ignite Power Mix Injectable Graft 4ml Synthetic Tissue - [id number] - [id number] Implanted:Qty: 1 on 09/24/2018 by Jorge Luis Santoyo MD at [facility] Right: Ankle enercast Inc 04/30/2023 [id number] / [id number] / [id number] Orthohelix [id number] Maxtorque 7mm 80mm Cannulated Blunt Foot Long Thread Screw Bone Latex Free - [id number] Implanted:Qty: 2 on 09/24/2018 at [facility] Orthohelix CSS-011-70- [id number] / / Superb [employer] Inc [id number] Infinity 9mm Knee 3+ Insert Tibial Poly - [id number] Implanted:Qty: 1 on 02/10/2019 by Jorge Luis Santoyo MD at [facility] Right: Ankle [employer]erc[employer] Inc [id number] 07/27/2026 [id number] / / [id number] Musculoskeletal Transplant [id number] 4-30mm Allograft Frozen [id number] Wedge Graft Bone - [id number] - [id number] Implanted:Qty: 1 on 02/10/2019 by Jorge Luis Santoyo MD at [facility] Right: Ankle Musculoskeletal Transplant 04/16/2023 [id number] / [id number] / [employer] [id number] [facility] 5/64in 9in Trocar Point One End Pin Fixation Stainless - [id number] Implanted:Qty: 1 on 02/10/2019 by Jorge Luis Santoyo MD at [facility] Right: Ankle [employer] [id number] / / Superb [employer] Inc [id number] Ankle 1 Large 10mm Stem Talar - [id number] Implanted:Qty: 1 on 02/10/2019 by Jorge Luis Santoyo MD at [facility] Right: Ankle Enpocket [employer] Inc [id number] 07/28/[id number] / / [id number] Siddiqi Medical [employer] Inc [id number] Inbone Sulcus Ankle 3 Dome Component Talar - [id number] Implanted:Qty: 1 on 02/10/2019 by Jorge Luis Santoyo MD at [facility] Right: Ankle S[employer] [id number] 09/21/2026 [id number] / / [id number] Siddiqi [employer] Inc [id number] Infinity 4 Long Tray Tibial - [id number] Implanted:Qty: 1 on 02/10/2019 by Jorge Luis Santoyo MD at [facility] Right: Ankle S[employer] [id number] 08/05/2026 [id number] / / [id number] Explanted Type Area Cooling Room Attendant Device Identifier Shelf Expiration Date Model / Serial / Lot Orthohelix [id number] Maxtorque 7mm 75mm Cannulated Blunt Foot Long Thread Screw Bone Latex Free - [id number] Explanted:Qty: 1 on 09/24/2018 at [facility] Orthohelix CSS-011-70 -075L / / [id number] Wires Explanted:Qty: 3 on 09/24/2018 by Jorge Luis Santoyo MD at [facility] Other Enpocket Technology Inc [id number] K-Wire 1.4mm 228mm Wire Fixation - [id number] Explanted:Qty: 2 on 02/10/2019 at [facility] Right: Ankle Super[employer] Inc [id number] / / Procedures Procedure Name Priority Date/Time Associated Diagnosis Comments ND AN PROCEDURE PLACEHOLDER Routine 09/15/2024 8:09 AM SUMAC TANNER RELEASE GUYONS CANAL 09/15/2024 7:35 AM SUMAC TANNER Left carpal tunnel syndrome Case Notes 08/17 - Case msg requesting a fellow prior to scheduling. NB Special Needs SCHEDULE A FIRST CASE, MOVE ALREADY SCHEDULE CASES AFTER YOU SCHEDULE THIS ONE RELEASE CARPAL TUNNEL 09/15/2024 7:35 AM [facility]AC TANNER Left carpal tunnel syndrome Case Notes 08/17 [...] Recently Relevant to Health Maintenance Results * ND AN PROCEDURE PLACEHOLDER (09/15/2024 8:09 AM [facility]AC TANNER) Narrative Charles Johnson MD - 09/15/2024 8:09 AM SUMAC TANNER Charles Johnson MD 09/15/2024 8:11 AM [place] Block Anesthesia End time: 09/15/2024 7:45 AM Reason for block: primary anesthetic Staff: Supervising provider: Charles Johnson MD Placed by: Resident: Horace Alcala MD Procedure prep: Preprocedure checklist: patient identified, patient appropriate for plan, surgical consent, risks and benefits discussed, monitors and equipment checked and timeout performed Prep solution: alcohol [place] block: Site: left upper extremity IV gauge: [...] Julio Vigil M.D. CH: SANDHYA Report ID: [id number] Reading Location: [id number] Procedure Note Julio Vigil Jr., MD - [...] Julio Vigil M.D. CH: SANDHYA Report ID: [id number] Reading Location: [place] [address] [place] Darshan Alonso MD IM CT PROCEDURES Final Re sult * PSA screen (07/18/2022 11:24 AM CDT) PSA-Total 1.21 <=6.20 ng/mL [facility] Comment: Interpretive Data AGE SEX [...] LAB BLOOD ORDERABLES Final Re sult [facility] Department [place] [address] * Colonoscopy (11/03/2020) Anatomical Region Laterality Modality Other Historical Provider ENDOSCOPY PROCEDURES Amber l Result from Last 3 Months or Most Recently Relevant to Health Maintenance Insurance [facility] MEDICARE SOLUTIONS MEDICARE SOLUTIONS [facility] MEDICARE SOLUTIONS Advance Directives For more information, please contact: [phone] * Full Code (Latest Code Status on File) Date Activated Date Inactivated Comments 01/15/2022 7:38 AM 01/15/2022 1:48 PM * Full Code Date Activated Date Inactivated Comments 01/15/2022 7:37 AM 01/15/2022 7:38 AM * Full Code Date Activated Date Inactivated Comments 02/10/2019 1:04 PM 02/11/2019 11:25 PM * Full Code Date Activated Date Inactivated Comments 09/24/2018 8:49 PM 09/25/2018 3:31 PM Care Teams Fashion Intern Relationship Specialty Start Date End Date Conor Dodson MD [facility] [address] [place] [address] PCP - General Internal Medicine 12/27/23 Rodriguez Garcia MD Consulting Physician Cardiology 07/18/23 Conor Dodson MD [address] [place], [place] [address]SHEA [address]STON [address] [place] [address] Consulting Physician Internal Medicine 07/13/24 Vern Valladares MD PhD [address] [facility] [address] [facility] [place] [address] Consulting Physician Cardiology 08/12/24
--- OUTSIDE RECORDS SUMMARY | 2024-12-01 00:57 | XMS_ITS | Patient Health Summary ---
Author Organization [facility] Address [address] [place] [address] Care Team Providers Care Primary School Teacher Name Role Phone Conor Wilson MD Primary Care Provider Rodriguez Garcia MD Unavailable [phone] [facility],non-owned Affiliates and Associated Physician Practices is amultiple site organization consisting of ambulatory clinics and hospital sitesin [place], [place], [place] and [place]. This disclosure is being madepursuant to the Care Everywhere program and may not contain all information available regarding this patient. Last updated 18.[facility] Allergies * Sulfa Drugs(Rash,Itching) -Medium Criticality Medications [...] and heating? Not hard at all 05/17/2023 [facility] [place] of Occupat ional Health - Occupational Stress [...] place to sleep or slept in a fdc (including now)? No 05/17/2023 Sex and Gender [...] AM CDT Medical Devices Implanted Type Area Assembly Worker Device Identifier Shelf Expiration Date Model / Serial / Lot Cmnt Bone Refobacin Strl Lf Disp Implanted:Qty: 1 on 05/16/2023 by Derick Elaine MD at [facility] Left: Knee [employer] 06/20/2025 [id number] / / [id number] Cmnt Bone Plc R 40gm Grn Implanted:Qty: 1 on 05/16/2023 by Derick Elaine MD at [facility] Left: Knee [employer] 09/19/2025 [id number] / / [id number] Cmpnt Ptlr Std 31mm 3 Pg Kn Ser A Implanted:Qty: 1 on 05/16/2023 by Derick Elaine MD at [facility] Left: Knee [employer] 10/24/2027 [id number] / / [id number] Tray Tib 79mm Kn Cocr I Beam Implanted:Qty: 1 on 05/16/2023 by Derick Elaine MD at [facility] Left: Knee [employer] 2033 [id number] / / [id number] Cmpnt Fem Kn Lt Cr Cmnt Prm Vngrd Intlk Implanted:Qty: 1 on 05/16/2023 by Derick Elaine MD at [facility] Left: Knee [employer] 06/08/2029 [id number] / / [id number] Brng [id number] Vngrd Arcm Kn Ant Stab Implanted:Qty: 1 on 05/16/2023 by Derick Elaine MD at [facility] Left: Knee [employer] 04/04/2028 [id number] / / [id number] [place] Sut Cscr2 Fwr 5.5mm Ti 3 16.3mm 2 Implanted:Qty: 1 on 05/16/2023 by Derick Elaine MD at [facility] Left: Knee [employer] 09/19/2025 [id number] / / [id number] Procedures * DERMATOPATHOLOGY(Performed 07/02/2024) Performed for Neoplasm [...] replacement surgery * NEURAXIAL BLOCK(Performed 05/16/2023) * DC TOTAL KNEE REPLACEMENT(Performed 05/16/2023) * EKG 12-LEAD(Performed [...] Diagnosis unknown * COLONOSCOPY SCREEN(Performed 11/03/2020) * DC ED EGD FLEX TRANSORAL DX(Performed 11/03/2020) * EGD(Performed 11/03/2020) * DERMATOPATHOLOGY(Performed 06/30/2019) * PET BRAIN METABOLIC EVAL(Performed 10/10/2017) Performed for Research study patient * DERMATOPATHOLOGY(Performed 05/30/2017) * DERMATOPATHOLOGY(Performed 03/05/2017) * DERMATOPATHOLOGY(Performed 05/17/2016) * DERMATOPATHOLOGY(Performed 03/04/2015) * PATHOLOGY/CYTOLOGY REPORT ORDER(Performed 07/31/2010) Results * DERMATOPATHOLOGY (07/02/2024 12:00 AM CDT) Only the most recent of10 resultswithin the time period is included. Case Report Dermatopathology Report Case: [id number] Authorizing Provider: Kelly Franco MD Collected: 07/02/2024 12:00 AM Ordering Location: [facility] - Received: 07/03/2024 04:51 PM [...] characteristic determined by the Dermatopathology Laboratory at [facility], directed by Dr. Jennifer Colunga. These tests need not be, and therefore are not, approved by the [place] Food and Drug Administration. The tests are used for clinical purposes. Billing Codes Specimen Charges Stain Charges 68748 1 11:56 AM T DERMATOPATHOLOGY LABORATORY Embedded Images 11:56 AM T DERMATOPATHOLOGY LABORATORY Pathology/Cytolog y TISSUE SPECIMEN FROM SKIN / Unknown 07/02/2024 07/03/2024 4:51 PM CDT Kelly Franco MD LAB - PATHOLOGY/CYTO LOGY ORDERABLES DERMATOPATHOLOGY LABORATORY [facility] Department of Dermatology [address], [address] [phone] * XR KNEE LEFT 3VW (06/27/2023 4:08 [...] (Bezet) 455 ms [facility] MUSE Calculated P Keiser -3 degrees [facility] MUSE Calculated R Keiser 7 degrees [facility] MUSE Calculated T Keiser -155 degrees [facility] MUSE Interpretation EKG Sinus bradycardia ST & T wave abnormality, consider inferior ischemia ST & T wave abnormality, consider anterolateral ischemia Abnormal ECG No previous ECGs available Confirmed by GENA COLEMAN MD ([id number]) on 04/16/2023 11:00:45 AM [facility] MUSE 04/16/2023 [...] - 73.0 % 04/16/2023 8:54 AM CDT [facility] Lymphocytes % 32.0 20.0 - 43.0 % 04/16/2023 8:54 AM CDT [facility] Monocytes % 10.6 5.0 - 13.0 % 04/16/2023 8:54 AM CDT [facility] Eosinophils % 3.1 0.0 - 6.0 % 04/16/2023 8:54 AM CDT [facility] Basophils % 0.6 0.0 - 2.0 % 04/16/2023 8:54 AM CDT [facility] Immature Granulocytes 0.2 0 - 1 % 04/16/2023 8:54 AM CDT [facility] Neutrophil Absolute 3.30 2.01 - 7.14 x10E9/L 04/16/2023 8:54 AM CDT [facility] Lymphocytes Absolute 1.97 1.07 - 3.94 x10E9/L 04/16/2023 8:54 AM CDT [facility] Monocytes Absolute 0.65 0.26 - 1.07 x10E9/L 04/16/2023 8:54 AM CDT [facility] Eosinophils Absolute 0.19 0 - 0.47 x10E9/L 04/16/2023 8:54 AM CDT [facility] Basophils Absolute 0.04 0 - 0.08 x10E9/L 04/16/2023 8:54 AM CDT [facility] Immature Granulocytes Absolute 0.01 0.00 - 0.06 x10E9/L 04/16/2023 8:54 AM CDT [facility] nRBC Auto 0 /100 WBC 04/16/2023 8:54 AM CDT [facility] Blood BLOOD SPECIMEN / Unknown Venipuncture / Unknown 04/16/2023 8:33 AM CDT 04/16/2023 8:43 AM CDT Jess Haynes PROGRAM EVALUATOR-LABORER PRESTRESSED CONCRETE LAB - HEMATO LOGY ORDERABLES [facility] [address] [place] [address] * (ABNORMAL) COMPREHENSIVE METABOLIC PANEL (04/16/2023 8:33 AM CDT) [facility] Glucose 125(H) 70 - 105 mg/dL 04/16/2023 9:04 AM T [facility] Sodium 140 136 - 145 mmol/L 04/16/2023 9:04 AM [facility] Potassium 3.9 3.5 - 5.1 mmol/L 04/16/2023 9:04 AM [facility] Chloride 108(H) 98 - 107 mmol/L 04/16/2023 9:04 AM [facility] CO2 24 23 - 31 mmol/L 04/16/2023 9:04 AM [facility] Calcium 8.9 8.4 - 10.4 mg/dL 04/16/2023 9:04 AM [facility] Anion Gap 8 8 - 18 mmol/L 04/16/2023 9:04 AM T [facility] BUN 12 8.4 - 25.7 mg/dL 04/16/2023 9:04 AM [facility] Creatinine 0.94 0.72 - 1.25 mg/dL 04/16/2023 9:04 AM [facility] Alkaline Phosphatase 67 40 - 150 U/L 04/16/2023 9:04 AM T [facility] ALT 21 0 - 61 U/L 04/16/2023 9:04 AM [facility] AST 22 5 - 34 U/L 04/16/2023 9:04 AM [facility] Protein Total 6.7 6.4 - 8.3 gm/dL 04/16/2023 9:04 AM [facility] Albumin 4.1 3.2 - 4.6 gm/dL 04/16/2023 9:04 AM [facility] Bilirubin Total 1.4(H) 0.2 - 1.2 mg/dL 04/16/2023 9:04 AM [facility] eGFR by CKD-EPI 84(L) >=90 mL/min/1.7 3 m2 04/16/2023 9:04 AM [facility] Blood BLOOD SPECIMEN / Unknown Venipuncture / Unknown 04/16/2023 8:33 AM CDT 04/16/2023 8:43 AM T Jess Haynes PROGRAM EVALUATOR-LABORER PRESTRESSED CONCRETE LAB - CHEMIS TRY ORDERABLES [facility] [address] [facility] [place] [address] * ENDOSCOPY, COLON, SCREENING (11/03/2020 9:37 AM CARNIVAL WORKER) Report Endoscopy POC _ Patient Name: Malik [...] for surveillance. Procedure Code(s): --- Professional --- 61242, Colonoscopy, flexible; with biopsy, single or multiple --- Technical --- 86878, Colonoscopy, flexible; with biopsy, single or multiple [...] or abscess without bleeding CPT copyright 2017 [employer]. All rights reserved. The codes documented in this report are preliminary and upon steamer blocker review may be revised to meet current compliance requirements. ___ Ray Brooks DO 11/03/2020 10:19:23 AM This report has been signed electronically. Number of Addenda: 0 Note Initiated On: 11/03/2020 9:37 AM [facility] 11/03/2020 9:37 AM CARNIVAL WORKER Ray Brooks DO GI PROCEDURE ORDER [facility] [place] [address] * HELICOBACTER PYLORI UREASE (STL) (11/03/2020 9:23 AM CARNIVAL WORKER) Helicobacter pylori Urease Initial Negative Negative 11/04/2020 5:30 PM CARNIVAL WORKER [facility] Helicobacter pylori Urease Final Negative Negative 11/04/2020 5:30 PM CARNIVAL WORKER [facility] Comment:This is an appended report. These results have been appended to a previously preliminary verified report. Microbiology GASTRIC ANTRAL BIOPSY SPECIMEN / Unknown 11/03/2020 9:23 AM CARNIVAL WORKER 11/03/2020 11:46 AM CARNIVAL WORKER Ray Brooks DO LAB - MICROBIOLOGY ORDERABLES [facility] [address] [place] [address] * PATHOLOGY TISSUE EXAM (STL) (11/03/2020 9:23 AM CARNIVAL WORKER) Case Report Surgical Pathology Report Case: [id number] Authorizing Provider: Ray Brooks DO Collected: 11/03/2020 09:23 AM Ordering Location: [facility] Received: 11/03/2020 10:44 AM Pathologist: Medardo Lu MD Specimens: A) - Gastric Biopsy B) - Duodenal Biopsy C) - Esophageal Biopsy, lower esophageal biopsies D) - Colon Ascending Biopsy E) - Colon Descending Biopsy 11/07/2020 8:38 AM CARNIVAL WORKER [facility] Final Diagnosis A. Stomach, endoscopic [...] No pathologic diagnosis AB/ns 11/07/2020 8:38 AM CARNIVAL WORKER [facility] Gross Description The specimens are [...] lower esophageal biopsy, and consists of three rgeen tissue fragments (0.3 cm to 0.6 cm [...] in cassette E1. AMA/na 11/07/2020 8:38 AM [facility] Microscopic Description The gastric biopsy shows [...] likewise appear normal. AB/ns 11/07/2020 8:38 AM [facility] Disclaimer All histochemical and/or immunohistochemical results are interpreted with controls that demonstrate appropriate staining reactions before reporting results. Note on use of immunocytochemistry reagents: This test was developed and its performance characteristic determined by [facility], Department of Laboratory Medicine. It has not [...] be interpreted with caution. 11/07/2020 8:38 AM CARNIVAL WORKER [facility] Embedded Images 11/07/2020 8:38 AM CARNIVAL WORKER [facility] Pathology/Cytology GASTRIC BIOPSY SPECIMEN / Unknown 11/03/2020 9:23 AM CARNIVAL WORKER 11/03/2020 10:44 AM CARNIVAL WORKER Miscellaneous samples (specimen) DUODENAL BIOPSY SPECIMEN / Unknown 11/03/2020 9:25 AM CARNIVAL WORKER 11/03/2020 10:44 AM CARNIVAL WORKER Miscellaneous samples (specimen) ESOPHAGEAL BIOPSY SPECIMEN / Unknown 11/03/2020 9:31 AM CARNIVAL WORKER 11/03/2020 10:44 AM CARNIVAL WORKER Miscellaneous samples (specimen) COLONIC BIOPSY SPECIMEN / Unknown 11/03/2020 9:53 AM CARNIVAL WORKER 11/03/2020 10:44 AM CARNIVAL WORKER Miscellaneous samples (specimen) COLONIC BIOPSY SPECIMEN / Unknown 11/03/2020 9:53 AM CARNIVAL WORKER 11/03/2020 10:44 AM CARNIVAL WORKER Ray Brooks DO LAB - PATHOLOGY/CY TOLOGY ORDERABLES [facility] [address] [place] [address] * EGD (11/03/2020 8:11 AM CARNIVAL WORKER) Report Endoscopy POC __ _ Patient Name: [...] the patient. Procedure Code(s): --- Professional --- 54854, Esophagogastroduode noscopy, flexible, transoral; with biopsy, single or multiple --- Technical --- 88300, Esophagogastroduode noscopy, flexible, transoral; with biopsy, single or multiple Diagnosis Code(s): --- Professional --- K21.0, Gastro-esophageal reflux disease with esophagitis K20.8, Other esophagitis K31.89, Other diseases of stomach and duodenum R10.13, Epigastric pain --- Technical --- K21.0, Gastro-esophageal reflux disease with esophagitis K20.8, Other esophagitis K31.89, Other diseases of stomach and duodenum R10.13, Epigastric pain CPT copyright 2017 [employer]. All rights reserved. The codes documented in this report are preliminary and upon steamer blocker review may be revised to meet current compliance requirements. __ Ray Brooks DO 11/03/2020 10:06:52 AM This report has been signed electronically. Number of Addenda: 0 Note Initiated On: 11/03/2020 8:11 AM [facility] 11/03/2020 8:11 AM CARNIVAL WORKER Ray Brooks DO GI PROCEDURE ORDER [facility] [place] [address] * NM PET BRAIN METABOLIC EVAL IMAGING (10/10/2017 3:25 PM CARNIVAL WORKER) Narrative [facility] - 10/23/2017 8:57 AM CARNIVAL WORKER No Dictation. Malik Jones DO CALL ORDERABLES [facility] * PATHOLOGY/CYTOLOGY REPORT ORDER (07/31/2010 1:58 PM CDT) Narrative Procedure Note Document, Scanned - 07/31/2010 12:34 PM CDT Scanned Document LAB - PATHOLOGY/CYTO LOGY ORDERABLES Care Teams Primary School Teacher Relationship Specialty Start Date End Date Conor Wilson MD [facility] [address] Kulk[address]i [address] [address] PCP - General Internal Medicine 04/16/23 Rodriguez Garcia MD [address] [facility] [address] [place] [address] Cardiovascular Disease 04/16/23
--- OUTSIDE RECORDS SUMMARY | 2024-12-01 00:57 | XMS_ITS | Encounter Summary ---
Author Organization [facility] Address [address] [place] [address] Care Team Providers Care Hazardous Waste Technician Name Role Phone Conor Dodson MD Primary Care Provider [phone] Rodriguez Garcia MD Unavailable [phone] Encounter Details Date Type Department Care Team (Late st Contact Info) Description 09/17/2023 Lab Requisition [facility] - DermPath Lab [address] [facility] [place] [phone] Mari Brambila, PA [address] [place] [address] Neoplasm of uncertain behavior of [...] and heating? Not hard at all 05/17/2023 [facility] [place] of Occupat ional Health - Occupational Stress [...] place to sleep or slept in a senior living (including now)? No 05/17/2023 Sex and Gender [...] Comments DERMATOPATHOLOGY Routine 09/17/2023 12:0 0 AM NOISE TESTER Neoplasm of uncertain behavior of skin documented in this encounter Results * DERMATOPATHOLOGY (09/17/2023 12:00 AM NOISE TESTER) Case Report Dermatopathology Report Case: [id number] Authorizing Provider: Mari Brambila PA Collected: 09/17/2023 12:00 AM Ordering Location: [facility] Received: 09/18/2023 01:53 PM Pathologist: Alexandra Mathews MD Specimen: Skin, left dorsal wrist 1:16 PM [facility] Final Diagnosis Specimen A. SKIN, left dorsal wrist: SQUAMOUS CELL CARCINOMA, WELL DIFFERENTIATED (C44.629) (see microscopic description) 1:16 PM [facility] DERMATOPATH[facility]Y [facility] Clinical History Squamous Cell Carcinoma 1:16 PM [facility]ER[facility] Gross Description Specimen A: Received is one formalin filled container labeled with the patient's name and designated left dorsal wrist. The specimen consists of a shave biopsy measuring 9x7x2 mm. Jar 0. 1:16 PM [facility] DERMATOPATH[facility]Y [facility] Microscopic Description Specimen A. SKIN, left dorsal wrist: Arising in the epidermis and extending into the dermis there are irregularly and angulated shaped aggregates of keratinocytes showing evidence of premature cornification. An infiltrative growth pattern is observed. 1:16 PM [facility] DERMAT[facility] Disclaimer An external and internal positive and negative controls are appropriate for the histochemical, immunohistochemical and immunofluorescence stain(s) in this case (if any), except where stated explicitly. The performance characteristics of the stain(s) cited in this report were developed and its performance characteristic determined by the Dermatopathology Laboratory at [facility], directed by Dr. Jennifer Colunga. These tests need not be, and therefore are not, approved by the [place] Food and Drug Administration. The tests are used for clinical purposes. Billing Codes Specimen Charges Stain Charges 65550 1 3 1:16 PM NOISE TESTER DERMATOPATHOLOGY LABORATORY Embedded Images 3 1:16 PM NOISE TESTER DERMATOPATHOLOGY LABORATORY Pathology/Cytolog y TISSUE SPECIMEN FROM SKIN / Unknown 09/17/2023 09/18/2023 1:53 PM NOISE TESTER Mari CRUZ LAB - PATHOLOGY/CYT OLOGY ORDERABLES DERMATOPATHOLOGY LABORATORY [facility] - Department of Dermatology [address] [phone] documented in this encounter Visit Diagnoses Diagnosis Neoplasm of uncertain behavior of skin documented in this encounter Care Teams Hazardous Waste Technician Relationship Specialty Start Date End Date Conor Dodson MD [address] [place] [address] DR [address] [address] PCP - General Internal Medicine 04/16/23 Rodriguez Garcia MD [facility] [address] [place] [address] Cardiovascular Disease 04/16/23 documented as of this encounter
--- OUTSIDE RECORDS SUMMARY | 2024-12-01 00:57 | XMS_ITS | Encounter Summary ---
Author Organization [facility] Address [address] [place] [address] Care Team Providers Care Intensive Care Unit Nurse Name Role Phone Conor Dodson MD Primary Care Provider [phone] Rodriguez Garcia MD Unavailable [phone] Concepcion Michaud MD Primary Care Provider [phone] Conor Dodson MD Primary Care Provider [phone] Conor Dodson MD Unavailable [phone] Vern Valladares MD PhD Unavailable + Encounter Details Date Type Department Care Team (Late st Contact Info) Description 04/21/2020 Telephone [facility] [address] [place] [address] Shannan Dos Santos, RT Social History Tobacco [...] on file Legal Sex Male 11:31 PM COMMERCIAL REPRESENTATIVE Gender Identity Male 08/09/2024 7:38 PM CDT [...] documented as of this encounter Care Teams Intensive Care Unit Nurse Relationship Specialty Start Date End Date Conor Dodson MD [address] [place], [place] [address]SHEA JOHNSTON [address] [place] [address] PCP - General 01/18/17 12/25/23 Concepcion Michaud MD [address] [place] [address] PCP - General Family Medicine 12/26/23 12/26/23 Conor Dodson MD [address] [place], [place] [address]SHEA JOHNSTON [address] [place] [address] PCP - General Internal Medicine 12/27/23 Rodriguez Garcia MD [address] [place] [address] NIKKI JOHNSTON [address] [place] [address] Consulting Physician Cardiology 07/18/23 Conor Dodson MD [address] [place], [place] [address]SHEA JOHNSTON [address] [place] [address] Consulting Physician Internal Medicine 07/13/24 Vern Valladares MD PhD [address] [facility] [address] [place] [address] Consulting Physician Cardiology 08/12/24 documented as of this encounter
--- OUTSIDE RECORDS SUMMARY | 2024-12-01 00:57 | XMS_ITS | Encounter Summary ---
Author Organization [facility] Address [address] [facility] [place] [address] Care Team Providers Care Md Physician Dermatologist Name Role Phone Conor Dodson MD Primary Care Provider [phone] Rodriguez Garcia MD Unavailable [phone] Encounter Details Date Type Department Care Team (Late st Contact Info) Description 02/14/2024 Lab Requisition [facility] - DermPath Lab [address] [facility], [place] [phone] Kelly Franco MD [address] [place] [address] [place] [address] Squamous cell carcinoma of skin [...] and heating? Not hard at all 05/17/2023 [facility] [place] of Occupat ional Health - Occupational Stress [...] place to sleep or slept in a [facility] (including now)? No 05/17/2023 Sex and Gender [...] AM CDT) Case Report Dermatopathology Report Case: [id number] Authorizing Provider: Kelly Franco MD Collected: 02/14/2024 03:33 AM Ordering Location: [facility] - Received: 02/18/2024 [...] of a non-oriented ellipse of skin measuring 75u92m6 mm. The epidermal surface is unremarkable. The [...] characteristic determined by the Dermatopathology Laboratory at [facility], directed by Dr. Jennifer Colunga. These tests need not be, and therefore are not, approved by the [place] Food and Drug Administration. The tests are used for clinical purposes. Billing Codes Specimen Charges Stain Charges 55832 1 4 2:44 PM CDT DERMATOPATHOLOGY LABORATORY Embedded Images 4 2:44 PM CDT DERMATOPATHOLOGY LABORATORY Pathology/Cytolo gy TISSUE SPECIMEN FROM SKIN / Unknown 02/14/2024 3:33 AM CDT 02/18/2024 6:14 AM CDT Kelly Franco MD LAB - PATHOLOGY/CYTO LOGY ORDERABLES DERMATOPATHOLOGY LABORATORY [facility] - Department of Dermatology [address] [phone] documented in this encounter Visit Diagnoses Diagnosis Squamous cell carcinoma of skin of left upper limb, including shoulder Squamous cell carcinoma of skin of upper limb, including shoulder documented in this encounter Care Teams Md Physician Dermatologist Relationship Specialty Start Date End Date Conor Dodson MD [address] [place] [address] DR [address] [address] PCP - General Internal Medicine 04/16/23 Rodriguez Garcia MD [address] [place] [address] Cardiovascular Disease 04/16/23 documented as of this encounter
[2024-12-01 07:53] LABS: INR 1.1; Prothrombin Time 14.8 Seconds (11.1-14.7)
[2024-12-01] MEDS: LACTATED RINGERS 1,000 ML 30 ML IV CONT (08:15)
--- NOTE | 2024-12-01 08:22 | WPDHPUPDATE1 ---
History and Physical Update Update Date/Time: 12/01/24 08:22 History and Physical has been reviewed, including an updated exam of the patient. There are NO changes in the patient's condition. Risks, benefits, and alternatives have been discussed and questions answered. Patient agrees to proceed with procedure.
--- NOTE | 2024-12-01 08:32 | SUR.PREOP ---
0825-Dr. Mcdaniels aware of repeat PT/INR result.
--- NOTE | 2024-12-01 08:46 | P.PNAN_ITS ---
Anes - Initial Pre Proc Eval Procedure: Operation Date: 12/01/24 08:30 Proposed Procedures p Trans Urethral Resection Bladder Tumor, - Wang Mcdaniels MD s Trans Urethral Resection Prostate - Wang Mcdaniels MD Date/Time: 12/01/24 08:46 Surgeon: Wang Mcdaniels MD Pre Op Diagnosis: bph, bladder lesion Patient Data Age: 79 Gender: M Height: 1.8 m Weight: 107 kg Last Vital Signs Temp 36.4 C 12/01/24 06:35 Pulse 64 12/01/24 06:35 Resp 16 12/01/24 06:35 BP 136/74 12/01/24 06:35 Pulse Ox 100 12/01/24 06:35 O2 Del Method Room Air 12/01/24 06:35 Allergies Allergy/AdvReac Type Severity Reaction Status Date / Time Sulfa (Sulfonamide Allergy Intermediate rash Verified 11/18/24 12:29 Antibiotics) Home Medications ?Medication ?Instructions ?Recorded ?Confirmed ?Type Adults Multivitamin 1 tablet PO DAILY 09/27/19 12/01/24 History allopurinol 300 mg tablet 300 mg PO DAILY 09/27/19 12/01/24 History citalopram 20 mg tablet 40 mg PO DAILY 09/27/19 12/01/24 History gabapentin 300 mg capsule 900 mg PO HS 09/27/19 12/01/24 History rivaroxaban 20 mg tablet (Xarelto) 20 mg PO DAILY #30 tabs 09/30/19 12/01/24 Rx losartan 50 mg tablet 100 mg PO DAILY 03/02/22 12/01/24 History omeprazole 20 mg capsule,delayed 40 mg PO DAILY 03/02/22 12/01/24 History release tamsulosin 0.4 mg capsule (Flomax) 0.4 mg PO HS 11/18/24 12/01/24 History vutrisiran 25 mg/0.5 mL 0.5 ml subcut [id number] 11/18/24 11/18/24 History subcutaneous syringe (Amvuttra) Laboratory Tests 12/01/24 07:22 PT 14.8 H Seconds (11.1-14.7) INR 1.1 Patient hx anesthesia problems: none Family hx anesthesia problems: none Results Review: All pre-operative results and documents have been reviewed as part of the pre- operative evaluation. [facility] Past Medical History Medical History Depression Kidney stone Hypertension Surgical History Surgical History Previous back surgery History of right ankle joint replacement Family History Family History Mother Acute myocardial infarction Congestive heart failure Hypertension Social History Social History Smoking packs per day: 0.3 Smoking cigarettes per day: 6.0 Years smoked: 20 Smoking pack-years: 6.00 Smoking status: Former smoker Tobacco type: cigarettes Smoking end date: 03/21/02 Alcohol intake: current Drinks per week: 3 Alcohol use details: weekends Substance use: never Living arrangements: with family Additional living arrangements comments: Gender identity (if verbalized by the patient): Male Spiritual care concerns: No Agree to blood products: Yes Anes - Eval Final PreProcedure Day of Procedure 12/01/24 08:46 Patient weight: obese Heart: regular rate and rhythm Lungs: clear to auscultation Airway: Mallampati scale class II Neurological: alert and oriented Last oral intake: >/= 8 hours ASA classification: III Emergent: no Anesthetic plan: proceed Anesthesia type and monitoring: general LMA and standard monitoring Results Review: All pre-operative results and documents have been reviewed as part of the pre- operative evaluation. Informed Consent: The patient's anesthetic plan and its attendant risks and benefits were discussed with the patient/family/POA. Questions were solicited and answers provided to the satisfaction of the patient/family/POA.
[2024-12-01] MEDS: ceFAZolin 2 GM/D5W 50 ML 2 GM/50 ML BAG IVPB (08:52)
[2024-12-01] MEDS: LIDOCAINE 2% GEL UROJET 10 ML PKG MUCOUS MEM (09:20)
--- NOTE | 2024-12-01 09:38 | P.OP_ITS ---
Procedure Note - Detailed Date of Procedure 12/01/24 Pre-op Diagnosis bph, bladder lesion Post-op Diagnosis Same Procedure Performed TURBT small tumor 1 cm, TURP Surgeon Wang Mcdaniels MD Anesthesia General Description of Procedure Patient was taken to the operative suite correctly identified. Once anesthesia was obtained patient was placed in dorsal lithotomy position and prepped draped usual sterile fashion. A 24 Guamanian sheath was inserted in bladder. He had a 1 cm tumor at the bladder neck at 7:00 a.m. position. Resection of this required some resection of the prostate. This was sent for analysis. The prostate was then resected from the bladder neck to the verumontanum. Chips were retrieved and sent for analysis. Hemostasis was achieved using electrocautery. 2% viscous lidocaine was inserted into the urethra and a 24 three-way was placed with 15 cc in the balloon. He has taken recovery stable condition. This completes dictation. Please send a copy of op note to my office Estimated Blood Loss 25 Drains Yes Pathology Yes Complications No immediate complications Condition Stable Disposition PACU
--- NOTE | 2024-12-01 11:40 | PC.NURSE ---
This patient, [address], was admitted to [facility] Surg Room 304-01. Patient/family oriented to hospital policies and general routines including ID bracelet, bed and alarms, visiting hours, pain management, procedures, bathroom and other care routines, personal items, smoking policy, room service/diet, and visiting hours. Information on how to activate the Rapid Response Team has been discussed. Patient/Family are encouraged to report perceived risks to care and to ask questions if they do not understand what they are told or what they should do.
[2024-12-01] MEDS: HYDROcodone/acetaminophen (*CRX) 5-325 MG TABLET 1 TAB PO (13:41)
[2024-12-01] MEDS: DOCUSATE SODIUM 100 MG CAPSULE PO (17:05)
[2024-12-01] MEDS: ceFAZolin 1 GM/NS 50 ML 1 GM/50 ML BAG IVPB (17:05)
[2024-12-02] MEDS: ceFAZolin 1 GM/NS 50 ML 1 GM/50 ML BAG IVPB (00:10)
[2024-12-02 00:30] VITALS: BP 161/96; PULSE 67; RESP 18; TEMP 36.4; O2SAT 96
[2024-12-02 04:45] VITALS: BP 155/92; PULSE 71; RESP 16; TEMP 36.9; O2SAT 95
[2024-12-02 07:31] LABS: Hematocrit 39.6 % (42.0-52.0); Hemoglobin 12.9 g/dL (14.0-18.0)
[2024-12-02 07:39] LABS: Anion Gap 7 mmol/L (4-12); Blood Urea Nitrogen 14 mg/dL (9-20); Calcium 8.8 mg/dL (8.4-10.2); Carbon Dioxide 28 mmol/L (22-30); Chloride 103 mmol/L (98-107); Estimated CRCL calculation 82 ml/min; Estimated Glomerular Filt Rate > 60; Glucose 91 mg/dL (65-110); Potassium 3.9 mmol/L (3.4-5.0); Sodium 138 mmol/L (137-145)
[2024-12-02] MEDS: CEPHALEXIN 500 MG CAPSULE PO ×2 (08:12→12:26)
[2024-12-02] MEDS: DOCUSATE SODIUM 100 MG CAPSULE PO (08:12)
[2024-12-02] MEDS: allopurinoL 300 MG TABLET PO (08:12)
[2024-12-02] MEDS: CITALOPRAM HYDROBROMIDE 20 MG TABLET 40 MG PO (08:12)
[2024-12-02 09:18] VITALS: BP 125/75; PULSE 70; RESP 16; TEMP 36.4; O2SAT 97
--- NOTE | 2024-12-02 10:38 | P.DS_ITS ---
DS: Admitting Diagnosis Discharge Date 12/02/24 Admitting Diagnosis BPH, Bladder lesion DS: Discharge Diagnosis Discharge Diagnosis (1) Lesion of urinary bladder: Code(s): N32.9 - Bladder disorder, unspecified Status: Acute (2) BPH w urinary obs/LUTS: Code(s): N40.1 - Benign prostatic hyperplasia with lower urinary tract symptoms; N13.8 - Other obstructive and reflux uropathy Status: Acute DS: Summary Hospital Course Reason for hospitalization: BPH with LUTS Bladder lesion Hospital Course: 79yoM admitted 12/01/24 for planned TURBT and TURP for management of 1cm bladder lesion and bothersome LUTS. Surgical intervention uncomplicated. He required overnight inpatient stay for continuous bladder irrigation. On exam this morning, patient is resting comfortably in no acute distress. Denies nausea, vomiting, pain, fever. Urine is pale pink without clots on moderate CBI. This was clamped at 1010a.m. in preparation for discharge home with indwelling Santos. If urine is draining freely without clots in 2-3hrs, OK for discharge home. Plan to follow-up in office next week for Santos removal. Home Xarelto is to be resu med on 12/04/24. Status at Discharge Functional status at discharge: independent ambulation Overall status at discharge: patient is back to baseline Time Spent with Patient Time attestation: Total time spent providing and/or coordinating discharge services: 33minutes Exam Const: General: comfortable and no acute distress HENMT: Mouth: Yes moist mucous membranes Eyes: General: appearance normal, both eyes and all related structures Resp: Effort & Inspection: normal respiratory effort GI: GI Palp: Yes Soft to palpation : Male General Exam: Yes normal external exam Urinary Catheter: Urinary Catheter: patent and draining, urine clear, urine pink and other (No clots) Skin: General skin exam: normal color Psych: Mental Status: mental status grossly normal DS: Data Data Completed and Pending Pending studies at discharge: Pending at discharge 12/01/24 09:16 Surgical [PTH] Routine Surgical [PTH] Routine Labs on day of discharge: Labs from last 24 hours 12/02/24 06:40 Hgb 12.9 L Hct 39.6 L Sodium 138 Potassium 3.9 Chloride 103 Carbon Dioxide 28 Anion Gap 7 BUN 14 Creatinine 0.82 Estim Creat Clear Calc 82 Estimated GFR > 60 Glucose 91 Calcium 8.8 Discharge Plan Discharge Patient Disposition: Home, Self-Care Discharge Instructions: Continuous bladder irrigation clamped at 1010am. OK to discharge home if urine draining freely without clots. Blood-tinged urine is to be expected. Increase plain water intake throughout the day to flush residual blood from the bladder. Home with indwelling Santos catheter. Plan for Santos removal in office next week as discussed. In the meantime, please keep Santos catheter off tension and properly secured to upper thigh area. Resume home Xarelto (blood thinner) 12/04/24. Patient Instructions: Rivaroxaban (By mouth), Antibiotic Form Patient Language: Cameroonian Stand Alone Forms: Avoid NSAIDs, General Discharge Instructions Follow-up/Referrals: Wang Mcdaniels MD [Physician] - (- Follow up in office for Santos catheter removal 12/07 or 12/08 - Post-operative checkup 12/24/2024 @1pm) Discharge Medications: New hyoscyamine sulfate [Anaspaz] 0.125 mg Tablet,Disintegrating 0.125 mg sublingual Q6H PRN (Reason: Bladder Spasm) 4 Days Qty: 24 0RF cephalexin 500 mg Capsule 500 mg PO QID 7 Days Qty: 28 0RF docusate sodium 100 mg Capsule 100 mg PO BID 4 Days Qty: 8 0RF acetaminophen [Pain Relief (acetaminophen)] 325 mg tablet 650 mg PO Q4-6H Qty: 30 0RF Continued losartan 50 mg tablet 100 mg PO DAILY omeprazole 20 mg Capsule,Delayed Release(Dr/Ec) 40 mg PO DAILY Adults Multivitamin 1 tablet PO DAILY citalopram 20 mg tablet 40 mg PO DAILY gabapentin 300 mg capsule 900 mg PO HS allopurinol 300 mg tablet 300 mg PO DAILY tamsulosin [Flomax] 0.4 mg capsule 0.4 mg PO HS Amvuttra 25 mg/0.5 mL syringe 0.5 ml subcut [id number] Held Xarelto 20 mg tablet 20 mg PO DAILY Qty: 30 3RF Hold Instructions: Resume on 12/04/24. Patient Comments: HOLD PER DR MCDANIELS ORDER Rx Instructions: Take one tablet daily with evening meal
--- NOTE | 2024-12-02 15:14 | PC.NURSE ---
Pt education provided regarding the changing of catheter bags. Pt verbalizes understanding on how to change from the leg bag to the larger bag. Supplies sent with patient.
== END 2024-12-02 14:45 | disposition home or self-care (01) ==
LOC: ANHSURGERY 06:22 → ANH3MEDSUR 11:45
PROVIDERS: Visit Provider Urology
PROC: 0TBB8ZZ Excision of Bladder, Via Natural or Artificial Opening Endoscopic (ICD-10-PCS; CPT 52234; principal; 2024-12-01 08:30)
PROC: 0VT08ZZ Resection of Prostate, Via Natural or Artificial Opening Endoscopic (ICD-10-PCS; CPT 52601; 2024-12-01 08:30)
DX: C67.5 Malignant neoplasm of bladder neck (principal); N40.1 Benign prostatic hyperplasia with lower urinary tract symptoms; R35.1 Nocturia; R35.0 Frequency of micturition; R39.11 Hesitancy of micturition; Z87.891 Personal history of nicotine dependence; E66.9 Obesity, unspecified; Z68.32 Body mass index [BMI] 32.0-32.9, adult
CPT/HCPCS: 52234; 52601; 36415; 80048; 85014; 85018; 85610; 88305; A9270; J0690; J2250; J2270; J2704; J7120

== ENCOUNTER 2024-12-18 09:56 | Observation (INO) | payer MEDICARE, SELFPAY ==
--- NOTE | ~2024-12-18 | US_ITS ---
Pelvic ultrasound. Clinical History: CBI clotted Technique: Realtime transabdominal and transvaginal scanning of the pelvis was performed. Color flow Doppler and Doppler spectral analysis were performed. Findings: The urinary bladder is collapsed around a Santos catheter. No free fluid or pelvic mass iden tified. Impression: Urinary bladder collapsed around a Santos catheter, limiting evaluation. No mass lesion or free fluid seen in the pelvis. Reviewed, dictated and finalized at location . R PROOFER Impression: Urinary bladder collapsed around a Santos catheter, limiting evaluation. No mass lesion or free fluid seen in the pelvis.
--- NOTE | ~2024-12-18 | CT_ITS ---
CLINICAL INDICATION: Urinary retention and lower abdominal pain COMPARISON: 09/27/2019. TECHNIQUE: Multiple contiguous axial images of the abdomen and pelvis were performed without the admi nistration of intravenous contrast The dose-length product (DLP) was 854.94 mGy-cm. Automated exposure control and iterative reconstruction technique were employed. FINDINGS/OBSERVATIONS: Visualized lower thorax: The bilateral lung bases are clear. The heart is enlarged, without pericardial effusion. Small hiatal hernia is present. Liver: The liver demonstrates homogeneous attenuation and is not enlarged measuring 16 cm in longitudinal di mension. Gallbladder and biliary system: The gallbladder is only minimally distended, and otherwise unremarkable. Pancreas: Limited evaluation of the pancreas secondary to the lack of intravenous contrast. Spleen: The spleen demonstrates homogeneous attenuation and is not enlarged measuring 10 cm in longitudinal d imension. Kidneys: Multiple 1 and 2 mm nonobstructing stones within the bilateral kidneys, left greater than ri ght. The remainder of the bilateral kidneys are otherwise unremarkable, without hydronephrosis or addition al renal calculi. Adrenal glands: Unremarkable. Gastrointestinal tract: Colonic diverticulosis without surrounding inflammatory change. Fecal stasis within the colon. Appendix: The air-filled appendix is of normal caliber (axial series, images 104 through 129). Vasculature: Unremarkable. Lymph nodes: No pathologically enlarged or morphologically suspicious lymph nodes within the retroperitoneum or at the root of the mesentery. Pelvic structures: The bladder is decompressed with a Santos catheter, limiting evaluation. Significant mural thickening and surrounding inflammatory changes are identified within the bladder, likely secondary to recent distention. The prostate gland is not visualized, consistent with patient's history. Body wall and musculoskeletal: Posterior fixation hardware at the level of L2-L5. IMPRESSION: Multiple 1 and 2 mm nonobstructing stones within the bilateral kidneys. Mural thickening and surrounding inflammatory change identified within the bladder, consistent with p atient's presentation. Reviewed, dictated and finalized at location A. MEL CUTTER MACHINE IMPRESSION: Multiple 1 and 2 mm nonobstructing stones within the bilateral kidneys. Mural thickening and surrounding inflammatory change identified within the blad jarret, consistent with patient's presentation.
--- OUTSIDE RECORDS SUMMARY | 2024-12-18 10:39 | XMS_ITS | Encounter Summary ---
Author Organization [facility] Address [address] [place] [address] Care Team Providers Care [employer] Consultant Name Role Phone Conor Dodson MD Primary Care Provider [phone] Rodriguez Garcia MD Unavailable [phone] Encounter Details Date Type Department Care Team (Late st Contact Info) Description 09/21/2021 Lab Requisition [facility] Care [facility] [address] [facility] [place] [address] Con[place] [address] Social History Tobacco Use Types [...] Comments DERMATOPATHOLOGY Routine 09/19/2021 12:0 0 AM WAITER/WAITRESS TOURIST CLASS documented in this encounter Results * DERMATOPATHOLOGY (09/19/2021 12:00 AM WAITER/WAITRESS TOURIST CLASS) Case Report Dermatopathology Report Case: [id number] Authorizing Provider: Conor Rene MD Collected: 09/19/2021 12:00 AM Ordering Location: [facility] Lab Received: 09/21/2021 08:33 AM Pathologist: Iveth Mathews MD Specimen: Skin, right dorsal wrist by styloid 2:08 PM [facility]ERMAT[facility] Final Diagnosis Specimen A. 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 2:08 PM [facility] Gross Description Specimen A: Received is one formalin filled container labeled with the patient's name and designated right dorsal wrist by styloid. The specimen consists of a shave biopsy measuring [id number] bisected. Jar 0. 2:08 PM [facility] Microscopic Description Specimen A. SKIN, right dorsal wrist by styloid: The epidermis is acanthotic and shows full thickness disorderly maturation of keratinocytes, mitoses at different levels, and dyskeratotic cells. There is overlying parakeratosis and hyperkeratosis. 2:08 PM [facility]ER[facility] Disclaimer An external and internal positive and negative controls are appropriate for the histochemical, immunohistochemical and immunofluorescence stain(s) in this case (if any), except where stated explicitly. The performance characteristics of the stain(s) cited in this report were developed and its performance characteristic determined by the Dermatopathology Laboratory at [facility], directed by Dr. Jennifer Colunga. These tests need not be, and therefore are not, approved by the [place] Food and Drug Administration. The tests are used for clinical purposes. Billing Codes Specimen Charges Stain Charges 48710 1 2:08 PM [facility]MAT[facility] Embedded Images 2:08 PM [facility]MAT[facility] Pathology/Cytolog y TISSUE SPECIMEN FROM SKIN / Unknown 09/19/2021 09/21/2021 8:33 AM WAITER/WAITRESS TOURIST CLASS Conor Rene MD LAB - PATHOLOGY/CYTO LOGY ORDERABLES DERMATOPATHOLOGY LABORATORY [facility] - Department of Dermatology [address] [place], [place] [id number] [place] [address] documented in this encounter Visit Diagnoses Not on filedocumented in this encounter Care Teams [employer] Consultant Relationship Specialty Start Date End Date Conor Dodson MD [address] [place] [address] DR Cayla JOHNSTON [address] [place] [id number] PCP - General Internal Medicine 04/16/23 Rodriguez Garcia MD [facility] [address] Cardiovascular Disease 04/16/23 documented as of this encounter
--- OUTSIDE RECORDS SUMMARY | 2024-12-18 10:39 | XMS_ITS | Clinical Summary ---
Author Organization [facility] Address [address] [place] [address] Care Team Providers Care Batch Freezer Operator Name Role Phone Rodriguez Garcia MD Unavailable [phone] Conor Dodson MD Primary Care Provider [phone] Conor Dodson MD Unavailable [phone] Vern Valladares MD PhD Unavailable + [...] 1 tablet (100 mg total) by mouth early childhood educator aide before breakfast Active gabapentin (NEURONTIN) 300 mg capsule Take 2 capsules (600 mg total) by mouth daily 180 capsule 04/17/20 24 Active Additional Information Patient taking differently:600 mg oralNightly, Indications: Neuropathic Pain, Informant: Self, Reported on 09/15/2024 multivitamin tabletIndications: Vitamin Deficiency Prevention Take 1 tablet by mouth early childhood educator aide before breakfast Active vutrisiran (AMVUTTRA) 25 mg/0.5 [...] 1 tablet (2.5 mg total) by mouth early childhood educator aide before breakfast Active finasteride (PROSCAR) 5 mg [...] (pediatric) 07/0 05/2022 Overview (12/11/2022): - DME: [facility] Assessment & Plan (08/05/2024 12:47 PM CDT): 1. Chronic, poorly controlled 2. Re compliance and therapy data and residual AHI is 4.3 with mostly central apneas 3. He is having leak most nights although not always significant 4. We will have him follow up with [facility] for mask fitting and or switching to a new mask to assist with comfort 5. Pap supply order placed Assessment & Plan (04/18/2023 8:54 PM CDT): Using CPAP nightly with benefit. Assessment & Plan (12/11/2022 4:31 PM TREE FELLER): 1. Chronic, poorly controlled 2. Discussed different masks 3. Placed order for the AirFit F30 because the other masks did not fit his face Assessment & Plan (11/15/2022 5:40 PM TREE FELLER): Using CPAP nightly with benefit. Assessment & [...] 03/22/2021 Assessment & Plan (12/27/2023 1:29 PM TREE FELLER): 1. Chronic, well controlled 2. Discussed how continued use of his CPAP can help control his blood pressure 3. He will continue losartan, amlodipine, and metoprolol Assessment & Plan (12/11/2022 4:31 PM TREE FELLER): 1. Chronic, well controlled 2. Discussed how use of his CPAP machine will help his blood pressure 3. He will continue losartan, amlodipine, and metoprolol Assessment & Plan (11/15/2022 5:40 PM TREE FELLER): Target BP less than 140/90. Continue current [...] Cardiology. Assessment & Plan (11/15/2022 5:40 PM TREE FELLER): Continue current diet and metoprolol. On chronic anticoagulation with Xarelto. Assessment & Plan (07/18/2022 12:19 PM CDT): Continue current diet & medications. On anticoagulation with Xarelto. Managed by Cardiology. Assessment & Plan (01/02/2022 2:31 PM CDT): Continue current diet & medications. Managed by Cardiology. Primary osteoarthritis of right ankle 01/15/2019 Overview (01/15/2019): Added automatically from request for surgery [id number] Retained orthopedic hardware 01/15/2019 Overview (01/15/2019): Added automatically from request for surgery [id number] Arthritis of subtalar joint 09/10/2018 Overview (09/10/2018): Added automatically from request for surgery [id number] Cobalamin deficiency 12/20/2016 Overview (03/15/2017): Vitamin B12 deficiency Gout 12/20/2016 Overview (03/15/2017): Gout, unspecified Moderate episode of recurrent major depressive d isorder 05/28/2016 Overview (01/24/2017): Major depression, recurrent, chronic Assessment & Plan (02/04/2024 4:48 PM CDT): Continue citalopram. Assessment & Plan (04/18/2023 8:53 PM CDT): Mood stable on citalopram. Assessment & Plan (11/15/2022 5:40 PM TREE FELLER): Continue with citalopram. Assessment & Plan (07/18/2022 [...] POLYPS Assessment & Plan (11/15/2022 5:40 PM TREE FELLER): Up-to-date on colonoscopy. 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 [address] [facility] 6th [place] [address] Maya Bolden 10/22/2024 10:30 AM TREE FELLER Office Visit [facility] [address] [facility] 6[address] [place] [address] [place] [id number] Laura Austin MD Bilateral carpal tunnel syndrome (Primary Dx); Guyon syndrome, left 09/21/2024 8:45 AM TREE FELLER Office Visit [facility] [address] [facility] 6th [place] [phone] Karly Ervin NP Bilateral carpal tunnel syndrome (Primary Dx) from Last 3 Months Immunizations Immunization Administration Dates Next Due Influenza, Quadrivalent, Hig [...] on file Legal Sex Male 11:31 PM TREE FELLER Gender Identity Male 08/09/2024 7:38 PM CDT Sexual Orientation Bisexual 08/09/2024 7: 38 PM CDT Occupation Industry Job Start Date Job End Date Retired Not on file Not on file Not on file Obstetrics History Last Filed Vital Signs Vital Sign Reading Time Taken Comments Blood Pressure 135/82 09/15/2024 10:19 AM TREE FELLER Pulse 54 09/15/2024 10:20 AM TREE FELLER Temperature 36 C (96.8 F) 09/15/2024 9:50 AM TREE FELLER Respiratory Rate 17 09/15/2024 10:20 AM TREE FELLER Oxygen Saturation 98% 09/15/2024 10:20 AM TREE FELLER Inhaled Oxygen Concentration - - Weight 108.4 kg (239 lb) 09/15/2024 6:00 AM TREE FELLER Height 180.3 cm (5' 11 ) 09/15/2024 6:00 AM TREE FELLER Body Mass Index 33.33 09/15/2024 6:00 AM TREE FELLER Plan of Treatment Health Maintenance Due Date Last Done Comments Hepatitis C Screening 1945 Hepatitis B Screening 1963 Zoster Vaccine (3 of 3) 04/03/2019 02/07/20 19, 02/19/2008, 05/15/2007 Covid-19 Vaccine (2023-2 5 season) [...] history exists Medical Devices Implanted Type Area Anthropology Professor Device Identifier Shelf Expiration Date Model / Serial / Lot Augment Implanted:Qty: 1 on 09/24/2018 by Jorge Luis Santoyo MD at [facility] Right: Ankle [employer] [id number] 06/20/2019 / [id number] / [id number] [employer] [id number] Mini Ignite Power Mix Injectable Graft 4ml Synthetic Tissue - [id number] - [id number] Implanted:Qty: 1 on 09/24/2018 by Jorge Luis Santoyo MD at [facility] Right: Ankle [employer] 04/30/2023 [id number] / [id number] / [id number] Orthohelix [id number] Maxtorque 7mm 80mm Cannulated Blunt Foot Long Thread Screw Bone Latex Free - [id number] Implanted:Qty: 2 on 09/24/2018 at [facility] Orthohelix CSS-011-70- [id number] / / [employer] [id number] Infinity 9mm Knee 3+ Insert Tibial Poly - [id number] Implanted:Qty: 1 on 02/10/2019 by Jorge Luis Santoyo MD at [facility] Right: Ankle [employer] [id number] 07/27/2026 [id number] / / [id number] Musculoskeletal Transplant [id number] 4-30mm Allograft Frozen [id number] Wedge Graft Bone - [id number] - [id number] Implanted:Qty: 1 on 02/10/2019 by Jorge Luis Santoyo MD at [facility] Right: Ankle [employer] 04/16/2023 [id number] / [id number] / [employer] [id number] Steinmann 5/64in 9in Trocar Point One End Pin Fixation Stainless - [id number] Implanted:Qty: 1 on 02/10/2019 by Jorge Luis Santoyo MD at [facility] Right: Ankle [employer] [id number] / / [employer] [id number] Ankle 1 Large 10mm Stem Talar - [id number] Implanted:Qty: 1 on 02/10/2019 by Jorge Luis Santoyo MD at [facility] Right: Ankle [employer] [id number] 07/28/2026 [id number] / / [id number] [employer] [id number] Inbone Sulcus Ankle 3 Dome Component Talar - [id number] Implanted:Qty: 1 on 02/10/2019 by Jorge Luis Santoyo MD at [facility] Right: Ankle [employer] [id number] 09/21/2026 [id number] / / [id number] [employer] [id number] Infinity 4 Long Tray Tibial - [id number] Implanted:Qty: 1 on 02/10/2019 by Jorge Luis Santoyo MD at [facility] Right: Ankle [employer] [id number] 08/05/2026 [id number] / / [id number] Explanted Type Area Anthropology Professor Device Identifier Shelf Expiration Date Model / Serial / Lot Orthohelix [id number] Maxtorque 7mm 75mm Cannulated Blunt Foot Long Thread Screw Bone Latex Free - [id number] Explanted:Qty: 1 on 09/24/2018 at [facility] Orthohelix CSS-011-70 -[id number] / / [id number] W[employer] Explanted:Qty: 3 on 09/24/2018 by Jorge Luis Santoyo MD at [facility] Other [employer] [id number] K-Wire 1.4mm 228mm Wire Fixation - [id number] Explanted:Qty: 2 on 02/10/2019 at [facility] Right: Ankle [employer] [id number] / / Procedures Procedure Name Priority Date/Time Associated Diagnosis Comments CT ABDOMEN PELVIS WO CONTRAST Schedule Routine, Read Routine (OP Routine) 06/23/2024 7:46 AM CDT Lower abdominal pain PSA SCREEN Routine 07/18/2022 11:24 AM CDT Screening PSA (prostate specific antigen) COLONOSCOPY Routine 11/03/2020 from Last 3 Months or Most Recently Relevant to Health Maintenance Results * CT Abd/Pelvis w/o contrast (06/23/2024 7:46 [...] Julio Vigil M.D. CH: SANDHYA Report ID: [id number] Reading Location: [id number] Procedure Note Julio Vigil Jr., MD - [...] Julio Vigil M.D. CH: SANDHYA Report ID: [id number] Reading Location: [id number] Darshan Alonso MD IMG CT PROCEDURES Final Re sult * PSA screen (07/18/2022 11:24 AM CDT) PSA-Total 1.21 <=6.20 ng/mL [facility] Comment: Interpretive Data AGE SEX REFERENCE INTERVAL [...] MD LAB BLOOD ORDERABLES Final Re sult [facility] Department [place] [address] * Colonoscopy (11/03/2020) Anatomical Region Laterality Modality Other Historical Provider ENDOSCOPY PROCEDURES Amber l Result from Last 3 Months or Most Recently Relevant to Health Maintenance Insurance [place] [employer] SOLUTIONS [facility] MED[facility] Address: [address] [address] [place] [address] MEDICARE SOLUTIONS [facility] MEDICARE Address: [address] [address] [place] [id number] [place] [address] MEDICARE SOLUTIONS Advance Directives For more information, please contact: [phone] * Full Code (Latest Code Status on File) Date Activated Date Inactivated Comments 01/15/2022 7:38 AM 01/15/2022 1:48 PM * Full Code Date Activated Date Inactivated Comments 01/15/2022 7:37 AM 01/15/2022 7:38 AM * Full Code Date Activated Date Inactivated Comments 02/10/2019 1:04 PM 02/11/2019 11:25 PM * Full Code Date Activated Date Inactivated Comments 09/24/2018 8:49 PM 09/25/2018 3:31 PM Care Teams Batch Freezer Operator Relationship Specialty Start Date End Date Conor Dodson MD [address] [place] [address] [address]la [address] [place] [address] PCP - General Internal Medicine 12/27/23 Rodriguez Garcia MD Consulting Physician Cardiology 07/18/23 Conor Dodson MD [address] [place], [place] [address]SHEA [address] [place] [address] Consulting Physician Internal Medicine 07/13/24 Vern Valladares MD PhD [address] [facility] [address] [place] [address] Consulting Physician Cardiology 08/12/24
--- OUTSIDE RECORDS SUMMARY | 2024-12-18 10:39 | XMS_ITS | Encounter Summary ---
Author Organization [facility] Address [address] [place] [address] Care Team Providers Care Clamp Jig Assembler Name Role Phone Conor Dodson MD Primary Care Provider [phone] Rodriguez Garcia MD Unavailable [phone] Encounter Details Date Type Department Care Team (Late st Contact Info) Description 07/01/2019 Lab Requisition [facility] Derm[facility] Lab [address] [facility] [place] [address] Conor Rene [place] [address] Social History Tobacco Use Types [...] AM CDT) Case Report Dermatopathology Report Case: [id number] Authorizing Provider: Conor Rene MD Collected: 06/30/2019 12:00 AM Ordering Location: [facility] Derm[facility] Lab Received: 07/01/2019 01:20 PM Pathologist: Soni Jarmaillo MD Specimen: Skin, right side flank 12:25 [...] specimen consists of a shave biopsy measuring 21x7c3fw. Jar 0. 12:25 PM CDT DERMATOPATHOLOGY LABORATORY [...] characteristic determined by the Dermatopathology Laboratory at [facility], directed by Dr. Jennifer Colunga. These tests need not be, and therefore are not, approved by the [place] Food and Drug Administration. The tests are used for clinical purposes. Billing Codes Specimen Charges Stain Charges 85885 1 12:25 PM CDT DERMATOPATHOLOGY LABORATORY Embedded Images 12:25 PM CDT DERMATOPATHOLOGY LABORATORY Pathology/Cytolog y TISSUE SPECIMEN FROM SKIN / Unknown 06/30/2019 07/01/2019 1:20 PM CDT Conor Rene MD LAB - PATHOLOGY/CYTO LOGY ORDERABLES DERMATOPATHOLOGY LABORATORY [facility] - Department of Dermatology [address] [facility] 5th [place] [address], [facility] [phone] documented in this encounter Visit Diagnoses Not on filedocumented in this encounter Care Teams Clamp Jig Assembler Relationship Specialty Start Date End Date Conor Dodson MD [address] [facility] [address] [place] [address] PCP - General Internal Medicine 04/16/23 Rodriguez Garcia MD [facility] [address] [place] [address] [id number] Cardiovascular Disease 04/16/23 documented as of this encounter
--- OUTSIDE RECORDS SUMMARY | 2024-12-18 10:39 | XMS_ITS | Continuity of Care Document ---
Author Name [facility] Organization [facility] Care Team Providers Care Gas Meter Repairer Name Role Phone [facility] Unavailable Unavailable Problems Combined list of problems from Department of Defense and [facility] Affairs facilities. It does not include entries that were removed or entered in error. Problem Status Onset Date Problem Type Date of Resolution Comments Source AF - Atrial fibrillation Active Condition [facility] Amyloid polyneuropathy type I Active Condition [facility] Anticoagulant effect Active Condition [facility] Benign Prostatic Hypertrophy Without Outflow Obstruction (SCT 342654140) Active Condition [facility] Disturbance in mood Active Condition [facility] Exposure to potentially hazardous substance Active Condition [facility] Hearing Loss (SCT 06154423) Active Condition [facility] Hypercholesterolemia (SNOMED CT 34079419) Active Condition [facility] Hypertension (SNOMED CT 20268403) Active Condition [facility] Kidney Stone (SCT 95810305) Active Condition Mar 24, 2018 Entered By: PRANAY RAMIREZ AM Comment: s/p open nephrolithotomy [facility] Liver function tests abnormal Active Condition [facility] Low Back Pain (SCT 407862251) Active Condition Mar 24, 2018 Entered By: PRANAY RAMIREZ AM Comment: s/p L4-S1 fusion in 2009 [facility] 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 [facility] Mild neurocognitive disorder Active Condition [facility] Obesity Active Condition [facility] Osteoarthritis (SNOMED CT 942895722) Active Condition [facility] PTSD - Post-Traumatic Stress Disorder (SCT 93330644) Active Condition [facility] Therapeutic drug effect Active Condition [facility] Benign Localized Hyperplasia of Prostate without Urinary obstruction (ICD-9-CM 6 Inactive Condition 03/24/2018 [facility] Gout Inactive Condition 03/24/2018 [facility] Hearing Loss, Sensorineural, Unspecified Inactive Condition 03/24/2018 [facility] Nephrolithiasis Inactive Condition 03/24/2018 February 19, 2004 Entered By: KENNEDI VERAS Comment: Recurrent. s/p open nephrolithotomy; nonVA Urol. f/up [facility] Peripheral Nerve Disease (ICD-9-CM 355.9) Inactive Condition 03/24/2018 Dec 04, 2011 Entered By: DAVY IRBY Comment: L4-S1 spinal fusion 11/2009 [facility] PTSD Inactive Condition 03/24/2018 [facility] Sulfonamide Allergy (ICD-9-CM E931.0) Inactive Condition 11/20/2005 [facility] Diagnosis: ICD-10-CM E85.89 Other amyloidosis Active Diagnosis [facility] Diagnosis: ICD-10-CM H90.3 Sensorineural hearing loss, bilateral Active Diagnosis [facility] Diagnosis: ICD-10-CM G47.33 Obstructive sleep apnea (adult) (pediatric) Active Diagnosis [facility] Diagnosis: ICD-10-CM I10 Essential (primary) hypertension Active Diagnosis [facility] Diagnosis: ICD-10-CM J44.89 Other specified chronic obstructive pulmonary disease Active Diagnosis [facility] Diagnosis: ICD-10-CM 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 Diagnosis: ICD-10-CM I48.91 Unspecified atrial fibrillation Active Diagnosis [facility] Diagnosis: ICD-10-CM Z51.81 Encounter for therapeutic drug level monitoring Active Diagnosis [facility] Diagnosis: ICD-10-CM E85.9 Amyloidosis, unspecified Active Diagnosis [facility] Diagnosis: ICD-10-CM Z71.9 Counseling, unspecified Active Diagnosis [facility] Diagnosis: ICD-10-CM H61.23 Impacted cerumen, bilateral Active Diagnosis [facility] Diagnosis: ICD-10-CM Z77.29 Contact with and exposure to other hazardous substances Active Diagnosis [facility] Diagnosis: ICD-10-CM R41.9 Unsp symptoms and signs w cognitive functions and awareness Active Diagnosis [facility] Diagnosis: ICD-10-CM R41.841 Cognitive communication deficit Active Diagnosis [facility] Diagnosis: ICD-10-CM Z78.9 Other specified health status Active Diagnosis [facility] Diagnosis: ICD-10-CM G31.84 Mild cognitive impairment of uncertain or unknown etiology Active Diagnosis [facility] Medications Combined list of outpatient medications from Department of Defense and [facility] Affairs facilities.Medications provided include 1) outpatient medications from the last 15 months, and 2) patient-reported medications. Medication Details Route Status Patient Instructions Prescription Expires Prescription Number Last Dispense Date Ordering Provider Order Date Order Qty Source ALLOPURINOL 300MG TAB TAKE ONE TABLET BY MOUTH ONCE A DAY FOR GOUT. TAKE WITH PLENTY OF WATER. ORAL ACTIVE 05/21/2025 [id number] 4 GARRETTIN HUSSEIN D [address] [place] [address] ALLOPURINOL 300MG TAB TAKE ONE TABLET BY MOUTH ONCE A DAY FOR GOUT. TAKE WITH PLENTY OF WATER. ORAL DISCONT INUED 01/11/2025 [id number] 4 GARRETTIN HUSSEIN D [address] [place] [address] CITALOPRAM HYDROBROMID E 40MG TAB TAKE ONE TABLET BY MOUTH EVERY MORNING FOR DEPRESSI ON ORAL ACTIVE 01/11/2025 [id number] 4 GARRETTIN [facility] D [address] [place] [address] CITALOPRAM HYDROBROMID E 40MG TAB TAKE ONE TABLET BY MOUTH EVERY MORNING FOR DEPRESSI ON ORAL DISCONT INUED 12/21/2023 [id number] 3 GARRETTIN HUSSEIN D 2022 90 [facility] CITALOPRAM HYDROBROMID E 40MG TAB TAKE ONE-HALF TABLET BY MOUTH EVERY MORNING ORAL ACTIVE MAHAMED DAVY Jeffery [address] [facility] GABAPENTIN 300MG CAP TAKE ONE CAPSULE BY MOUTH EVERY EVENING FOR NERVE PAIN ORAL ACTIVE 10/24/2025 [id number] EMILIE BURNS 2024 90 [facility] GABAPENTIN 300MG CAP TAKE 2 CAPSULES BY MOUTH THREE TIMES A DAY ORAL ACTIVE MAHAMED DAVY A [address] [facility] GABAPENTIN 600MG TAB TAKE ONE TABLET BY MOUTH AT BEDTIME FOR PAIN ORAL ACTIVE 03/03/2025 [id number] 4 GARRETTIN GRID D 2023 90 [facility] GABAPENTIN 600MG TAB TAKE ONE TABLET BY MOUTH AT BEDTIME FOR PAIN ORAL DISCONT INUED 06/06/2024 [id number] 4 GARRETTIN GRID D 2022 90 [facility] LOSARTAN 50MG TAB TAKE ONE TABLET BY MOUTH TWICE A DAY FOR HIGH BLOOD PRESSURE ORAL SUSPEND ED 12/08/2025 [id number] 5 MARIXA STARK 2024 180 [facility] [place] 50MG TAB TAKE ONE TABLET BY MOUTH TWICE A DAY FOR HIGH BLOOD PRESSURE ORAL DISCONT INUED 04/30/2025 [id number] 5 MARIXA STARK 2023 180 [facility] [place] POTASSIUM 100MG TAB TAKE ONE TABLET BY MOUTH ONCE A DAY TO LOWER BLOOD PRESSURE ORAL DISCONT INUED (EDIT) 01/11/2025 [id number] 4 GARRETTIN GRID D 2023 90 [facility] [place] POTASSIUM 100MG TAB TAKE ONE TABLET BY MOUTH ONCE A DAY TO LOWER BLOOD PRESSURE ORAL DISCONT INUED 06/20/2024 [id number] 3 GARRETTIN GRID D 2022 90 [facility] METOPROLOL TARTRATE 100MG TAB TAKE ONE TABLET BY MOUTH TWICE A DAY FOR HIGH BLOOD PRESSURE TAKE WITH OR IMMEDIAT YOAV FOLLOWIN G FOOD. ORAL DISCONT INUED BY PROVIDE R 07/21/2024 [id number] 4 GARRETT,IN GRID D 2022 180 [facility] MULTIVITAMI NS CAP/TAB TAKE 1 TABLET BY MOUTH ONCE A DAY FOR NUTRITIO N/DIETAR Y SUPPLEME NTATION ORAL ACTIVE 07/02/2025 [id number] 5 MARIXA STARK 2023 100 [facility] OMEPRAZOLE 20MG CAP,EC TAKE ONE CAPSULE BY MOUTH AT BEDTIME TO LOWER STOMACH ACID. TAKE 30 MINUTES PRIOR TO FOOD. ORAL ACTIVE 12/08/2025 [id number] 5 GARRETT,IN GRID D 2024 90 [facility] OMEPRAZOLE 20MG CAP,EC TAKE ONE CAPSULE BY MOUTH AT BEDTIME TO LOWER STOMACH ACID. TAKE 30 MINUTES PRIOR TO FOOD. ORAL DISCONT INUED 05/21/2025 [id number] 4 GARRETT,IN GRID D 2023 90 [facility] OMEPRAZOLE 20MG CAP,EC TAKE ONE CAPSULE BY MOUTH AT BEDTIME TO LOWER STOMACH ACID. TAKE 30 MINUTES PRIOR TO FOOD. ORAL DISCONT INUED 10/22/2024 [id number] 4 GARRETT,IN GRID D 2023 90 [facility] RIVAROXABAN 20MG TAB TAKE ONE TABLET BY MOUTH ONCE A DAY TO THIN BLOOD. TAKE WITH FOOD. ORAL ACTIVE 04/14/2025 [id number] 4 MARIXA MATOS 2023 90 [facility] RIVAROXABAN 20MG TAB TAKE ONE TABLET BY MOUTH ONCE A DAY TO THIN BLOOD. TAKE WITH FOOD. ORAL DISCONT INUED 04/04/2024 [id number] 4 MARIXA MATOS 2022 90 [facility] VITAMIN A [id number] CAP TAKE ONE CAPSULE BY MOUTH ONCE A DAY FOR VITAMIN A SUPPLEME NTATION ORAL ACTIVE 10/01/2025 [id number] 4 MARIXA STARK 2023 90 [facility] Allergies, Adverse Reactions, Alerts Combined list of allergies from Department of Defense and Veterans Affairs facilities. It does not include entries that were removed or entered in error. Substance Category Reaction Severity Reaction type Status Date Reported Comments Source SULFA DRUGS Propensity to adverse reactions to drug (finding) Eruption active 4 [facility] Immunizations Combined list of available immunizations from the Department of Defense and Veterans Affairs facilities. Immunization Series Date Given Administered By Site Reaction Lot Number CVX Code Drug Demo Coordinator Status Comments Source INFLUENZA, HIGH-DOSE, TRIVALENT, PF 2023 CAROLYN SHIPLEY S LEFT DELTO ID [id number] A 135 complet ed [facility] INFLUENZA, UNSPECIFIED FORMULATION 2023 88 complet ed [facility] L INFLUENZA, UNSPECIFIED FORMULATION 2021 88 complet ed [facility] INFLUENZA, HIGH-DOSE, QUADRIVALENT, PF 4 2021 197 complet ed [facility] COVID-19 (MODERNA), MRNA, LNP-S, PF, 100 MCG OR 50 MCG DOSE 3 2021 207 complet ed MOD; [id number]; 2 [facility] INFLUENZA, UNSPECIFIED FORMULATION 2020 88 complet ed [facility] COVID-19 (MODERNA), MRNA, LNP-S, PF, 100 MCG/0.5 ML DOSE 2 2020 207 complet ed MOD; [id number]; 1 [facility] COVID-19 (MODERNA), MRNA, LNP-S, PF, 100 MCG/0.5 ML DOSE 1 2020 207 complet ed MOD; [id number]; 1 [facility] INFLUENZA, UNSPECIFIED FORMULATION 2018 88 complet ed [facility] ZOSTER RECOMBINANT [address] [facility] INFLUENZA, UNSPECIFIED FORMULATION 2 2017 88 complet ed [facility] INFLUENZA, UNSPECIFIED FORMULATION 2017 88 complet ed [facility] INFLUENZA, UNSPECIFIED FORMULATION 1 2016 88 complet ed [facility] INFLUENZA, INJECTABLE, QUADRIVALENT, PRESERVATIVE FREE 2016 150 complet ed [facility] PNEUMOCOCCAL CONJUGATE PCV 13 2 2015 133 complet ed [facility] INFLUENZA, UNSPECIFIED FORMULATION 2014 88 complet ed DONE AT [facility] PMDs OFFICE [facility] L PNEUMOCOCCAL CONJUGATE PCV [address] [facility] TDAP 2014 [address] [facility] INFLUENZA, UNSPECIFIED FORMULATION 2013 88 complet ed [facility] INFLUENZA, UNSPECIFIED FORMULATION 2013 88 complet ed [facility] PNEUMOCOCCAL POLYSACCHARID E PPV23 1 2012 33 complet ed [facility] PNEUMOCOCCAL, UNSPECIFIED FORMULATION [address] [facility] INFLUENZA, HIGH-DOSE, TRIVALENT, PF 1 2012 135 complet ed [facility] INFLUENZA, UNSPECIFIED FORMULATION 2012 88 complet ed [facility] INFLUENZA, UNSPECIFIED FORMULATION 2010 88 complet ed [facility] INFLUENZA, UNSPECIFIED FORMULATION 2009 88 complet ed [facility] INFLUENZA, UNSPECIFIED FORMULATION 2008 88 complet ed [facility] INFLUENZA, UNSPECIFIED FORMULATION [address] [facility] ZOSTER LIVE 2007 121 complet ed [facility] INFLUENZA, UNSPECIFIED FORMULATION 2006 88 complet ed [facility] INFLUENZA, UNSPECIFIED FORMULATION 2005 88 complet ed Per report from patient [facility] INFLUENZA, UNSPECIFIED FORMULATION 2004 88 complet ed [facility] INFLUENZA (HISTORICAL) [address] [facility] TD(ADULT) UNSPECIFIED FORMULATION [address] [facility] Results Combined list of recent chemistry, hematology and other laboratory results from Department of Defense and Veterans Affairs, ranging from 15 months to all on record, depending upon the facility. Order Name Results Value Reference Range Date Interpretation Specimen Comments Source PROTEIN ELECTROPH ORESIS BLOOD ALPHA 1 GLOBULIN [MASS/VOLUM E] IN SERUM OR PLASMA BY ELECTROPHOR ESIS 0.3 g/dL 0.2 - 0.3 11/23 Specimen Type: SERUM Comment: Reference Range: None Detected NOTE: THIS RESULT IS FLAGGED ABNORMAL Evaluation reveals a restricted band (M-spike) migrating in the beta-2 globulin region. If not already requested, Immunofixat ion should be considered. Test Performed by [employer] [facility], [address] [place] [address] Carlos Sun M.D., Ph.D., Director of Laboratorie s , [place] [id number] PREVIOUS: IgA KAPPA WITH FREE KAPPA LIGHT CHAIN Ordering Provider: ELMER GRAY Report Released Date/Time: Nov 26, 2023 09:22 AM Reporting Lab: [facility] [address] [facility] [place] [address] Performing Lab: [facility] [address] [facility] PROTEIN ELECTROPH ORESIS BLOOD ALPHA 2 GLOBULIN [MASS/VOLUM E] IN SERUM OR PLASMA BY ELECTROPHOR ESIS 0.7 g/dL 0.5 - 0.9 11/23 Specimen Type: SERUM Comment: Reference Range: None Detected NOTE: THIS RESULT IS FLAGGED ABNORMAL Evaluation reveals a restricted band (M-spike) migrating in the beta-2 globulin region. If not already requested, Immunofixat ion should be considered. Test Performed by [employer], [employer] [place], [address] [place], [place] Carlos Sun M.D., Ph.D., Director of Laboratorie s , CLIA [id number] PREVIOUS: IgA KAPPA WITH FREE KAPPA LIGHT CHAIN Ordering Provider: ELMER GRAY W Report Released Date/Time: Nov 26, 2023 09:22 AM Reporting Lab: [address] [address] Performing Lab: [address] [facility] PROTEIN ELECTROPH ORESIS BLOOD BETA 1 GLOBULIN(SO -PB-STL) 0.5 g/dL 0.4 - 0.6 11/23 Specimen Type: SERUM Comment: Reference Range: None Detected NOTE: THIS RESULT IS FLAGGED ABNORMAL Evaluation reveals a restricted band (M-spike) migrating in the beta-2 globulin region. If not already requested, Immunofixat ion should be considered. Test Performed by [employer], [employer] [place], [address] [place] [address] Carlos Sun M.D., Ph.D., Director of Laboratorie s , CLIA [id number] PREVIOUS: IgA KAPPA WITH FREE KAPPA LIGHT CHAIN Ordering Provider: ELMER GRAY IN W Report Released Date/Time: Nov 26, 2023 09:22 AM Reporting Lab: [address] [address] Performing Lab: [address] [facility] PROTEIN ELECTROPH ORESIS BLOOD GAMMA GLOBULIN [MASS/VOLUM E] IN SERUM OR PLASMA BY ELECTROPHOR ESIS 0.7 g/dL 0.8 - 1.7 11/23 L Specimen Type: SERUM Comment: Reference Range: None Detected NOTE: THIS RESULT IS FLAGGED ABNORMAL Evaluation reveals a restricted band (M-spike) migrating in the beta-2 globulin region. If not already requested, Immunofixat ion should be considered. Test Performed by [employer] [place], [address] [place], [place] Carlos Snu M.D., Ph.D., Director of Laboratorie s , CLIA [id number] PREVIOUS: IgA KAPPA WITH FREE KAPPA LIGHT CHAIN Ordering Provider: ELMER GRAY W Report Released Date/Time: Nov 26, 2023 09:22 AM Reporting Lab: [facility] [address] [place] [phone] Performing Lab: [address] [facility] PROTEIN ELECTROPH ORESIS BLOOD PROTEIN [MASS/VOLUM E] IN SERUM OR PLASMA 6.6 g/dL 6.1 - 8.1 11/23 Specimen Type: SERUM Comment: Reference Range: None Detected NOTE: THIS RESULT IS FLAGGED ABNORMAL Evaluation reveals a restricted band (M-spike) migrating in the beta-2 globulin region. If not already requested, Immunofixat ion should be considered. Test Performed by [employer] [facility] [place], [address] [place], [place] Carlos Sun M.D., Ph.D., Director of Laboratorie s , CLIA [id number] PREVIOUS: IgA KAPPA WITH FREE KAPPA LIGHT CHAIN Ordering Provider: ELMER GRAY W Report Released Date/Time: Nov 26, 2023 09:22 AM Reporting Lab: [facility] [address] [place] [phone] Performing Lab: [facility] [id number] [place] [address] [facility] PROTEIN ELECTROPH ORESIS BLOOD ALBUMIN [MASS/VOLUM E] IN SERUM OR PLASMA 3.8 g/dL 3.8 - 4.8 11/23 Specimen Type: SERUM Comment: Reference Range: None Detected NOTE: THIS RESULT IS FLAGGED ABNORMAL Evaluation reveals a restricted band (M-spike) migrating in the beta-2 globulin region. If not already requested, Immunofixat ion should be considered. Test Performed by [employer] [place], [employer] [place], [address] [place], [place] Carlos Sun M.D., Ph.D., Director of Laboratorie s , CLIA [id number] PREVIOUS: IgA KAPPA WITH FREE KAPPA LIGHT CHAIN Ordering Provider: ELMER GRAY IN W Report Released Date/Time: Nov 26, 2023 09:22 AM Reporting Lab: [facility] [address] [facility] [place] [address] Performing Lab: [address] [facility] PROTEIN ELECTROPH ORESIS BLOOD BETA 2 GLOBULIN (SO-PB) 0.8 g/dL 0.2 - 0.5 11/23 H Specimen Type: SERUM Comment: Reference Range: None Detected NOTE: THIS RESULT IS FLAGGED ABNORMAL Evaluation reveals a restricted band (M-spike) migrating in the beta-2 globulin region. If not already requested, Immunofixat ion should be considered. Test Performed by [employer] [place], [employer] [place], [address] [place] [address] Carlos Sun M.D., Ph.D., Director of Laboratorie s , CLIA [id number] PREVIOUS: IgA KAPPA WITH FREE KAPPA LIGHT CHAIN Ordering Provider: ELMER GRAY IN W Report Released Date/Time: Nov 26, 2023 09:22 AM Reporting Lab: [facility] [address] [place] [phone] Performing Lab: [facility] [address] [place] [address] [facility] PROTEIN ELECTROPH ORESIS BLOOD INTERPRETAT ION (STL-PB) SEE NOTE 11/23 H Specimen Type: SERUM Comment: Reference Range: None Detected NOTE: THIS RESULT IS FLAGGED ABNORMAL Evaluation reveals a restricted band (M-spike) migrating in the beta-2 globulin region. If not already requested, Immunofixat ion should be considered. Test Performed by [employer] [facility] [place], [address] [place], [place] Carlos Sun M.D., Ph.D., Director of Laboratorie s , CLIA [id number] PREVIOUS: IgA KAPPA WITH FREE KAPPA LIGHT CHAIN Ordering Provider: ELMER GRAY IN W Report Released Date/Time: Nov 26, 2023 09:22 AM Reporting Lab: [address] [address] Performing Lab: [address] [facility] PROTEIN ELECTROPH ORESIS BLOOD ABNORMAL PROTEIN BAND 1 (SO-PB-STL) 0.4 g/dL 11/23 H Specimen Type: SERUM Comment: Reference Range: None Detected NOTE: THIS RESULT IS FLAGGED ABNORMAL Evaluation reveals a restricted band (M-spike) migrating in the beta-2 globulin region. If not already requested, Immunofixat ion should be considered. Test Performed by [employer] [place], [address] [place] [address] Carlos Sun M.D., Ph.D., Director of Laboratorie s , CLIA [id number] PREVIOUS: IgA KAPPA WITH FREE KAPPA LIGHT CHAIN Ordering Provider: ELMER GRAY IN W Report Released Date/Time: Nov 26, 2023 09:22 AM Reporting Lab: [facility] [address] [place] [phone] Performing Lab: [address] [facility] KAPPA/GRAY BDA FREE LC PANEL (STL-PB) KAPPA LIGHT CHAINS [PRESENCE] IN SERUM BY ELECTROPHOR ESIS 26.0 mg/L 2.4 - 20.7 11/23 H Specimen Type: SERUM No comment entered. Ordering Provider: ELMER GRAY IN W Report Released Date/Time: Nov 26, 2023 09:22 AM Reporting Lab: [address] [address] Performing Lab: [address] [phone] [place] [address] KAPPA/GRAY BDA FREE LC PANEL (STL-PB) LAMBDA LIGHT CHAINS.FREE [MASS/VOLUM E] IN SERUM OR PLASMA 23.3 mg/L 4.2 - 27.7 11/23 Specimen Type: SERUM No comment entered. Ordering Provider: ELMER GRAY IN W Report Released Date/Time: Nov 26, 2023 09:22 AM Reporting Lab: [address] [address] Performing Lab: [address] [id number] KAPPA/GRAY BDA FREE LC PANEL (STL-PB) KAPPA/LAMBD A RATIO (STL) 1.12 0.22 - 1.74 11/23 Specimen Type: SERUM No comment entered. Ordering Provider: ELMER GRAY IN W Report Released Date/Time: Nov 26, 2023 09:22 AM Reporting Lab: [address] [address] Performing Lab: [address] [phone] [place] [address] COMPREHEN SIVE METABOLIC PANEL CREATININE [MASS/VOLUM E] IN SERUM OR PLASMA 1.01 mg/dL 0.7 - 1.3 11/23 Specimen Type: PLASMA Comment: No hemolysis noted. Ordering Provider: ELMER GRAY IN W Report Released Date/Time: Nov 26, 2023 09:22 AM Reporting Lab: [address] [address] Performing Lab: [address] [address] [facility] COMPREHEN SIVE METABOLIC PANEL UREA NITROGEN [MASS/VOLUM E] IN SERUM OR PLASMA 18.0 mg/dL 9.0 - 25.0 11/23 Specimen Type: PLASMA Comment: No hemolysis noted. Ordering Provider: ELMER GRAY Report Released Date/Time: Nov 26, 2023 09:22 AM Reporting Lab: [place] [address] [facility] [address] Performing Lab: [address] [address] [facility] COMPREHEN SIVE METABOLIC PANEL GLUCOSE [MASS/VOLUM E] IN SERUM OR PLASMA 84 mg/dL 72 - 99 11/23 Specimen Type: PLASMA Comment: No hemolysis noted. Ordering Provider: ELMER GRAY IN W Report Released Date/Time: Nov 26, 2023 09:22 AM Reporting Lab: [address] [address] Performing Lab: [address] [address] [facility] COMPREHEN SIVE METABOLIC PANEL SODIUM [MOLES/VOLU ME] IN SERUM OR PLASMA 141 meq/L 136 - 145 11/23 Specimen Type: PLASMA Comment: No hemolysis noted. Ordering Provider: ELMER GRAY Report Released Date/Time: Nov 26, 2023 09:22 AM Reporting Lab: [address] [address] Performing Lab: [address] [address] [facility] COMPREHEN SIVE METABOLIC PANEL POTASSIUM [MOLES/VOLU ME] IN SERUM OR PLASMA 4.4 meq/L 3.5 - 5 11/23 Specimen Type: PLASMA Comment: No hemolysis noted. Ordering Provider: ELMER GRAY Report Released Date/Time: Nov 26, 2023 09:22 AM Reporting Lab: [place] [address] [place] [address] Performing Lab: [address] [place] [address] [facility] COMPREHEN SIVE METABOLIC PANEL CHLORIDE [MOLES/VOLU ME] IN SERUM OR PLASMA 106 meq/L 98 - 107 11/23 Specimen Type: PLASMA Comment: No hemolysis noted. Ordering Provider: ELMER GRAY IN W Report Released Date/Time: Nov 26, 2023 09:22 AM Reporting Lab: [address] [address] Performing Lab: [address] [address] [facility] COMPREHEN SIVE METABOLIC PANEL CARBON DIOXIDE, TOTAL [MOLES/VOLU ME] IN SERUM OR PLASMA 24 meq/L 22 - 31 11/23 Specimen Type: PLASMA Comment: No hemolysis noted. Ordering Provider: ELMER GRAY IN W Report Released Date/Time: Nov 26, 2023 09:22 AM Reporting Lab: [address] [address] Performing Lab: [address] [address] [facility] COMPREHEN SIVE METABOLIC PANEL CALCIUM [MASS/VOLUM E] IN SERUM OR PLASMA 9.4 mg/dL 8.4 - 10.4 11/23 Specimen Type: PLASMA Comment: No hemolysis noted. Ordering Provider: ELMER GRAY IN W Report Released Date/Time: Nov 26, 2023 09:22 AM Reporting Lab: [address] [address] Performing Lab: [address] [address] [facility] COMPREHEN SIVE METABOLIC PANEL PROTEIN [MASS/VOLUM E] IN SERUM OR PLASMA 7.1 g/dL 6 - 8.6 11/23 Specimen Type: PLASMA Comment: No hemolysis noted. Ordering Provider: ELMER GRAY IN W Report Released Date/Time: Nov 26, 2023 09:22 AM Reporting Lab: [place] [address] [place] [address] Performing Lab: [place] [address] [facility] [place] [address] [facility] COMPREHEN SIVE METABOLIC PANEL ALBUMIN [MASS/VOLUM E] IN SERUM OR PLASMA 4.0 g/dL 3.4 - 5 11/23 Specimen Type: PLASMA Comment: No hemolysis noted. Ordering Provider: ELMER GRAY IN W Report Released Date/Time: Nov 26, 2023 09:22 AM Reporting Lab: [place] [address] [facility] [place] [address] Performing Lab: [address] [phone] COMPREHEN SIVE METABOLIC PANEL BILIRUBIN.T OTAL [MASS/VOLUM E] IN SERUM OR PLASMA 0.7 mg/dL 0.2 - 1.2 11/23 Specimen Type: PLASMA Comment: No hemolysis noted. Ordering Provider: ELMER GRAY IN W Report Released Date/Time: Nov 26, 2023 09:22 AM Reporting Lab: [address] [address] Performing Lab: [place] [address] [facility] [place] [address] [facility] COMPREHEN SIVE METABOLIC PANEL ALKALINE PHOSPHATASE [ENZYMATIC ACTIVITY/VO LUME] IN SERUM OR PLASMA 77 U/L 40 - 150 11/23 Specimen Type: PLASMA Comment: No hemolysis noted. Ordering Provider: ELMER GRAY IN W Report Released Date/Time: Nov 26, 2023 09:22 AM Reporting Lab: [place] [id number] Performing Lab: [address] [address] [facility] COMPREHEN SIVE METABOLIC PANEL ASPARTATE AMINOTRANSF ERASE [ENZYMATIC ACTIVITY/VO LUME] IN SERUM OR PLASMA 24 U/L 5 - 34 11/23 Specimen Type: PLASMA Comment: No hemolysis noted. Ordering Provider: ELMER GRAY IN W Report Released Date/Time: Nov 26, 2023 09:22 AM Reporting Lab: [address] [address] Performing Lab: [address] [address] [facility] COMPREHEN SIVE METABOLIC PANEL ALANINE AMINOTRANSF ERASE [ENZYMATIC ACTIVITY/VO LUME] IN SERUM OR PLASMA 23 U/L 8 - 40 11/23 Specimen Type: PLASMA Comment: No hemolysis noted. Ordering Provider: ELEMR GRAY IN W Report Released Date/Time: Nov 26, 2023 09:22 AM Reporting Lab: [address] [address] Performing Lab: [address] [phone] [place] [address] COMPREHEN SIVE METABOLIC PANEL GLOMERULAR FILTRATION RATE/1.73 SQ M.PREDICTED [VOLUME RATE/AREA] IN SERUM, PLASMA OR BLOOD BY CREATININE- BASED FORMULA (CKD-EPI 2020) 76.6 60 11/23 Specimen Type: PLASMA Comment: No hemolysis noted. Ordering Provider: ELMER GRAY IN W Report Released Date/Time: Nov 26, 2023 09:22 AM Reporting Lab: [address] [address] Performing Lab: [address] [phone] [place] [address] CBC LEUKOCYTES [#/VOLUME] IN BLOOD BY AUTOMATED COUNT 7.2 10*3/u L 3.6 - 11.2 11/23 Specimen Type: BLOOD No comment entered. Ordering Provider: ELMER GRAY IN W Report Released Date/Time: Nov 26, 2023 09:22 AM Reporting Lab: [address] [address] Performing Lab: [address] [address] [facility] CBC ERYTHROCYTE S [#/VOLUME] IN BLOOD BY AUTOMATED COUNT 4.16 10*6/u L 4.10 - 5.70 11/23 Specimen Type: BLOOD No comment entered. Ordering Provider: ELMER GRAY IN W Report Released Date/Time: Nov 26, 2023 09:22 AM Reporting Lab: [place] [id number] Performing Lab: [place] [id number] CBC HEMOGLOBIN [MASS/VOLUM E] IN BLOOD 13.8 g/dL 13.1 - 16.8 11/23 Specimen Type: BLOOD No comment entered. Ordering Provider: ELMER GRAY IN W Report Released Date/Time: Nov 26, 2023 09:22 AM Reporting Lab: [place] [id number] Performing Lab: [place] [id number] CBC HEMATOCRIT [VOLUME FRACTION] OF BLOOD 40.3 38.2 - 48.4 11/23 Specimen Type: BLOOD No comment entered. Ordering Provider: ELMER GRAY IN W Report Released Date/Time: Nov 26, 2023 09:22 AM Reporting Lab: [place] [phone] Performing Lab: [address] [address] [facility] CBC MCV [ENTITIC VOLUME] BY AUTOMATED COUNT 96.9 fL 80.0 - 100.0 11/23 Specimen Type: BLOOD No comment entered. Ordering Provider: ELMER GRAY IN W Report Released Date/Time: Nov 26, 2023 09:22 AM Reporting Lab: [place] [phone] Performing Lab: [address] [address] [facility] CBC MCH [ENTITIC MASS] BY AUTOMATED COUNT 33.2 pg 27.0 - 34.0 11/23 Specimen Type: BLOOD No comment entered. Ordering Provider: ELMER GRAY IN W Report Released Date/Time: Nov 26, 2023 09:22 AM Reporting Lab: [address] [address] Performing Lab: [address] [address] [facility] CBC MCHC [MASS/VOLUM E] BY AUTOMATED COUNT 34.2 g/dL 33.0 - 36.0 11/23 Specimen Type: BLOOD No comment entered. Ordering Provider: ELMER GRAY IN W Report Released Date/Time: Nov 26, 2023 09:22 AM Reporting Lab: [address] [address] Performing Lab: [address] [phone] [place] [address] CBC PLATELETS [#/VOLUME] IN BLOOD BY AUTOMATED COUNT 247 10*3/u L 150 - 400 11/23 Specimen Type: BLOOD No comment entered. Ordering Provider: ELMER GRAY IN W Report Released Date/Time: Nov 26, 2023 09:22 AM Reporting Lab: [address] [address] Performing Lab: [address] [address] [facility] CBC PLATELET MEAN VOLUME [ENTITIC VOLUME] IN BLOOD BY AUTOMATED COUNT 9.0 fL 7.5 - 11.2 11/23 Specimen Type: BLOOD No comment entered. Ordering Provider: ELMER GRAY IN W Report Released Date/Time: Nov 26, 2023 09:22 AM Reporting Lab: [address] [address] Performing Lab: [address] [place] [address] [facility] CBC ERYTHROCYTE DISTRIBUTIO N WIDTH [RATIO] BY AUTOMATED COUNT 14.2 11.8 - 15.1 11/23 Specimen Type: BLOOD No comment entered. Ordering Provider: ELMER GRAY IN W Report Released Date/Time: Nov 26, 2023 09:22 AM Reporting Lab: [address] [address] Performing Lab: [address] [address] [facility] CBC LYMPHOCYTES /100 LEUKOCYTES IN BLOOD BY AUTOMATED COUNT 25 11/23 Specimen Type: BLOOD No comment entered. Ordering Provider: ELMER GRAY IN W Report Released Date/Time: Nov 26, 2023 09:22 AM Reporting Lab: [address] [address] Performing Lab: [address] [address] [facility] CBC MONOCYTES/1 00 LEUKOCYTES IN BLOOD BY AUTOMATED COUNT 11 11/23 Specimen Type: BLOOD No comment entered. Ordering Provider: ELMER GRAY IN W Report Released Date/Time: Nov 26, 2023 09:22 AM Reporting Lab: [address] [address] Performing Lab: [address] [address] [facility] CBC NEUTROPHILS /100 LEUKOCYTES IN BLOOD BY AUTOMATED COUNT 60 11/23 Specimen Type: BLOOD No comment entered. Ordering Provider: ELMER GRAY IN W Report Released Date/Time: Nov 26, 2023 09:22 AM Reporting Lab: [address] [address] Performing Lab: [address] [address] [facility] CBC EOSINOPHILS /100 LEUKOCYTES IN BLOOD BY AUTOMATED COUNT 3 11/23 Specimen Type: BLOOD No comment entered. Ordering Provider: ELMER GRAY IN W Report Released Date/Time: Nov 26, 2023 09:22 AM Reporting Lab: [address] [address] Performing Lab: [address] [address] [facility] CBC BASOPHILS/1 00 LEUKOCYTES IN BLOOD BY AUTOMATED COUNT 0 11/23 Specimen Type: BLOOD No comment entered. Ordering Provider: ELMER GRAY W Report Released Date/Time: Nov 26, 2023 09:22 AM Reporting Lab: [place] [address] Performing Lab: [address] [phone] [place] [address] CBC LYMPHOCYTES [#/VOLUME] IN BLOOD BY AUTOMATED COUNT 1.78 10*3/u L 0.77 - 4.50 11/23 Specimen Type: BLOOD No comment entered. Ordering Provider: ELMER GRAY IN W Report Released Date/Time: Nov 26, 2023 09:22 AM Reporting Lab: [address] [address] Performing Lab: [address] [address] [facility] CBC MONOCYTES [#/VOLUME] IN BLOOD BY AUTOMATED COUNT 0.82 10*3/u L 0.19 - 0.80 11/23 H Specimen Type: BLOOD No comment entered. Ordering Provider: ELMER GRAY IN W Report Released Date/Time: Nov 26, 2023 09:22 AM Reporting Lab: [address] [address] Performing Lab: [address] [address] [facility] CBC NEUTROPHILS [#/VOLUME] IN BLOOD BY AUTOMATED COUNT 4.36 10*3/u L 2.10 - 8.00 11/23 Specimen Type: BLOOD No comment entered. Ordering Provider: ELMER GRAY Report Released Date/Time: Nov 26, 2023 09:22 AM Reporting Lab: [place] [phone] Performing Lab: [address] [phone] [place] [address] CBC EOSINOPHILS [#/VOLUME] IN BLOOD BY AUTOMATED COUNT 0.20 10*3/u L 0.00 - 0.60 11/23 Specimen Type: BLOOD No comment entered. Ordering Provider: ELMER GRAY Report Released Date/Time: Nov 26, 2023 09:22 AM Reporting Lab: [place] [phone] Performing Lab: [place] [id number] CBC BASOPHILS [#/VOLUME] IN BLOOD BY AUTOMATED COUNT 0.03 10*3/u L 0.00 - 0.20 11/23 Specimen Type: BLOOD No comment entered. Ordering Provider: ELMER GRAY Report Released Date/Time: Nov 26, 2023 09:22 AM Reporting Lab: [address] [address] Performing Lab: [place] [id number] [place] [address] PROTEIN URINE PROTEIN [MASS/VOLUM E] IN URINE 13.4 mg/dL 05/22 Specimen Type: URINE No comment entered. Ordering Provider: JOHN STARK Report Released Date/Time: Apr 29, 2024 09:21 AM Reporting Lab: [address] [address] Performing Lab: [address] [phone] [place] [address] B12 COBALAMIN (VITAMIN B12) [MASS/VOLUM E] IN SERUM OR PLASMA 447 pg/mL 213 - 816 05/22 Specimen Type: SERUM No comment entered. Ordering Provider: Toan BURNS Report Released Date/Time: May 22, 2024 02:24 PM Reporting Lab: [address] [address] Performing Lab: [address] [phone] TROPONIN I TROPONIN I.CARDIAC [MASS/VOLUM E] IN SERUM OR PLASMA <0.010 ng/mL 0 - 0.033 05/22 Specimen Type: PLASMA Comment: No hemolysis noted. Ordering Provider: JOHN STARK Report Released Date/Time: Apr 29, 2024 09:21 AM Reporting Lab: [address] [address] Performing Lab: [address] [address] [facility] BRAIN NATRIURET IC PEPTIDE NATRIURETIC PEPTIDE B [MASS/VOLUM E] IN SERUM OR PLASMA 123.4 pg/mL 0 - 100 05/22 H Specimen Type: PLASMA No comment entered. Ordering Provider: JOHN STARK Report Released Date/Time: Apr 29, 2024 09:21 AM Reporting Lab: [address] [address] Performing Lab: [address] [address] [facility] BASIC METABOLIC PANEL CREATININE [MASS/VOLUM E] IN SERUM OR PLASMA 0.99 mg/dL 0.7 - 1.3 05/22 Specimen Type: PLASMA Comment: No hemolysis noted. Ordering Provider: JOHN STARK Report Released Date/Time: Apr 29, 2024 09:21 AM Reporting Lab: [address] [address] Performing Lab: [place] [address] [facility] BASIC METABOLIC PANEL UREA NITROGEN [MASS/VOLUM E] IN SERUM OR PLASMA 16.2 mg/dL 9.0 - 25.0 05/22 Specimen Type: PLASMA Comment: No hemolysis noted. Ordering Provider: JOHN STARK Report Released Date/Time: Apr 29, 2024 09:21 AM Reporting Lab: [facility] [address] [place] [address] Performing Lab: [address] [address] [facility] BASIC METABOLIC PANEL GLUCOSE [MASS/VOLUM E] IN SERUM OR PLASMA 101 mg/dL 72 - 99 05/22 H Specimen Type: PLASMA Comment: No hemolysis noted. Ordering Provider: JOHN STARK Report Released Date/Time: Apr 29, 2024 09:21 AM Reporting Lab: [address] [address] Performing Lab: [facility] [address] [place] [address] [facility] BASIC METABOLIC PANEL SODIUM [MOLES/VOLU ME] IN SERUM OR PLASMA 140 meq/L 136 - 145 05/22 Specimen Type: PLASMA Comment: No hemolysis noted. Ordering Provider: JOHN STARK Report Released Date/Time: Apr 29, 2024 09:21 AM Reporting Lab: [facility] [address] [facility] [place] [address] Performing Lab: [facility] [address] [place] [address] [facility] BASIC METABOLIC PANEL POTASSIUM [MOLES/VOLU ME] IN SERUM OR PLASMA 4.1 meq/L 3.5 - 5 05/22 Specimen Type: PLASMA Comment: No hemolysis noted. Ordering Provider: JOHN STARK Report Released Date/Time: Apr 29, 2024 09:21 AM Reporting Lab: [address] [address] Performing Lab: [facility] [address] [place] [address] [facility] BASIC METABOLIC PANEL CHLORIDE [MOLES/VOLU ME] IN SERUM OR PLASMA 106 meq/L 98 - 107 05/22 Specimen Type: PLASMA Comment: No hemolysis noted. Ordering Provider: JOHN STARK Report Released Date/Time: Apr 29, 2024 09:21 AM Reporting Lab: [facility] [address] [place] [address] Performing Lab: [facility] [address] [place] [address] [facility] BASIC METABOLIC PANEL CARBON DIOXIDE, TOTAL [MOLES/VOLU ME] IN SERUM OR PLASMA 24 meq/L 22 - 31 05/22 Specimen Type: PLASMA Comment: No hemolysis noted. Ordering Provider: JOHN STARK Report Released Date/Time: Apr 29, 2024 09:21 AM Reporting Lab: [place] [id number] [facility] [place] [address] Performing Lab: [address] [address] [facility] BASIC METABOLIC PANEL CALCIUM [MASS/VOLUM E] IN SERUM OR PLASMA 9.6 mg/dL 8.4 - 10.4 05/22 Specimen Type: PLASMA Comment: No hemolysis noted. Ordering Provider: JOHN STARK Report Released Date/Time: Apr 29, 2024 09:21 AM Reporting Lab: [facility] [address] [place] [address] Performing Lab: [address] [address] [facility] BASIC METABOLIC PANEL GLOMERULAR FILTRATION RATE/1.73 SQ M.PREDICTED [VOLUME RATE/AREA] IN SERUM, PLASMA OR BLOOD BY CREATININE- BASED FORMULA (CKD-EPI 2020) 78.5 60 05/22 Specimen Type: PLASMA Comment: No hemolysis noted. Ordering Provider: JOHN STARK Report Released Date/Time: Apr 29, 2024 09:21 AM Reporting Lab: [facility] [address] [place] [address] Performing Lab: [facility] [address] [facility] [place] [address] [facility] TROPONIN I TROPONIN I.CARDIAC [MASS/VOLUM E] IN SERUM OR PLASMA <0.010 ng/mL 0 - 0.033 02/04 Specimen Type: PLASMA Comment: No hemolysis noted. Ordering Provider: JOHN STARK Report Released Date/Time: Feb 05, 2024 10:34 AM Reporting Lab: [address] [address] Performing Lab: [address] [address] [facility] Vital Signs Combined list of inpatient and outpatient Vital Signs from Department of Defense and Veterans Affairs, ranging from 12 months to all on record, depending upon the facility. Vital Sign Value Date Comments Source SYSTOLIC BLOOD PRESSURE 129 11/23/2024 10:16:24 [facility] DIASTOLIC BLOOD PRESSURE 73 11/23/2024 10:16:24 [facility] PULSE OXIMETRY 98 11/23/2024 10:16:24 [facility] WEIGHT 239.8 11/23/2024 10:16:24 [facility] BMI 35 kg/m2 11/23/2024 10:16:24 [facility] TEMPERATURE 97.5 11/23/2024 10:16:24 [facility] PULSE 69 11/23/2024 10:16:24 [facility] RESPIRATION 18 11/23/2024 10:16:24 [facility] SYSTOLIC BLOOD PRESSURE 150 09/30/2024 09:21:05 [facility] DIASTOLIC BLOOD PRESSURE 81 09/30/2024 09:21:05 [facility] PULSE OXIMETRY 98 09/30/2024 09:21:05 [facility] WEIGHT 241.1 09/30/2024 09:21:05 [facility] BMI 36 kg/m2 09/30/2024 09:21:05 [facility] PAIN 0 09/30/2024 09:21:05 [facility] TEMPERATURE 97.9 09/30/2024 09:21:05 [facility] PULSE 66 09/30/2024 09:21:05 [facility] RESPIRATION 18 09/30/2024 09:21:05 [facility] SYSTOLIC BLOOD PRESSURE 145 07/07/2024 14:54:56 [facility] DIASTOLIC BLOOD PRESSURE 74 07/07/2024 14:54:56 [facility] PULSE OXIMETRY 96 07/07/2024 14:54:56 Bria [facility] WEIGHT 244.8 07/07/2024 14:54:56 Simi [facility] BMI 36 kg/m2 07/07/2024 14:54:56 Simi [facility] PAIN 0 07/07/2024 14:54:56 Simi [facility] TEMPERATURE 97.8 07/07/2024 14:54:56 [facility] PULSE 68 07/07/2024 14:54:56 [facility] Simi [facility] RESPIRATION 18 07/07/2024 14:54:56 [facility] SYSTOLIC BLOOD PRESSURE 152 07/02/2024 11:02:33 [facility] DIASTOLIC BLOOD PRESSURE 76 07/02/2024 11:02:33 [facility] PULSE OXIMETRY 97 07/02/2024 11:02:33 S Tonya [facility] WEIGHT 242.8 07/02/2024 11:02:33 [facility] BMI 36 kg/m2 07/02/2024 11:02:33 [facility] PAIN 0 07/02/2024 11:02:33 [facility] TEMPERATURE 98.8 07/02/2024 11:02:33 [facility] PULSE 61 07/02/2024 11:02:33 [facility] RESPIRATION 18 07/02/2024 11:02:33 [facility] SYSTOLIC BLOOD PRESSURE 149 07/01/2024 09:00:43 [facility] DIASTOLIC BLOOD PRESSURE 78 07/01/2024 09:00:43 [facility] PULSE OXIMETRY 97 07/01/2024 09:00:43 [facility] WEIGHT 245.2 07/01/2024 09:00:43 [facility] BMI 36 kg/m2 07/01/2024 09:00:43 [facility] PAIN 0 07/01/2024 09:00:43 [facility] TEMPERATURE 97.9 07/01/2024 09:00:43 [facility] PULSE 67 07/01/2024 09:00:43 [facility] RESPIRATION 18 07/01/2024 09:00:43 [facility] Encounters Combined list of: 1) Encounters from Department of [facility] Affairs facilities going backup to the last 18 months, not all [place] inpatient encounters are included; 2) Encounters from the Department of [facility] facilities going backup to 280 months. 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 HODA ROMERO 07/01 [facility] Outpatient Encounter [id number] MITRA GARCIA 07/16 [facility] HC PRO PHONE CALL 5-10 MIN [id number] Diagnos is: ICD-10- CM Z78.9 Other specifi ed health status HECTOR RICHTER 07/22 [facility] SELF-MGMT EDUC/[place] 2-4 [place] [id number] Diagnos is: ICD-10- CM R41.841 Cogniti ve communi cation deficit OLIVIALORENACayla WARE Y 08/01 [facility] IVNTJ GRP EA ADDL [id number] Diagnos is: ICD-10- CM R41.9 Unsp symptom s and signs w cogniti ve functio ns and awarene ss HODA ROMERO 08/08 [facility] IVNTJ GRP EA ADDL [id number] Diagnos is: ICD-10- CM R41.9 Unsp symptom s and signs w cogniti ve functio ns and awarene ss HODA ROMERO N 08/22 [facility] IVNTJ GRP EA ADDL [id number] Diagnos is: ICD-10- CM R41.9 Unsp symptom s and signs w cogniti ve functio ns and awarene ss HODA ROMERO N 08/29 [facility] Outpatient Encounter [id number] Pattie MURRAY 09/18 [facility] IVNTJ GRP EA ADDL [id number] Diagnos is: ICD-10- CM R41.9 Unsp symptom s and signs w cogniti ve functio ns and awarene ss HODA ROMERO N 09/19 [facility] IVNTJ GRP EA ADDL [id number] Diagnos is: ICD-10- CM R41.9 Unsp symptom s and signs w cogniti ve functio ns and awarene ss HODA ROMERO N 09/26 [facility] HEARING AID REPAIR/MOD IFYING [id number] Diagnos is: ICD-10- CM H90.3 Sensori neural hearing loss, bilater HAILEY Kaur 09/30 [facility] Outpatient Encounter [id number] RENATA HORNE 10/03 [facility] IVNTJ GRP EA ADDL [id number] Diagnos is: ICD-10- CM R41.9 Unsp symptom s and signs w cogniti ve functio ns and awarene ss HODA ROMERO N 10/03 [facility] Outpatient Encounter [id number] 10/04 [facility] Outpatient Encounter [id number] PRESTON RUCKER DOUGLAS A 10/08 [facility] Outpatient Encounter [id number] 10/10 [facility] Outpatient Encounter [id number] Outpatient Encounter [id number] 10/16 [facility] Outpatient Encounter [id number] 10/21 [facility] Outpatient Encounter [id number] [facility] K 10/29 [facility] OFF/OP CONSLTJ NEW/EST HI 55 [id number] Diagnos is: ICD-10- CM 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 ELYSIA Anna W 11/25 [facility] QNHP OL DIG ASSMT&MGMT 5-10 [id number] Diagnos is: ICD-10- CM Z51.81 Encount er for therape utic drug level monitor TL Faulkner S 11/26 [facility] Outpatient Encounter 51398-6.65 [id number] 12/05 [facility] Outpatient Encounter [id number] [id number] 12/10 [facility] Outpatient Encounter [id number] [id number] JESSICA MOSS S 12/16 [facility] OFFICE O/P NEW MOD 45 MIN [id number] [id number] Diagnos is: ICD-10- CM I48.91 Unspeci fied atrial fibrill atlia OLGA TUCKER RID D 12/24 [facility] Outpatient Encounter [id number] [id number] 12/25 [facility] Outpatient Encounter [id number] [id number] 12/30 [facility] Outpatient Encounter [id number] [id number] OFELIA BRAY A 01/01 [facility] OFFICE O/P NEW HI 60 MIN [id number] [id number] Diagnos is: ICD-10- CM Z77.29 Contact with and exposur e to other hazardo us substan LEANDRO Perez 01/07 [facility] OFF/OP CNSLTJ NEW/EST LOW 30 74731-8.65 [id number] Diagnos is: ICD-10- CM H61.23 Maxe d cerumen , bilDANETTE Ramsey J 01/12 [facility] Outpatient Encounter 81941-6.65 [id number] 01/16 [facility] Outpatient Encounter 31802-4.65 [id number] 01/19 [facility] HC PRO PHONE CALL 5-10 MIN 25992-5.65 [id number] Diagnos is: ICD-10- CM Z71.9 Funeral [employer] Manager ing, unspeci RENATA Dominguez 01/22 [facility] Outpatient Encounter 35132-2.65 [id number] 01/26 [facility] Outpatient Encounter 70242-7.65 [id number] 01/30 [facility] OFF/OP CONSLTJ NEW/EST [place] 55 35851-0.65 [id number] Diagnos is: ICD-10- CM I10 Essenti al (primar y) hyperte SUSAN Sutton 02/04 [facility] Outpatient Encounter [id number] [id number] 02/04 [facility] MYOCRD STRAIN IMG SPCKL TRCK 39407-1.65 [id number] Diagnos is: ICD-10- CM E85.9 Amyloid osis, unspeci fied NAHUM PEREIRA 02/16 [facility] Outpatient Encounter 82400-0.65 [id number] 03/17 [facility] HC PRO PHONE CALL 5-10 MIN 19977-7.65 [id number] 3 Diagnos is: ICD-10- CM I10 Essenti al (primar y) hyperte ADONIS Chirinos Yolis 03/30 [facility] HEARING AID SUP/ACCESS /DEV 03848-0.65 [id number] Diagnos is: ICD-10- CM H90.3 Sensori neural hearing loss, SANDOR Cross Yolis 04/02 [facility] Outpatient Encounter [id number] [id number] 04/06 [facility] MTMS BY PHARM APPLIANCE TECHNICIAN 15 MIN 79220-3.65 [id number] Diagnos is: ICD-10- CM Z51.81 Encount er for therape utic drug level monitor TL Faulkner 04/13 [facility] Outpatient Encounter [id number] 04/17 [facility] Outpatient Encounter [id number] [id number] KAYLA DELA CRUZ 04/24 [facility] Outpatient Encounter [id number] [id number] JAGDEEP ROMANO L 04/27 [facility] OFFICE O/P EST MOD 30 MIN [id number] [id number] Diagnos is: ICD-10- CM I10 Essenti al (primar y) hyperte SUSAN Sutton 04/29 [facility] Encounter [id number] 04/29 [facility] HC PRO PHONE CALL 5-10 MIN [id number] [id number] 2 Diagnos is: ICD-10- CM I48.91 Unspeci fied atrial fibrill atADONIS Patterson 04/30 [facility] PT ED WRITE/ORAL PTS W/ HF [id number] [id number] Diagnos is: ICD-10- CM I10 Essenti al (primar y) hyperte nsADONIS Patterson 05/14 [facility] Outpatient Encounter [id number] OLGA TUCKER RID 05/20 [facility] OFF/OP CONSLTJ NEW/EST HI 55 [id number] [id number] 9 Diagnos is: ICD-10- CM E85.89 Other amyloid EMILIE Mendieta 05/22 [facility] Outpatient Encounter [id number] 05/25 [facility] HEARING AID CHECK ONE EAR [id number] [id number] Diagnos is: ICD-10- CM H90.3 Sensori neural hearing loss, JAVIER Quarles 06/04 [facility] Outpatient Encounter [id number] [id number] KADY TRINIDAD 06/24 [facility] OFFICE O/P EST HI 40 MIN [id number] [id number] 3 Diagnos is: ICD-10- CM I10 Essenti al (primar y) hyperte nsion SUSAN STARK 06/24 [facility] Outpatient Encounter [id number] [id number] 06/24 [facility] MUSCLE TEST NONPARASPI NAL [id number] [id number] 1 Diagnos is: ICD-10- CM E85.89 Other amyloid osis EMILIE BURNS 06/24 [facility] Outpatient Encounter [id number] [id number] 06/24 [facility] QNHP OL DIG ASSMT&MGMT 21+ [id number] [id number] 9 Diagnos is: ICD-10- CM 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 osDIDI Degroot 06/26 [facility] Outpatient Encounter [id number] [id number] FELIX SHIPLEY 06/29 [facility] OFF/OP EST MAY X REQ PHY/QHP [id number] [id number] 7 Diagnos is: ICD-10- CM E85.89 Other amyloid osis ADONIS SALEH 07/01 [facility] OFFICE O/P EST MOD 30 MIN [id number] [id number] 6 Diagnos is: ICD-10- CM E85.89 Other amyloid osSUSAN Liao 07/01 [facility] OFFICE O/P EST LOW 20 MIN [id number] [id number] Diagnos is: ICD-10- CM 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.89 Other amyloid reinais OLGA TUCKER KEDAR D 07/02 [facility] PROGRAM INTAKE ASSESSMENT [id number] [id number] 5 Diagnos is: ICD-10- CM J44.89 Other specifi ed chronic obstruc tive pulmona ry disease ANA EARLY PHILOMENA 07/07 [facility] Outpatient Encounter [id number] [id number] 07/27 [facility] HC PRO PHONE CALL 5-10 MIN [id number] [id number] 7 Diagnos is: ICD-10- CM I10 Essenti al (primar y) hyperte ADONIS Chirinos 08/10 [facility] Outpatient Encounter [id number] 09/21 [facility] OFFICE O/P EST HI 40 MIN [id number] [id number] Diagnos is: ICD-10- CM I10 Essenti al (primar y) hyperte brandynlia SUSAN STARK D 09/30 [facility] OFF/OP EST MAY X REQ PHY/QHP [id number] [id number] Diagnos is: ICD-10- CM E85.89 Other amyloid ADONIS Blum 09/30 [facility] OFF/OP CONSLTJ NEW/[place] HI 55 [id number] [id number] 1 Diagnos is: ICD-10- CM G47.33 Obstruc tive sleep apnea (adult) ([facility]) LARRY HURLEY B 10/06 [facility] OFFICE O/P EST HI 40 MIN [id number] [id number] 1 Diagnos is: ICD-10- CM 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.89 Other amyloid osis EMILIE BURNS 10/23 [facility] HEARING AID CHECK BINAURAL [id number] [id number] Diagnos is: ICD-10- CM H90.3 Sensori neural hearing loss, osmar SANDOR Rudolph 10/27 [facility] OFFICE O/P EST MOD 30 MIN [id number] Diagnos is: ICD-10- CM 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 Social History Type Response Date Comment [facility] Tobacco smoking status NHIS VA-TOBACCO FORMER USER 12/25/2023 [facility] History of tobacco use VA-TOBACCO QUIT 15 YRS OR MORE 12/25/2023 [facility] History of tobacco use VA-TOBACCO FORMER USER 10/31/2021 [facility] History of tobacco use VA-TOBACCO NEVER USED 07/05/2020 [facility] History of tobacco use VA-TOBACCO QUIT 15 YRS OR MORE 01/07/2019 [facility] History of tobacco use QUIT TOBACCO >7 YEARS AGO 03/13/2017 [facility] History of tobacco use QUIT TOBACCO >7 YEARS AGO 03/21/2016 [facility] History of tobacco use QUIT TOBACCO >7 YEARS AGO 03/08/2015 [facility] History of tobacco use QUIT TOBACCO >7 YEARS AGO 12/25/2013 [facility] History of tobacco use QUIT TOBACCO >7 YEARS AGO 11/19/2006 [facility] History of tobacco use TOBACCO TERMINATION STAGE 05/14/2006 [facility] History of tobacco use CURRENT NON-TOBACCO USER-HX OF USE 11/20/2005 [facility] History of tobacco use CURRENT NON-TOBACCO USER-HX OF USE 02/08/2004 [facility] Plan of Care List of future care activities from Department of [facility] Affairs facilities. Additional future care activities may be listed in the Assessment and Plan section. Date/Time Care Activity Care Activity Detail Facili ty 12/29/2024 AMBULATORY - MEDICINE AMBULATORY - MEDICI NE [facility] 04/22/2025 AMBULATORY - NEUROLOGY AMBULATORY - NEURO LOGY [facility]
--- OUTSIDE RECORDS SUMMARY | 2024-12-18 10:39 | XMS_ITS | CONTINUITY OF CARE DOCUMENT ---
Author Name stone ritter Address Unknown Organization [facility] Address [address] [place] [address] Phone [phone] Care Team Providers Care Construction Worker Name Role Phone Reji RAMIREZ, Josafat Unavailable [phone] Josafat Mendoza MD Unavailable [phone] INSURANCE PROVIDERS Payer name Policy type / Coverage type [employer] party ID [employer] Hope's Administr ation plan [id number]
--- OUTSIDE RECORDS SUMMARY | 2024-12-18 10:39 | XMS_ITS | Clinical Summary ---
Author Organization [facility] Address [address] [place] [address] Care Team Providers Care Event Staff Name Role Phone Conor Dodson MD Primary Care Provider [phone] Allergies Active Allergy Reactions Criticality Noted Date [...] Comments Blood Pressure 132/92 09/19/2019 8:45 AM NEWS ASSIGNMENT EDITOR Pulse 84 09/19/2019 8:45 AM NEWS ASSIGNMENT EDITOR Temperature 36.2 C (97.1 F) 09/19/2019 8:45 AM NEWS ASSIGNMENT EDITOR Respiratory Rate 16 09/19/2019 8:45 AM NEWS ASSIGNMENT EDITOR Oxygen Saturation 97% 09/19/2019 8:45 AM NEWS ASSIGNMENT EDITOR Inhaled Oxygen Concentration - - Weight 98.4 kg (217 lb) 09/19/2019 8:45 AM NEWS ASSIGNMENT EDITOR Height 180.3 cm (5' 11 ) 09/19/2019 8:45 AM NEWS ASSIGNMENT EDITOR Body Mass Index 30.27 09/19/2019 8:45 AM NEWS ASSIGNMENT EDITOR Plan of Treatment Health Maintenance Due Date [...] age to complete this topic Insurance MEDICARE [facility] Care Teams Event Staff Relationship Specialty Start Date End Date Conor Dodson MD [address] [place] [address] DR K[address] [address] PCP - General INTERNAL MEDICINE 09/19/19
--- OUTSIDE RECORDS SUMMARY | 2024-12-18 10:40 | XMS_ITS | Referral Summary ---
Author Organization [facility] Address [address] [place] [address] Care Team Providers Care Plane Tableman Name Role Phone Rodriguez Garcia MD Unavailable [phone] Conor Dodson MD Primary Care Provider [phone] Conor Dodson MD Unavailable [phone] Vern Valladares MD PhD Unavailable + Encounters Date Type Department Care Team Description 11/10/2024 Telephone [facility] Surgery [facility] [facility] [address] [place] [address] Derekmu Maya 10/22/2024 10:30 AM TRUST ADMINISTRATOR Office Visit [facility] Surgery [facility] [address] [place] [address] Laura Austin MD Bilateral carpal tunnel syndrome (Primary Dx); Guyon syndrome, left 09/21/2024 8:45 AM TRUST ADMINISTRATOR Office Visit [facility] Surgery [facility] [address] [place] [address] Karly Ervin NP Bilateral carpal tunnel syndrome (Primary Dx) from Last 3 Months Allergies Active Allergy Reactions Criticality Noted Date Comments Sulfa (Sulfonamide Antibiotics) Rash Medium Medications allopurinoL (ZYLOPRIM) 300 mg tablet TAKE 1 TABLET ONCE DAILY 90 tablet 3 05/18/20 Active Additional Information Patient taking differently: 300 mg oral Daily (early AM), Indications: Calcium Renal Calculi Prevention, Informant: Self, Reported on 09/15/2024 citalopram (CeleXA) 40 mg tablet Take 1 tablet (40 mg total) by mouth daily 1 tablet 07/18/20 Active Additional Information Patient taking differently:40 mg oralDaily before breakfast, Indications: Anxiety with Depression, Informant: Self, Reported on 09/15/2024 losartan (COZAAR) 100 mg tabletIndications: hypertension Take 1 tablet (100 mg total) by mouth patient access representative before breakfast Active gabapentin (NEURONTIN) 300 mg capsule Take 2 capsules (600 mg total) by mouth daily 180 capsule 04/17/20 Active Additional Information Patient taking differently:600 mg oralNightly, Indications: Neuropathic Pain, Informant: Self, Reported on 09/15/2024 multivitamin tabletIndications: Vitamin Deficiency Prevention Take 1 tablet by mouth patient access representative before breakfast Active vutrisiran (AMVUTTRA) 25 mg/0.5 [...] 1 tablet (2.5 mg total) by mouth patient access representative before breakfast Active finasteride (PROSCAR) 5 mg tabletIndications: benign prostatic hyperplasia with lower urinary tract sx Take 1 tablet (5 mg total) by mouth nightly Active acetaminophen (TYLENOL) 500 mg tablet Take 2 tablets (1,000 mg total) by mouth every 6 (six) hours 60 tablet 09/15/20 Active ibuprofen (ADVIL,MOTRIN) 600 mg tablet Take [...] knee 01/31/2023 Obstructive sleep apnea (adult) (pediatric) 05/2022 Overview (12/11/2022): - DME: [facility] Assessment & Plan (08/05/2024 12:47 PM CDT): 1. Chronic, poorly controlled 2. Re compliance and therapy data and residual AHI is 4.3 with mostly central apneas 3. He is having leak most nights although not always significant 4. We will have him follow up with [facility] for mask fitting and or switching to a new mask to assist with comfort 5. Pap supply order placed Assessment & Plan (04/18/2023 8:54 PM CDT): Using CPAP nightly with benefit. Assessment & Plan (12/11/2022 4:31 PM TRUST ADMINISTRATOR): 1. Chronic, poorly controlled 2. Discussed different masks 3. Placed order for the AirFit F30 because the other masks did not fit his face Assessment & Plan (11/15/2022 5:40 PM TRUST ADMINISTRATOR): Using CPAP nightly with benefit. Assessment & [...] 03/22/2021 Assessment & Plan (12/27/2023 1:29 PM TRUST ADMINISTRATOR): 1. Chronic, well controlled 2. Discussed how continued use of his CPAP can help control his blood pressure 3. He will continue losartan, amlodipine, and metoprolol Assessment & Plan (12/11/2022 4:31 PM TRUST ADMINISTRATOR): 1. Chronic, well controlled 2. Discussed how use of his CPAP machine will help his blood pressure 3. He will continue losartan, amlodipine, and metoprolol Assessment & Plan (11/15/2022 5:40 PM TRUST ADMINISTRATOR): Target BP less than 140/90. Continue current [...] Cardiology. Assessment & Plan (11/15/2022 5:40 PM TRUST ADMINISTRATOR): Continue current diet and metoprolol. On chronic anticoagulation with Xarelto. Assessment & Plan (07/18/2022 12:19 PM CDT): Continue current diet & medications. On anticoagulation with Xarelto. Managed by Cardiology. Assessment & Plan (01/02/2022 2:31 PM CDT): Continue current diet & medications. Managed by Cardiology. Primary osteoarthritis of right ankle 01/15/2019 Overview (01/15/2019): Added automatically from request for surgery [id number] Retained orthopedic hardware 01/15/2019 Overview (01/15/2019): Added automatically from request for surgery [id number] Arthritis of subtalar joint 09/10/2018 Overview (09/10/2018): Added automatically from request for surgery [id number] Cobalamin deficiency 12/20/2016 Overview (03/15/2017): Vitamin B12 deficiency Gout 12/20/2016 Overview (03/15/2017): Gout, unspecified Moderate episode of recurrent major depressive d isorder 05/28/2016 Overview (01/24/2017): Major depression, recurrent, chronic Assessment & Plan (02/04/2024 4:48 PM CDT): Continue citalopram. Assessment & Plan (04/18/2023 8:53 PM CDT): Mood stable on citalopram. Assessment & Plan (11/15/2022 5:40 PM TRUST ADMINISTRATOR): Continue with citalopram. Assessment & Plan (07/18/2022 12:19 PM CDT): Mood stable on citalopram. Assessment & Plan (01/02/2022 2:33 PM CDT): Mood stable on citalopram. Continue current medications. Asymmetrical sensorineural hearing loss 02/16/20 15 Presbycusis 02/15/2015 Noise effect on inner ear 02/15/2015 Mixed conductive and sensori neural hearing loss of both ears 01/25/2015 Subjective tinnitus 01/25/2015 Impotence of organic origin 11/08/2014 Overview (01/24/2017): Impotence of organic origin History of colonic polyps 05/04/2014 Overview (01/24/2017): PRSNL HST COLONIC POLYPS Assessment & Plan (11/15/2022 5:40 PM TRUST ADMINISTRATOR): Up-to-date on colonoscopy. 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 [...] Abnormal brain scan 09/11/2013 06/20/20 20 Immunizations Immunization Administration Dates Next Due Influenza, [...] Former Cigarettes 0.3 33 1 969 - 2001 Smokeless Tobacco: Never Tobacco Cessation:Counseling Given: Not [...] on file Legal Sex Male 11:31 PM TRUST ADMINISTRATOR Gender Identity Male 08/09/2024 7:38 PM CDT Sexual Orientation Bisexual 08/09/2024 7: 38 PM CDT Occupation Industry Job Start Date Job End Date Retired Not on file Not on file Not on file Last Filed Vital Signs Vital Sign Reading Time Taken Comments Blood Pressure 135/82 09/15/2024 10:19 AM TRUST ADMINISTRATOR Pulse 54 09/15/2024 10:20 AM TRUST ADMINISTRATOR Temperature 36 C (96.8 F) 09/15/2024 9:50 AM TRUST ADMINISTRATOR Respiratory Rate 17 09/15/2024 10:20 AM TRUST ADMINISTRATOR Oxygen Saturation 98% 09/15/2024 10:20 AM TRUST ADMINISTRATOR Inhaled Oxygen Concentration - - Weight 108.4 kg (239 lb) 09/15/2024 6:00 AM TRUST ADMINISTRATOR Height 180.3 cm (5' 11 ) 09/15/2024 6:00 AM TRUST ADMINISTRATOR Body Mass Index 33.33 09/15/2024 6:00 AM TRUST ADMINISTRATOR Plan of Treatment Not on file Medical Devices Implanted Type Area Orthopedic Designer Device Identifier Shelf Expiration Date Model / Serial / Lot Augment Implanted:Qty: 1 on 09/24/2018 by Jorge Luis Santoyo MD at [facility] Right: Ankle LoopFuse [id number] 06/20/2019 / [id number] / [id number] [employer] [id number]-0400 Mini Ignite Power Mix Injectable Graft 4ml Synthetic Tissue - [id number] - [id number] Implanted:Qty: 1 on 09/24/2018 by Jorge Luis Santoyo MD at [facility] Right: Ankle [employer] 04/30/2023 [id number]-[id number] / [id number] / [id number] Orthohelix Hna-[id number] Maxtorque 7mm 80mm Cannulated Blunt Foot Long Thread Screw Bone Latex Free - [id number] Implanted:Qty: 2 on 09/24/2018 at [facility] Orthohelix CSS-011-70- 080L / / Echo it [employer] Inc [id number] Infinity 9mm Knee 3+ Insert Tibial Poly - [id number] Implanted:Qty: 1 on 02/10/2019 by Jorge Luis Santoyo MD at [facility] Right: Ankle Pipeline [employer] Inc [id number] 07/27/2026 [id number] / / [id number] Musculoskeletal Transplant [id number] 4-30mm Allograft Frozen [id number] Wedge Graft Bone - [id number] - [id number] Implanted:Qty: 1 on 02/10/2019 by Jorge Luis Santoyo MD at [facility] Right: Ankle Musculoskeletal Transplant 04/16/2023 [id number] / [id number] / [employer] [id number] Steinmann 5/64in 9in Trocar Point One End Pin Fixation Stainless - [id number] Implanted:Qty: 1 on 02/10/2019 by Jorge Luis Santoyo MD at [facility] Right: Ankle [employer] [id number] / / Echo it [employer] Inc [id number] Ankle 1 Large 10mm Stem Talar - [id number] Implanted:Qty: 1 on 02/10/2019 by Jorge Luis Santoyo MD at [facility] Right: Ankle Siddiqi Medical [employer] Inc [id number] 07/28/2026 [id number] / / [id number] Siddiqi Medical [employer] Inc [id number] Inbone Sulcus Ankle 3 Dome Component Talar - [id number] Implanted:Qty: 1 on 02/10/2019 by Jorge Luis Santoyo MD at [facility] Right: Ankle Siddiqi [employer] Inc [id number] 09/21/2026 [id number] / / [id number] Siddiqi [employer] Inc [id number] Infinity 4 Long Tray Tibial - [id number] Implanted:Qty: 1 on 02/10/2019 by Jorge Luis Santoyo MD at [facility] Right: Ankle Siddiqi [employer] Inc [id number] 08/05/2026 [id number] / / [id number] Explanted Type Area Orthopedic Designer Device Identifier Shelf Expiration Date Model / Serial / Lot Orthohelix Zdc-[id number] Maxtorque 7mm 75mm Cannulated Blunt Foot Long Thread Screw Bone Latex Free - [id number] Explanted:Qty: 1 on 09/24/2018 at [facility] Orthohelix CSS-011-70 -075L / / [id number] Wires Explanted:Qty: 3 on 09/24/2018 by Jorge Luis Santoyo MD at [facility] Other Echo it Medical [employer] Inc [id number] K-Wire 1.4mm 228mm Wire Fixation - [id number] Explanted:Qty: 2 on 02/10/2019 at [facility] Right: Ankle LoopFuse [id number] / / Procedures Procedure Name Priority Date/Time [...] Julio Vigil M.D. CH: SANDHYA Report ID: [id number] Reading Location: [place] [address] Procedure Note Julio Vigil Jr., MD - [...] by Julio Vigil M.D. CH: Report ID: [id number] Reading Location: [place] [address] Darshan Alonso MD IMG CT PROCEDURES Final Re sult * PSA screen (07/18/2022 11:24 AM CDT) PSA-Total 1.21 <=6.20 ng/mL DIANNA LOUISE Comment: Interpretive Data AGE SEX REFERENCE INTERVAL [...] MD LAB BLOOD ORDERABLES Final Re sult [facility] Department [place] [address] * Colonoscopy (11/03/2020) Anatomical Region Laterality Modality Other Historical Provider ENDOSCOPY PROCEDURES Amber l Result from Last 3 Months or Most Recently Relevant to Health Maintenance Insurance COUNT INCLUDES THE [facility] MEDICARE SOLUTIONS [facility] MEDICARE Address: [address] [address] [place] [address] MEDICARE SOLUTIONS [place] [facility] MEDICARE SOLUTIONS Advance Directives For more information, please contact: [phone] * Full Code (Latest Code Status on File) Date Activated Date Inactivated Comments 01/15/2022 7:38 AM 01/15/2022 1:48 PM * Full Code Date Activated Date Inactivated Comments 01/15/2022 7:37 AM 01/15/2022 7:38 AM * Full Code Date Activated Date Inactivated Comments 02/10/2019 1:04 PM 02/11/2019 11:25 PM * Full Code Date Activated Date Inactivated Comments 09/24/2018 8:49 PM 09/25/2018 3:31 PM Care Teams Plane Tableman Relationship Specialty Start Date End Date Conor Dodson MD [facility] [address] Kulkarni [address] [address] PCP - General Internal Medicine 12/27/23 Rodriguez Garcia MD Consulting Physician Cardiology 07/18/23 Conor Dodson MD [address] [facility] [address] [address] Consulting Physician Internal Medicine 07/13/24 Vern Valladares MD PhD [address] [facility] [address] [facility] [place] [address] Consulting Physician Cardiology 08/12/24
--- OUTSIDE RECORDS SUMMARY | 2024-12-18 10:40 | XMS_ITS | Clinical Summary ---
Author Organization [facility] Address [address] [place] [address] Care Team Providers Care Administrative Resident Name Role Phone Conor Dodson MD Primary Care Provider [phone] Rodriguez Garcia MD Unavailable [phone] Source Comments [facility],non-owned Affiliates and Associated Physician Practices is amultiple site organization consisting of ambulatory clinics and hospital sitesin [place], [place], [place] and [place]. This disclosure is being madepursuant to the Care Everywhere program and may not contain all information available regarding this patient. Last updated 18.[facility] Allergies Active Allergy Reactions Criticality Noted [...] and heating? Not hard at all 05/17/2023 [facility] [place] Occupat ional [facility] - Occupational Stress [...] money to buy more. Never true 05/17/20 Within the past 12 months, t he [...] 1-dose 75+ series) 2022 COVID-19 VACCINE ( season) 2024 10/31/2021, 07/21/2021, 02/04/2021, Additional history [...] this topic Medical Devices Implanted Type Area Patient Financial Representative Device Identifier Shelf Expiration Date Model / Serial / Lot Cmnt Bone Refobacin Strl Lf Disp Implanted:Qty: 1 on 05/16/2023 by Derick Elaine MD at [facility] Left: Knee [employer] 06/20/2025 [id number] / / [id number] Cmnt Bone Plc R 40gm Grn Implanted:Qty: 1 on 05/16/2023 by Derick Elaine MD at [facility] Left: Knee [employer] 09/19/2025 [id number] / / [id number] Cmpnt Ptlr Std 31mm 3 Pg Kn Ser A Implanted:Qty: 1 on 05/16/2023 by Derick Elaine MD at [facility] Left: Knee [employer] 10/24/2027 [id number] / / [id number] Tray Tib 79mm Kn Cocr I Beam Implanted:Qty: 1 on 05/16/2023 by Derick Elaine MD at [facility] Left: Knee [employer] 2033 [id number] / / [id number] Cmpnt Fem Kn Lt Cr Cmnt Prm Vngrd Intlk Implanted:Qty: 1 on 05/16/2023 by Derick Elaine MD at [facility] Left: Knee [employer] 06/08/2029 [id number] / / [id number] Brng [id number] Vngrd Arcm Kn Ant Stab Implanted:Qty: 1 on 05/16/2023 by Derick Elaine MD at [facility] Left: Knee [employer] 04/04/2028 [id number] / / [id number] [place] Sut Cscr2 Fwr 5.5mm Ti 3 16.3mm 2 Implanted:Qty: 1 on 05/16/2023 by Derick Elaine MD at [facility] Left: Knee Ar[employer]rex Inc 09/19/2025 [id number] / / [id number] Advance Directives * Full Code (Latest Code Status on File) Date Activated Date Inactivated Comments 05/16/2023 1:05 PM 05/17/2023 3:00 PM Care Teams Administrative Resident Relationship Specialty Start Date End Date Conor Dodson MD [address] [place] [address] DR Cayla JOHNSTON [address] [place] [address] PCP - General Internal Medicine 04/16/23 Rodriguez Garcia MD [facility] [address] [place] [address] Cardiovascular Disease 04/16/23
--- OUTSIDE RECORDS SUMMARY | 2024-12-18 10:40 | XMS_ITS | Encounter Summary ---
Author Organization [facility] Healthcare Address [address] [place] [address] Care Team Providers Care Rivet Hole Puncher Name Role Phone Conor Dodson MD Primary Care Provider [phone] Rodriguez Garcia MD Unavailable [phone] Concepcion Michaud MD Primary Care Provider [phone] Conor Dodson MD Primary Care Provider [phone] Conor Dodson MD Unavailable [phone] Vern Valladares MD PhD Unavailable + Encounter Details Date Type Department Care Team (Late st Contact Info) Description 04/06/2020 Telephone [facility] [address] [place] [address] Cassidy De Souza RT Social History Tobacco [...] on file Legal Sex Male 11:31 PM ARTIFICIAL FLOWERS SUPERVISOR Gender Identity Male 08/09/2024 7:38 PM [...] documented as of this encounter Care Teams Rivet Hole Puncher Relationship Specialty Start Date End Date Conor Dodson MD [facility] [address] [place] [address] PCP - General 01/18/17 12/25/23 Concepcion Michaud MD [address] [place] [address] PCP - General Family Medicine 12/26/23 12/26/23 Conor Dodson MD [address] [place] [address] NIKKI JOHNSTON [address] [place] [address] PCP - General Internal Medicine 12/27/23 Rodriguez Garcia MD [address] [place] [address] NIKKI JOHNSTON [address] [place] [address] Consulting Physician Cardiology 07/18/23 Conor Dodson MD [address] [place], [place] [address]SHEA JOHNSTON [address] [place] [address] Consulting Physician Internal Medicine 07/13/24 Vern Valladares MD PhD [address] [facility] [address] [place] [address] Consulting Physician Cardiology 08/12/24 documented as of this encounter
--- OUTSIDE RECORDS SUMMARY | 2024-12-18 10:40 | XMS_ITS | Encounter Summary ---
Author Organization [facility] Address [address] [address] Care Team Providers Care Investment Trader Name Role Phone Conor Dodson MD Primary Care Provider [phone] Rodriguez Gracia MD Unavailable [phone] Encounter Details Date Type Department Care Team (Late st Contact Info) Description 09/17/2023 Lab Requisition [facility] - DermPath Lab [address] [facility], [place] [id number] Mari Brambila, PA [address] [place] [address] Neoplasm of uncertain behavior of [...] and heating? Not hard at all 05/17/2023 [facility] [place] of Occupat ional Health - Occupational Stress [...] Comments DERMATOPATHOLOGY Routine 09/17/2023 12:0 0 AM FARM CREW MEMBER Neoplasm of uncertain behavior of skin documented in this encounter Results * DERMATOPATHOLOGY (09/17/2023 12:00 AM FARM CREW MEMBER) Case Report Dermatopathology Report Case: [id number] Authorizing Provider: Mari Brambila PA Collected: 09/17/2023 12:00 AM Ordering Location: [facility] DermPath Lab Received: 09/18/2023 01:53 PM Pathologist: Alexandra Mathews MD Specimen: Skin, left dorsal wrist 1:16 PM [facility] DERMATOPATHOLOGY LABORATORY Final Diagnosis Specimen A. SKIN, left dorsal wrist: SQUAMOUS CELL CARCINOMA, WELL DIFFERENTIATED (C44.629) (see microscopic description) 1:16 PM [facility] DERMATOPATHOLOGY LABORATORY Clinical History Squamous Cell Carcinoma 1:16 PM [facility] DERMATOPATHOLOGY [facility]ORATORY Gross Description Specimen A: Received is one formalin filled container labeled with the patient's name and designated left dorsal wrist. The specimen consists of a shave biopsy measuring 9x7x2 mm. Jar 0. 1:16 PM [facility] DERMATOPATHOLOGY LABORATORY Microscopic Description Specimen A. SKIN, left dorsal wrist: Arising in the epidermis and extending into the dermis there are irregularly and angulated shaped aggregates of keratinocytes showing evidence of premature cornification. An infiltrative growth pattern is observed. 1:16 PM [facility] DERMATOPATHOLOGY LABORATORY Disclaimer An external and internal positive and negative controls are appropriate for the histochemical, immunohistochemical and immunofluorescence stain(s) in this case (if any), except where stated explicitly. The performance characteristics of the stain(s) cited in this report were developed and its performance characteristic determined by the Dermatopathology Laboratory at [facility], directed by Dr. Jennifer Colunga. These tests need not be, and therefore are not, approved by the [place] Food and Drug Administration. The tests are used for clinical purposes. Billing Codes Specimen Charges Stain Charges 16029 1 3 1:16 PM [employer] DERMATOPATHOLOGY LABORATORY Embedded Images 3 1:16 PM FARM [employer]W MEMBER DERMATOPATHOLOGY LABORATORY Pathology/Cytolog y TISSUE SPECIMEN FROM SKIN / Unknown 09/17/2023 09/18/2023 1:53 PM FARM CREW MEMBER Mari CRUZ LAB - PATHOLOGY/CYT OLOGY ORDERABLES DERMATOPATHOLOGY LABORATORY [facility] - Department of Dermatology [facility] Medicine [address] [place] [address], [address] [phone] documented in this encounter Visit Diagnoses Diagnosis Neoplasm of uncertain behavior of skin documented in this encounter Care Teams Investment Trader Relationship Specialty Start Date End Date Conor Dodson MD [address] [place] [address] DR [address] [address] PCP - General Internal Medicine 04/16/23 Rodriguez Garcia MD [address] [place] [address] [place] [address] Cardiovascular Disease 04/16/23 documented as of this encounter
--- OUTSIDE RECORDS SUMMARY | 2024-12-18 10:40 | XMS_ITS | Patient Health Summary ---
Author Organization [facility] Address [address] [facility] [place] [address] Care Team Providers Care Cushion Stuffer Name Role Phone Conor Wilson MD Primary Care Provider [phone] Rodriguez Garcia MD Unavailable [phone] Note from [facility],non-owned Affiliates and Associated Physician Practices is amultiple site organization consisting of ambulatory clinics and hospital sitesin [place], [place], [place] and [place]. This disclosure is being madepursuant to the Care Everywhere program and may not contain all information available regarding this patient. Last updated 18.[facility] Allergies * Sulfa Drugs(Rash,Itching) -Medium Criticality Medications [...] and heating? Not hard at all 05/17/2023 [facility] of Occupat ional Health - Occupational Stress [...] AM CDT Medical Devices Implanted Type Area Bin Worker Device Identifier Shelf Expiration Date Model / Serial / Lot Cmnt Bone Refobacin Strl Lf Disp Implanted:Qty: 1 on 05/16/2023 by Derick Elaine MD at [facility] Left: Knee [employer] 06/20/2025 [id number] / / [id number] Cmnt Bone Plc R 40gm Grn Implanted:Qty: 1 on 05/16/2023 by Derick Elaine MD at [facility] Left: Knee [employer] 09/19/2025 [id number] / / [id number] Cmpnt Ptlr Std 31mm 3 Pg Kn Ser A Implanted:Qty: 1 on 05/16/2023 by Derick Elaine MD at [facility] Left: Knee [employer] 10/24/2027 [id number] / / [id number] Tray Tib 79mm Kn Cocr I Beam Implanted:Qty: 1 on 05/16/2023 by Derick Elaine MD at [facility] Left: Knee [employer] 2033 [id number] / / [id number] Cmpnt Fem Kn Lt Cr Cmnt Prm Vngrd Intlk Implanted:Qty: 1 on 05/16/2023 by Derick Eliane MD at [facility] Left: Knee [employer] 06/08/2029 [id number] / / [id number] Brng 06jse21ry Vngrd Arcm Kn Ant Stab Implanted:Qty: 1 on 05/16/2023 by Derick Elaine MD at [facility] Left: Knee Matt [employer] 04/04/2028 [id number] / / [id number] Badger Sut Cscr2 Fwr 5.5mm Ti 3 16.3mm 2 Implanted:Qty: 1 on 05/16/2023 by Derick Elaine MD at [facility] Left: Knee [employer] 09/19/2025 [id number]-3 / / [id number] Procedures * DERMATOPATHOLOGY(Performed 07/02/2024) Performed for Neoplasm [...] replacement surgery * NEURAXIAL BLOCK(Performed 05/16/2023) * [place] TOTAL KNEE REPLACEMENT(Performed 05/16/2023) * EKG 12-LEAD(Performed [...] Diagnosis unknown * COLONOSCOPY SCREEN(Performed 11/03/2020) * [place] ED EGD FLEX TRANSORAL DX(Performed 11/03/2020) * EGD(Performed 11/03/2020) * DERMATOPATHOLOGY(Performed 06/30/2019) * PET BRAIN METABOLIC EVAL(Performed 10/10/2017) Performed for Research study patient * DERMATOPATHOLOGY(Performed 05/30/2017) * DERMATOPATHOLOGY(Performed 03/05/2017) * DERMATOPATHOLOGY(Performed 05/17/2016) * DERMATOPATHOLOGY(Performed 03/04/2015) * PATHOLOGY/CYTOLOGY REPORT ORDER(Performed 07/31/2010) Results * DERMATOPATHOLOGY (07/02/2024 12:00 AM CDT) Only the most recent of10 resultswithin the time period is included. Case Report Dermatopathology Report Case: [id number] Authorizing Provider: Kelly Franco MD Collected: 07/02/2024 12:00 AM Ordering Location: [facility] - Received: 07/03/2024 04:51 [...] measuring 6x6x2 mm. Jar 0. 11:56 AM [facility] DERMATOPATHOLOGY [facility]ORAT[facility] Microscopic Description Specimen A. SKIN, right distal forearm: The epidermis shows parakeratosis, full thickness disorderly maturation of keratinocytes, mitoses at different levels, and dyskeratotic cells. 11:56 AM [facility] DERMATOPATHOLOGY LABORATORY Disclaimer An external and internal positive and negative controls are appropriate for the histochemical, immunohistochemical and immunofluorescence stain(s) in this case (if any), except where stated explicitly. The performance characteristics of the stain(s) cited in this report were developed and its performance characteristic determined by the Dermatopathology Laboratory at [facility], directed by Dr. Jennifer Colunga. These tests need not be, and therefore are not, approved by the [place] Food and Drug Administration. The tests are used for clinical purposes. Billing Codes Specimen Charges Stain Charges 81158 1 4 11:56 AM T DERMATOPATHOLOGY LABORATORY Embedded Images 11:56 AM T DERMATOPATHOLOGY LABORATORY Pathology/Cytolog y TISSUE SPECIMEN FROM SKIN / Unknown 07/02/2024 07/03/2024 4:51 PM CDT Kelly Franco MD LAB - PATHOLOGY/CYTO LOGY ORDERABLES DERMATOPATHOLOGY LABORATORY [facility] - Department of Dermatology [address], [address] [phone] * XR KNEE LEFT 3VW (06/27/2023 4:08 [...] ([place]) 455 ms [facility] MUSE Calculated P [place] -3 degrees [facility] MUSE Calculated R [place] 7 degrees [facility] MUSE Calculated T [place] -155 degrees [facility]USE Interpretation EKG Sinus bradycardia ST & T wave abnormality, consider inferior ischemia ST & T wave abnormality, consider anterolateral ischemia Abnormal ECG No previous ECGs available Confirmed by GENA COLEMAN MD ([id number]) on 04/16/2023 11:00:45 AM [facility] MUSE 04/16/2023 8:56 AM CDT 04/16/2023 11:00 AM CDT Laura Henry DO ECG ORDERABLES [facility] * (ABNORMAL) CBC W AUTO DIFFERENTIAL (04/16/2023 8:33 AM CDT) WBC 6.2 4.4 - 10.7 x10E9/L 04/16/2023 8:54 AM CDT [facility] WBC Corrected 04/16/2023 8:54 AM CDT [facility] RBC 4.31 3.80 - 5.40 x10E12/L 04/16/2023 8:54 AM CDT [facility] Hemoglobin 14.4 12.0 - 17.6 gm/dL 04/16/2023 8:54 AM CDT [facility] Hematocrit 42.6 35.2 - 51.7 % 04/16/2023 8:54 AM CDT [facility] MCV 98.8(H) 80.7 - 98.3 fl 04/16/2023 8:54 AM CDT [facility] MCH 33.4 26.7 - 34.0 pg 04/16/2023 8:54 AM CDT [facility] MCHC 33.8 30.8 - 35.9 gm/dL 04/16/2023 8:54 AM CDT [facility] Platelet Count 202 153 - 416 x10E9/L 04/16/2023 8:54 AM CDT [facility] RDW-CV 13.8 12.1 - 14.9 % 04/16/2023 8:54 AM CDT [facility] MPV 9.3(L) 9.4 - 12.9 fl 04/16/2023 8:54 AM CDT [facility] Neutrophils % 53.5 44.0 - 73.0 [...] CDT 04/16/2023 8:43 AM CDT Jess Haynes KEY PUNCH OPERATOR-GENERAL PRACTICE LAB - HEMATO LOGY ORDERABLES [facility] [address] [place] [address] * (ABNORMAL) COMPREHENSIVE METABOLIC PANEL (04/16/2023 8:33 AM CDT) [facility] Glucose 125(H) 70 - 105 mg/dL 04/16/2023 9:04 AM [facility] Sodium 140 136 - 145 mmol/L [...] 8 - 18 mmol/L 04/16/2023 9:04 AM [facility] BUN 12 8.4 - 25.7 mg/dL 04/16/2023 9:04 AM [facility] Creatinine 0.94 0.72 - 1.25 mg/dL 04/16/2023 9:04 AM [facility] Alkaline Phosphatase 67 40 - 150 U/L 04/16/2023 9:04 AM [facility] ALT 21 0 - 61 U/L [...] CDT 04/16/2023 8:43 AM CDT Jess Haynes KEY PUNCH OPERATOR-GENERAL PRACTICE LAB - CHEMIS TRY ORDERABLES [facility] [address] [facility] RICHARD [place] [address] * ENDOSCOPY, COLON, SCREENING (11/03/2020 9:37 AM FINISH PHOTOGRAPHER) Report Endoscopy POC _ Patient Name: Malik [...] for surveillance. Procedure Code(s): --- Professional --- 72043, Colonoscopy, flexible; with biopsy, single or multiple --- Technical --- 11814, Colonoscopy, flexible; with biopsy, single or multiple [...] or abscess without bleeding CPT copyright 2017 [employer]. All rights reserved. The codes documented in this report are preliminary and upon supervisor char house review may be revised to meet current compliance requirements. ___ Ray Brooks DO 11/03/2020 10:19:23 AM This report has been signed electronically. Number of Addenda: 0 Note Initiated On: 11/03/2020 9:37 AM [facility] 11/03/2020 9:37 AM FINISH PHOTOGRAPHER Ray Brooks DO GI PROCEDURE ORDER [facility] [place] [address] * HELICOBACTER PYLORI UREASE (STL) (11/03/2020 9:23 AM FINISH PHOTOGRAPHER) Helicobacter pylori Urease Initial Negative Negative 11/04/2020 5:30 PM FINISH PHOTOGRAPHER [facility] Helicobacter pylori Urease Final Negative Negative 11/04/2020 5:30 PM FINISH PHOTOGRAPHER [facility] Comment:This is an appended report. These results have been appended to a previously preliminary verified report. Microbiology GASTRIC ANTRAL BIOPSY SPECIMEN / Unknown 11/03/2020 9:23 AM FINISH PHOTOGRAPHER 11/03/2020 11:46 AM FINISH PHOTOGRAPHER Ray Brooks DO LAB - MICROBIOLOGY ORDERABLES [facility] [address] [place] [address] * PATHOLOGY TISSUE EXAM (STL) (11/03/2020 9:23 AM FINISH PHOTOGRAPHER) Case Report Surgical Pathology Report Case: [id number] Authorizing Provider: Ray Brooks DO Collected: 11/03/2020 09:23 AM Ordering Location: [facility] Received: 11/03/2020 10:44 AM Pathologist: Medardo Lu MD Specimens: A) - Gastric Biopsy B) - Duodenal Biopsy C) - Esophageal Biopsy, lower esophageal biopsies D) - Colon Ascending Biopsy E) - Colon Descending Biopsy 11/07/2020 8:38 AM FINISH PHOTOGRAPHER [facility] Final Diagnosis A. [...] No pathologic diagnosis AB/ns 11/07/2020 8:38 AM FINISH PHOTOGRAPHER [facility] Gross Description The [...] in cassette E1. AMA/na 11/07/2020 8:38 AM [facility] Microscopic Description The gastric biopsy shows [...] likewise appear normal. AB/ns 11/07/2020 8:38 AM [facility] Disclaimer All histochemical and/or immunohistochemical results are interpreted with controls that demonstrate appropriate staining reactions before reporting results. Note on use of immunocytochemistry reagents: This test was developed and its performance characteristic determined by [facility], Department of Laboratory Medicine. It has not [...] be interpreted with caution. 11/07/2020 8:38 AM FINISH PHOTOGRAPHER [facility] Embedded Images 11/07/2020 8:38 AM FINISH PHOTOGRAPHER [facility] Pathology/Cytology GASTRIC BIOPSY SPECIMEN / Unknown 11/03/2020 9:23 AM FINISH PHOTOGRAPHER 11/03/2020 10:44 AM FINISH PHOTOGRAPHER Miscellaneous samples (specimen) DUODENAL BIOPSY SPECIMEN / Unknown 11/03/2020 9:25 AM FINISH PHOTOGRAPHER 11/03/2020 10:44 AM FINISH PHOTOGRAPHER Miscellaneous samples (specimen) ESOPHAGEAL BIOPSY SPECIMEN / Unknown 11/03/2020 9:31 AM FINISH PHOTOGRAPHER 11/03/2020 10:44 AM FINISH PHOTOGRAPHER Miscellaneous samples (specimen) COLONIC BIOPSY SPECIMEN / Unknown 11/03/2020 9:53 AM FINISH PHOTOGRAPHER 11/03/2020 10:44 AM FINISH PHOTOGRAPHER Miscellaneous samples (specimen) COLONIC BIOPSY SPECIMEN / Unknown 11/03/2020 9:53 AM FINISH PHOTOGRAPHER 11/03/2020 10:44 AM FINISH PHOTOGRAPHER Ray Brooks DO LAB - PATHOLOGY/CY TOLOGY ORDERABLES [facility] [address] [place] [address] * EGD (11/03/2020 8:11 AM FINISH PHOTOGRAPHER) Report Endoscopy POC __ _ Patient Name: [...] the patient. Procedure Code(s): --- Professional --- 47819, Esophagogastroduode noscopy, flexible, transoral; with biopsy, single or multiple --- Technical --- 76810, Esophagogastroduode noscopy, flexible, transoral; with biopsy, single or multiple Diagnosis Code(s): --- Professional --- K21.0, Gastro-esophageal reflux disease with esophagitis K20.8, Other esophagitis K31.89, Other diseases of stomach and duodenum R10.13, Epigastric pain --- Technical --- K21.0, Gastro-esophageal reflux disease with esophagitis K20.8, Other esophagitis K31.89, Other diseases of stomach and duodenum R10.13, Epigastric pain CPT copyright 2017 [employer]. All rights reserved. The codes documented in this report are preliminary and upon supervisor char house review may be revised to meet current compliance requirements. __ Ray Brooks DO 11/03/2020 10:06:52 AM This report has been signed electronically. Number of Addenda: 0 Note Initiated On: 11/03/2020 8:11 AM [facility] 11/03/2020 8:11 AM FINISH PHOTOGRAPHER Ray Brooks DO GI PROCEDURE ORDER [facility] [place] [address] * NM PET BRAIN METABOLIC EVAL IMAGING (10/10/2017 3:25 PM FINISH PHOTOGRAPHER) Narrative [facility] - 10/23/2017 8:57 AM FINISH PHOTOGRAPHER No Dictation. Malik Jones NM ORDERABLES [facility] * PATHOLOGY/CYTOLOGY REPORT ORDER (07/31/2010 1:58 PM CDT) Narrative Procedure Note Document, Scanned - 07/31/2010 12:34 PM CDT Scanned Document LAB - PATHOLOGY/CYTO LOGY ORDERABLES Care Teams Cushion Stuffer Relationship Specialty Start Date End Date Conor Wilson MD [facility] [address] Kulkarni [address] [address] PCP - General Internal Medicine 04/16/23 Rodriguez Garcia MD [facility]5 [facility] [address] [place] [address] Cardiovascular Disease 04/16/23
--- OUTSIDE RECORDS SUMMARY | 2024-12-18 10:40 | XMS_ITS | Encounter Summary ---
Author Organization [facility] Address [address] [place] [address] Care Team Providers Care Inspector Outside Production Name Role Phone Conor Dodson MD Primary Care Provider [phone] Rodriguez Garcia MD Unavailable [phone] Encounter Details Date Type Department Care Team (Late st Contact Info) Description 07/02/2024 Lab Requisition [facility] - DermPath Lab [address] [facility] [place] [id number] Kelly Franco MD [address] [address] Neoplasm of uncertain behavior of [...] and heating? Not hard at all 05/17/2023 [facility] [place] of Occupat ional Health - Occupational Stress [...] AM CDT) Case Report Dermatopathology Report Case: [id number] Authorizing Provider: Kelly Franco MD Collected: 07/02/2024 12:00 AM Ordering Location: [facility] - Received: 07/03/2024 04:51 PM [...] purposes. Billing Codes Specimen Charges Stain Charges 27835 1 4 11:56 AM CDT DERMATOPATHOLOGY LABORATORY Embedded Images 4 11:56 AM CDT DERMATOPATHOLOGY LABORATORY Pathology/Cytolog y TISSUE SPECIMEN FROM SKIN / Unknown 07/02/2024 07/03/2024 4:51 PM CDT Kelly Franco MD LAB - PATHOLOGY/CYTO LOGY ORDERABLES DERMATOPATHOLOGY LABORATORY [facility] - Department of Dermatology [facility] [address] [place] [address], [address] [phone] documented in this encounter Visit Diagnoses Diagnosis Neoplasm of uncertain behavior of skin documented in this encounter Care Teams Inspector Outside Production Relationship Specialty Start Date End Date Conor Dodson MD [address] [place] [address] DR [address] [address] PCP - General Internal Medicine 04/16/23 Rodriguez Garcia MD [facility]5 [facility] [address] [place] [address] Cardiovascular Disease 04/16/23 documented as of this encounter
--- OUTSIDE RECORDS SUMMARY | 2024-12-18 10:40 | XMS_ITS | Referral Summary ---
Author Organization [facility] Address [address] [place] [address] Care Team Providers Care Program Therapist Name Role Phone Conor Dodson MD Primary Care Provider Rodriguez Garcia MD Unavailable [phone] Source Comments [facility],non-owned Affiliates and Associated Physician Practices is amultiple site organization consisting of ambulatory clinics and hospital sitesin [place], [place], [place] and [place]. This disclosure is being madepursuant to the Care Everywhere program and may not contain all information available regarding this patient. Last updated 18.[facility] Allergies Active Allergy Reactions Criticality Noted [...] and heating? Not hard at all 05/17/2023 [facility] [place] of Occupat ional Health - Occupational Stress [...] place to sleep or slept in a long-term (including now)? No 05/17/2023 Sex and Gender [...] on file Medical Devices Implanted Type Area Tablet Tester Device Identifier Shelf Expiration Date Model / Serial / Lot Cmnt Bone Refobacin Strl Lf Disp Implanted:Qty: 1 on 05/16/2023 by Derick Elaine MD at [facility] Left: Knee [employer] 06/20/2025 [id number] / / [id number] Cmnt Bone Plc R 40gm Grn Implanted:Qty: 1 on 05/16/2023 by Derick Elaine MD at [facility] Left: Knee [employer] 09/19/2025 [id number] / / [id number] Cmpnt Ptlr Std 31mm 3 Pg Kn Ser A Implanted:Qty: 1 on 05/16/2023 by Derick Elaine MD at [facility] Left: Knee [employer] 10/24/2027 [id number] / / [id number] Tray Tib 79mm Kn Cocr I Beam Implanted:Qty: 1 on 05/16/2023 by Derick Elaine MD at [facility] Left: Knee [employer] 2033 [id number] / / [id number] Cmpnt Fem Kn Lt Cr Cmnt Prm Vngrd Intlk Implanted:Qty: 1 on 05/16/2023 by Derick Elaine MD at [facility] Left: Knee [employer] 06/08/2029 [id number] / / [id number] Brng 68hae15ix Vngrd Arcm Kn Ant Stab Implanted:Qty: 1 on 05/16/2023 by Derick Elaine MD at [facility] Left: Knee [employer] 04/04/2028 [id number] / / [id number] [place] Sut Cscr2 Fwr 5.5mm Ti 3 16.3mm 2 Implanted:Qty: 1 on 05/16/2023 by Derick Elaine MD at [facility] Left: Knee [employer] 09/19/2025 [id number]-1928SF-3 / / [id number] Advance Directives * Full Code (Latest Code Status on File) Date Activated Date Inactivated Comments 05/16/2023 1:05 PM 05/17/2023 3:00 PM Care Teams Program Therapist Relationship Specialty Start Date End Date Conor Dodson MD [facility] [facility] [address] Kulkarni [address] [address] PCP - General Internal Medicine 04/16/23 Rodriguez Garcia MD [address] [facility] [address] [place] [address] Cardiovascular Disease 04/16/23
--- OUTSIDE RECORDS SUMMARY | 2024-12-18 10:40 | XMS_ITS | Encounter Summary ---
Author Organization [facility] Healthcare Address [address] [place] [address] Care Team Providers Care Network Planner Name Role Phone Conor Dodson MD Primary Care Provider [phone] Rodriguez Garcia MD Unavailable [phone] Concepcion Michaud MD Primary Care Provider [phone] Conor Dodson MD Primary Care Provider [phone] Conor Dodson MD Unavailable [phone] Vern Valladares MD PhD Unavailable + Encounter Details Date Type Department Care Team (Late st Contact Info) Description 04/21/2020 Telephone [facility] Imaging [address] [place] [address] Shannan Dos Santos, RT Social History Tobacco [...] on file Legal Sex Male 11:31 PM BARREL CHARRER HELPER Gender Identity Male 08/09/2024 7:38 PM CDT [...] documented as of this encounter Care Teams Network Planner Relationship Specialty Start Date End Date Conor Dodson MD [address] [place], [place] [address]SHEA JOHNSTON [address] [place] [address] PCP - General 01/18/17 12/25/23 Concepcion Michaud MD [address] [place] [address] PCP - General Family Medicine 12/26/23 12/26/23 Conor Dodson MD [address] [place], [place] [address]SHEA JOHNSTON [address] [place] [address] PCP - General Internal Medicine 12/27/23 Rodriguez Garcia MD [address] [place] [address] NIKKI JOHNSTON [address] [place] [address] Consulting Physician Cardiology 07/18/23 Conor Dodson MD [address] [place], [place] [address]SHEA JOHNSTON [address] [place] [address] Consulting Physician Internal Medicine 07/13/24 Vern Valladares MD PhD [address] [facility] [address] [place] [address] Consulting Physician Cardiology 08/12/24 documented as of this encounter
--- OUTSIDE RECORDS SUMMARY | 2024-12-18 10:40 | XMS_ITS | Encounter Summary ---
Author Organization [facility] Address [address] [place] [address] Care Team Providers Care Home Care Coordinator Name Role Phone Conor Dodson MD Primary Care Provider [phone] Rodriguez Garcia MD Unavailable [phone] Encounter Details Date Type Department Care Team (Late st Contact Info) Description 02/14/2024 Lab Requisition [facility] - DermPath Lab [address] [facility], [place] [address] Kelly Franco MD [address] [place] [address] Squamous cell carcinoma of skin [...] and heating? Not hard at all 05/17/2023 [facility] [place] of Occupat ional Health - Occupational Stress [...] place to sleep or slept in a alf (including now)? No 05/17/2023 Sex and Gender [...] AM CDT) Case Report Dermatopathology Report Case: [id number] Authorizing Provider: Kelly Franco MD Collected: 02/14/2024 03:33 AM Ordering Location: [facility] - Received: 02/18/2024 06:14 AM [...] of a non-oriented ellipse of skin measuring [id number] mm. The epidermal surface is unremarkable. The [...] determined by the Dermatopathology Laboratory at [facility], directed by Dr. Jennifer Colunga. These tests need not be, and therefore are not, approved by the [place] Food and Drug Administration. The tests are used for clinical purposes. Billing Codes Specimen Charges Stain Charges 36656 1 4 2:44 PM CDT DERMATOPATHOLOGY LABORATORY Embedded Images 4 2:44 PM CDT DERMATOPATHOLOGY LABORATORY Pathology/Cytolo gy TISSUE SPECIMEN FROM SKIN / Unknown 02/14/2024 3:33 AM CDT 02/18/2024 6:14 AM CDT Kelly Franco MD LAB - PATHOLOGY/CYTO LOGY ORDERABLES DERMATOPATHOLOGY LABORATORY [facility] - Department of Dermatology [facility] Medicine [address] [place] [address], [address] [phone] documented in this encounter Visit Diagnoses Diagnosis Squamous cell carcinoma of skin of left upper limb, including shoulder Squamous cell carcinoma of skin of upper limb, including shoulder documented in this encounter Care Teams Home Care Coordinator Relationship Specialty Start Date End Date Conor Dodson MD [address] [place] [address] DR K[address] [address] PCP - General Internal Medicine 04/16/23 Rodriguez Garcia MD [address] [place] [address] Cardiovascular Disease 04/16/23 documented as of this encounter
--- OUTSIDE RECORDS SUMMARY | 2024-12-18 10:40 | XMS_ITS | Encounter Summary ---
Author Organization [facility] Address [address] [facility] [address] [place] [address] Care Team Providers Care Poly Operator Name Role Phone Conor Dodson MD Primary Care Provider [phone] Conor Dodson MD Primary Care Provider [phone] Conor Dodson MD Primary Care Provider [phone] Rodriguez Garcia MD Unavailable [phone] Concepcion Michaud MD Primary Care Provider [phone] Conor Dodson MD Primary Care Provider [phone] Conor Dodson MD Unavailable [phone] Vern Valladares MD PhD Unavailable + Encounter Details Date Type Department Care Team (Late st Contact Info) Description 11/09/2015 Orders Only [facility] Health Information Management [address] [place] [address] Scanning, Provider Social History Tobacco Use Types Packs/Day Years Used Date Smoking Tobacco: Never Assessed Sex and Gender Information Value Date Recorded Sex Assigned at Not on file Legal Sex Male 11:31 PM 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 Gender Identity Male 08/09/2024 7:38 PM CDT [...] documented as of this encounter Care Teams Poly Operator Relationship Specialty Start Date End Date Conor Dodson MD [facility] KRISSY JOHNSTON [address] [place] [address] PCP - General 01/18/17 12/25/23 Conor Dodson MD [address] [place], [place] [address]JOE JOHNSTON [address] [place] [address] PCP - General 05/28/16 01/17/17 Conor Dodson MD [address] [place], [place] [address]JOE JOHNSTON [address] [place] [address] PCP - General 06/12/10 05/27/16 Concepcion Michaud MD [address] [place] [address] PCP - General Family Medicine 12/26/23 12/26/23 Conor Dodson MD [facility] KRISSY JOHNSTON [address] [place] [address] PCP - General Internal Medicine 12/27/23 [facility] [address] [place] [address] Consulting Physician Cardiology 07/18/23 Conor Dodson MD [facility] KRISSY [address]ST[address] [place] [address] Consulting Physician Internal Medicine 07/13/24 Vern Valladares MD PhD [address] [facility] [address] [place] [address] Consulting Physician Cardiology 08/12/24 documented as of this encounter
--- OUTSIDE RECORDS SUMMARY | 2024-12-18 10:40 | XMS_ITS | Encounter Summary ---
Author Organization [facility] Address [address] [facility] [place] [address] Care Team Providers Care Publication Director Name Role Phone Conor Dodson MD Primary Care Provider [phone] Rodriguez Garcia MD Unavailable [phone] Encounter Details Date Type Department Care Team (Late st Contact Info) Description 12/03/2023 Lab Requisition [facility] - DermPath Lab [address] [facility], [place] [address] Sean Beltran MD [facility] DERMATOLOGY [address] [place] [address] Neoplasm of uncertain behavior of skin [...] and heating? Not hard at all 05/17/2023 [facility] [place] of Occupat ional Health - Occupational Stress [...] place to sleep or slept in a snf (including now)? No 05/17/2023 Sex and Gender [...] Comments DERMATOPATHOLOGY Routine 12/03/2023 12:0 0 AM INTERNATIONAL TRADE TEACHER Neoplasm of uncertain behavior of skin documented in this encounter Results * DERMATOPATHOLOGY (12/03/2023 12:00 AM INTERNATIONAL TRADE TEACHER) Case Report Dermatopathology Report Case: [id number] Authorizing Provider: Sean Beltran MD Collected: 12/03/2023 12:00 AM Ordering Location: [facility] DermPath Lab Received: 12/05/2023 06:51 AM Pathologist: Alexandra Mathews MD Specimen: Skin, left dorsal forearm 4 3:13 PM [facility] DERMATOPATHOLOGY LABORATORY Final Diagnosis Specimen A. 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 Squamous Cell Carcinoma 4 3:13 PM [facility] DERMATOPATHOLOGY LABORATORY Gross Description Specimen A: Received is one formalin filled container labeled with the patient's name and designated left dorsal forearm. The specimen consists of a shave biopsy measuring 9x8x3 mm. Jar 0. 3:13 PM [facility] DERMATOPATHOLOGY LABORATORY Microscopic Description Specimen A. SKIN, left dorsal forearm: Arising in the epidermis and extending into the dermis there are irregularly shaped aggregates of keratinocytes showing evidence of premature cornification. 4 3:13 PM [facility] DERMATOPATHOLOGY LABORATORY Disclaimer An external and internal positive and negative controls are appropriate for the histochemical, immunohistochemical and immunofluorescence stain(s) in this case (if any), except where stated explicitly. The performance characteristics of the stain(s) cited in this report were developed and its performance characteristic determined by the Dermatopathology Laboratory at [facility], directed by Dr. Jennifer Colunga. These tests need not be, and therefore are not, approved by the [place] Food and Drug Administration. The tests are used for clinical purposes. Billing Codes Specimen Charges Stain Charges 63274 1 02/16/202 4 3:13 PM INTERNATIONAL TRADE TEACHER DERMATOPATHOLOGY LABORATORY Embedded Images 4 3:13 PM INTERNATIONAL TRADE TEACHER DERMATOPATHOLOGY LABORATORY Pathology/Cytolog y TISSUE SPECIMEN FROM SKIN / Unknown 12/03/2023 12/05/2023 6:51 AM INTERNATIONAL TRADE TEACHER Sean Beltran MD LAB - PATHOLOGY/CYTO LOGY ORDERABLES DERMATOPATHOLOGY LABORATORY [facility] - Department of Dermatology [facility] [address] [place] [address], [address] [phone] documented in this encounter Visit Diagnoses Diagnosis Neoplasm of uncertain behavior of skin documented in this encounter Care Teams Publication Director Relationship Specialty Start Date End Date Conor Dodson MD [address] [place] [address] DR Cayla JOHNSTON [address] [place] [address] PCP - General Internal Medicine 04/16/23 Rodriguez Garcia MD [address] [place] [address] [place] [address] Cardiovascular Disease 04/16/23 documented as of this encounter
[2024-12-18 10:42] VITALS: BP 146/132; PULSE 68; RESP 16; TEMP 36.4; O2SAT 96
--- NOTE | 2024-12-18 11:21 | ED.MALEGU ---
HPI - Male Genitourinary General Chief complaint: Urogenital-Male Stated complaint: urinary retention Time Seen by Provider: 12/18/24 11:01 Source: patient Mode of arrival: ambulatory Limitations: no limitations History of Present Illness HPI Narrative: This is a 79 year old male that presents to the ER for bladder discomfort. Reports he has not been able to urinate since 3 this morning. Recently had a TURP. Bladder scan showing retention in the ER. A hickey was placed in the ER and large clots came out as well as blood. He does take Xarelto. Related Data Home Medications ?Medication ?Instructions ?Recorded ?Confirmed ?Last Taken ?Type Adults Multivitamin 1 tablet PO DAILY 09/27/19 12/18/24 12/18/24 History allopurinol 300 mg tablet 300 mg PO DAILY 09/27/19 12/18/24 12/18/24 History citalopram 20 mg tablet 20 mg PO DAILY 09/27/19 12/18/24 12/18/24 History gabapentin 300 mg capsule 900 mg PO HS 09/27/19 12/18/24 12/17/24 History losartan 50 mg tablet 50 mg PO DAILY 03/02/22 12/18/24 12/18/24 History omeprazole 20 mg capsule,delayed 40 mg PO DAILY 03/02/22 12/18/24 12/18/24 History release vutrisiran 25 mg/0.5 mL 0.5 ml subcut [id number] 11/18/24 12/18/24 09/20/24 History subcutaneous syringe (Amvuttra) docusate sodium 100 mg capsule 100 mg PO PRN 12/18/24 12/18/24 Unknown History Allergies Allergy/AdvReac Type Severity Reaction Status Date / Time Sulfa (Sulfonamide Allergy Intermediate rash Verified 12/18/24 09:57 Antibiotics) Review of Systems Review of Systems: All systems reviewed & are unremarkable except as noted in HPI and below PMFSH Past Medical History Medical History (Updated 12/18/24 @ 16:40 by Alexandra Barajas PA-C) Depression Kidney stone Hypertension Surgical History Surgical History Previous back surgery History of right ankle joint replacement Family History Family History Mother Acute myocardial infarction Congestive heart failure Hypertension Social History Social History Smoking packs per day: 0.3 Smoking cigarettes per day: 6.0 Years smoked: 20 Smoking pack-years: 6.00 Smoking status: Former smoker Alcohol intake: current Drinks per week: 3 Alcohol use details: weekends Substance use: never Substance use type: does not use Do You Feel Safe in your Home?: Yes Lack of Transportation: No Lack of Food: Never True Current Housing: I Have Housing Concerned About Future Housing: Decline to Answer Difficulty Paying Gas/Electric Bills: Decline to Answer Difficulty Paying for Meds: Decline to Answer Currently Unemployed: Decline to Answer Education: High School Diploma/GED Difficulty w/ Childcare or Family Care: Decline to Answer Living arrangements: with family Additional living arrangements comments: Gender identity (if verbalized by the patient): Male Spiritual care concerns: No Agree to blood products: Yes Exam Narrative: GENERAL: Well-appearing, well-nourished, and in no acute distress. HEAD: Normocephalic, atraumatic. EYES: EOMI. CHEST: Clear to auscultation. No respiratory distress. No wheezes rales or rhonchi HEART: Regular rate and rhythm. No murmur heard. Normal peripheral pulses. ABDOMEN: Soft, nontender, nondistended, normal active bowel sounds. EXTREMITIES: Normal range of motion. No edema. SKIN: Warm, dry, no rash. NEURO: No focal deficits. Alert and oriented x3. PSYCH: Normal mood and affect Course Course Emergency Course: Patient updated on his workup and recommendation for admission Consultations Consultation #1: spoke with Dr. Mcdaniels about patient and workup who agrees with admission Date: 12/18/24 Vital Signs Vital signs: Vital Signs Temperature 97.5 F L 12/18/24 10:42 Pulse Rate 68 12/18/24 10:42 Respiratory Rate 16 12/18/24 10:42 Blood Pressure 146/132 H 12/18/24 10:42 Pulse Oximetry 96 12/18/24 10:42 Temperature 97.5 F L 12/18/24 10:42 Pulse Rate 68 12/18/24 13:44 Respiratory Rate 16 12/18/24 13:44 Blood Pressure 164/83 H 12/18/24 13:44 Pulse Oximetry 99 12/18/24 13:44 MDM - Male Genitourinary MDM Narrative Medical decision making narrative: patient presents to the emergency department for urinary retention. Through a Hickey placed. Steven blood came out as well as clots. He has received several L of CBI. The urine is still red. His vitals are stable. Hemoglobin is 12.5. spoke with Dr. Mcdaniels about patient and workup who agrees with admission for further CBI Differential Diagnosis Differential diagnosis: Likely urinary tract infection and acute retention of urine Lab Data Attestation: I reviewed the patient's lab results. 12/18/24 11:19 12/18/24 11:19 Labs: Lab Results 12/18/24 Range/Units 11:19 WBC 7.3 (4.5-10.0) K/mm3 RBC 3.71 L (4.6-6.20) M/mm3 Hgb 12.5 L (14.0-18.0) g/dL Hct 36.8 L (42.0-52.0) % MCV 99.2 (80-100) fl MCH 33.7 (26-34) pg MCHC 34.0 (32-36) g/dl RDW 14.1 (11.5-14.5) % Plt Count 221 (150-375) k/mm3 MPV 9.3 (7.4-10.4) fl Immature Gran % (Auto) 0.1 (0-0.5) % Neut % (Auto) 66.0 (45.5-73.1) % Lymph % (Auto) 21.4 (18.3-44.2) % [place] % (Auto) 8.1 (2.6-8.5) % Eos % (Auto) 3.7 (0-4.4) % Baso % (Auto) 0.7 (0.2-1.2) % Lymph # (Auto) 1.57 (0.9-3.2) K/mm3 [place] # (Auto) 0.6 (0.1-0.6) K/mm3 Eos # (Auto) 0.3 (0-0.3) K/mm3 Baso # (Auto) 0.1 (0.0-0.1) K/mm3 Abs Immat Gran (auto) 0.01 (0.00-0.031) K/mm3 Absolute Neuts (auto) 4.8 (1.3-6.7) K/mm3 Absolute Nucleated RBC 0.000 (0.0-0.012) K/mm3 Nucleated RBC % 0.0 (0.0-0.2) % PT 31.2 H (11.1-14.7) Seconds INR 2.9 APTT 42.2 H (22.3-36.8) Seconds Sodium 137 (137-145) mmol/L Potassium 4.1 (3.4-5.0) mmol/L Chloride 105 (98-107) mmol/L Carbon Dioxide 21 L (22-30) mmol/L Anion Gap 11 (4-12) mmol/L BUN 15 (9-20) mg/dL Creatinine 0.80 (0.7-1.3) mg/dL Estim Creat Clear Calc Not Reportable Estimated GFR > 60 (59 - ) Glucose 87 (65-110) mg/dL Calcium 9.3 (8.4-10.2) mg/dL Imaging Data Radiologist's impression: ITS Impressions Abdomen/Pelvis CT 12/18/24 12:38 IMPRESSION: Multiple 1 and 2 mm nonobstructing stones within the bilateral kidneys. Mural thickening and surrounding inflammatory change identified within the bladder, consistent with patient's presentation. Critical Care Time Critical Care Time Critical Care Time: No Discharge Plan Discharge Clinical Impression: Hematuria Qualifiers: Hematuria type: gross Qualified Code(s): R31.0 - Gross hematuria Patient Disposition: Still a Patient Condition: Stable
[2024-12-18 11:45] VITALS: BP 128/97; PULSE 70; RESP 16; O2SAT 94
[2024-12-18 11:46] LABS: Basophils Absolute Auto 0.1 K/mm3 (0.0-0.1); Basophils Percent Auto 0.7 % (0.2-1.2); Eosinophils Absolute Auto 0.3 K/mm3 (0-0.3); Eosinophils Percent Auto 3.7 % (0-4.4); Hematocrit 36.8 % (42.0-52.0); Hemoglobin 12.5 g/dL (14.0-18.0); Immature Granulocyte Absolute 0.01 K/mm3 (0.00-0.031); Immature Granulocyte Percent A 0.1 % (0-0.5); Lymphocytes Absolute Auto 1.57 K/mm3 (0.9-3.2); Lymphocytes Percent Auto 21.4 % (18.3-44.2); Mean Corpuscular Hemoglobin 33.7 pg (26-34); Mean Corpuscular Volume 99.2 fl (80-100); Mean Platelet Volume 9.3 fl (7.4-10.4); Monocytes Absolute Auto 0.6 K/mm3 (0.1-0.6); Monocytes Percent Auto 8.1 % (2.6-8.5); Neutrophils Absolute Auto 4.8 K/mm3 (1.3-6.7); Platelet Count Result 221 k/mm3 (150-375); Red Blood Count 3.71 M/mm3 (4.6-6.20); Red Cell Distribution Width 14.1 % (11.5-14.5); White Blood Count 7.3 K/mm3 (4.5-10.0)
[2024-12-18 12:05] LABS: INR 2.9; Prothrombin Time 31.2 Seconds (11.1-14.7)
[2024-12-18 12:06] LABS: Partial Thromboplastin Time 42.2 Seconds (22.3-36.8)
[2024-12-18 12:09] LABS: Anion Gap 11 mmol/L (4-12); Blood Urea Nitrogen 15 mg/dL (9-20); Calcium 9.3 mg/dL (8.4-10.2); Carbon Dioxide 21 mmol/L (22-30); Chloride 105 mmol/L (98-107); Estimated Glomerular Filt Rate > 60; Glucose 87 mg/dL (65-110); Potassium 4.1 mmol/L (3.4-5.0); Sodium 137 mmol/L (137-145)
--- OUTSIDE RECORDS SUMMARY | 2024-12-18 12:23 | XMS_ITS | Encounter Summary ---
Author Organization [facility] Address [address] [facility] [place] [address] Care Team Providers Care Aids Social Worker Name Role Phone Conor Dodson MD Primary Care Provider [phone] Rodriguez Garcai MD Unavailable Encounter Details Date Type Department Care Team (Late st Contact Info) Description 07/01/2019 Lab Requisition [facility] DermPath Lab [address] [facility] [place] [address] Conor [place] [address] Social History Tobacco Use Types [...] AM CDT) Case Report Dermatopathology Report Case: [id number] Authorizing Provider: Conor Rene MD Collected: 06/30/2019 12:00 AM Ordering Location: [facility] DermPath Lab Received: 07/01/2019 01:20 [...] specimen consists of a shave biopsy measuring 25u4l9vd. Jar 0. 12:25 PM CDT DERMATOPATHOLOGY LABORATORY [...] characteristic determined by the Dermatopathology Laboratory at [facility], directed by Dr. Jennifer Colunga. These tests need not be, and therefore are not, approved by the [place] Food and Drug Administration. The tests are used for clinical purposes. Billing Codes Specimen Charges Stain Charges 45898 1 12:25 PM CDT DERMATOPATHOLOGY LABORATORY Embedded Images 12:25 PM CDT DERMATOPATHOLOGY LABORATORY Pathology/Cytolog y TISSUE SPECIMEN FROM SKIN / Unknown 06/30/2019 07/01/2019 1:20 PM CDT Conor Rene MD LAB - PATHOLOGY/CYTO LOGY ORDERABLES DERMATOPATHOLOGY LABORATORY [facility] - Department of Dermatology [address] [facility], 5th [place] [address], [facility] [phone] documented in this encounter Visit Diagnoses Not on filedocumented in this encounter Care Teams Aids Social Worker Relationship Specialty Start Date End Date Conor Dodson MD [address] [facility] [address] [place] [address] PCP - General Internal Medicine 04/16/23 Rodriguez Garcia MD [facility] [address] [place] [id number] Cardiovascular Disease 04/16/23 documented as of this encounter
--- OUTSIDE RECORDS SUMMARY | 2024-12-18 12:23 | XMS_ITS | CONTINUITY OF CARE DOCUMENT ---
Author Name stone ritter Address Unknown Organization [facility] Address [address] [facility] [address] [place] [address] Phone [phone] Care Team Providers Care Nonprofit Director Name Role Phone Reji RAMIREZ, Josafat Unavailable [phone] Josafat Mendoza MD Unavailable [phone] INSURANCE PROVIDERS Payer name Policy type / Coverage type [place] [employer] [place] Administ[employer] ation plan [id number]
--- OUTSIDE RECORDS SUMMARY | 2024-12-18 12:23 | XMS_ITS | Encounter Summary ---
Author Organization [facility] Address [address] [place] [address] Care Team Providers Care Service Officer Name Role Phone Conor Dodson MD Primary Care Provider [phone] Rodriguez Garcia MD Unavailable [phone] Encounter Details Date Type Department Care Team (Late st Contact Info) Description 09/21/2021 Lab Requisition [facility] DermPath Lab [address] [facility] [place] [address] Con[place] [address] Social History Tobacco Use Types [...] Comments DERMATOPATHOLOGY Routine 09/19/2021 12:0 0 AM 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 2:08 PM [facility] Gross Description Specimen A: Received is one formalin filled container labeled with the patient's name and designated right dorsal wrist by styloid. The specimen consists of a shave biopsy measuring 60p09x1en bisected. Jar 0. 2:08 PM [facility] D[facility]ORY Microscopic Description Specimen A. SKIN, right dorsal wrist by styloid: The epidermis is acanthotic and shows full thickness disorderly maturation of keratinocytes, mitoses at different levels, and dyskeratotic cells. There is overlying parakeratosis and hyperkeratosis. 2:08 PM [facility] DER[facility] LAB[facility]ATORY Disclaimer An external and internal positive and negative controls are appropriate for the histochemical, immunohistochemical and immunofluorescence stain(s) in this case (if any), except where stated explicitly. The performance characteristics of the stain(s) cited in this report were developed and its performance characteristic determined by the Dermatopathology Laboratory at [facility], directed by Dr. Jennifer Colunga. These tests need not be, and therefore are not, approved by the [place] Food and Drug Administration. The tests are used for clinical purposes. Billing Codes Specimen Charges Stain Charges 79321 1 2:08 PM [facility] DERMAT[facility] LABORATORY Embedded Images 2:08 PM [facility] D[facility]ORY Pathology/Cytolog y TISSUE SPECIMEN FROM SKIN / Unknown 09/19/2021 09/21/2021 8:33 AM PARACHUTE HARNESS RIGGER Conor Rene MD LAB - PATHOLOGY/CYTO LOGY ORDERABLES DERMATOPATHOLOGY LABORATORY [facility] - Department of Dermatology [address], 3rd Floor [place], [place] [address] [place] [address] documented in this encounter Visit Diagnoses Not on filedocumented in this encounter Care Teams Service Officer Relationship Specialty Start Date End Date Conor Dodson MD [address] [place] [address] DR Cayla JOHNSTON [address] [place] [address] PCP - General Internal Medicine 04/16/23 Rodriguez Garcia MD [facility] [address] Cardiovascular Disease 04/16/23 documented as of this encounter
--- OUTSIDE RECORDS SUMMARY | 2024-12-18 12:23 | XMS_ITS | Continuity of Care Document ---
Author Organization [facility] Address [address] [place] [address] Phone Care Team Providers Care Duct Layer Helper Name Role Phone Ray Brooks DO Unavailable Unavailable Allergies, Adverse Reactions, Alerts Substance Reaction Status Criticality Sulfa (Sulfonamide Antibiotics) Active No Information Medications Medication Instructions Dosage Effective Dates (start - stop) Status Comments allopurinol 300 mg tablet take 1 tablet by oral route every day 300 MG - Active amlodipine 2.5 mg tablet take 1 tablet by oral route every day 2.5 MG - Active citalopram 20 mg tablet take 1 tablet by oral route every day 20 MG - Active gabapentin 300 mg capsule take 2 capsule by oral route every day 600 MG - Active metoprolol tartrate 25 mg tablet take 1 tablet by oral route 2 times every day 25 MG - Active omeprazole 40 mg capsule,delayed release take 1 capsule by oral route every day before a meal 40 MG - Active Xarelto 20 mg tablet take 1 tablet by or al route every day with the evening meal 20 MG - Active Levsin/SL 0.125 mg sublingual tablet as needed for Pain - Active Procedures Procedure Date OFFICE [id number] BODY MASS INDEX DOCD SYST BP >= 140 MM HG6 IT DIAST BP 80-89 MM HG Advance Directives Directive Yes / No Effective Date File Name No Information Encounters Encounter Description Practice Location Reason(s) For Visit Diagnoses Date Provider Providers Copied on Encounter OFFICE [id number], [address], [place], [place], [id number], [place] tel:[phone] [facility] Diarrhea (chief complaint)A bdominal Pain (chief complaint)G as (chief complaint) Diarrhea, unspecified typeAbdominal pain, unspecified abdominal locationBarret t's esophagus without dysplasia Cecilia Blel. [address] [facility], [address], [place], [place], [id number] , [place]. tel: [phone] Referring Provider: Conor Dodson MD H, [address] [place] [address] [address], [place], [address]. tel:[phone] Family History Family Member Type Diagnosis Age At Onset No Information Payers Payer name Insurance type Covered alliance party ID Authoriza tion(s) MEDICARE MB [id number] BCBS ANTHEM EPO BL [id number] Social History Type Description Quantity Date Captured Comments Alcohol Use Details beer 4 beers weekly Caffeine Use Details coffee 2 cups per day Tobacco Use Status Current non-smoker Smoking Status Never smoker Non-Smoking Tobacco Use Details : No Details Available : No Details Available Sex Male Vital Signs Date / Time: Height Weight BMI Pulse Rate Blood Pressure Temperature Respiratory Rate Body Surface Area Head Circumference Head Circ. Percentile Wt./Nav. Percentile BMI percentile Pulse Ox Inhaled Ox 3:18 PM 72.00 in 104.326 kg (230.00 lbs) 31.1 9 kg/m eter (2) 63 /min 145/89 mm[Hg] 99.10 F 18 /min Chief Complaint And Reason For Visit From encounter dated 07/24/2021 15:00'. Diarrhea (chief complaint). Description: It occurs randomly. Associated symptoms include abdominal pain and bloating. Pertinent negatives include fecal incontinence, fever and joint pain. Additional information: # 6 on the Valencia stool scale. Happens 4 days a week. Abdominal Pain (chief complaint). Description: 3-4 days a week. Not associated with BMs. Midline pain or both lower quadrants. Gas (chief complaint). Description: The symptoms occur weekly. Flatus frequently. Reason For Referral Reason For Referral No Information History Of Present Illness Encounter Date Complaint History Of Prese nt Illness Gas The symptoms occ ur weekly. Flatus frequently. Abdominal Pain 3-4 days a week. Not associated with BMs. Midline pain or both lower quadrants. Diarrhea It occurs random ly. Associated symptoms include abdominal pain and bloating. Pertinent negatives include fecal incontinence, fever and joint pain. Additional information: # 6 on the Valencia stool scale. Happens 4 days a week. Functional Status Date Functional Assessmen t No Information Instructions Date Instruction Additional Infor mation Will add a antispasmodic Related to Diarrhea, unspecified type Assessments Type Assessment Date assessment Diarrhea, unspecified type assessment Abdominal pain, unspecified abdo teofilo location assessment [place]'s esophagus without dysp lasia Mental Status Date Cognitive Assessment Orientation - [place] ed to time, place, person, situation. Patient Care Teams Name Effective Dates (start - stop) Status Members No Information
--- OUTSIDE RECORDS SUMMARY | 2024-12-18 12:23 | XMS_ITS | Continuity of Care Document ---
Author Name [facility] Organization [facility] Care Team Providers Care Commission Sales Associate Name Role Phone [facility] Unavailable Unavailable Problems Combined list of problems from Department of Defense and [facility] Affairs facilities. It does not include entries that were removed or entered in error. Problem Status Onset Date Problem Type Date of Resolution Comments Source AF - Atrial fibrillation Active Condition [facility] Amyloid polyneuropathy type I Active Condition [facility] Anticoagulant effect Active Condition [facility] Benign Prostatic Hypertrophy Without Outflow Obstruction (SCT 011111370) Active Condition [facility] Disturbance in mood Active Condition [facility] Exposure to potentially hazardous substance Active Condition [facility] Hearing Loss (SCT 44613680) Active Condition [facility] Hypercholesterolemia (SNOMED CT 23970187) Active Condition [facility] Hypertension (SNOMED CT 57744707) Active Condition [facility] Kidney Stone (SCT 72188383) Active Condition Mar 24, 2018 Entered By: PRANAY RAMIREZ AM Comment: s/p open nephrolithotomy [facility] Liver function tests abnormal Active Condition [facility] Low Back Pain (SCT 867107396) Active Condition Mar 24, 2018 Entered By: PRANAY RAMIREZ AM Comment: s/p L4-S1 fusion in 2009 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 Osteoarthritis (SNOMED CT 834462781) Active Condition [facility] PTSD - Post-Traumatic Stress Disorder (SCT 59712398) Active Condition [facility] Therapeutic drug effect Active Condition [facility] Benign Localized Hyperplasia of Prostate without Urinary obstruction (ICD-9-CM 6 Inactive Condition 03/24/2018 [facility] Gout Inactive Condition 03/24/2018 [facility] Hearing Loss, Sensorineural, Unspecified Inactive Condition 03/24/2018 [facility] Nephrolithiasis Inactive Condition 03/24/2018 February 19, 2004 Entered By: KENNEDI VERAS Comment: Recurrent. s/p open nephrolithotomy; nonVA Urol. f/up [facility] Peripheral Nerve Disease (ICD-9-CM 355.9) Inactive Condition 03/24/2018 Dec 04, 2011 Entered By: DAVY IRBY Comment: L4-S1 spinal fusion 11/2009 [facility] PTSD Inactive Condition 03/24/2018 [facility] Sulfonamide Allergy (ICD-9-CM E931.0) Inactive Condition 11/20/2005 [facility] Diagnosis: ICD-10-CM E85.89 Other amyloidosis Active Diagnosis [facility] Diagnosis: ICD-10-CM H90.3 Sensorineural hearing loss, bilateral Active Diagnosis [facility] Diagnosis: ICD-10-CM G47.33 Obstructive sleep apnea (adult) (pediatric) Active Diagnosis 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 Diagnosis: ICD-10-CM I48.91 Unspecified atrial fibrillation Active Diagnosis [facility] Diagnosis: ICD-10-CM Z51.81 Encounter for therapeutic drug level monitoring Active Diagnosis [facility] Diagnosis: ICD-10-CM E85.9 Amyloidosis, unspecified Active Diagnosis [facility] Diagnosis: ICD-10-CM Z71.9 Counseling, unspecified Active Diagnosis [facility] Diagnosis: ICD-10-CM H61.23 Impacted cerumen, bilateral Active Diagnosis [facility] Diagnosis: ICD-10-CM Z77.29 Contact with and exposure to other hazardous substances Active Diagnosis [facility] Diagnosis: ICD-10-CM R41.9 Unsp symptoms and signs w cognitive functions and awareness Active Diagnosis [facility] Diagnosis: ICD-10-CM R41.841 Cognitive communication deficit Active Diagnosis [facility] Diagnosis: ICD-10-CM Z78.9 Other specified health status Active Diagnosis [facility] Diagnosis: ICD-10-CM G31.84 Mild cognitive impairment of uncertain or unknown etiology Active Diagnosis [facility] Medications Combined list of outpatient medications from Department of Defense and [facility] Affairs facilities.Medications provided include 1) outpatient medications from the last 15 months, and 2) patient-reported medications. Medication Details Route Status Patient Instructions Prescription Expires Prescription Number Last Dispense Date Ordering Provider Order Date Order Qty Source ALLOPURINOL 300MG TAB TAKE ONE TABLET BY MOUTH ONCE A DAY FOR GOUT. TAKE WITH PLENTY OF WATER. ORAL ACTIVE 05/21/2025 [id number] 4 GARRETTIN HUSSEIN D [address] [place] [address] ALLOPURINOL 300MG TAB TAKE ONE TABLET BY MOUTH ONCE A DAY FOR GOUT. TAKE WITH PLENTY OF WATER. ORAL DISCONT INUED 01/11/2025 [id number] 4 GARRETTIN HUSSEIN D [address] [place] [address] CITALOPRAM HYDROBROMID E 40MG TAB TAKE ONE TABLET BY MOUTH EVERY MORNING FOR DEPRESSI ON ORAL ACTIVE 01/11/2025 [id number] 4 GARRETTIN [facility] [address] [place] [address] CITALOPRAM HYDROBROMID E 40MG TAB TAKE ONE TABLET BY MOUTH EVERY MORNING FOR DEPRESSI ON ORAL DISCONT INUED 12/21/2023 [id number] 3 GARRETTIN HUSSEIN D 2022 90 [facility] CITALOPRAM HYDROBROMID E 40MG TAB TAKE ONE-HALF TABLET BY MOUTH EVERY MORNING ORAL ACTIVE MAHAMED DAVY Jeffery 2012 [facility] GABAPENTIN 300MG CAP TAKE ONE CAPSULE BY MOUTH EVERY EVENING FOR NERVE PAIN ORAL ACTIVE 10/24/2025 [id number] EMILIE BURNS 2024 90 [facility] GABAPENTIN 300MG CAP TAKE 2 CAPSULES BY MOUTH THREE TIMES A DAY ORAL ACTIVE MAHAMED DAVY A 2014 [facility] GABAPENTIN 600MG TAB TAKE ONE TABLET BY MOUTH AT BEDTIME FOR PAIN ORAL ACTIVE 03/03/2025 [id number] 4 GARRETTIN GRID D 2023 90 [facility] GABAPENTIN 600MG TAB TAKE ONE TABLET BY MOUTH AT BEDTIME FOR PAIN ORAL DISCONT INUED 06/06/2024 [id number] 4 GARRETTIN GRID D 2022 90 [facility] LOSARTAN 50MG TAB TAKE ONE TABLET BY MOUTH TWICE A DAY FOR HIGH BLOOD PRESSURE ORAL SUSPEND ED 12/08/2025 [id number] 5 MARIXA STARK 2024 180 [facility] LOS[place] 50MG TAB TAKE ONE TABLET BY MOUTH TWICE A DAY FOR HIGH BLOOD PRESSURE ORAL DISCONT INUED 04/30/2025 [id number] 5 MARIXA STARK 2023 180 [facility] [place] POTASSIUM 100MG TAB TAKE ONE TABLET BY MOUTH ONCE A DAY TO LOWER BLOOD PRESSURE ORAL DISCONT INUED (EDIT) 01/11/2025 [id number] 4 GARRETTIN GRID D 2023 90 [facility] [place] POTASSIUM 100MG TAB TAKE ONE TABLET BY MOUTH ONCE A DAY TO LOWER BLOOD PRESSURE ORAL DISCONT INUED 06/20/2024 [id number] 3 GARRETTIN GRID D 2022 90 [facility] METOPROLOL TARTRATE 100MG TAB TAKE ONE TABLET BY MOUTH TWICE A DAY FOR HIGH BLOOD PRESSURE TAKE WITH OR IMMEDIAT YOAV FOLLOWIN G FOOD. ORAL DISCONT INUED BY PROVIDE R 07/21/2024 [id number] 4 GARRETT,IN GRID D 2022 180 [facility] MULTIVITAMI NS CAP/TAB TAKE 1 TABLET BY MOUTH ONCE A DAY FOR NUTRITIO N/DIETAR Y SUPPLEME NTATION ORAL ACTIVE 07/02/2025 [id number] 5 MARIXA STARK 2023 100 [facility] OMEPRAZOLE 20MG CAP,EC TAKE ONE CAPSULE BY MOUTH AT BEDTIME TO LOWER STOMACH ACID. TAKE 30 MINUTES PRIOR TO FOOD. ORAL ACTIVE 12/08/2025 [id number] 5 GARRETT,IN GRID D 2024 90 [facility] OMEPRAZOLE 20MG CAP,EC TAKE ONE CAPSULE BY MOUTH AT BEDTIME TO LOWER STOMACH ACID. TAKE 30 MINUTES PRIOR TO FOOD. ORAL DISCONT INUED 05/21/2025 [id number] 4 GARRETT,IN GRID D 2023 90 [facility] OMEPRAZOLE 20MG CAP,EC TAKE ONE CAPSULE BY MOUTH AT BEDTIME TO LOWER STOMACH ACID. TAKE 30 MINUTES PRIOR TO FOOD. ORAL DISCONT INUED 10/22/2024 [id number] 4 GARRETT,IN GRID D 2023 90 [facility] RIVAROXABAN 20MG TAB TAKE ONE TABLET BY MOUTH ONCE A DAY TO THIN BLOOD. TAKE WITH FOOD. ORAL ACTIVE 04/14/2025 [id number] 4 MARIXA MATOS 2023 90 [facility] RIVAROXABAN 20MG TAB TAKE ONE TABLET BY MOUTH ONCE A DAY TO THIN BLOOD. TAKE WITH FOOD. ORAL DISCONT INUED 04/04/2024 [id number] 4 MARIXA MATOS 2022 90 [facility] VITAMIN A [id number] CAP TAKE ONE CAPSULE BY MOUTH ONCE A DAY FOR VITAMIN A SUPPLEME NTATION ORAL ACTIVE 10/01/2025 [id number] 4 MARIXA STARK 2023 90 [facility] Allergies, Adverse Reactions, Alerts Combined list of allergies from Department of Defense and Veterans Affairs facilities. It does not include entries that were removed or entered in error. Substance Category Reaction Severity Reaction type Status Date Reported Comments Source SULFA DRUGS Propensity to adverse reactions to drug (finding) Eruption active 4 [facility] Immunizations Combined list of available immunizations from the Department of Defense and Veterans Affairs facilities. Immunization Series Date Given Administered By Site Reaction Lot Number CVX Code Drug Helmet Hat Sweatband Puncher Status Comments Source INFLUENZA, HIGH-DOSE, TRIVALENT, PF 2023 CAROLYN SHIPLEY S LEFT DELTO ID [id number] A 135 complet ed [facility] INFLUENZA, UNSPECIFIED FORMULATION 2023 88 complet ed [facility] INFLUENZA, UNSPECIFIED FORMULATION 2021 88 complet ed [facility] INFLUENZA, HIGH-DOSE, QUADRIVALENT, PF 4 2021 197 complet ed [facility] COVID-19 (MODERNA), MRNA, LNP-S, PF, 100 MCG OR 50 MCG DOSE 3 2021 207 complet ed MOD; [id number]; 2 [facility] INFLUENZA, UNSPECIFIED FORMULATION 2020 88 complet ed [facility] COVID-19 (MODERNA), MRNA, LNP-S, PF, 100 MCG/0.5 ML DOSE 2 2020 207 complet ed MOD; [id number]; 1 [facility] COVID-19 (MODERNA), MRNA, LNP-S, PF, 100 MCG/0.5 ML DOSE 1 2020 207 complet ed MOD; [id number]; 1 [facility] INFLUENZA, UNSPECIFIED FORMULATION 2018 88 complet ed [facility] ZOSTER RECOMBINANT 1 2018 187 complet ed [facility] INFLUENZA, UNSPECIFIED FORMULATION 2 2017 88 complet ed [facility] INFLUENZA, UNSPECIFIED FORMULATION 2017 88 complet ed [facility] INFLUENZA, UNSPECIFIED FORMULATION 1 2016 88 complet ed [facility] INFLUENZA, INJECTABLE, QUADRIVALENT, PRESERVATIVE FREE 2016 150 complet ed [facility] PNEUMOCOCCAL CONJUGATE PCV 13 2 2015 133 complet ed [facility] INFLUENZA, UNSPECIFIED FORMULATION 2014 88 complet ed DONE AT [facility] PMDs OFFICE [facility] PNEUMOCOCCAL CONJUGATE PCV 13 2014 133 complet ed [facility] TDAP 2014 115 complet ed Left Deltoid [facility] INFLUENZA, UNSPECIFIED FORMULATION 2013 88 complet ed [facility] INFLUENZA, UNSPECIFIED FORMULATION 2013 88 complet ed [facility] PNEUMOCOCCAL POLYSACCHARID E PPV23 1 2012 33 complet ed [facility] PNEUMOCOCCAL, UNSPECIFIED FORMULATION 2012 109 complet ed [facility] INFLUENZA, HIGH-DOSE, TRIVALENT, PF 1 2012 135 complet ed [facility] INFLUENZA, UNSPECIFIED FORMULATION 2012 88 complet ed [facility] INFLUENZA, UNSPECIFIED FORMULATION 2010 88 complet ed [facility] INFLUENZA, UNSPECIFIED FORMULATION 2009 88 complet ed [facility] INFLUENZA, UNSPECIFIED FORMULATION 2008 88 complet ed [facility] INFLUENZA, UNSPECIFIED FORMULATION 2008 88 complet ed [facility] ZOSTER LIVE 2007 121 complet ed [facility] INFLUENZA, UNSPECIFIED FORMULATION 2006 88 complet ed [facility] INFLUENZA, UNSPECIFIED FORMULATION 2005 88 complet ed Per report from patient [facility] INFLUENZA, UNSPECIFIED FORMULATION 2004 88 complet ed [facility] INFLUENZA (HISTORICAL) 2003 88 complet ed [facility] TD(ADULT) UNSPECIFIED FORMULATION 2003 139 complet ed [facility] Results Combined list of recent chemistry, hematology and other laboratory results from Department of Defense and Veterans Affairs, ranging from 15 months to all on record, depending upon the facility. Order Name Results Value Reference Range Date Interpretation Specimen Comments Source CBC LEUKOCYTES [#/VOLUME] IN BLOOD BY AUTOMATED COUNT 7.2 10*3/u L 3.6 - 11.2 11/23 Specimen Type: BLOOD No comment entered. Ordering Provider: ELMER GRAY IN W Report Released Date/Time: Nov 26, 2023 09:22 AM Reporting Lab: [address] [address] Performing Lab: [address] [phone] CBC ERYTHROCYTE S [#/VOLUME] IN BLOOD BY AUTOMATED COUNT 4.16 10*6/u L 4.10 - 5.70 11/23 Specimen Type: BLOOD No comment entered. Ordering Provider: ELMER GRAY IN W Report Released Date/Time: Nov 26, 2023 09:22 AM Reporting Lab: [address] [address] Performing Lab: [phone] [place] [address] CBC HEMOGLOBIN [MASS/VOLUM E] IN BLOOD 13.8 g/dL 13.1 - 16.8 11/23 Specimen Type: BLOOD No comment entered. Ordering Provider: ELMER GRAY IN W Report Released Date/Time: Nov 26, 2023 09:22 AM Reporting Lab: [address] [address] Performing Lab: [address] [place] [address] [facility] CBC HEMATOCRIT [VOLUME FRACTION] OF BLOOD 40.3 38.2 - 48.4 11/23 Specimen Type: BLOOD No comment entered. Ordering Provider: ELMER GRAY IN W Report Released Date/Time: Nov 26, 2023 09:22 AM Reporting Lab: [address] [address] Performing Lab: [address] [address] [facility] CBC MCV [ENTITIC VOLUME] BY AUTOMATED COUNT 96.9 fL 80.0 - 100.0 11/23 Specimen Type: BLOOD No comment entered. Ordering Provider: ELMER GRAY IN W Report Released Date/Time: Nov 26, 2023 09:22 AM Reporting Lab: [address] [address] Performing Lab: [address] [address] [facility] CBC MCH [ENTITIC MASS] BY AUTOMATED COUNT 33.2 pg 27.0 - 34.0 11/23 Specimen Type: BLOOD No comment entered. Ordering Provider: ELMER GRAY IN W Report Released Date/Time: Nov 26, 2023 09:22 AM Reporting Lab: [address] [address] Performing Lab: [address] [address] [facility] CBC MCHC [MASS/VOLUM E] BY AUTOMATED COUNT 34.2 g/dL 33.0 - 36.0 11/23 Specimen Type: BLOOD No comment entered. Ordering Provider: ELMER GRAY IN W Report Released Date/Time: Nov 26, 2023 09:22 AM Reporting Lab: [address] [address] Performing Lab: [address] [address] [facility] CBC PLATELETS [#/VOLUME] IN BLOOD BY AUTOMATED COUNT 247 10*3/u L 150 - 400 11/23 Specimen Type: BLOOD No comment entered. Ordering Provider: ELMER GRAY IN W Report Released Date/Time: Nov 26, 2023 09:22 AM Reporting Lab: [address] [address] Performing Lab: [address] [address] [facility] CBC PLATELET MEAN VOLUME [ENTITIC VOLUME] IN BLOOD BY AUTOMATED COUNT 9.0 fL 7.5 - 11.2 11/23 Specimen Type: BLOOD No comment entered. Ordering Provider: ELMER GRAY IN W Report Released Date/Time: Nov 26, 2023 09:22 AM Reporting Lab: [address] [address] Performing Lab: [address] [address] [facility] CBC ERYTHROCYTE DISTRIBUTIO N WIDTH [RATIO] BY AUTOMATED COUNT 14.2 11.8 - 15.1 11/23 Specimen Type: BLOOD No comment entered. Ordering Provider: ELMER GRAY IN W Report Released Date/Time: Nov 26, 2023 09:22 AM Reporting Lab: [address] [address] Performing Lab: [address] [address] [facility] CBC LYMPHOCYTES /100 LEUKOCYTES IN BLOOD BY AUTOMATED COUNT 25 11/23 Specimen Type: BLOOD No comment entered. Ordering Provider: ELMER GRAY IN W Report Released Date/Time: Nov 26, 2023 09:22 AM Reporting Lab: [address] [address] Performing Lab: [address] [address] [facility] CBC MONOCYTES/1 00 LEUKOCYTES IN BLOOD BY AUTOMATED COUNT 11 11/23 Specimen Type: BLOOD No comment entered. Ordering Provider: ELMER GRAY IN W Report Released Date/Time: Nov 26, 2023 09:22 AM Reporting Lab: [facility] [address] [place] [phone] Performing Lab: [facility] [address] [place] [phone] [place] [address] CBC NEUTROPHILS /100 LEUKOCYTES IN BLOOD BY AUTOMATED COUNT 60 11/23 Specimen Type: BLOOD No comment entered. Ordering Provider: ELMER GRAY IN W Report Released Date/Time: Nov 26, 2023 09:22 AM Reporting Lab: [address] [address] Performing Lab: [place] [id number] CBC EOSINOPHILS /100 LEUKOCYTES IN BLOOD BY AUTOMATED COUNT 3 11/23 Specimen Type: BLOOD No comment entered. Ordering Provider: ELMER GRAY IN W Report Released Date/Time: Nov 26, 2023 09:22 AM Reporting Lab: [address] [address] Performing Lab: [address] [phone] [place] [address] CBC BASOPHILS/1 00 LEUKOCYTES IN BLOOD BY AUTOMATED COUNT 0 11/23 Specimen Type: BLOOD No comment entered. Ordering Provider: ELMER GRAY IN W Report Released Date/Time: Nov 26, 2023 09:22 AM Reporting Lab: [address] [address] Performing Lab: [address] [address] [facility] CBC LYMPHOCYTES [#/VOLUME] IN BLOOD BY AUTOMATED COUNT 1.78 10*3/u L 0.77 - 4.50 11/23 Specimen Type: BLOOD No comment entered. Ordering Provider: ELMER GRAY IN W Report Released Date/Time: Nov 26, 2023 09:22 AM Reporting Lab: [address] [address] Performing Lab: [address] [address] [facility] CBC MONOCYTES [#/VOLUME] IN BLOOD BY AUTOMATED COUNT 0.82 10*3/u L 0.19 - 0.80 11/23 H Specimen Type: BLOOD No comment entered. Ordering Provider: ELMER GRAY IN W Report Released Date/Time: Nov 26, 2023 09:22 AM Reporting Lab: [address] [address] Performing Lab: [address] [address] [facility] CBC NEUTROPHILS [#/VOLUME] IN BLOOD BY AUTOMATED COUNT 4.36 10*3/u L 2.10 - 8.00 11/23 Specimen Type: BLOOD No comment entered. Ordering Provider: ELMER GRAY IN W Report Released Date/Time: Nov 26, 2023 09:22 AM Reporting Lab: [address] [address] Performing Lab: [address] [address] [facility] CBC EOSINOPHILS [#/VOLUME] IN BLOOD BY AUTOMATED COUNT 0.20 10*3/u L 0.00 - 0.60 11/23 Specimen Type: BLOOD No comment entered. Ordering Provider: ELMER GRAY IN W Report Released Date/Time: Nov 26, 2023 09:22 AM Reporting Lab: [address] [address] Performing Lab: [address] [address] [facility] CBC BASOPHILS [#/VOLUME] IN BLOOD BY AUTOMATED COUNT 0.03 10*3/u L 0.00 - 0.20 11/23 Specimen Type: BLOOD No comment entered. Ordering Provider: ELMER GRAY IN W Report Released Date/Time: Nov 26, 2023 09:22 AM Reporting Lab: [place] [address] [place] [address] Performing Lab: [place] [address] COMPREHEN SIVE METABOLIC PANEL CREATININE [MASS/VOLUM E] IN SERUM OR PLASMA 1.01 mg/dL 0.7 - 1.3 11/23 Specimen Type: PLASMA Comment: No hemolysis noted. Ordering Provider: ELMER GRAY IN W Report Released Date/Time: Nov 26, 2023 09:22 AM Reporting Lab: [place] [address] Performing Lab: [place] [address] [place] [phone] COMPREHEN SIVE METABOLIC PANEL UREA NITROGEN [MASS/VOLUM E] IN SERUM OR PLASMA 18.0 mg/dL 9.0 - 25.0 11/23 Specimen Type: PLASMA Comment: No hemolysis noted. Ordering Provider: ELMER GRAY IN W Report Released Date/Time: Nov 26, 2023 09:22 AM Reporting Lab: [place] [address] Performing Lab: [place] [address] [facility] [phone] COMPREHEN SIVE METABOLIC PANEL GLUCOSE [MASS/VOLUM E] IN SERUM OR PLASMA 84 mg/dL 72 - 99 11/23 Specimen Type: PLASMA Comment: No hemolysis noted. Ordering Provider: ELMER GRAY IN W Report Released Date/Time: Nov 26, 2023 09:22 AM Reporting Lab: [place] [phone] Performing Lab: [address] [facility] [address] [facility] COMPREHEN SIVE METABOLIC PANEL SODIUM [MOLES/VOLU ME] IN SERUM OR PLASMA 141 meq/L 136 - 145 11/23 Specimen Type: PLASMA Comment: No hemolysis noted. Ordering Provider: ELMER GRAY IN W Report Released Date/Time: Nov 26, 2023 09:22 AM Reporting Lab: [place] [address] [facility] [address] Performing Lab: [place] [address] [facility] [address] [facility] COMPREHEN SIVE METABOLIC PANEL POTASSIUM [MOLES/VOLU ME] IN SERUM OR PLASMA 4.4 meq/L 3.5 - 5 11/23 Specimen Type: PLASMA Comment: No hemolysis noted. Ordering Provider: ELMER GRAY IN W Report Released Date/Time: Nov 26, 2023 09:22 AM Reporting Lab: [place] [address] [facility] [address] Performing Lab: [place] [address] [facility] [address] [facility] COMPREHEN SIVE METABOLIC PANEL CHLORIDE [MOLES/VOLU ME] IN SERUM OR PLASMA 106 meq/L 98 - 107 11/23 Specimen Type: PLASMA Comment: No hemolysis noted. Ordering Provider: ELMER GRAY IN W Report Released Date/Time: Nov 26, 2023 09:22 AM Reporting Lab: [place] [address] [facility] [address] Performing Lab: [place] [address] [facility] [address] [facility] COMPREHEN SIVE METABOLIC PANEL CARBON DIOXIDE, TOTAL [MOLES/VOLU ME] IN SERUM OR PLASMA 24 meq/L 22 - 31 11/23 Specimen Type: PLASMA Comment: No hemolysis noted. Ordering Provider: ELMER GRAY IN W Report Released Date/Time: Nov 26, 2023 09:22 AM Reporting Lab: [place] [address] [address] [facility] [address] Performing Lab: [place] [address] [address] [facility] [address] [facility] COMPREHEN SIVE METABOLIC PANEL CALCIUM [MASS/VOLUM E] IN SERUM OR PLASMA 9.4 mg/dL 8.4 - 10.4 11/23 Specimen Type: PLASMA Comment: No hemolysis noted. Ordering Provider: ELMER GRAY IN W Report Released Date/Time: Nov 26, 2023 09:22 AM Reporting Lab: [place] [address] [facility] [address] Performing Lab: [place] [address] [facility] [address] [facility] COMPREHEN SIVE METABOLIC PANEL PROTEIN [MASS/VOLUM E] IN SERUM OR PLASMA 7.1 g/dL 6 - 8.6 11/23 Specimen Type: PLASMA Comment: No hemolysis noted. Ordering Provider: ELMER GRAY IN W Report Released Date/Time: Nov 26, 2023 09:22 AM Reporting Lab: [place] [address] [facility] [address] Performing Lab: [place] [address] [address] [facility] [address] [facility] COMPREHEN SIVE METABOLIC PANEL ALBUMIN [MASS/VOLUM E] IN SERUM OR PLASMA 4.0 g/dL 3.4 - 5 11/23 Specimen Type: PLASMA Comment: No hemolysis noted. Ordering Provider: ELMER GRAY IN W Report Released Date/Time: Nov 26, 2023 09:22 AM Reporting Lab: [place] [address] [facility] [address] Performing Lab: [place] [address] [facility] [address] [facility] COMPRE[facility]IVE METABOLIC PANEL BILIRUBIN.T OTAL [MASS/VOLUM E] IN SERUM OR PLASMA 0.7 mg/dL 0.2 - 1.2 11/23 Specimen Type: PLASMA Comment: No hemolysis noted. Ordering Provider: ELMER GRAY IN W Report Released Date/Time: Nov 26, 2023 09:22 AM Reporting Lab: [address] [address] Performing Lab: [facility] [address] [place] [id number] [facility] COMPREH[facility]IVE METABOLIC PANEL ALKALINE PHOSPHATASE [ENZYMATIC ACTIVITY/VO LUME] IN SERUM OR PLASMA 77 U/L 40 - 150 11/23 Specimen Type: PLASMA Comment: No hemolysis noted. Ordering Provider: ELMER GRAY IN W Report Released Date/Time: Nov 26, 2023 09:22 AM Reporting Lab: [address] [address] Performing Lab: [address] [address] [facility] COMPREHEN SIVE METABOLIC PANEL ASPARTATE AMINOTRANSF ERASE [ENZYMATIC ACTIVITY/VO LUME] IN SERUM OR PLASMA 24 U/L 5 - 34 11/23 Specimen Type: PLASMA Comment: No hemolysis noted. Ordering Provider: ELMER GRAY IN W Report Released Date/Time: Nov 26, 2023 09:22 AM Reporting Lab: [address] [address] Performing Lab: [address] [address] [facility] COMPREHEN SIVE METABOLIC PANEL ALANINE AMINOTRANSF ERASE [ENZYMATIC ACTIVITY/VO LUME] IN SERUM OR PLASMA 23 U/L 8 - 40 11/23 Specimen Type: PLASMA Comment: No hemolysis noted. Ordering Provider: ELMER GRAY IN W Report Released Date/Time: Nov 26, 2023 09:22 AM Reporting Lab: [address] [address] Performing Lab: [address] [address] [facility] COMPREHEN SIVE METABOLIC PANEL GLOMERULAR FILTRATION RATE/1.73 SQ M.PREDICTED [VOLUME RATE/AREA] IN SERUM, PLASMA OR BLOOD BY CREATININE- BASED FORMULA (CKD-EPI 2020) 76.6 60 11/23 Specimen Type: PLASMA Comment: No hemolysis noted. Ordering Provider: ELMER GRAY IN W Report Released Date/Time: Nov 26, 2023 09:22 AM Reporting Lab: [place] [address] Performing Lab: [address] KAPPA/GRAY BDA FREE LC PANEL (STL-PB) KAPPA LIGHT CHAINS [PRESENCE] IN SERUM BY ELECTROPHOR ESIS 26.0 mg/L 2.4 - 20.7 11/23 H Specimen Type: SERUM No comment entered. Ordering Provider: ELMER GRAY IN W Report Released Date/Time: Nov 26, 2023 09:22 AM Reporting Lab: [place] [phone] Performing Lab: [place] [id number] KAPPA/GRAY BDA FREE LC PANEL (STL-PB) LAMBDA LIGHT CHAINS.FREE [MASS/VOLUM E] IN SERUM OR PLASMA 23.3 mg/L 4.2 - 27.7 11/23 Specimen Type: SERUM No comment entered. Ordering Provider: ELMER GRAY IN W Report Released Date/Time: Nov 26, 2023 09:22 AM Reporting Lab: [place] [phone] Performing Lab: [address] KAPPA/GRAY BDA FREE LC PANEL (STL-PB) KAPPA/LAMBD A RATIO (STL) 1.12 0.22 - 1.74 11/23 Specimen Type: SERUM No comment entered. Ordering Provider: ELMER GRAY IN W Report Released Date/Time: Nov 26, 2023 09:22 AM Reporting Lab: [address] [address] Performing Lab: [address] [phone] [place] [address] PROTEIN ELECTROPH ORESIS BLOOD ALPHA 1 GLOBULIN [MASS/VOLUM E] IN SERUM OR PLASMA BY ELECTROPHOR ESIS 0.3 g/dL 0.2 - 0.3 11/23 Specimen Type: SERUM Comment: Reference Range: None Detected NOTE: THIS RESULT IS FLAGGED ABNORMAL Evaluation reveals a restricted band (M-spike) migrating in the beta-2 globulin region. If not already requested, Immunofixat ion should be considered. Test Performed by [employer] [facility], [employer], [address] [place] [address] Carlos Sun M.D., Ph.D., Director of Laboratorie s , CLIA [id number] PREVIOUS: IgA KAPPA WITH FREE KAPPA LIGHT CHAIN Ordering Provider: ELMER GRAY Report Released Date/Time: Nov 26, 2023 09:22 AM Reporting Lab: [place] [address] Performing Lab: [address] [facility] PROTEIN ELECTROPH ORESIS BLOOD ALPHA 2 GLOBULIN [MASS/VOLUM E] IN SERUM OR PLASMA BY ELECTROPHOR ESIS 0.7 g/dL 0.5 - 0.9 11/23 Specimen Type: SERUM Comment: Reference Range: None Detected NOTE: THIS RESULT IS FLAGGED ABNORMAL Evaluation reveals a restricted band (M-spike) migrating in the beta-2 globulin region. If not already requested, Immunofixat ion should be considered. Test Performed by [email or web address], [address] [place], [place] Carlos Sun M.D., Ph.D., Director of Laboratorie s , CLIA [id number] PREVIOUS: IgA KAPPA WITH FREE KAPPA LIGHT CHAIN Ordering Provider: ELMER GRAY IN W Report Released Date/Time: Nov 26, 2023 09:22 AM Reporting Lab: [address] [address] Performing Lab: [address] [facility] PROTEIN ELECTROPH ORESIS BLOOD BETA 1 GLOBULIN(SO -PB-STL) 0.5 g/dL 0.4 - 0.6 11/23 Specimen Type: SERUM Comment: Reference Range: None Detected NOTE: THIS RESULT IS FLAGGED ABNORMAL Evaluation reveals a restricted band (M-spike) migrating in the beta-2 globulin region. If not already requested, Immunofixat ion should be considered. Test Performed by [email or web address], [employer], [address] [place] [address] Carlos Sun M.D., Ph.D., Director of Laboratorie s , CLIA [id number] PREVIOUS: IgA KAPPA WITH FREE KAPPA LIGHT CHAIN Ordering Provider: ELMER GRAY W Report Released Date/Time: Nov 26, 2023 09:22 AM Reporting Lab: [address] [address] Performing Lab: [address] [facility] PROTEIN ELECTROPH ORESIS BLOOD GAMMA GLOBULIN [MASS/VOLUM E] IN SERUM OR PLASMA BY ELECTROPHOR ESIS 0.7 g/dL 0.8 - 1.7 11/23 L Specimen Type: SERUM Comment: Reference Range: None Detected NOTE: THIS RESULT IS FLAGGED ABNORMAL Evaluation reveals a restricted band (M-spike) migrating in the beta-2 globulin region. If not already requested, Immunofixat ion should be considered. Test Performed by [email or web address], [employer], [address] [place] [address] Carlos Sun M.D., Ph.D., Director of Laboratorie s , CLIA [id number] PREVIOUS: IgA KAPPA WITH FREE KAPPA LIGHT CHAIN Ordering Provider: ELMER GRAY Report Released Date/Time: Nov 26, 2023 09:22 AM Reporting Lab: [address] [address] Performing Lab: [address] [facility] PROTEIN ELECTROPH ORESIS BLOOD PROTEIN [MASS/VOLUM E] IN SERUM OR PLASMA 6.6 g/dL 6.1 - 8.1 11/23 Specimen Type: SERUM Comment: Reference Range: None Detected NOTE: THIS RESULT IS FLAGGED ABNORMAL Evaluation reveals a restricted band (M-spike) migrating in the beta-2 globulin region. If not already requested, Immunofixat ion should be considered. Test Performed by [employer], [address] [place] [address] Carlos Sun M.D., Ph.D., Director of Laboratorie s , CLIA [id number] PREVIOUS: IgA KAPPA WITH FREE KAPPA LIGHT CHAIN Ordering Provider: ELMER GRAY Report Released Date/Time: Nov 26, 2023 09:22 AM Reporting Lab: [address] [address] Performing Lab: [address] [facility] PROTEIN ELECTROPH ORESIS BLOOD ALBUMIN [MASS/VOLUM E] IN SERUM OR PLASMA 3.8 g/dL 3.8 - 4.8 11/23 Specimen Type: SERUM Comment: Reference Range: None Detected NOTE: THIS RESULT IS FLAGGED ABNORMAL Evaluation reveals a restricted band (M-spike) migrating in the beta-2 globulin region. If not already requested, Immunofixat ion should be considered. Test Performed by [employer], [address] [place] [address] Carlos Sun M.D., Ph.D., Director of Laboratorie s , CLIA [id number] PREVIOUS: IgA KAPPA WITH FREE KAPPA LIGHT CHAIN Ordering Provider: ELMER GRAY IN W Report Released Date/Time: Nov 26, 2023 09:22 AM Reporting Lab: [place] [phone] Performing Lab: [address] [facility] PROTEIN ELECTROPH ORESIS BLOOD BETA 2 GLOBULIN (SO-PB) 0.8 g/dL 0.2 - 0.5 11/23 H Specimen Type: SERUM Comment: Reference Range: None Detected NOTE: THIS RESULT IS FLAGGED ABNORMAL Evaluation reveals a restricted band (M-spike) migrating in the beta-2 globulin region. If not already requested, Immunofixat ion should be considered. Test Performed by [employer] [facility], [address] [place] [address] Carlos Sun M.D., Ph.D., Director of Laboratorie s , CLIA [id number] PREVIOUS: IgA KAPPA WITH FREE KAPPA LIGHT CHAIN Ordering Provider: ELMER GRAY Report Released Date/Time: Nov 26, 2023 09:22 AM Reporting Lab: [address] [address] Performing Lab: [address] [facility] PROTEIN ELECTROPH ORESIS BLOOD INTERPRETAT ION (STL-PB) SEE NOTE 11/23 H Specimen Type: SERUM Comment: Reference Range: None Detected NOTE: THIS RESULT IS FLAGGED ABNORMAL Evaluation reveals a restricted band (M-spike) migrating in the beta-2 globulin region. If not already requested, Immunofixat ion should be considered. Test Performed by [employer], [address] [place] [address] Carlos Sun M.D., Ph.D., Director of Laboratorie s , CLIA [id number] PREVIOUS: IgA KAPPA WITH FREE KAPPA LIGHT CHAIN Ordering Provider: ELMER GRAY Report Released Date/Time: Nov 26, 2023 09:22 AM Reporting Lab: [address] [phone] Performing Lab: [address] [facility] PROTEIN ELECTROPH ORESIS BLOOD ABNORMAL PROTEIN BAND 1 (SO-PB-STL) 0.4 g/dL 11/23 H Specimen Type: SERUM Comment: Reference Range: None Detected NOTE: THIS RESULT IS FLAGGED ABNORMAL Evaluation reveals a restricted band (M-spike) migrating in the beta-2 globulin region. If not already requested, Immunofixat ion should be considered. Test Performed by [email or web address], [email or web address], [address] [place] [address] Carlos Sun M.D., Ph.D., Director of Laboratorie s , CLIA [id number] PREVIOUS: IgA KAPPA WITH FREE KAPPA LIGHT CHAIN Ordering Provider: ELMER GRAY Report Released Date/Time: Nov 26, 2023 09:22 AM Reporting Lab: [address] [address] Performing Lab: [address] [facility] PROTEIN URINE PROTEIN [MASS/VOLUM E] IN URINE 13.4 mg/dL 05/22 Specimen Type: URINE No comment entered. Ordering Provider: JOHN STARK Report Released Date/Time: Apr 29, 2024 09:21 AM Reporting Lab: [address] [address] Performing Lab: [address] [address] [facility] B12 COBALAMIN (VITAMIN B12) [MASS/VOLUM E] IN SERUM OR PLASMA 447 pg/mL 213 - 816 05/22 Specimen Type: SERUM No comment entered. Ordering Provider: Toan BURNS Report Released Date/Time: May 22, 2024 02:24 PM Reporting Lab: [address] [address] Performing Lab: [phone] [place] [address] BASIC METABOLIC PANEL CREATININE [MASS/VOLUM E] IN SERUM OR PLASMA 0.99 mg/dL 0.7 - 1.3 05/22 Specimen Type: PLASMA Comment: No hemolysis noted. Ordering Provider: JOHN STARK Report Released Date/Time: Apr 29, 2024 09:21 AM Reporting Lab: [place] [phone] Performing Lab: [address] [address] [facility] BASIC METABOLIC PANEL UREA NITROGEN [MASS/VOLUM E] IN SERUM OR PLASMA 16.2 mg/dL 9.0 - 25.0 05/22 Specimen Type: PLASMA Comment: No hemolysis noted. Ordering Provider: JOHN STARK Report Released Date/Time: Apr 29, 2024 09:21 AM Reporting Lab: [address] [address] Performing Lab: [address] [address] [facility] BASIC METABOLIC PANEL GLUCOSE [MASS/VOLUM E] IN SERUM OR PLASMA 101 mg/dL 72 - 99 05/22 H Specimen Type: PLASMA Comment: No hemolysis noted. Ordering Provider: JOHN STARK Report Released Date/Time: Apr 29, 2024 09:21 AM Reporting Lab: [address] [address] Performing Lab: [address] [address] [facility] BASIC METABOLIC PANEL SODIUM [MOLES/VOLU ME] IN SERUM OR PLASMA 140 meq/L 136 - 145 05/22 Specimen Type: PLASMA Comment: No hemolysis noted. Ordering Provider: JOHN STARK Report Released Date/Time: Apr 29, 2024 09:21 AM Reporting Lab: [facility] [address] [facility] [address] Performing Lab: [facility] [address] [facility] [address] [facility] BASIC METABOLIC PANEL POTASSIUM [MOLES/VOLU ME] IN SERUM OR PLASMA 4.1 meq/L 3.5 - 5 05/22 Specimen Type: PLASMA Comment: No hemolysis noted. Ordering Provider: JOHN STARK Report Released Date/Time: Apr 29, 2024 09:21 AM Reporting Lab: [facility] [address] [facility] [address] Performing Lab: [facility] [address] [facility] [address] [facility] BASIC METABOLIC PANEL CHLORIDE [MOLES/VOLU ME] IN SERUM OR PLASMA 106 meq/L 98 - 107 05/22 Specimen Type: PLASMA Comment: No hemolysis noted. Ordering Provider: JOHN STARK Report Released Date/Time: Apr 29, 2024 09:21 AM Reporting Lab: [facility] [address] [facility] [address] Performing Lab: [facility] [address] [facility] [address] [facility] BASIC METABOLIC PANEL CARBON DIOXIDE, TOTAL [MOLES/VOLU ME] IN SERUM OR PLASMA 24 meq/L 22 - 31 05/22 Specimen Type: PLASMA Comment: No hemolysis noted. Ordering Provider: JOHN STARK Report Released Date/Time: Apr 29, 2024 09:21 AM Reporting Lab: [facility] [address] [facility] [address] Performing Lab: [facility] [address] [facility] [address] [facility] BASIC METABOLIC PANEL CALCIUM [MASS/VOLUM E] IN SERUM OR PLASMA 9.6 mg/dL 8.4 - 10.4 05/22 Specimen Type: PLASMA Comment: No hemolysis noted. Ordering Provider: JOHN STARK Report Released Date/Time: Apr 29, 2024 09:21 AM Reporting Lab: [address] Performing Lab: [address] [phone] BASIC METABOLIC PANEL GLOMERULAR FILTRATION RATE/1.73 SQ M.PREDICTED [VOLUME RATE/AREA] IN SERUM, PLASMA OR BLOOD BY CREATININE- BASED FORMULA (CKD-EPI 2020) 78.5 60 05/22 Specimen Type: PLASMA Comment: No hemolysis noted. Ordering Provider: JOHN STARK Report Released Date/Time: Apr 29, 2024 09:21 AM Reporting Lab: [address] [address] Performing Lab: [phone] [place] [address] BRAIN NATRIURET IC PEPTIDE NATRIURETIC PEPTIDE B [MASS/VOLUM E] IN SERUM OR PLASMA 123.4 pg/mL 0 - 100 05/22 H Specimen Type: PLASMA No comment entered. Ordering Provider: JOHN STARK Report Released Date/Time: Apr 29, 2024 09:21 AM Reporting Lab: [address] [address] Performing Lab: [address] [phone] [place] [address] TROPONIN I TROPONIN I.CARDIAC [MASS/VOLUM E] IN SERUM OR PLASMA <0.010 ng/mL 0 - 0.033 05/22 Specimen Type: PLASMA Comment: No hemolysis noted. Ordering Provider: JOHN STARK Report Released Date/Time: Apr 29, 2024 09:21 AM Reporting Lab: [facility] [address] [facility] [address] Performing Lab: [facility] [address] [facility] [address] [facility] TROPONIN I TROPONIN I.CARDIAC [MASS/VOLUM E] IN SERUM OR PLASMA <0.010 ng/mL 0 - 0.033 02/04 Specimen Type: PLASMA Comment: No hemolysis noted. Ordering Provider: JOHN STARK Report Released Date/Time: Feb 05, 2024 10:34 AM Reporting Lab: [address] [address] Performing Lab: [address] [address] [facility] Vital Signs Combined list of inpatient and outpatient Vital Signs from Department of Defense and Veterans Affairs, ranging from 12 months to all on record, depending upon the facility. Vital Sign Value Date Comments Source SYSTOLIC BLOOD PRESSURE 129 11/23/2024 10:16:24 [facility] DIASTOLIC BLOOD PRESSURE 73 11/23/2024 10:16:24 [facility] PULSE OXIMETRY 98 11/23/2024 10:16:24 [facility] WEIGHT 239.8 11/23/2024 10:16:24 [facility] BMI 35 kg/m2 11/23/2024 10:16:24 [facility] TEMPERATURE 97.5 11/23/2024 10:16:24 [facility] PULSE 69 11/23/2024 10:16:24 [facility] RESPIRATION 18 11/23/2024 10:16:24 [facility] SYSTOLIC BLOOD PRESSURE 150 09/30/2024 09:21:05 [facility] DIASTOLIC BLOOD PRESSURE 81 09/30/2024 09:21:05 [facility] PULSE OXIMETRY 98 09/30/2024 09:21:05 [facility] WEIGHT 241.1 09/30/2024 09:21:05 [facility] Simi [facility] BMI 36 kg/m2 09/30/2024 09:21:05 [facility] Sim[facility] PAIN 0 09/30/2024 09:21:05 Simi [facility] TEMPERATURE 97.9 09/30/2024 09:21:05 [facility] PULSE 66 09/30/2024 09:21:05 [facility] Simi [facility] RESPIRATION 18 09/30/2024 09:21:05 [facility] SYSTOLIC BLOOD PRESSURE 145 07/07/2024 14:54:56 [facility] DIASTOLIC BLOOD PRESSURE 74 07/07/2024 14:54:56 [facility] PULSE OXIMETRY 96 07/07/2024 14:54:56 Bria [facility] WEIGHT 244.8 07/07/2024 14:54:56 [facility] BMI 36 kg/m2 07/07/2024 14:54:56 Simi [facility] PAIN 0 07/07/2024 14:54:56 [facility] TEMPERATURE 97.8 07/07/2024 14:54:56 [facility] PULSE 68 07/07/2024 14:54:56 [facility] Simi [facility] RESPIRATION 18 07/07/2024 14:54:56 [facility] SYSTOLIC BLOOD PRESSURE 152 07/02/2024 11:02:33 [facility] DIASTOLIC BLOOD PRESSURE 76 07/02/2024 11:02:33 [facility] PULSE OXIMETRY 97 07/02/2024 11:02:33 S Tonya [facility] WEIGHT 242.8 07/02/2024 11:02:33 [facility] Pattie [facility] BMI 36 kg/m2 07/02/2024 11:02:33 [facility] P[facility]ie [facility] PAIN 0 07/02/2024 11:02:33 [facility] Pattie [facility] TEMPERATURE 98.8 07/02/2024 11:02:33 [facility] MARICEL [facility] PULSE 61 07/02/2024 11:02:33 [facility] RESPIRATION 18 07/02/2024 11:02:33 [facility] MARICEL [facility] SYSTOLIC BLOOD PRESSURE 149 07/01/2024 09:00:43 [facility] DIASTOLIC BLOOD PRESSURE 78 07/01/2024 09:00:43 [facility] PULSE OXIMETRY 97 07/01/2024 09:00:43 S [facility] WEIGHT 245.2 07/01/2024 09:00:43 [facility] BMI 36 kg/m2 07/01/2024 09:00:43 [facility] PAIN 0 07/01/2024 09:00:43 [facility] TEMPERATURE 97.9 07/01/2024 09:00:43 [facility] PULSE 67 07/01/2024 09:00:43 [facility] RESPIRATION 18 07/01/2024 09:00:43 [facility] Encounters Combined list of: 1) Encounters from Department of [facility] Affairs facilities going backup to the last 18 months, not all [place] inpatient encounters are included; 2) Encounters from the Department of [facility] facilities going backup to 280 months. Location Location Details Encounter Type Encounter Number Reason For Visit Attending Provider ADM Date DC Date Status Disposition Source 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 HODA ROMERO 07/01 [facility] Outpatient Encounter [id number] MITRA GARCIA 07/16 [facility] HC PRO PHONE CALL 5-10 MIN [id number] Diagnos is: ICD-10- CM Z78.9 Other specifi ed health status HECTOR RICHTER 07/22 [facility] SELF-MGMT EDUC/TR[place] 2-4 [place] [id number] Diagnos is: ICD-10- CM R41.841 Cogniti ve communi cation deficit OLIVIALORENACayla WARE Y 08/01 [facility] IVNTJ GRP EA ADDL [id number] Diagnos is: ICD-10- CM R41.9 Unsp symptom s and signs w cogniti ve functio ns and awarene ss HODA ROMERO 08/08 [facility] IVNTJ GRP EA ADDL [id number] Diagnos is: ICD-10- CM R41.9 Unsp symptom s and signs w cogniti ve functio ns and awarene ss HODA ROMERO N 08/22 [facility] IVNTJ GRP EA ADDL [id number] Diagnos is: ICD-10- CM R41.9 Unsp symptom s and signs w cogniti ve functio ns and awarene ss HODA ROMERO N 08/29 [facility] Outpatient Encounter [id number] Pattie MURRAY 09/18 [facility] IVNTJ GRP EA ADDL [id number] Diagnos is: ICD-10- CM R41.9 Unsp symptom s and signs w cogniti ve functio ns and awarene ss HODA ROMERO N 09/19 [facility] IVNTJ GRP EA ADDL [id number] Diagnos is: ICD-10- CM R41.9 Unsp symptom s and signs w cogniti ve functio ns and awarene ss HODA ROMERO N 09/26 [facility] REPAIR/MOD IFYING [id number] Diagnos is: ICD-10- CM H90.3 Sensori neural hearing loss, bilater HAILEY Kaur 09/30 [facility] Outpatient Encounter [id number] RENATA HORNE 10/03 [facility] IVNTJ GRP EA ADDL [id number] Diagnos is: ICD-10- CM R41.9 Unsp symptom s and signs w cogniti ve functio ns and awarene ss HODA ROMERO N 10/03 [facility] Outpatient Encounter [id number] 10/04 [facility] Outpatient Encounter [id number] PRESTON RUCKER DOUGLAS A 10/08 [facility] Outpatient Encounter [id number] 10/10 [facility] Outpatient Encounter [id number] [facility] Outpatient Encounter [id number] 10/16 [facility] Outpatient Encounter [id number] 10/21 [facility] Outpatient Encounter [id number] [facility] K 10/29 [facility] OFF/OP CONSLTJ NEW/EST HI 55 [id number] Diagnos is: ICD-10- CM 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 ELYSIA Anna W 11/25 [facility] QNHP OL DIG ASSMT&MGMT 5-10 [id number] Diagnos is: ICD-10- CM Z51.81 Encount er for therape utic drug level monitor TL Faulkner S 11/26 [facility] Outpatient Encounter [id number] 12/05 [facility] Outpatient Encounter [id number] 12/10 [facility] Outpatient Encounter [id number] JESSICA MOSS S 12/16 [facility] OFFICE O/P NEW MOD 45 MIN [id number] Diagnos is: ICD-10- CM I48.91 Unspeci fied atrial fibrill atlia OLGA TUCKER RID D 12/24 [facility] Outpatient Encounter [id number] 12/25 [facility] Outpatient Encounter [id number] 12/30 [facility] Outpatient Encounter [id number] [id number] OFELIA BRAY A 01/01 [facility] OFFICE O/P NEW HI 60 MIN [id number] [id number] Diagnos is: ICD-10- CM Z77.29 Contact with and exposur e to other hazardo us substan LEANDRO Perez 01/07 [facility] OFF/OP CNSLTJ NEW/EST LOW 30 [id number] [id number] Diagnos is: ICD-10- CM H61.23 Maxe d cerumen , bilDANETTE Ramsey J 01/12 [facility] Outpatient Encounter [id number] 01/16 [facility] Outpatient Encounter [id number] [id number] 01/19 [facility] HC PRO PHONE CALL 5-10 MIN [id number] [id number] Diagnos is: ICD-10- CM Z71.[address] Magistrate ing, unspeci RENATA Dominguez 01/22 [facility] Outpatient Encounter [id number] [id number] 01/26 [facility] Outpatient Encounter [id number] [id number] 01/30 [facility] OFF/OP CONSLTJ NEW/EST HI 55 37930-3.65 [id number] Diagnos is: ICD-10- CM I10 Essenti al (primar y) hyperte SUSAN Sutton 02/04 [facility] Outpatient Encounter [id number] [id number] 02/04 [facility] MYOCRD STRAIN IMG SPCKL TRCK 41704-2.65 [id number] Diagnos is: ICD-10- CM E85.9 Amyloid osis, unspeci fied NAHUM PEREIRA 02/16 [facility] Outpatient Encounter [id number] [id number] 03/17 [facility] HC PRO PHONE CALL 5-10 MIN 60951-3.65 [id number] Diagnos is: ICD-10- CM I10 Essenti al (primar y) hyperte ADONIS Chirinos Yolis 03/30 [facility] HEARING AID SUP/ACCESS /DEV [id number] [id number] Diagnos is: ICD-10- CM H90.3 Sensori neural hearing loss, SANDOR Cross Yolis 04/02 [facility] Outpatient Encounter [id number] [id number] 04/06 [facility] MTMS BY PHARM FINE ARTS MODEL 15 MIN 40238-6.65 [id number] Diagnos is: ICD-10- CM Z51.81 Encount er for therape utic drug level monitor TL Faulkner 04/13 [facility] Outpatient Encounter [id number] [id number] 04/17 [facility] Outpatient Encounter [id number] [id number] KAYLA DELA CRUZ 04/24 [facility] Outpatient Encounter [id number] JAGDEEP ROMANO L 04/27 [facility] OFFICE O/P EST MOD 30 MIN [id number] Diagnos is: ICD-10- CM I10 Essenti al (primar y) hyperte SUSAN Sutton 04/29 [facility] Out[facility] Encounter [id number] 04/29 [facility] HC PRO PHONE CALL 5-10 MIN [id number] [id number] Diagnos is: ICD-10- CM I48.91 Unspeci fied atrial fibrill atADONIS Patterson 04/30 [facility] PT ED WRITE/ORAL PTS W/ [place] [id number] [id number] Diagnos is: ICD-10- CM I10 Essenti al (primar y) hyperte nsADONIS Patterson 05/14 [facility] Outpatient Encounter [id number] OLGA TUCKER RID 05/20 [facility] OFF/OP CONSLTJ NEW/EST HI 55 [id number] [id number] Diagnos is: ICD-10- CM E85.89 Other amyloid EMILIE Mendieta 05/22 [facility] Outpatient Encounter [id number] 05/25 [facility] HEARING AID CHECK ONE EAR [id number] [id number] Diagnos is: ICD-10- CM H90.3 Sensori neural hearing loss, JAVIER Quarles 06/04 [facility] Outpatient Encounter [id number] KADY TRINIDAD 06/24 [facility] OFFICE O/P EST HI 40 MIN [id number] [id number] Diagnos is: ICD-10- CM I10 Essenti al (primar y) hyperte nsion SUSAN STARK 06/24 [facility] Outpatient Encounter [id number] 06/24 [facility] MUSCLE TEST NONPARASPI NAL [id number] [id number] Diagnos is: ICD-10- CM E85.89 Other amyloid osis EMILIE BURNS 06/24 [facility] Outpatient Encounter [id number] [id number] 06/24 [facility] QNHP OL DIG ASSMT&MGMT 21+ [id number] [id number] Diagnos is: ICD-10- CM 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 osDIDI Degroot 06/26 [facility] Outpatient Encounter [id number] [id number] FELIX SHIPLEY 06/29 [facility] OFF/OP EST MAY X REQ PHY/QHP [id number] [id number] 7 Diagnos is: ICD-10- CM E85.89 Other amyloid osis ADONIS SALEH 07/01 [facility] OFFICE O/P EST MOD 30 MIN [id number] [id number] Diagnos is: ICD-10- CM E85.89 Other amyloid osSUSAN Liao 07/01 [facility] OFFICE O/P EST LOW 20 MIN [id number] [id number] Diagnos is: ICD-10- CM 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.89 Other amyloid reinais OLGA TUCKER KEDAR D 07/02 [facility] PROGRAM INTAKE ASSESSMENT [id number] [id number] 5 Diagnos is: ICD-10- CM J44.89 Other specifi ed chronic obstruc tive pulmona ry disease ANA EARLY PHILOMENA 07/07 [facility] Outpatient Encounter [id number] [id number] 07/27 [facility] HC PRO PHONE CALL 5-10 MIN [id number] [id number] Diagnos is: ICD-10- CM I10 Essenti al (primar y) hyperte ADONIS Chirinos 08/10 [facility] Outpatient Encounter [id number] [id number] 09/21 [facility] OFFICE O/P EST HI 40 MIN [id number] [id number] Diagnos is: ICD-10- CM I10 Essenti al (primar y) hyperte brandynlia SUSAN STARK D 09/30 [facility] OFF/OP EST MAY X REQ PHY/QHP [id number] [id number] Diagnos is: ICD-10- CM E85.89 Other amyloid ADONIS Blum 09/30 [facility] OFF/OP CONSLTJ NEW/[place] HI 55 [id number] [id number] Diagnos is: ICD-10- CM G47.33 Obstruc tive sleep apnea (adult) ([facility] melvi) LARRY HURLEY B 10/06 [facility] OFFICE O/P EST HI 40 MIN [id number] [id number] Diagnos is: ICD-10- CM 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 Social History Type Response Date Comment [facility] e Tobacco smoking status NHIS VA-TOBACCO FORMER USER 12/25/2023 [facility] History of tobacco use VA-TOBACCO QUIT 15 YRS OR MORE 12/25/2023 [facility] History of tobacco use VA-TOBACCO FORMER USER 10/31/2021 [facility] History of tobacco use VA-TOBACCO NEVER USED 07/05/2020 [facility] History of tobacco use VA-TOBACCO QUIT 15 YRS OR MORE 01/07/2019 [facility] History of tobacco use QUIT TOBACCO >7 YEARS AGO 03/13/2017 [facility] History of tobacco use QUIT TOBACCO >7 YEARS AGO 03/21/2016 [facility] History of tobacco use QUIT TOBACCO >7 YEARS AGO 03/08/2015 [facility] History of tobacco use QUIT TOBACCO >7 YEARS AGO 12/25/2013 [facility] History of tobacco use QUIT TOBACCO >7 YEARS AGO 11/19/2006 [facility] History of tobacco use TOBACCO TERMINATION STAGE 05/14/2006 [facility] History of tobacco use CURRENT NON-TOBACCO USER-HX OF USE 11/20/2005 [facility] History of tobacco use CURRENT NON-TOBACCO USER-HX OF USE 02/08/2004 [facility] Plan of Care List of future care activities from Department of [facility] Affairs facilities. Additional future care activities may be listed in the Assessment and Plan section. Date/Time Care Activity Care Activity Detail Facili ty 12/29/2024 AMBULATORY - MEDICINE AMBULATORY - MEDICI NE [facility] 04/22/2025 AMBULATORY - NEUROLOGY AMBULATORY - NEURO LOGY [facility]
--- OUTSIDE RECORDS SUMMARY | 2024-12-18 12:24 | XMS_ITS | Referral Summary ---
Author Organization [facility] Address [address] [place] [address] Care Team Providers Care Quarter Seamer Name Role Phone Rodriguez Garcia MD Unavailable [phone] Conor Dodson MD Primary Care Provider [phone] Conor Dodson MD Unavailable [phone] Vern Valldaares MD PhD Unavailable + Encounters Date Type Department Care Team Description 11/10/2024 Telephone [facility] Surgery [facility] [address] [place] [id number] Derekmu Maya 10/22/2024 10:30 AM BRIGHT CUTTER Office Visit [facility] Surgery [facility] [address] [place] [address] Laura Austin MD Bilateral carpal tunnel syndrome (Primary Dx); Guyon syndrome, left 09/21/2024 8:45 AM BRIGHT CUTTER Office Visit [facility] Surgery [facility] [address] [place] [address] Karly Ervin NP Bilateral carpal [...] 1 tablet (100 mg total) by mouth grinding mill operator before breakfast Active gabapentin (NEURONTIN) 300 mg capsule Take 2 capsules (600 mg total) by mouth daily 180 capsule 04/17/20 Active Additional Information Patient taking differently:600 mg oralNightly, Indications: Neuropathic Pain, Informant: Self, Reported on 09/15/2024 multivitamin tabletIndications: Vitamin Deficiency Prevention Take 1 tablet by mouth grinding mill operator before breakfast Active vutrisiran (AMVUTTRA) 25 mg/0.5 [...] 1 tablet (2.5 mg total) by mouth grinding mill operator before breakfast Active finasteride (PROSCAR) 5 mg [...] (adult) (pediatric) 05/2022 Overview (12/11/2022): - DME: [facility] Assessment & Plan (08/05/2024 12:47 PM CDT): 1. Chronic, poorly controlled 2. Re compliance and therapy data and residual AHI is 4.3 with mostly central apneas 3. He is having leak most nights although not always significant 4. We will have him follow up with [facility] for mask fitting and or switching to a new mask to assist with comfort 5. Pap supply order placed Assessment & Plan (04/18/2023 8:54 PM CDT): Using CPAP nightly with benefit. Assessment & Plan (12/11/2022 4:31 PM BRIGHT CUTTER): 1. Chronic, poorly controlled 2. Discussed different masks 3. Placed order for the AirFit F30 because the other masks did not fit his face Assessment & Plan (11/15/2022 5:40 PM BRIGHT CUTTER): Using CPAP nightly with benefit. Assessment & [...] 03/22/2021 Assessment & Plan (12/27/2023 1:29 PM BRIGHT CUTTER): 1. Chronic, well controlled 2. Discussed how continued use of his CPAP can help control his blood pressure 3. He will continue losartan, amlodipine, and metoprolol Assessment & Plan (12/11/2022 4:31 PM BRIGHT CUTTER): 1. Chronic, well controlled 2. Discussed how use of his CPAP machine will help his blood pressure 3. He will continue losartan, amlodipine, and metoprolol Assessment & Plan (11/15/2022 5:40 PM BRIGHT CUTTER): Target BP less than 140/90. Continue current [...] Cardiology. Assessment & Plan (11/15/2022 5:40 PM BRIGHT CUTTER): Continue current diet and metoprolol. On chronic anticoagulation with Xarelto. Assessment & Plan (07/18/2022 12:19 PM CDT): Continue current diet & medications. On anticoagulation with Xarelto. Managed by Cardiology. Assessment & Plan (01/02/2022 2:31 PM CDT): Continue current diet & medications. Managed by Cardiology. Primary osteoarthritis of right ankle 01/15/2019 Overview (01/15/2019): Added automatically from request for surgery [id number] Retained orthopedic hardware 01/15/2019 Overview (01/15/2019): Added automatically from request for surgery [id number] Arthritis of subtalar joint 09/10/2018 Overview (09/10/2018): Added automatically from request for surgery [id number] Cobalamin deficiency 12/20/2016 Overview (03/15/2017): Vitamin B12 deficiency Gout 12/20/2016 Overview (03/15/2017): Gout, unspecified Moderate episode of recurrent major depressive d isorder 05/28/2016 Overview (01/24/2017): Major depression, recurrent, chronic Assessment & Plan (02/04/2024 4:48 PM CDT): Continue citalopram. Assessment & Plan (04/18/2023 8:53 PM CDT): Mood stable on citalopram. Assessment & Plan (11/15/2022 5:40 PM BRIGHT CUTTER): Continue with citalopram. Assessment & Plan (07/18/2022 [...] POLYPS Assessment & Plan (11/15/2022 5:40 PM BRIGHT CUTTER): Up-to-date on colonoscopy. 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 07/22/20232023 [...] on file Legal Sex Male 11:31 PM BRIGHT CUTTER Gender Identity Male 08/09/2024 7:38 PM CDT Sexual Orientation Bisexual 08/09/2024 7: 38 PM CDT Occupation Industry Job Start Date Job End Date Retired Not on file Not on file Not on file Last Filed Vital Signs Vital Sign Reading Time Taken Comments Blood Pressure 135/82 09/15/2024 10:19 AM BRIGHT CUTTER Pulse 54 09/15/2024 10:20 AM BRIGHT CUTTER Temperature 36 C (96.8 F) 09/15/2024 9:50 AM BRIGHT CUTTER Respiratory Rate 17 09/15/2024 10:20 AM BRIGHT CUTTER Oxygen Saturation 98% 09/15/2024 10:20 AM BRIGHT CUTTER Inhaled Oxygen Concentration - - Weight 108.4 kg (239 lb) 09/15/2024 6:00 AM BRIGHT CUTTER Height 180.3 cm (5' 11 ) 09/15/2024 6:00 AM BRIGHT CUTTER Body Mass Index 33.33 09/15/2024 6:00 AM BRIGHT CUTTER Plan of Treatment Not on file Medical Devices Implanted Type Area Closing Specialist Device Identifier Shelf Expiration Date Model / Serial / Lot Augment Implanted:Qty: 1 on 09/24/2018 by Jorge Luis Santoyo MD at [facility] Right: Ankle SimScale [id number] 06/20/2019 / [id number] / [id number] [employer] 876p-0400 Mini Ignite Power Mix Injectable Graft 4ml Synthetic Tissue - [id number] - [id number] Implanted:Qty: 1 on 09/24/2018 by Jorge Luis Santoyo MD at [facility] Right: Ankle [employer] 04/30/2023 [id number] / [id number] / [id number] Orthohelix [id number] Maxtorque 7mm 80mm Cannulated Blunt Foot Long Thread Screw Bone Latex Free - [id number] Implanted:Qty: 2 on 09/24/2018 at [facility] Orthohelix CSS-011-70- [id number] / / Twirl [employer] [id number] Infinity 9mm Knee 3+ Insert Tibial Poly - [id number] Implanted:Qty: 1 on 02/10/2019 by Jorge Luis Santoyo MD at [facility] Right: Ankle Distribut[employer] [id number] 07/27/2026 [id number] / / [id number] Musculoskeletal Transplant [id number] 4-30mm Allograft Frozen [id number] Wedge Graft Bone - [id number] - [id number] Implanted:Qty: 1 on 02/10/2019 by Jorge Luis Santoyo MD at [facility] Medicine Right: Ankle Musculoskeletal Transplant 04/16/2023 [id number] / [id number] / [employer] [id number] Steinmann 5/64in 9in Trocar Point One End Pin Fixation Stainless - [id number] Implanted:Qty: 1 on 02/10/2019 by Jorge Luis Santoyo MD at [facility] Right: Ankle [employer] [id number] / / Tw[employer] [id number] Ankle 1 Large 10mm Stem Talar - [id number] Implanted:Qty: 1 on 02/10/2019 by Jorge Luis Santoyo MD at [facility] Right: Ankle Siddiqi [employer] [id number] 07/28/2026 [id number] / / [id number] Sidd[employer] [id number] Inbone Sulcus Ankle 3 Dome Component Talar - [id number] Implanted:Qty: 1 on 02/10/2019 by Jorge Luis Santoyo MD at [facility] Right: Ankle [employer] [id number] 09/21/2026 [id number] / / [id number] S[employer] [id number] Infinity 4 Long Tray Tibial - [id number] Implanted:Qty: 1 on 02/10/2019 by Jorge Luis Santoyo MD at [facility] Right: Ankle [employer] [id number] 08/05/2026 [id number] / / [id number] Explanted Type Area Closing Specialist Device Identifier Shelf Expiration Date Model / Serial / Lot Orthohelix [id number] Maxtorque 7mm 75mm Cannulated Blunt Foot Long Thread Screw Bone Latex Free - [id number] Explanted:Qty: 1 on 09/24/2018 at [facility] Orthohelix CSS-011-70 -075L / / [id number] Wires Explanted:Qty: 3 on 09/24/2018 by Jorge Luis Santoyo MD at [facility] Other Twirl [employer] [id number] K-Wire 1.4mm 228mm Wire Fixation - [id number] Explanted:Qty: 2 on 02/10/2019 at [facility] Right: Ankle SimScale [id number] / / Procedures Procedure Name Priority Date/Time [...] Julio Vigil M.D. CH: SANDHYA Report ID: [id number] Reading Location: [place] [address] Procedure Note Julio Vigil Jr., MD - [...] by Julio Vigil M.D. CH: Report ID: [id number] Reading Location: [place] [address] Darshan Alonso MD IMG CT PROCEDURES Final [...] MD LAB BLOOD ORDERABLES Final Re sult [facility] Department [place] [address] * Colonoscopy (11/03/2020) Anatomical Region Laterality Modality Other Historical Provider ENDOSCOPY PROCEDURES Amber l Result from Last 3 Months or Most Recently Relevant to Health Maintenance Insurance [facility] MEDIC[employer] SOLUTIONS MEDICARE SOLUTIONS [place] [facility] MEDICARE SOLUTIONS Advance Directives For more information, please contact: [phone] * Full Code (Latest Code Status on File) Date Activated Date Inactivated Comments 01/15/2022 7:38 AM 01/15/2022 1:48 PM * Full Code Date Activated Date Inactivated Comments 01/15/2022 7:37 AM 01/15/2022 7:38 AM * Full Code Date Activated Date Inactivated Comments 02/10/2019 1:04 PM 02/11/2019 11:25 PM * Full Code Date Activated Date Inactivated Comments 09/24/2018 8:49 PM 09/25/2018 3:31 PM Care Teams Quarter Seamer Relationship Specialty Start Date End Date Conor Dodson MD [facility] [address] [address] PCP - General Internal Medicine 12/27/23 Rodriguez Garcia MD Consulting Physician Cardiology 07/18/23 Conor Dodson MD [address] [facility] [address] [address] Consulting Physician Internal Medicine 07/13/24 Vern Valladares MD PhD [address] [facility] [address] [facility] [place] [address] Consulting Physician Cardiology 08/12/24
--- OUTSIDE RECORDS SUMMARY | 2024-12-18 12:24 | XMS_ITS | Encounter Summary ---
Author Organization [facility] Address [address] [facility] [address] [place] [address] Care Team Providers Care Primer And Powder Canning Leader Name Role Phone Conor Dodson MD Primary Care Provider [phone] Conor Dodson MD Primary Care Provider [phone] Conor Dodson MD Primary Care Provider [phone] Rodriguez Garcia MD Unavailable [phone] Concepcion Michaud MD Primary Care Provider [phone] Conor Dodson MD Primary Care Provider [phone] Conor Dodson MD Unavailable [phone] Vern Valladares MD PhD Unavailable + Encounter Details Date Type Department Care Team (Late st Contact Info) Description 11/09/2015 Orders Only [facility] [address] [place] [address] Scanning, Provider Social History Tobacco Use Types Packs/Day Years Used Date Smoking Tobacco: Never Assessed Sex and Gender Information Value Date Recorded Sex Assigned at Not on file Legal Sex Male 11:31 PM PERPETUAL INVENTORY CLERK Gender Identity Male 08/09/2024 7:38 PM [...] documented as of this encounter Care Teams Primer And Powder Canning Leader Relationship Specialty Start Date End Date Conor Dodson MD [facility] [address] [place] [address] PCP - General 01/18/17 12/25/23 Conor Dodson MD [address] [place], [place] [address] [place] [address] PCP - General 05/28/16 01/17/17 Conor Dodson MD [address] [place], [place] [address] [place] [address] PCP - General 06/12/10 05/27/16 Concepcion Michaud MD [address] [place] [address] PCP - General Family Medicine 12/26/23 12/26/23 Conor Dodson MD [facility] [address] [place] [address] PCP - General Internal Medicine 12/27/23 [facility] [address] [place] [address] Consulting Physician Cardiology 07/18/23 Conor Dodson MD [facility] [address] [place] [address] Consulting Physician Internal Medicine 07/13/24 Vern Valladares MD PhD [address] [facility] [address] [place] [address] Consulting Physician Cardiology 08/12/24 documented as of this encounter
--- OUTSIDE RECORDS SUMMARY | 2024-12-18 12:24 | XMS_ITS | Clinical Summary ---
Author Organization [facility] Address [address] [place] [address] Care Team Providers Care Business Strategist Name Role Phone Rodriguez Garcia MD Unavailable [phone] Conor Dodson MD Primary Care Provider [phone] Conor Dodson MD Unavailable [phone] Vern Valladares MD PhD Unavailable + [...] 1 tablet (100 mg total) by mouth information clerk [employer] before breakfast Active gabapentin (NEURONTIN) 300 mg capsule Take 2 capsules (600 mg total) by mouth daily 180 capsule 04/17/20 24 Active Additional Information Patient taking differently:600 mg oralNightly, Indications: Neuropathic Pain, Informant: Self, Reported on 09/15/2024 multivitamin tabletIndications: Vitamin Deficiency Prevention Take 1 tablet by mouth information clerk [employer] before breakfast Active vutrisiran (AMVUTTRA) 25 mg/0.5 [...] 1 tablet (2.5 mg total) by mouth information clerk automobile club before breakfast Active finasteride (PROSCAR) 5 mg [...] 05/2022 Overview (12/11/2022): - DME: [facility] Assessment & Plan (08/05/2024 12:47 PM CDT): 1. Chronic, poorly controlled 2. Re compliance and therapy data and residual AHI is 4.3 with mostly central apneas 3. He is having leak most nights although not always significant 4. We will have him follow up with [facility] for mask fitting and or switching to a new mask to assist with comfort 5. Pap supply order placed Assessment & Plan (04/18/2023 8:54 PM CDT): Using CPAP nightly with benefit. Assessment & Plan (12/11/2022 4:31 PM HAND DEVELOPER): 1. Chronic, poorly controlled 2. Discussed different masks 3. Placed order for the AirFit F30 because the other masks did not fit his face Assessment & Plan (11/15/2022 5:40 PM HAND DEVELOPER): Using CPAP nightly with benefit. Assessment & [...] 03/22/2021 Assessment & Plan (12/27/2023 1:29 PM HAND DEVELOPER): 1. Chronic, well controlled 2. Discussed how continued use of his CPAP can help control his blood pressure 3. He will continue losartan, amlodipine, and metoprolol Assessment & Plan (12/11/2022 4:31 PM HAND DEVELOPER): 1. Chronic, well controlled 2. Discussed how use of his CPAP machine will help his blood pressure 3. He will continue losartan, amlodipine, and metoprolol Assessment & Plan (11/15/2022 5:40 PM HAND DEVELOPER): Target BP less than 140/90. Continue current [...] Cardiology. Assessment & Plan (11/15/2022 5:40 PM HAND DEVELOPER): Continue current diet and metoprolol. On chronic anticoagulation with Xarelto. Assessment & Plan (07/18/2022 12:19 PM CDT): Continue current diet & medications. On anticoagulation with Xarelto. Managed by Cardiology. Assessment & Plan (01/02/2022 2:31 PM CDT): Continue current diet & medications. Managed by Cardiology. Primary osteoarthritis of right ankle 01/15/2019 Overview (01/15/2019): Added automatically from request for surgery [id number] Retained orthopedic hardware 01/15/2019 Overview (01/15/2019): Added automatically from request for surgery [id number] Arthritis of subtalar joint 09/10/2018 Overview (09/10/2018): Added automatically from request for surgery [id number] Cobalamin deficiency 12/20/2016 Overview (03/15/2017): Vitamin B12 deficiency Gout 12/20/2016 Overview (03/15/2017): Gout, unspecified Moderate episode of recurrent major depressive d isorder 05/28/2016 Overview (01/24/2017): Major depression, recurrent, chronic Assessment & Plan (02/04/2024 4:48 PM CDT): Continue citalopram. Assessment & Plan (04/18/2023 8:53 PM CDT): Mood stable on citalopram. Assessment & Plan (11/15/2022 5:40 PM HAND DEVELOPER): Continue with citalopram. Assessment & Plan (07/18/2022 [...] POLYPS Assessment & Plan (11/15/2022 5:40 PM HAND DEVELOPER): Up-to-date on colonoscopy. 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 Surgery [address] [facility] Advanced Medicine 6th [place] [address] Maya Bolden 10/22/2024 10:30 AM HAND DEVELOPER Office Visit [facility] Surgery [address] [facility] 6th [place] [address] [place] [address] Laura Austin MD Bilateral carpal tunnel syndrome (Primary Dx); Guyon syndrome, left 09/21/2024 8:45 AM HAND DEVELOPER Office Visit [facility] Surgery [address] [facility] Advanced [facility] 6th [place] [id number] Karly Ervin NP Bilateral carpal tunnel syndrome [...] on file Legal Sex Male 11:31 PM HAND DEVELOPER Gender Identity Male 08/09/2024 7:38 PM CDT Sexual Orientation Bisexual 08/09/2024 7: 38 PM CDT Occupation Industry Job Start Date Job End Date Retired Not on file Not on file Not on file Obstetrics History Last Filed Vital Signs Vital Sign Reading Time Taken Comments Blood Pressure 135/82 09/15/2024 10:19 AM HAND DEVELOPER Pulse 54 09/15/2024 10:20 AM HAND DEVELOPER Temperature 36 C (96.8 F) 09/15/2024 9:50 AM HAND DEVELOPER Respiratory Rate 17 09/15/2024 10:20 AM HAND DEVELOPER Oxygen Saturation 98% 09/15/2024 10:20 AM HAND DEVELOPER Inhaled Oxygen Concentration - - Weight 108.4 kg (239 lb) 09/15/2024 6:00 AM HAND DEVELOPER Height 180.3 cm (5' 11 ) 09/15/2024 6:00 AM HAND DEVELOPER Body Mass Index 33.33 09/15/2024 6:00 AM HAND DEVELOPER Plan of Treatment Health Maintenance Due Date [...] history exists Medical Devices Implanted Type Area Seconds Handler Device Identifier Shelf Expiration Date Model / Serial / Lot Augment Implanted:Qty: 1 on 09/24/2018 by Jorge Luis Santoyo MD at [facility] Right: Ankle [employer] [id number] 06/20/2019 / [id number] / [id number] [employer] [id number]-0400 Mini Ignite Power Mix Injectable Graft 4ml Synthetic Tissue - [id number] - [id number] Implanted:Qty: 1 on 09/24/2018 by Jorge Luis Santoyo MD at [facility] Right: Ankle [employer] 04/30/2023 [id number] / [id number] / [id number] Orthohelix [id number] Maxtorque 7mm 80mm Cannulated Blunt Foot Long Thread Screw Bone Latex Free - [id number] Implanted:Qty: 2 on 09/24/2018 at [facility] Orthohelix CSS-011-70- [id number] / / [employer] [id number] Infinity 9mm Knee 3+ Insert Tibial Poly - [id number] Implanted:Qty: 1 on 02/10/2019 by Jorge Luis Santoyo MD at [facility] Right: Ankle [employer] [id number] 07/27/2026 [id number] / / [id number] Musculoskeletal Transplant [id number] 4-30mm Allograft Frozen [id number] Wedge Graft Bone - [id number] - [id number] Implanted:Qty: 1 on 02/10/2019 by Jorge Luis Santoyo MD at [facility] Right: Ankle Mus[employer] 04/16/2023 [id number] / [id number] / [employer] [id number] Steinmann 5/64in 9in Trocar Point One End Pin Fixation Stainless - [id number] Implanted:Qty: 1 on 02/10/2019 by Jorge Luis Santoyo MD at [facility] Right: Ankle [employer] [id number] / / [employer] [id number] Ankle 1 Large 10mm Stem Talar - [id number] Implanted:Qty: 1 on 02/10/2019 by Jorge Luis Santoyo MD at [facility] Right: Ankle [employer] [id number] 07/28/2026 [id number] / / [id number] [employer] [id number] Inbone Sulcus Ankle 3 Dome Component Talar - [id number] Implanted:Qty: 1 on 02/10/2019 by Jorge Luis Santoyo MD at [facility] Right: Ankle [employer] [id number] 09/21/2026 [id number] / / [id number] [employer] [id number] Infinity 4 Long Tray Tibial - [id number] Implanted:Qty: 1 on 02/10/2019 by Jorge Luis Santoyo MD at [facility] Right: Ankle [employer] [id number] 08/05/2026 [id number] / / [id number] Explanted Type Area Seconds Handler Device Identifier Shelf Expiration Date Model / Serial / Lot Orthohelix [id number] Maxtorque 7mm 75mm Cannulated Blunt Foot Long Thread Screw Bone Latex Free - [id number] Explanted:Qty: 1 on 09/24/2018 at [facility] Orthohelix CSS-011-70 -075L / / [id number] Wires Explanted:Qty: 3 on 09/24/2018 by Jorge Luis Santoyo MD at [facility] Other [employer] [id number] K-Wire 1.4mm 228mm Wire Fixation - [id number] Explanted:Qty: 2 on 02/10/2019 at [facility] Right: Ankle [employer] [id number] / / Procedures Procedure Name Priority Date/Time [...] Julio Vigil M.D. CH: SANDHYA Report ID: [id number] Reading Location: [id number] Procedure Note Julio Vigil Jr., MD - [...] Julio Vigil M.D. CH: SANDHYA Report ID: [id number] Reading Location: [id number] Darshan Alonso MD IMG CT PROCEDURES Final Re sult * PSA screen (07/18/2022 11:24 AM CDT) PSA-Total 1.21 <=6.20 ng/mL [facility] Comment: Interpretive Data AGE SEX REFERENCE INTERVAL [...] MD LAB BLOOD ORDERABLES Final Re sult [facility] [place] [address] * Colonoscopy (11/03/2020) Anatomical Region Laterality Modality Other Historical Provider ENDOSCOPY PROCEDURES Amber l Result from Last 3 Months or Most Recently Relevant to Health Maintenance Insurance [employer] SOLUTIONS MEDICARE SOLUTIONS MEDICARE SOLUTIONS Advance Directives For more information, please contact: [phone] * Full Code (Latest Code Status on File) Date Activated Date Inactivated Comments 01/15/2022 7:38 AM 01/15/2022 1:48 PM * Full Code Date Activated Date Inactivated Comments 01/15/2022 7:37 AM 01/15/2022 7:38 AM * Full Code Date Activated Date Inactivated Comments 02/10/2019 1:04 PM 02/11/2019 11:25 PM * Full Code Date Activated Date Inactivated Comments 09/24/2018 8:49 PM 09/25/2018 3:31 PM Care Teams Business Strategist Relationship Specialty Start Date End Date Conor Dodson MD [address] [place] [address] [address] Cayla [address] [place] [address] PCP - General Internal Medicine 12/27/23 Rodriguez Garcia MD Consulting Physician Cardiology 07/18/23 Conor Dodson MD [address] [place], [place] [address]SHEA [address]STON [address] [place] [address] Consulting Physician Internal Medicine 07/13/24 Vern Valladares MD PhD [address] [facility] [address] [place] [address] Consulting Physician Cardiology 08/12/24
--- OUTSIDE RECORDS SUMMARY | 2024-12-18 12:24 | XMS_ITS | Clinical Summary ---
Author Organization [facility] Address Counts include [address] beds at the [place] [address] Care Team Providers Care Director Of Corporate Sales Name Role Phone Conor Dodson MD Primary Care Provider [phone] Allergies Active Allergy Reactions Criticality Noted Date [...] Comments Blood Pressure 132/92 09/19/2019 8:45 AM CUSTOMER RESOURCE SPECIALIST Pulse 84 09/19/2019 8:45 AM CUSTOMER RESOURCE SPECIALIST Temperature 36.2 C (97.1 F) 09/19/2019 8:45 AM CUSTOMER RESOURCE SPECIALIST Respiratory Rate 16 09/19/2019 8:45 AM CUSTOMER RESOURCE SPECIALIST Oxygen Saturation 97% 09/19/2019 8:45 AM CUSTOMER RESOURCE SPECIALIST Inhaled Oxygen Concentration - - Weight 98.4 kg (217 lb) 09/19/2019 8:45 AM CUSTOMER RESOURCE SPECIALIST Height 180.3 cm (5' 11 ) 09/19/2019 8:45 AM CUSTOMER RESOURCE SPECIALIST Body Mass Index 30.27 09/19/2019 8:45 AM CUSTOMER RESOURCE SPECIALIST Plan of Treatment Health Maintenance Due Date [...] age to complete this topic Insurance MEDICARE [facility] Care Teams Director Of Corporate Sales Relationship Specialty Start Date End Date Conor Dodson MD [address] [place] [address] [address] [address] PCP - General INTERNAL MEDICINE 09/19/19
--- OUTSIDE RECORDS SUMMARY | 2024-12-18 12:25 | XMS_ITS | Continuity of Care Document ---
Author Organization [facility] Address [address] [place] [address] Phone Care Team Providers Care Outside Barrel Lathe Operator Name Role Phone Unavailable Unavailable Unavailable Unavailable Unavailable Unavailable Advance Directives Directive Yes / No Effective Date File Name No Information Encounters Encounter Description Practice Location Reason(s) For Visit Diagnoses Date Provider Providers Copied on Encounter [facility], [address], [place], [place], [id number], tel:[phone] [place] [address] No Information May-0 2-200 1 No Information Referring Provider: Cyndi Manzanares H, [address], [address]. tel:[phone] Family History Family Member Type Diagnosis Age At Onset No Information Payers Payer name Insurance type Covered alliance party ID Authoriza tion(s) No Information Social History Type Description Quantity Date Captured Comments Sex Male Smoking Status No Information Chief Complaint And Reason For Visit No Information Reason For Referral Reason For Referral No Information History Of Present Illness Encounter Date Complaint History Of Prese nt Illness No Information Functional Status Date Functional Assessmen t No Information Instructions Date Instruction Additional Infor mation No Information Assessments Type Assessment Date No Information Patient Care Teams Name Effective Dates (start - stop) Status Members No Information
--- OUTSIDE RECORDS SUMMARY | 2024-12-18 12:26 | XMS_ITS | Encounter Summary ---
Author Organization [facility] Address [address] [facility] [place] [address] Care Team Providers Care Cement Finisher Helper Name Role Phone Conor Dodson MD Primary Care Provider [phone] Rodriguez Garcia MD Unavailable [phone] Encounter Details Date Type Department Care Team (Late st Contact Info) Description 07/02/2024 Lab Requisition [facility] - DermPath Lab [address] [facility], [place] [address] Kelly Franco MD [address] [place] [address] Neoplasm of uncertain behavior of [...] at all 05/17/2023 [facility] [place] of Occupat ional Health - [...] AM CDT) Case Report Dermatopathology Report Case: [id number] Authorizing Provider: Kelly Franco MD Collected: 07/02/2024 12:00 AM Ordering Location: [facility] - Received: 07/03/2024 04:51 PM [...] characteristic determined by the Dermatopathology Laboratory at [facility], directed by Dr. Jennifer Colunga. These tests need not be, and therefore are not, approved by the [place] Food and Drug Administration. The tests are used for clinical purposes. Billing Codes Specimen Charges Stain Charges 08052 1 4 11:56 AM CDT DERMATOPATHOLOGY LABORATORY Embedded Images 4 11:56 AM CDT DERMATOPATHOLOGY LABORATORY Pathology/Cytolog y TISSUE SPECIMEN FROM SKIN / Unknown 07/02/2024 07/03/2024 4:51 PM CDT Kelly Franco MD LAB - PATHOLOGY/CYTO LOGY ORDERABLES DERMATOPATHOLOGY LABORATORY [facility] - Department of Dermatology [facility] Medicine [address] [place] [address], [address] [phone] documented in this encounter Visit Diagnoses Diagnosis Neoplasm of uncertain behavior of skin documented in this encounter Care Teams Cement Finisher Helper Relationship Specialty Start Date End Date Conor Dodson MD [address] [place] [address] [address] [address] PCP - General Internal Medicine 04/16/23 Rodriguez Garcia MD [facility] [facility] [address] [place] [address] Cardiovascular Disease 04/16/23 documented as of this encounter
--- OUTSIDE RECORDS SUMMARY | 2024-12-18 12:26 | XMS_ITS | Referral Summary ---
Author Organization [facility] Address [address] [place] [address] Care Team Providers Care Dye House Vat Worker Name Role Phone Conor Dodson MD Primary Care Provider Rodriguez Garcia MD Unavailable [phone] Source Comments [facility],non-owned Affiliates and Associated Physician Practices is amultiple site organization consisting of ambulatory clinics and hospital sitesin [place], [place], [place] and [place]. This disclosure is being madepursuant to the Care Everywhere program and may not contain all information available regarding this patient. Last updated 18.[facility] Allergies Active Allergy Reactions Criticality Noted [...] and heating? Not hard at all 05/17/2023 [facility] [place] of Occupat ional Health - Occupational Stress [...] on file Medical Devices Implanted Type Area Typesetting Machine Tender Device Identifier Shelf Expiration Date Model / Serial / Lot Cmnt Bone Refobacin Strl Lf Disp Implanted:Qty: 1 on 05/16/2023 by Derick Elaine MD at [facility] Left: Knee [employer] 06/20/2025 [id number] / / [id number] Cmnt Bone Plc R 40gm Grn Implanted:Qty: 1 on 05/16/2023 by Derick Elaine MD at [facility] Left: Knee [employer] 09/19/2025 [id number] / / [id number] Cmpnt Ptlr Std 31mm 3 Pg Kn Ser A Implanted:Qty: 1 on 05/16/2023 by Derick Elaine MD at [facility] Left: Knee [employer] 10/24/2027 [id number] / / [id number] Tray Tib 79mm Kn Cocr I Beam Implanted:Qty: 1 on 05/16/2023 by Derick lEaine MD at [facility] Left: Knee [employer] 2033 [id number] / / [id number] Cmpnt Fem Kn Lt Cr Cmnt Prm Vngrd Intlk Implanted:Qty: 1 on 05/16/2023 by Derick Elanie MD at [facility] Left: Knee [employer] 06/08/2029 [id number] / / [id number] Brng [id number] Vngrd Arcm Kn Ant Stab Implanted:Qty: 1 on 05/16/2023 by Derick Elaine MD at [facility] Left: Knee [employer] 04/04/2028 [id number] / / [id number] [place] Sut Cscr2 Fwr 5.5mm Ti 3 16.3mm 2 Implanted:Qty: 1 on 05/16/2023 by Derick Elaine MD at [facility] Left: Knee [employer] 09/19/2025 [id number] / / [id number] Advance Directives * Full Code (Latest Code Status on File) Date Activated Date Inactivated Comments 05/16/2023 1:05 PM 05/17/2023 3:00 PM Care Teams Dye House Vat Worker Relationship Specialty Start Date End Date Conor Dodson MD [facility] [address] [address] PCP - General Internal Medicine 04/16/23 Rodriguez Garcia MD [address] [facility] [address] [place] [address] Cardiovascular Disease 04/16/23
--- OUTSIDE RECORDS SUMMARY | 2024-12-18 12:26 | XMS_ITS | Encounter Summary ---
Author Organization [facility] Address [address] [place] [address] Care Team Providers Care Butadiene Compressor Operator Name Role Phone Conor Dodson MD Primary Care Provider [phone] Rodriguez Garcia MD Unavailable [phone] Concepcion Michaud MD Primary Care Provider [phone] Conor Dodson MD Primary Care Provider [phone] Conor Dodson MD Unavailable [phone] Vern Valladares MD PhD Unavailable + Encounter Details Date Type Department Care Team (Late st Contact Info) Description 04/21/2020 Telephone [facility] Imaging [address] [place] [address] Shannan Dos Santos, RT Social History Tobacco [...] on file Legal 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 Gender Identity Male 08/09/2024 7:38 PM CDT [...] documented as of this encounter Care Teams Butadiene Compressor Operator Relationship Specialty Start Date End Date Conor Dodson MD [address] [place], [place] [address]SHEA [address] [place] [address] PCP - General 01/18/17 12/25/23 Concepcion Michaud MD [address] [place] [address] PCP - General Family Medicine 12/26/23 12/26/23 Conor Dodson MD [address] [place], [place] [address]SHEA JOHNSTON [address] [place] [address] PCP - General Internal Medicine 12/27/23 Rodriguez Garcia MD [address] [place] [address] NIKKI [address] [place] [address] Consulting Physician Cardiology 07/18/23 Conor Dodson MD [address] [place], [place] [address]SHEA [address]STON [address] [place] [address] Consulting Physician Internal Medicine 07/13/24 Vern Valladares MD PhD [address] [facility] [address] [place] [address] Consulting Physician Cardiology 08/12/24 documented as of this encounter
--- OUTSIDE RECORDS SUMMARY | 2024-12-18 12:26 | XMS_ITS | Encounter Summary ---
Author Organization [facility] Healthcare Address [address] [place] [address] Care Team Providers Care Remote Sensing Research Scientist Name Role Phone Conor Dodson MD Primary Care Provider [phone] Rodriguez Garcia MD Unavailable [phone] Concepcion Michaud MD Primary Care Provider [phone] Conor Dodson MD Primary Care Provider [phone] Conor Dodson MD Unavailable [phone] Vern Valladares MD PhD Unavailable + Encounter Details Date Type Department Care Team (Late st Contact Info) Description 04/06/2020 Telephone [facility] [address] [place] [address] Cassidy De Souza RT Social History Tobacco [...] on file Legal 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 Gender Identity Male 08/09/2024 7:38 PM [...] documented as of this encounter Care Teams Remote Sensing Research Scientist Relationship Specialty Start Date End Date Conor Dodson MD [facility] [address] [place] [address] PCP - General 01/18/17 12/25/23 Concepcion Michaud MD [address] [place] [address] PCP - General Family Medicine 12/26/23 12/26/23 Conor Dodson MD [address] [place] [address] [address] [place] [address] PCP - General Internal Medicine 12/27/23 Rodriguez Garcia MD [address] [place] [address] NIKKI [address] [place] [address] Consulting Physician Cardiology 07/18/23 Conor Dodson MD [address] [place], [place] [address]SHEA JOHNSTON [address] [place] [address] Consulting Physician Internal Medicine 07/13/24 Vern Valladares MD PhD [address] [facility] [address] [place] [address] Consulting Physician Cardiology 08/12/24 documented as of this encounter
--- OUTSIDE RECORDS SUMMARY | 2024-12-18 12:26 | XMS_ITS | Patient Health Summary ---
Author Organization [facility] Address [address] [place] [address] Care Team Providers Care Filing Machine Operator Name Role Phone Conor Wilson MD Primary Care Provider [phone] Rodriguez Garcia MD Unavailable [phone] Note from [facility],non-owned Affiliates and Associated Physician Practices is amultiple site organization consisting of ambulatory clinics and hospital sitesin [place], [place], [place] and [place]. This disclosure is being madepursuant to the Care Everywhere program and may not contain all information available regarding this patient. Last updated 18.[facility] Allergies * Sulfa Drugs(Rash,Itching) -Medium Criticality [...] and heating? Not hard at all 05/17/2023 [facility] Occupat ional Health - Occupational Stress [...] AM CDT Medical Devices Implanted Type Area Waiter/Waitress Formal Device Identifier Shelf Expiration Date Model / Serial / Lot Cmnt Bone Refobacin Strl Lf Disp Implanted:Qty: 1 on 05/16/2023 by Derick Elaine MD at [facility] Left: Knee [employer] 06/20/2025 [id number] / / [id number] Cmnt Bone Plc R 40gm Grn Implanted:Qty: 1 on 05/16/2023 by Derick Elaine MD at [facility] Left: Knee [employer] 09/19/2025 [id number] / / [id number] Cmpnt Ptlr Std 31mm 3 Pg Kn Ser A Implanted:Qty: 1 on 05/16/2023 by Derick Elaine MD at [facility] Left: Knee [employer] 10/24/2027 [id number] / / [id number] Tray Tib 79mm Kn Cocr I Beam Implanted:Qty: 1 on 05/16/2023 by Derick Elaine MD at [facility] Left: Knee [employer] 2033 [id number] / / [id number] Cmpnt Fem Kn Lt Cr Cmnt Prm Vngrd Intlk Implanted:Qty: 1 on 05/16/2023 by Derick Elaine MD at [facility] Left: Knee [employer] 06/08/2029 [id number] / / [id number] Brng [id number] Vngrd Arcm Kn Ant Stab Implanted:Qty: 1 on 05/16/2023 by Derick Elaine MD at [facility] Left: Knee [employer] 04/04/2028 [id number] / / [id number] [place] Sut Cscr2 Fwr 5.5mm Ti 3 16.3mm 2 Implanted:Qty: 1 on 05/16/2023 by Derick Elaine MD at [facility] Left: Knee [employer] 09/19/2025 [id number] / / [id number] Procedures * DERMATOPATHOLOGY(Performed 07/02/2024) Performed for Neoplasm [...] replacement surgery * NEURAXIAL BLOCK(Performed 05/16/2023) * TX TOTAL KNEE REPLACEMENT(Performed 05/16/2023) * EKG 12-LEAD(Performed [...] Diagnosis unknown * COLONOSCOPY SCREEN(Performed 11/03/2020) * TX ED EGD FLEX TRANSORAL DX(Performed 11/03/2020) * EGD(Performed 11/03/2020) * DERMATOPATHOLOGY(Performed 06/30/2019) * PET BRAIN METABOLIC EVAL(Performed 10/10/2017) Performed for Research study patient * DERMATOPATHOLOGY(Performed 05/30/2017) * DERMATOPATHOLOGY(Performed 03/05/2017) * DERMATOPATHOLOGY(Performed 05/17/2016) * DERMATOPATHOLOGY(Performed 03/04/2015) * PATHOLOGY/CYTOLOGY REPORT ORDER(Performed 07/31/2010) Results * DERMATOPATHOLOGY (07/02/2024 12:00 AM CDT) Only the most recent of10 resultswithin the time period is included. Case Report Dermatopathology Report Case: [id number] Authorizing Provider: Kelly Franco MD Collected: 07/02/2024 12:00 AM Ordering Location: [facility] - Received: 07/03/2024 04:51 PM [...] measuring 6x6x2 mm. Jar 0. 11:56 AM [facility] Microscopic Description Specimen A. SKIN, right distal forearm: The epidermis shows parakeratosis, full thickness disorderly maturation of keratinocytes, mitoses at different levels, and dyskeratotic cells. 11:56 AM [facility]ERMAT[facility] Disclaimer An external and internal positive and negative controls are appropriate for the histochemical, immunohistochemical and immunofluorescence stain(s) in this case (if any), except where stated explicitly. The performance characteristics of the stain(s) cited in this report were developed and its performance characteristic determined by the Dermatopathology Laboratory at [facility], directed by Dr. Jennifer Colunga. These tests need not be, and therefore are not, approved by the [place] Food and Drug Administration. The tests are used for clinical purposes. Billing Codes Specimen Charges Stain Charges 56502 1 4 11:56 AM T DERMATOPATHOLOGY LABORATORY Embedded Images 11:56 AM T DERMATOPATHOLOGY LABORATORY Pathology/Cytolog y TISSUE SPECIMEN FROM SKIN / Unknown 07/02/2024 07/03/2024 4:51 PM CDT Kelly Franco MD LAB - PATHOLOGY/CYTO LOGY ORDERABLES DERMATOPATHOLOGY LABORATORY [facility] - Department of Dermatology [address], [address] [phone] * XR KNEE LEFT 3VW (06/27/2023 4:08 [...] (Bezet) 455 ms [facility] MUSE Calculated P [place] -3 degrees [facility] MUSE Calculated R [place] 7 degrees [facility] MUSE Calculated T [place] -155 degrees [facility] MUSE Interpretation EKG Sinus bradycardia ST & T wave abnormality, consider inferior ischemia ST & T wave abnormality, consider anterolateral ischemia Abnormal ECG No previous ECGs available Confirmed by GENA COLEMAN MD ([id number]) on 04/16/2023 11:00:45 AM [facility] MUSE 04/16/2023 [...] - 73.0 % 04/16/2023 8:54 AM CDT [facility] Lymphocytes % 32.0 20.0 - 43.0 % 04/16/2023 8:54 AM CDT [facility] Monocytes % 10.6 5.0 - 13.0 % 04/16/2023 8:54 AM CDT [facility] Eosinophils % 3.1 0.0 - 6.0 % 04/16/2023 8:54 AM CDT [facility] Basophils % 0.6 0.0 - 2.0 % 04/16/2023 8:54 AM CDT [facility] Immature Granulocytes 0.2 0 - 1 % 04/16/2023 8:54 AM CDT [facility] Neutrophil Absolute 3.30 2.01 - 7.14 x10E9/L 04/16/2023 8:54 AM CDT [facility] Lymphocytes Absolute 1.97 1.07 - 3.94 x10E9/L 04/16/2023 8:54 AM CDT [facility] Monocytes Absolute 0.65 0.26 - 1.07 x10E9/L 04/16/2023 8:54 AM CDT [facility] Eosinophils Absolute 0.19 0 - 0.47 x10E9/L 04/16/2023 8:54 AM CDT [facility] Basophils Absolute 0.04 0 - 0.08 x10E9/L 04/16/2023 8:54 AM CDT [facility] Immature Granulocytes Absolute 0.01 0.00 - 0.06 x10E9/L 04/16/2023 8:54 AM CDT [facility] nRBC Auto 0 /100 WBC 04/16/2023 8:54 AM CDT [facility] Blood BLOOD SPECIMEN / Unknown Venipuncture / Unknown 04/16/2023 8:33 AM CDT 04/16/2023 8:43 AM CDT Jess Haynes CONDUCTOR YARD-POWER PLANT ELECTRICIAN LAB - HEMATO LOGY ORDERABLES [facility] [address] [place] [address] * (ABNORMAL) COMPREHENSIVE METABOLIC PANEL (04/16/2023 8:33 AM CDT) [facility] Glucose 125(H) 70 - 105 mg/dL 04/16/2023 9:04 AM [facility] Sodium 140 136 - 145 mmol/L 04/16/2023 9:04 AM [facility] Potassium 3.9 3.5 - 5.1 mmol/L 04/16/2023 9:04 AM [facility] Chloride 108(H) 98 - 107 mmol/L 04/16/2023 9:04 AM [facility] CO2 24 23 - 31 mmol/L 04/16/2023 9:04 AM [facility] Calcium 8.9 8.4 - 10.4 mg/dL 04/16/2023 9:04 AM [facility] Anion Gap 8 8 - 18 mmol/L 04/16/2023 9:04 AM [facility] BUN 12 8.4 - 25.7 mg/dL 04/16/2023 9:04 AM [facility] Creatinine 0.94 0.72 - 1.25 mg/dL 04/16/2023 9:04 AM [facility] Alkaline Phosphatase 67 40 - 150 U/L 04/16/2023 9:04 AM [facility] ALT 21 0 - 61 U/L 04/16/2023 9:04 AM [facility] AST 22 5 - 34 U/L 04/16/2023 9:04 AM [facility] Protein Total 6.7 6.4 - 8.3 gm/dL 04/16/2023 9:04 AM [facility] Albumin 4.1 3.2 - 4.6 gm/dL 04/16/2023 9:04 AM [facility] Bilirubin Total 1.4(H) 0.2 - 1.2 mg/dL 04/16/2023 9:04 AM [facility] eGFR by CKD-EPI 84(L) >=90 mL/min/1.7 3 m2 04/16/2023 9:04 AM [facility] Blood BLOOD SPECIMEN / Unknown Venipuncture / Unknown 04/16/2023 8:33 AM CDT 04/16/2023 8:43 AM CDT Jess Haynes CONDUCTOR YARD-POWER PLANT ELECTRICIAN LAB - CHEMIS TRY ORDERABLES [facility] [address] [facility] [facility] [place] [address] * ENDOSCOPY, COLON, SCREENING (11/03/2020 9:37 AM SALES REPRESENTATIVE BUSINESS COURSES) Report Endoscopy POC _ Patient Name: Malik [...] for surveillance. Procedure Code(s): --- Professional --- 91360, Colonoscopy, flexible; with biopsy, single or multiple --- Technical --- 55055, Colonoscopy, flexible; with biopsy, single or multiple [...] or abscess without bleeding CPT copyright 2017 [employer]. All rights reserved. The codes documented in this report are preliminary and upon health information manager review may be revised to meet current compliance requirements. ___ Ray Brooks DO 11/03/2020 10:19:23 AM This report has been signed electronically. Number of Addenda: 0 Note Initiated On: 11/03/2020 9:37 AM [facility] 11/03/2020 9:37 AM SALES REPRESENTATIVE BUSINESS COURSES Ray Brooks DO GI PROCEDURE ORDER [facility] [place] [address] * HELICOBACTER PYLORI UREASE (STL) (11/03/2020 9:23 AM SALES REPRESENTATIVE BUSINESS COURSES) Helicobacter pylori Urease Initial Negative Negative 11/04/2020 5:30 PM SALES REPRESENTATIVE BUSINESS COURSES [facility] Helicobacter pylori Urease Final Negative Negative 11/04/2020 5:30 PM SALES REPRESENTATIVE BUSINESS COURSES [facility] Comment:This is an appended report. These results have been appended to a previously preliminary verified report. Microbiology GASTRIC ANTRAL BIOPSY SPECIMEN / Unknown 11/03/2020 9:23 AM SALES REPRESENTATIVE BUSINESS COURSES 11/03/2020 11:46 AM SALES REPRESENTATIVE BUSINESS COURSES Ray Brooks DO LAB - MICROBIOLOGY ORDERABLES [facility] [address] [place] [address] * PATHOLOGY TISSUE EXAM (STL) (11/03/2020 9:23 AM SALES REPRESENTATIVE BUSINESS COURSES) Case Report Surgical Pathology Report Case: [id number] Authorizing Provider: Ray Brooks DO Collected: 11/03/2020 09:23 AM Ordering Location: [facility] Received: 11/03/2020 10:44 AM Pathologist: Medardo Lu MD Specimens: A) - Gastric Biopsy B) - Duodenal Biopsy C) - Esophageal Biopsy, lower esophageal biopsies D) - Colon Ascending Biopsy E) - Colon Descending Biopsy 11/07/2020 8:38 AM SALES REPRESENTATIVE BUSINESS COURSES [facility] Final Diagnosis A. Stomach, [...] No pathologic diagnosis AB/ns 11/07/2020 8:38 AM SALES REPRESENTATIVE BUSINESS COURSES [facility] Gross Description The specimens [...] in cassette E1. AMA/na 11/07/2020 8:38 AM [facility] Microscopic Description The gastric [...] likewise appear normal. AB/ns 11/07/2020 8:38 AM [facility] Disclaimer All histochemical and/or immunohistochemical results are interpreted with controls that demonstrate appropriate staining reactions before reporting results. Note on use of immunocytochemistry reagents: This test was developed and its performance characteristic determined by [facility], Department of Laboratory Medicine. It has [...] be interpreted with caution. 11/07/2020 8:38 AM SALES REPRESENTATIVE BUSINESS COURSES [facility] Embedded Images 11/07/2020 8:38 AM SALES REPRESENTATIVE BUSINESS COURSES [facility] Pathology/Cytology GASTRIC BIOPSY SPECIMEN / Unknown 11/03/2020 9:23 AM SALES REPRESENTATIVE BUSINESS COURSES 11/03/2020 10:44 AM SALES REPRESENTATIVE BUSINESS COURSES Miscellaneous samples (specimen) DUODENAL BIOPSY SPECIMEN / Unknown 11/03/2020 9:25 AM SALES REPRESENTATIVE BUSINESS COURSES 11/03/2020 10:44 AM SALES REPRESENTATIVE BUSINESS COURSES Miscellaneous samples (specimen) ESOPHAGEAL BIOPSY SPECIMEN / Unknown 11/03/2020 9:31 AM SALES REPRESENTATIVE BUSINESS COURSES 11/03/2020 10:44 AM SALES REPRESENTATIVE BUSINESS COURSES Miscellaneous samples (specimen) COLONIC BIOPSY SPECIMEN / Unknown 11/03/2020 9:53 AM SALES REPRESENTATIVE BUSINESS COURSES 11/03/2020 10:44 AM SALES REPRESENTATIVE BUSINESS COURSES Miscellaneous samples (specimen) COLONIC BIOPSY SPECIMEN / Unknown 11/03/2020 9:53 AM SALES REPRESENTATIVE BUSINESS COURSES 11/03/2020 10:44 AM SALES REPRESENTATIVE BUSINESS COURSES Ray Brooks DO LAB - PATHOLOGY/CY TOLOGY ORDERABLES [facility] [address] [place] [address] * EGD (11/03/2020 8:11 AM SALES REPRESENTATIVE BUSINESS COURSES) Report Endoscopy POC __ _ Patient Name: [...] the patient. Procedure Code(s): --- Professional --- 03255, Esophagogastroduode noscopy, flexible, transoral; with biopsy, single or multiple --- Technical --- 85536, Esophagogastroduode noscopy, flexible, transoral; with biopsy, single or multiple Diagnosis Code(s): --- Professional --- K21.0, Gastro-esophageal reflux disease with esophagitis K20.8, Other esophagitis K31.89, Other diseases of stomach and duodenum R10.13, Epigastric pain --- Technical --- K21.0, Gastro-esophageal reflux disease with esophagitis K20.8, Other esophagitis K31.89, Other diseases of stomach and duodenum R10.13, Epigastric pain CPT copyright 2017 [employer]. All rights reserved. The codes documented in this report are preliminary and upon health information manager review may be revised to meet current compliance requirements. __ Ray Brooks DO 11/03/2020 10:06:52 AM This report has been signed electronically. Number of Addenda: 0 Note Initiated On: 11/03/2020 8:11 AM [facility] 11/03/2020 8:11 AM SALES REPRESENTATIVE BUSINESS COURSES Ray Brooks DO GI PROCEDURE ORDER [facility] [place] [address] * NM PET BRAIN METABOLIC EVAL IMAGING (10/10/2017 3:25 PM SALES REPRESENTATIVE BUSINESS COURSES) Narrative [facility] - 10/23/2017 8:57 AM SALES REPRESENTATIVE BUSINESS COURSES No Dictation. Malik Jones NM ORDERABLES [facility] * PATHOLOGY/CYTOLOGY REPORT ORDER (07/31/2010 1:58 PM CDT) Narrative Procedure Note Document, Scanned - 07/31/2010 12:34 PM CDT Scanned Document LAB - PATHOLOGY/CYTO LOGY ORDERABLES Care Teams Filing Machine Operator Relationship Specialty Start Date End Date Conor Wilson MD [facility] [facility] [address] K[address]i [address] [address] PCP - General Internal Medicine 04/16/23 Rodriguez Garcia MD [facility] [address] [place] [address] Cardiovascular Disease 04/16/23
--- OUTSIDE RECORDS SUMMARY | 2024-12-18 12:26 | XMS_ITS | Encounter Summary ---
Author Organization [facility] Address [address] [place] [address] Care Team Providers Care Painter Spray Name Role Phone Conor Dodson MD Primary Care Provider [phone] Rodriguez Garcia MD Unavailable [phone] Encounter Details Date Type Department Care Team (Late st Contact Info) Description 09/17/2023 Lab Requisition [facility] - DermPath Lab [address] [facility], [place] [id number] Mari Brambila, PA [address] [place] [address] Neoplasm of uncertain behavior of [...] and heating? Not hard at all 05/17/2023 [facility] of Occupat ional Health - Occupational Stress [...] Comments DERMATOPATHOLOGY Routine 09/17/2023 12:0 0 AM STATION ENGINEER CHIEF Neoplasm of uncertain behavior of skin documented in this encounter Results * DERMATOPATHOLOGY (09/17/2023 12:00 AM STATION ENGINEER CHIEF) Case Report Dermatopathology Report Case: [id number] Authorizing Provider: Mari Brambila PA Collected: 09/17/2023 12:00 AM Ordering Location: [facility] DermPath Lab Received: 09/18/2023 01:53 PM Pathologist: Alexandra Mathews MD Specimen: Skin, left dorsal wrist 1:16 PM [facility] Final Diagnosis Specimen A. SKIN, left dorsal wrist: SQUAMOUS CELL CARCINOMA, WELL DIFFERENTIATED (C44.629) (see microscopic description) 1:16 PM [facility] Clinical History Squamous Cell Carcinoma 1:16 PM [facility] Gross Description Specimen A: Received is one formalin filled container labeled with the patient's name and designated left dorsal wrist. The specimen consists of a shave biopsy measuring 9x7x2 mm. Jar 0. 1:16 PM [facility] Microscopic Description Specimen A. SKIN, left dorsal wrist: Arising in the epidermis and extending into the dermis there are irregularly and angulated shaped aggregates of keratinocytes showing evidence of premature cornification. An infiltrative growth pattern is observed. 1:16 PM [facility] Disclaimer An external and internal positive and negative controls are appropriate for the histochemical, immunohistochemical and immunofluorescence stain(s) in this case (if any), except where stated explicitly. The performance characteristics of the stain(s) cited in this report were developed and its performance characteristic determined by the Dermatopathology Laboratory at [facility], directed by Dr. Jennifer Colunga. These tests need not be, and therefore are not, approved by the [place] Food and Drug Administration. The tests are used for clinical purposes. Billing Codes Specimen Charges Stain Charges 02004 1 3 1:16 PM STATION ENGINEER CHIEF DERMATOPATHOLOGY LABORATORY Embedded Images 3 1:16 PM STATION ENGINEER CHIEF DERMATOPATHOLOGY LABORATORY Pathology/Cytolog y TISSUE SPECIMEN FROM SKIN / Unknown 09/17/2023 09/18/2023 1:53 PM STATION ENGINEER CHIEF Mari CRUZ LAB - PATHOLOGY/CYT OLOGY ORDERABLES DERMATOPATHOLOGY LABORATORY [facility] - Department of Dermatology [facility] Medicine [address] [place] [address], [address] [phone] documented in this encounter Visit Diagnoses Diagnosis Neoplasm of uncertain behavior of skin documented in this encounter Care Teams Painter Spray Relationship Specialty Start Date End Date Conor Dodson MD [address] [place] [address] DR [address] [address] PCP - General Internal Medicine 04/16/23 Rodriguez Garcia MD [address] [place] [address] [place] [address] Cardiovascular Disease 04/16/23 documented as of this encounter
--- OUTSIDE RECORDS SUMMARY | 2024-12-18 12:26 | XMS_ITS | Clinical Summary ---
Author Organization [facility] Address [address] [place] [address] Care Team Providers Care Case Maker Name Role Phone Conor Dodson MD Primary Care Provider [phone] Rodriguez Garcia MD Unavailable [phone] Source Comments [facility],non-owned Affiliates and Associated Physician Practices is amultiple site organization consisting of ambulatory clinics and hospital sitesin [place], [place], [place] and [place]. This disclosure is being madepursuant to the Care Everywhere program and may not contain all information available regarding this patient. Last updated 18.[facility] Allergies Active Allergy Reactions Criticality Noted [...] and heating? Not hard at all 05/17/2023 [facility] [place] of Occupat ional Health - Occupational Stress [...] this topic Medical Devices Implanted Type Area Desizing Pad Operator Device Identifier Shelf Expiration Date Model / Serial / Lot Cmnt Bone Refobacin Strl Lf Disp Implanted:Qty: 1 on 05/16/2023 by Derick Elaine MD at [facility] Left: Knee [employer] 06/20/2025 [id number] / / [id number] Cmnt Bone Plc R 40gm Grn Implanted:Qty: 1 on 05/16/2023 by Derick Elaine MD at [facility] Left: Knee [employer] 09/19/2025 [id number] / / [id number] Cmpnt Ptlr Std 31mm 3 Pg Kn Ser A Implanted:Qty: 1 on 05/16/2023 by Derick Elaine MD at [facility] Left: Knee [employer] 10/24/2027 [id number] / / [id number] Tray Tib 79mm Kn Cocr I Beam Implanted:Qty: 1 on 05/16/2023 by Derick Elaine MD at [facility] Left: Knee [employer] 2033 [id number] / / [id number] Cmpnt Fem Kn Lt Cr Cmnt Prm Vngrd Intlk Implanted:Qty: 1 on 05/16/2023 by Derick Elaine MD at [facility] Left: Knee [employer] 06/08/2029 [id number] / / [id number] Brng [id number] Vngrd Arcm Kn Ant Stab Implanted:Qty: 1 on 05/16/2023 by Derick Elaine MD at [facility] Left: Knee [employer] 04/04/2028 [id number] / / [id number] [place] Sut Cscr2 Fwr 5.5mm Ti 3 16.3mm 2 Implanted:Qty: 1 on 05/16/2023 by Derick Elaine MD at [facility] Left: Knee [employer] 09/19/2025 AR-1928SF-3 / / [id number] Advance Directives * Full Code (Latest Code Status on File) Date Activated Date Inactivated Comments 05/16/2023 1:05 PM 05/17/2023 3:00 PM Care Teams Case Maker Relationship Specialty Start Date End Date Conor Dodson MD [address] [place] [address] DR Cayla JOHNSTON [address] [place] [address] PCP - General Internal Medicine 04/16/23 Rodriguez Garcia MD [facility] [address] [place] [address] Cardiovascular Disease 04/16/23
--- OUTSIDE RECORDS SUMMARY | 2024-12-18 12:26 | XMS_ITS | Encounter Summary ---
Author Organization [facility] Address [address] [place] [address] Care Team Providers Care Fitting Room Inspector Name Role Phone Conor Dodson MD Primary Care Provider [phone] Rodriguez Garcia MD Unavailable Encounter Details Date Type Department Care Team (Late st Contact Info) Description 02/14/2024 Lab Requisition [facility] - DermPath Lab [address] [facility] [place] [address] Kelly Franco MD [address] [place] [address] Squamous cell carcinoma of skin [...] and heating? Not hard at all 05/17/2023 [facility] Occupat ional Health - Occupational Stress [...] place to sleep or slept in a mcc (including now)? No 05/17/2023 Sex and Gender [...] AM CDT) Case Report Dermatopathology Report Case: [id number] Authorizing Provider: Kelly Franco MD Collected: 02/14/2024 03:33 AM Ordering Location: [facility] - Received: 02/18/2024 [...] of a non-oriented ellipse of skin measuring 16n37v0 mm. The epidermal surface is unremarkable. The [...] characteristic determined by the Dermatopathology Laboratory at [facility], directed by Dr. Jennifer Colunga. These tests need not be, and therefore are not, approved by the [place] Food and Drug Administration. The tests are used for clinical purposes. Billing Codes Specimen Charges Stain Charges 24214 1 4 2:44 PM CDT DERMATOPATHOLOGY LABORATORY Embedded Images 4 2:44 PM CDT DERMATOPATHOLOGY LABORATORY Pathology/Cytolo gy TISSUE SPECIMEN FROM SKIN / Unknown 02/14/2024 3:33 AM CDT 02/18/2024 6:14 AM CDT Kelly Franco MD LAB - PATHOLOGY/CYTO LOGY ORDERABLES DERMATOPATHOLOGY LABORATORY [facility] - Department of Dermatology [facility] [address] [place] [address], [address] [phone] documented in this encounter Visit Diagnoses Diagnosis Squamous cell carcinoma of skin of left upper limb, including shoulder Squamous cell carcinoma of skin of upper limb, including shoulder documented in this encounter Care Teams Fitting Room Inspector Relationship Specialty Start Date End Date Conor Dodson MD [address] [place] [address] DR Kulkarni [address] [address] PCP - General Internal Medicine 04/16/23 Rodriguez Garcia MD [address] [place] [id number] Cardiovascular Disease 04/16/23 documented as of this encounter
--- OUTSIDE RECORDS SUMMARY | 2024-12-18 12:26 | XMS_ITS | Encounter Summary ---
Author Organization [facility] Address [address] [facility] [place] [address] Care Team Providers Care Slab Off Mill Tender Name Role Phone Conor Dodson MD Primary Care Provider [phone] Rodriguez Garcia MD Unavailable [phone] Encounter Details Date Type Department Care Team (Late st Contact Info) Description 12/03/2023 Lab Requisition [facility] - DermPath Lab [address] [facility] [place] [id number] Sean Beltran MD [facility] DERMATOLOGY [address] [place] [phone] Neoplasm of uncertain behavior of skin [...] and heating? Not hard at all 05/17/2023 [facility] [place] of Occupat ional Health - Occupational Stress [...] Comments DERMATOPATHOLOGY Routine 12/03/2023 12:0 0 AM ZINC PLATING MACHINE OPERATOR Neoplasm of uncertain behavior of skin documented in this encounter Results * DERMATOPATHOLOGY (12/03/2023 12:00 AM ZINC PLATING MACHINE OPERATOR) Case Report Dermatopathology Report Case: [id number] Authorizing Provider: Sean Beltran MD Collected: 12/03/2023 12:00 AM Ordering Location: [facility] DermPath Lab Received: 12/05/2023 06:51 AM Pathologist: Alexandra Mathews MD Specimen: Skin, left dorsal forearm 4 3:13 PM [facility] DERMATOPATHOLOGY LABORATORY Final Diagnosis Specimen A. SKIN, left dorsal forearm: SQUAMOUS CELL CARCINOMA, WELL DIFFERENTIATED (C44.629) 4 3:13 PM [facility] DERMATOPATHOLOGY LABORATORY Clinical History Neoplasm of Uncertain Behavior vs. Squamous Cell Carcinoma 4 3:13 PM [facility] DERMATOPATHOLOGY LABORATORY Gross Description Specimen A: Received is one formalin filled container labeled with the patient's name and designated left dorsal forearm. The specimen consists of a shave biopsy measuring 9x8x3 mm. Jar 0. 3:13 PM [facility] DERMATOPATHOLOGY LABORATORY Microscopic Description Specimen A. SKIN, left dorsal forearm: Arising in the epidermis and extending into the dermis there are irregularly shaped aggregates of keratinocytes showing evidence of premature cornification. 4 3:13 PM [facility] DERMATOPATHOLOGY LABORATORY Disclaimer An external [...] purposes. Billing Codes Specimen Charges Stain Charges 84715 1 02/16/202 4 3:13 PM ZINC PLATING MACHINE OPERATOR DERMATOPATHOLOGY LABORATORY Embedded Images 4 3:13 PM ZINC PLATING MACHINE OPERATOR DERMATOPATHOLOGY LABORATORY Pathology/Cytolog y TISSUE SPECIMEN FROM SKIN / Unknown 12/03/2023 12/05/2023 6:51 AM ZINC PLATING MACHINE OPERATOR Sean Beltran MD LAB - PATHOLOGY/CYTO LOGY ORDERABLES DERMATOPATHOLOGY LABORATORY [facility] - Department of Dermatology [facility] [address] [place] [address], [address] [phone] documented in this encounter Visit Diagnoses Diagnosis Neoplasm of uncertain behavior of skin documented in this encounter Care Teams Slab Off Mill Tender Relationship Specialty Start Date End Date Conor Dodson MD [address] [place] [address] DR Cayla JOHNSTON [address] [place] [address] PCP - General Internal Medicine 04/16/23 Rodriguez Garcia MD [address] [place] [address] [place] [address] Cardiovascular Disease 04/16/23 documented as of this encounter
[2024-12-18 13:44] VITALS: BP 164/83; PULSE 68; RESP 16; O2SAT 99
--- NOTE | 2024-12-18 13:44 | PC.NURSE ---
pt getting CBI, unable to obtain urine sample at this time.
--- NOTE | 2024-12-18 14:00 | WPDURCON ---
Urology Consult Note HPI Date Seen: 12/18/24 Primary Care Provider: UNKNOWN,DOCTOR Consult Narrative Reason for consult: Hematuria Narrative: Malik Street is a 79 year old male well known to our practice previously admitted 12/01/24 for planned TURBT and TURP with Dr. Mcdaniels for management of 1cm bladder lesion and bothersome LUTS. Surgical intervention was uncomplicated. He required overnight inpatient stay for continuous bladder irrigation. Indwelling Santos was subsequently removed in clinic 12/10/24. Patient presented to the ER 12/18/24 after sudden onset gross hematuria with clots around 0700. He is on chronic anticoagulation. On exam this afternoon, patient is resting comfortably in no acute distress. Denies nausea, vomiting, pain, fever. [facility] Past Medical History Medical History (Updated 12/02/24 @ 10:43 by Diana Griffin APRN) Depression Kidney stone Hypertension Surgical History Surgical History Previous back surgery History of right ankle joint replacement Family History Family History Mother Acute myocardial infarction Congestive heart failure Hypertension Social History Social History Smoking packs per day: 0.3 Smoking cigarettes per day: 6.0 Years smoked: 20 Smoking pack-years: 6.00 Smoking status: Former smoker Tobacco type: cigarettes Smoking end date: 03/21/02 Alcohol intake: current Drinks per week: 3 Alcohol use details: weekends Substance use: never Do You Feel Safe in your Home?: Yes Lack of Transportation: No Lack of Food: Never True Current Housing: I Have Housing Concerned About Future Housing: Decline to Answer Difficulty Paying Gas/Electric Bills: Decline to Answer Difficulty Paying for Meds: Decline to Answer Currently Unemployed: Decline to Answer Education: High School Diploma/GED Difficulty w/ Childcare or Family Care: Decline to Answer Living arrangements: with family Additional living arrangements comments: Gender identity (if verbalized by the patient): Male Spiritual care concerns: No Agree to blood products: Yes Meds Home Medications and Allergies Home Medications ?Medication ?Instructions ?Recorded ?Confirmed ?Type Adults Multivitamin 1 tablet PO DAILY 09/27/19 12/01/24 History allopurinol 300 mg tablet 300 mg PO DAILY 09/27/19 12/01/24 History citalopram 20 mg tablet 40 mg PO DAILY 09/27/19 12/01/24 History gabapentin 300 mg capsule 900 mg PO HS 09/27/19 12/01/24 History rivaroxaban 20 mg tablet (Xarelto) 20 mg PO DAILY #30 tabs 09/30/19 12/01/24 Rx losartan 50 mg tablet 100 mg PO DAILY 03/02/22 12/01/24 History omeprazole 20 mg capsule,delayed 40 mg PO DAILY 03/02/22 12/01/24 History release tamsulosin 0.4 mg capsule (Flomax) 0.4 mg PO HS 11/18/24 12/01/24 History vutrisiran 25 mg/0.5 mL 0.5 ml subcut [id number] 11/18/24 11/18/24 History subcutaneous syringe (Amvuttra) cephalexin 500 mg capsule 500 mg PO QID 7 days #28 caps 12/02/24 Rx docusate sodium 100 mg capsule 100 mg PO BID 4 days #8 caps 12/02/24 Rx hyoscyamine sulfate 0.125 mg 0.125 mg sublingual Q6H PRN 12/02/24 Rx disintegrating tablet (Anaspaz) Bladder Spasm 4 days #24 tabs Allergies Allergy/AdvReac Type Severity Reaction Status Date / Time Sulfa (Sulfonamide Allergy Intermediate rash Verified 12/18/24 09:57 Antibiotics) Vital Signs Vital Signs - 24 hr 12/18/24 10:42 12/18/24 11:45 12/18/24 13:44 Temperature 97.5 F L Pulse Rate 68 70 68 Respiratory Rate 16 16 16 Blood Pressure 146/132 H 128/97 H 164/83 H Pulse Oximetry 96 94 99 Results Labs 12/18/24 11:19 12/18/24 11:19 Labs: Short CBC 12/18/24 Range/Units 11:19 WBC 7.3 (4.5-10.0) K/mm3 Hgb 12.5 L (14.0-18.0) g/dL Hct 36.8 L (42.0-52.0) % Plt Count 221 (150-375) k/mm3 BMP 12/18/24 11:19 Sodium 137 Potassium 4.1 Chloride 105 Carbon Dioxide 21 L BUN 15 Creatinine 0.80 Glucose 87 Calcium 9.3
--- NOTE | 2024-12-18 14:07 | PM.IMHP ---
H&P: HPI History of Present Illness Date/Time: 12/18/24 14:07 Chief Complaint: Gross hematuria with clots Narrative: Malik Street is a 79 year old male well known to our practice previously admitted 12/01/24 for planned TURBT and TURP with Dr. Mcdaniels for management of 1cm bladder lesion and bothersome LUTS. Surgical intervention was uncomplicated. He required overnight inpatient stay for continuous bladder irrigation. Indwelling Santos was subsequently removed in clinic 12/10/24. Patient presented to the ER 12/18/24 after sudden onset gross hematuria with clot retention around 0700. He is on chronic anticoagulation. CT imaging does not show large clot burden or hydronephrosis. Hgb and renal function stable. Low suspicion for infection. On exam this afternoon, patient is resting comfortably in no acute distress. 24Fr 3-way catheter intact with CBI wide open, draining fruit-punch output with no clots. Patient reports ER staff irrigated 'a few syringes full of clot' prior to starting CBI. Denies nausea, vomiting, pain, fever, chest pain, shortness of breath. Review of Systems Constitutional: Constitutional: Reports no additional constitutional complaints Eyes: Eyes: Reports no additional eye complaints ENT: Reports Normal hearing present Cardiovascular: Cardiovascular: Reports no additional cardiovascular complaints Respiratory: Respiratory: Reports no additional respiratory complaints Gastrointestinal: Gastrointestinal: Reports as per HPI Genitourinary: Genitourinary: Reports as per HPI Musculoskeletal: Musculoskeletal: Reports no additional musculoskeletal complaints Neurologic: Denies headache(s) Psychiatric: Psychiatric: Reports no additional psychiatric complaints [facility] Past Medical History Medical History (Updated 12/18/24 @ 14:09 by Diana Griffin APRN) Depression Kidney stone Hypertension Surgical History Surgical History Previous back surgery History of right ankle joint replacement Family History Family History Mother Acute myocardial infarction Congestive heart failure Hypertension Social History Social History Smoking packs per day: 0.3 Smoking cigarettes per day: 6.0 Years smoked: 20 Smoking pack-years: 6.00 Smoking status: Former smoker Tobacco type: cigarettes Smoking end date: 03/21/02 Alcohol intake: current Drinks per week: 3 Alcohol use details: weekends Substance use: never Do You Feel Safe in your Home?: Yes Lack of Transportation: No Lack of Food: Never True Current Housing: I Have Housing Concerned About Future Housing: Decline to Answer Difficulty Paying Gas/Electric Bills: Decline to Answer Difficulty Paying for Meds: Decline to Answer Currently Unemployed: Decline to Answer Education: High School Diploma/GED Difficulty w/ Childcare or Family Care: Decline to Answer Living arrangements: with family Additional living arrangements comments: Gender identity (if verbalized by the patient): Male Spiritual care concerns: No Agree to blood products: Yes Meds Home Medications and Allergies Home Medications ?Medication ?Instructions ?Recorded ?Confirmed ?Type Adults Multivitamin 1 tablet PO DAILY 09/27/19 12/01/24 History allopurinol 300 mg tablet 300 mg PO DAILY 09/27/19 12/01/24 History citalopram 20 mg tablet 40 mg PO DAILY 09/27/19 12/01/24 History gabapentin 300 mg capsule 900 mg PO HS 09/27/19 12/01/24 History rivaroxaban 20 mg tablet (Xarelto) 20 mg PO DAILY #30 tabs 09/30/19 12/01/24 Rx losartan 50 mg tablet 100 mg PO DAILY 03/02/22 12/01/24 History omeprazole 20 mg capsule,delayed 40 mg PO DAILY 03/02/22 12/01/24 History release tamsulosin 0.4 mg capsule (Flomax) 0.4 mg PO HS 11/18/24 12/01/24 History vutrisiran 25 mg/0.5 mL 0.5 ml subcut [id number] 11/18/24 11/18/24 History subcutaneous syringe (Amvuttra) cephalexin 500 mg capsule 500 mg PO QID 7 days #28 caps 12/02/24 Rx docusate sodium 100 mg capsule 100 mg PO BID 4 days #8 caps 12/02/24 Rx hyoscyamine sulfate 0.125 mg 0.125 mg sublingual Q6H PRN 12/02/24 Rx disintegrating tablet (Anaspaz) Bladder Spasm 4 days #24 tabs Allergies Allergy/AdvReac Type Severity Reaction Status Date / Time Sulfa (Sulfonamide Allergy Intermediate rash Verified 12/18/24 09:57 Antibiotics) Vital Signs Vital Signs - 24 hr 12/18/24 10:42 12/18/24 11:45 12/18/24 13:44 Temperature 97.5 F L Pulse Rate 68 70 68 Respiratory Rate 16 16 16 Blood Pressure 146/132 H 128/97 H 164/83 H Pulse Oximetry 96 94 99 Exam Const: General: comfortable and no acute distress HENMT: Face/Nose/Sinus: Normal nares present Eyes: General: appearance normal, both eyes and all related structures Resp: Effort & Inspection: normal respiratory effort GI: Inspection: non-distended GI Palp: No Tenderness to palpation present (GI) Urinary Catheter: Urinary Catheter: patent and draining (24Fr 3-way on CBI) and urine red Skin: General skin exam: normal color and no rashes or lesions noted Neuro: Speech: normal speech Psych: Mental Status: mental status grossly normal H&P: Results Labs Labs: Short CBC 12/18/24 Range/Units 11:19 WBC 7.3 (4.5-10.0) K/mm3 Hgb 12.5 L (14.0-18.0) g/dL Hct 36.8 L (42.0-52.0) % Plt Count 221 (150-375) k/mm3 BMP 12/18/24 11:19 Sodium 137 Potassium 4.1 Chloride 105 Carbon Dioxide 21 L BUN 15 Creatinine 0.80 Glucose 87 Calcium 9.3 Assessment and Plan Assessment and plan (1) Gross hematuria: Code(s): R31.0 - Gross hematuria Status: Acute Assessment and Plan: - likely due to resuming anticoagulation s/p TURP, TURBT, Santos removal (2) Bladder cancer: Code(s): C67.9 - Malignant neoplasm of bladder, unspecified Status: Acute Assessment and Plan: 12/01/24 Pathology Bladder, tumor, TURBT: - Non-invasive low-grade papillary urothelial carcinoma (3) BPH w urinary obs/LUTS: Code(s): N40.1 - Benign prostatic hyperplasia with lower urinary tract symptoms; N13.8 - Other obstructive and reflux uropathy Status: Acute Assessment and Plan: - s/p TURP 12/01/24 - HS tamsulosin (4) Afib: Code(s): I48.91 - Unspecified atrial fibrillation Status: Acute Assessment and Plan: - Managed with Xarelto Plan - Place 3-way Santos for CBI overnight, titrate to clear - HOLD home anticoagulation - Labs in a.m. - Follow-up with Dr. Mcdaniels 12/24/24 as scheduled for post-op visit - Plan for outpatient cystoscopy in about 3 months
[2024-12-18 16:05] VITALS: BMI 32.2
--- NOTE | 2024-12-18 16:09 | PC.NURSE ---
This patient, Malik Street, was admitted to [facility] Surg Room 331-02. Patient/family oriented to hospital policies and general routines including ID bracelet, bed and alarms, visiting hours, pain management, procedures, bathroom and other care routines, personal items, smoking policy, room service/diet, and visiting hours. Information on how to activate the Rapid Response Team has been discussed. Patient/Family are encouraged to report perceived risks to care and to ask questions if they do not understand what they are told or what they should do.
--- NOTE | 2024-12-18 17:28 | PC.NURSE ---
RN spoke verbally with Dr. Mcdaniels at nurses station in regards to patient's plan of care. Dr. Mcdaniels stated to make patient NPO at midnight as the concreting supervisor urologist will decide tomorrow at 12/19/2024 if patient will need surgery or not.
[2024-12-18 21:25] VITALS: BP 158/79; PULSE 72; RESP 16; TEMP 36.6; O2SAT 98
[2024-12-18] MEDS: SOLIFENACIN 5 MG TABLET PO (22:14)
[2024-12-19 00:52] VITALS: BP 139/85; PULSE 67; RESP 20; TEMP 37.1; O2SAT 99
[2024-12-19 04:30] VITALS: BP 161/91; PULSE 66; RESP 18; TEMP 36.1; O2SAT 98
[2024-12-19 06:54] LABS: Hematocrit 34.2 % (42.0-52.0); Hemoglobin 11.4 g/dL (14.0-18.0)
[2024-12-19 07:08] LABS: Anion Gap 10 mmol/L (4-12); Blood Urea Nitrogen 14 mg/dL (9-20); Calcium 8.6 mg/dL (8.4-10.2); Carbon Dioxide 23 mmol/L (22-30); Chloride 105 mmol/L (98-107); Estimated CRCL calculation 77 ml/min; Estimated Glomerular Filt Rate > 60; Glucose 104 mg/dL (65-110); Potassium 3.7 mmol/L (3.4-5.0); Sodium 138 mmol/L (137-145)
--- NOTE | 2024-12-19 12:58 | WPDUROPN2 ---
Progress Note: A&P Assessment and Plan (1) Gross hematuria: Code(s): R31.0 - Gross hematuria Status: Acute Assessment and Plan: clot retention 2 weeks after TURP- clearing nicely. discussed DC today, but we will plan to make sure the rest of today goes without a hitch and plan for DC in the morning. will go home with hickey, has outpatient OV with Dr Mcdaniels Subjective Subjective Date/Time Seen: 12/19/24 12:58 Interval history: urine tap water clear, no patient complaints last to saturday Review of Systems Review of Systems: All systems reviewed & are unremarkable except as noted in HPI and below Exam Narrative: a&o, urine completely clear on moderate CBI Objective Data Vital Signs Vital Signs: Vital Signs - 24 hr 12/18/24 13:44 12/18/24 20:00 12/18/24 21:25 Temperature 36.6 C Pulse Rate 68 72 Respiratory Rate 16 16 Blood Pressure 164/83 H 158/79 H Pulse Oximetry 99 98 Oxygen Delivery Room Air 12/19/24 00:52 12/19/24 04:30 Temperature 37.1 C 36.1 C L Pulse Rate 67 66 Respiratory Rate 20 18 Blood Pressure 139/85 161/91 H Pulse Oximetry 99 98 Oxygen Delivery Intake/Output Intake/Output: Intake & Output 12/16/24 12/17/24 12/18/24 12/19/24 23:59 23:59 23:59 23:59 Intake Total 350 300 Output Total 73777 360 Balance -64538 -60 Meds/Results Medications: Active Medications Generic Name Dose Route Start Last Admin Trade Name Scottq PRN Reason Stop Dose Admin Acetaminophen 650 mg 12/18/24 14:58 Acetaminophen 325 Mg Tablet PO Q4H PRN Mild Pain (1-3) or Fever Polyethylene Glycol 17 gm 12/19/24 09:00 12/19/24 09:19 Polyethylene Glycol 3350 17 Gm Powd.Pack PO Not Given QAM NATI Senna 8.6 mg 12/18/24 15:22 Sennosides 8.6 Mg Tablet PO HS PRN Constipation Solifenacin 5 mg 12/18/24 14:53 12/18/24 22:14 Solifenacin 5 Mg Tablet PO 5 mg QAM PRN Administration Bladder Spasm Radiology Results: ITS Impressions Abdomen/Pelvis CT 12/18/24 12:38 IMPRESSION: Multiple 1 and 2 mm nonobstructing stones within the bilateral kidneys. Mural thickening and surrounding inflammatory change identified within the bladder, consistent with patient's presentation. Labs Labs: Laboratory Results - last 24 hr 12/19/24 06:38 Hgb 11.4 L Hct 34.2 L Sodium 138 Potassium 3.7 Chloride 105 Carbon Dioxide 23 Anion Gap 10 BUN 14 Creatinine 0.87 Estim Creat Clear Calc 77 Estimated GFR > 60 Glucose 104 Calcium 8.6
[2024-12-19 14:00] VITALS: BP 123/68; PULSE 70; RESP 18; TEMP 36.9; O2SAT 98
[2024-12-19 20:48] VITALS: BP 162/76; PULSE 69; RESP 18; TEMP 36.8; O2SAT 99
[2024-12-20 05:22] VITALS: BP 135/78; PULSE 62; RESP 18; TEMP 36.6; O2SAT 97
[2024-12-20 08:09] LABS: Hematocrit 37.6 % (42.0-52.0); Hemoglobin 12.7 g/dL (14.0-18.0)
[2024-12-20] MEDS: SOLIFENACIN 5 MG TABLET PO (08:53)
[2024-12-20] MEDS: polyethylene glycoL 3350 17 GM POWD.PACK PO (08:54)
--- NOTE | 2024-12-20 10:47 | WPDUROPN2 ---
Progress Note: A&P Assessment and Plan (1) Gross hematuria: Code(s): R31.0 - Gross hematuria Status: Acute Assessment and Plan: DC with hickey, hold xarelto for another 2 days, f/u with [facility] Subjective Subjective Date/Time Seen: 12/20/24 10:47 Interval history: had some issues early this AM with CBI, but was found to have not been spiked. US showed no clot. now clear yellow. home today. Review of Systems Review of Systems: All systems reviewed & are unremarkable except as noted in HPI and below Exam Narrative: no distress, feels well, urine clear yellow Objective Data Vital Signs Vital Signs: Vital Signs - 24 hr 12/19/24 14:00 12/19/24 20:00 12/19/24 20:48 Temperature 36.9 C 36.8 C Pulse Rate 70 69 Respiratory Rate 18 18 Blood Pressure 123/68 162/76 H Pulse Oximetry 98 99 Oxygen Delivery Room Air 12/20/24 05:22 Temperature 36.6 C Pulse Rate 62 Respiratory Rate 18 Blood Pressure 135/78 Pulse Oximetry 97 Oxygen Delivery Intake/Output Intake/Output: Intake & Output 12/17/24 12/18/24 12/19/24 12/20/24 23:59 23:59 23:59 23:59 Intake Total 350 950 450 Output Total 95024 1010 Balance -36569 -60 450 Meds/Results Medications: Active Medications Generic Name Dose Route Start Last Admin Trade Name Freq PRN Reason Stop Dose Admin Acetaminophen 650 mg 12/18/24 14:58 Acetaminophen 325 Mg Tablet PO Q4H PRN Mild Pain (1-3) or Fever Polyethylene Glycol 17 gm 12/19/24 09:00 12/20/24 08:54 Polyethylene Glycol 3350 17 Gm Powd.Pack PO 17 gm QAM NATI Administration Senna 8.6 mg 12/18/24 15:22 Sennosides 8.6 Mg Tablet PO HS PRN Constipation Solifenacin 5 mg 12/18/24 14:53 12/20/24 08:53 Solifenacin 5 Mg Tablet PO 5 mg QAM PRN Administration Bladder Spasm Radiology Results: ITS Impressions Abdomen/Pelvis CT 12/18/24 12:38 IMPRESSION: Multiple 1 and 2 mm nonobstructing stones within the bilateral kidneys. Mural thickening and surrounding inflammatory change identified within the bladder, consistent with patient's presentation. Pelvis Ultrasound 12/20/24 09:42 Impression: Urinary bladder collapsed around a Hickey catheter, limiting evaluation. No mass lesion or free fluid seen in the pelvis. Labs Labs: Laboratory Results - last 24 hr 12/20/24 07:43 Hgb 12.7 L Hct 37.6 L
--- NOTE | 2025-01-11 13:58 | PM.DS ---
DS: Admitting Diagnosis Discharge Date 12/20/24 Admitting Diagnosis Clot retention DS: Discharge Diagnosis Discharge Diagnosis Plan Gross hematuria resolved with a few days of continuous bladder irrigation. DS: Summary Hospital Course Reason for hospitalization: Gross hematuria a few weeks after TURP Hospital Course: patient was admitted for clot retention a few weeks after TURP. His anticoagulation was held and his hematuria resolved and he was discharged without incident. Time Spent with Patient Time attestation: Total time spent providing and/or coordinating discharge services: Discharge Plan Discharge Attending physician on discharge: Derick Manjarrez Consulting providers: Diana Griffin; Andres Foley; Diamante White Discharging Clinician: Derick Manjarrez Anticipated Discharge Date/Time: 12/20/24 10:48 Patient Disposition: Home, Self-Care Activity: february shower Diet: as tolerated Discharge Instructions: Drink plenty of fluids, 60-80 oz per day, resume xarelto in 2-3 days, follow up as scheduled with dr mcdaniels this week Patient Instructions: Antibiotic Form Patient Language: Croatian Stand Alone Forms: General Discharge Information Follow-up/Referrals: Wang Mcdaniels MD [Physician] - Discharge Medications: Continued losartan 50 mg tablet 50 mg PO DAILY omeprazole 20 mg Capsule,Delayed Release(Dr/Ec) 40 mg PO DAILY docusate sodium 100 mg Capsule 100 mg PO PRN Adults Multivitamin 1 tablet PO DAILY citalopram 20 mg tablet 20 mg PO DAILY gabapentin 300 mg capsule 900 mg PO HS allopurinol 300 mg tablet 300 mg PO DAILY Amvuttra 25 mg/0.5 mL syringe 0.5 ml subcut [id number] hyoscyamine sulfate [Anaspaz] 0.125 mg Tablet,Disintegrating 0.125 mg sublingual Q6H PRN (Reason: Bladder Spasm) 4 Days Qty: 24 0RF Held Xarelto 20 mg tablet 20 mg PO DAILY Qty: 30 3RF Hold Instructions: Resume on 12/22/24. Patient Comments: HOLD PER DR MCDANIELS ORDER Rx Instructions: Take one tablet daily with evening meal Date of admission: 12/18/24 13:33 Primary Care Provider: UNKNOWN,DOCTOR Admitting Provider: Wang Mcdaniels Attending physician on admission: Derick Manjarrez Condition: Stable
== END 2024-12-20 13:23 | disposition home or self-care (01) ==
LOC: ANHED 11:22 → ANH3MEDSUR 16:40
PROVIDERS: Nurse Practitioner; Admitting Provider Urology; Emergency Provider Physician Assistant; Visit Provider Urology
DX: R31.0 Gross hematuria (principal); C67.9 Malignant neoplasm of bladder, unspecified; N40.1 Benign prostatic hyperplasia with lower urinary tract symptoms; N13.8 Other obstructive and reflux uropathy; I48.91 Unspecified atrial fibrillation; I10 Essential (primary) hypertension; F32.A Depression, unspecified; Z87.891 Personal history of nicotine dependence; Z79.01 Long term (current) use of anticoagulants; Z79.899 Other long term (current) drug therapy; Z87.442 Personal history of urinary calculi
CPT/HCPCS: 36415; 74176; 76857; 80048; 85014; 85018; 85025; 85610; 85730; 99285; A9270; G0378

== ENCOUNTER 2025-08-20 15:05 | Outpatient (RCR) | payer OTHER, SELFPAY ==
--- NOTE | 2025-08-20 16:25 | OPREHPOC ---
Outpatient Therapy Plan of Care This is a Multidisciplinary Plan of Care that may contain components documented by all disciplines (PT, OT, and ST.) PT Problem 1 PT Problem #1 Knowledge Deficit PT Goal 1 Goal / Goal Update Independent and compliant with HEP. Target Visit 2 PT Problem 2 PT Problem #2 Impaired Strength PT Goal 1 Goal / Goal Update Pt to improve bilat hip strength to 5/5. Target Visit 15 PT Problem 3 PT Problem #3 Impaired Balance PT Goal 1 Goal / Goal Update Pt to improve TUB time to 10 sec or less. Pt to improve 5xSTS time to 10 sec or less. Pt to demo low fall risk per Tinetti. Pt to report no falls since beginning therapy. Target Visit 15 PT Problem 4 PT Problem #4 Impaired Gait PT Goal 1 Goal / Goal Update Pt to demonstrate improved foot clearance and out- toeing during ambulation. Target Visit 15
--- NOTE | 2025-08-20 16:25 | PTOPEVAL1 ---
Assessment and note entered by Halina Gandhi, PT Evaluation Information Assessment Status Evaluation ICD-10 Condition Codes (PT) Repeated falls R29.6,Difficulty Walking R26.2, Weakness R53.1 Other ICD-10 Condition Codes ( R54 PT) Onset 08/20/2022 Subjective Information Pt reports he's been struggling with his balance for 3 years. He reports he has been diagnosed with neuropathy and has numbness and tingling in his feet, as well as occasional R calf pain. He reports his last fall was 6-8 months ago where he fell backwards while going up his 4 steps to enter the house. He reports he has since installed a handrail on those stairs. He reports feeling like he's gotten pretty lax with going to the gym to keep his legs strong, however he does do yoga 3x/ week. He ambulates independently without AD. He reports he does not really struggle with balancing in his home but he does get unsteady when outdoors, and he has to be more attentive when outside and on uneven surfaces. He reports his goal for therapy is to develop a plan for exercises at home to develop his strength and balance. He does also report difficulty walking due to previous R ankle replacement, he feels like his R leg is shorter and he has to consciously change his gait to make it normal. Reported Pain Level Pain Score 0: Self Report Assessment PT Clinical Summary Mr. Street is a 80 yo male presenting to skilled PT for balance and ambulation deficits with history of R ankle arthroplasty and neuropathy. He demonstrates bilat hip weakness, gait deviations including excessive out-toeing on R foot and occasional catching on L foot, as well as mild balance deficits and history of repeated falls. He will benefit from skilled PT to improve strength and balance to avoid future falls. Plan of Care Interventions Electrical Stimulation,Gait Training,Hot Pack/Cold Pack,Manual Therapy,Neuro Re-education,Patient/ Caregiver Education,Therapeutic Activities, Therapeutic Exercise,Self-Care/Home Management PT Services Indicated Yes Treatment Frequency and 2x/week for 15 visits Duration These treatments will address the objective and functional deficits as defined above. The patient will be advanced safely and appropriately in order for the patient to progress towards his/her prior level of function. Additional exercises will be introduced and as well as a comprehensive home exercise program upon discharge, if needed, ?to ensure carryover of functional gains achieved in the clinic. This treatment plan has been reviewed and agreement upon by the patient.
--- NOTE | 2025-09-21 10:42 | OPREHPOC ---
Outpatient Therapy Plan of Care This is a Multidisciplinary Plan of Care that may contain components documented by all disciplines (PT, OT, and ST.) PT Problem 1 PT Problem #1 Knowledge Deficit PT Goal 1 Goal / Goal Update Independent and compliant with HEP. Target Visit 2 Progress Met PT Problem 2 PT Problem #2 Impaired Strength PT Goal 1 Goal / Goal Update Pt to improve bilat hip strength to 5/5. Target Visit 15 Progress Met PT Problem 3 PT Problem #3 Impaired Balance PT Goal 1 Goal / Goal Update Pt to improve TUG time to 10 sec or less. -met Pt to improve 5xSTS time to 10 sec or less. -not met Pt to demo low fall risk per Tinetti. -met Pt to report no falls since beginning therapy. - met Target Visit 15 Progress Partially Met PT Problem 4 PT Problem #4 Impaired Gait PT Goal 1 Goal / Goal Update Pt to demonstrate improved foot clearance and out- toeing during ambulation. Target Visit 15 Progress Met
--- NOTE | 2025-09-21 10:43 | PTOPDC ---
Assessment and note entered by Diana Gutierrez, PT Evaluation Information Assessment Status Discharge ICD-10 Condition Codes (PT) Repeated falls R29.6,Difficulty Walking R26.2, Weakness R53.1 Other ICD-10 Condition Codes ( R54 PT) Onset 08/20/2022 Subjective [address] Malik Street reports he is doing well. He notes improve strength and balance since he has been coming to PT. He has not had any falls and has been attending yoga classes 3 days a week. He plans to start going back to the gym 2 days a week for strengthening too. Reported Pain Level Pain Score 0: Self Report Assessment PT Clinical Summary Malik Street has completed 8 skilled PT visits for balance and ambulation deficits with history of R ankle arthroplasty and neuropathy. He demonstrates improved bilateral hip strength, improved balance scores, and improved gait. He has not had any falls and is independent in a home exercise program to continue hip strengthening and balance. He will be discharged from formal PT. Plan of Care PT Services Indicated No
== END 2025-09-21 20:00 | disposition home or self-care (01) ==
LOC: CHSPT 15:05
DX: R54 Age-related physical debility (principal)
CPT/HCPCS: 97110; 97112; 97161